=== PATIENT | male | born 1950 | race Caucasian/White ===

== ENCOUNTER 2017-04-21 14:42 | Outpatient (CLI) | payer MEDICARE, MEDICAID, SELFPAY ==
[2017-04-21 16:48] LABS: PHA INR Fingerstick 2.7 (0.9-1.1)
== END 2017-04-21 16:56 | disposition home or self-care (01) ==
LOC: ACC 14:45
PROVIDERS: Family Provider Internal Medicine; PCP Internal Medicine; Visit Provider Internal Medicine
DX: Z86.718 Personal history of other venous thrombosis and embolism (principal); Z79.01 Long term (current) use of anticoagulants; Z51.81 Encounter for therapeutic drug level monitoring
CPT/HCPCS: 85610; 99211; G0463

== ENCOUNTER 2017-06-06 12:28 | Outpatient (CLI) | payer MEDICARE, MEDICAID, SELFPAY ==
[2017-06-06 15:41] LABS: PHA INR Fingerstick 2.2 (0.9-1.1)
== END 2017-06-06 15:50 | disposition home or self-care (01) ==
LOC: ACC 12:29
PROVIDERS: Family Provider Internal Medicine; PCP Internal Medicine; Visit Provider Internal Medicine
DX: Z51.81 Encounter for therapeutic drug level monitoring (principal); Z86.718 Personal history of other venous thrombosis and embolism; Z86.711 Personal history of pulmonary embolism; Z79.01 Long term (current) use of anticoagulants
CPT/HCPCS: 85610; 99211; G0463

== ENCOUNTER 2017-07-19 10:45 | Outpatient (CLI) | payer MEDICARE, MEDICAID, SELFPAY ==
[2017-07-19 14:31] LABS: PHA INR Fingerstick 2.7 (0.9-1.1)
== END 2017-07-19 14:32 | disposition home or self-care (01) ==
LOC: ACC 10:46
PROVIDERS: Family Provider Internal Medicine; PCP Internal Medicine; Visit Provider Internal Medicine
DX: Z79.01 Long term (current) use of anticoagulants (principal); Z51.81 Encounter for therapeutic drug level monitoring; Z86.711 Personal history of pulmonary embolism
CPT/HCPCS: 85610; 99211; G0463

== ENCOUNTER 2017-09-05 10:45 | Outpatient (CLI) | payer MEDICARE, MEDICAID, SELFPAY ==
[2017-09-05 11:52] LABS: PHA INR Fingerstick 2.8 (0.9-1.1)
== END 2017-09-05 12:03 | disposition home or self-care (01) ==
PROVIDERS: Family Provider Internal Medicine; PCP Internal Medicine; Visit Provider Internal Medicine
DX: Z79.01 Long term (current) use of anticoagulants (principal); Z51.81 Encounter for therapeutic drug level monitoring; Z86.711 Personal history of pulmonary embolism
CPT/HCPCS: 85610; 99211; G0463

== ENCOUNTER 2017-10-17 10:52 | Outpatient (CLI) | payer MEDICARE, MEDICAID, SELFPAY ==
[2017-10-17 14:45] LABS: PHA INR Fingerstick 2.3 (0.9-1.1)
== END 2017-10-17 14:47 | disposition home or self-care (01) ==
LOC: ACC 10:53
PROVIDERS: PCP Internal Medicine; Visit Provider Internal Medicine
DX: Z79.01 Long term (current) use of anticoagulants (principal); Z51.81 Encounter for therapeutic drug level monitoring; Z86.711 Personal history of pulmonary embolism
CPT/HCPCS: 85610; 99211; G0463

== ENCOUNTER 2017-12-14 10:09 | Outpatient (CLI) | payer MEDICARE, MEDICAID, SELFPAY ==
[2017-12-14 10:54] LABS: PHA INR Fingerstick 2.2 (0.9-1.1)
== END 2017-12-14 10:55 | disposition home or self-care (01) ==
LOC: ACC 10:10
PROVIDERS: PCP Internal Medicine; Visit Provider Internal Medicine
DX: Z79.01 Long term (current) use of anticoagulants (principal)
CPT/HCPCS: 85610; 99211; G0463

== ENCOUNTER 2018-02-01 14:42 | Outpatient (CLI) | payer MEDICARE, MEDICAID, SELFPAY ==
[2018-02-01 15:23] LABS: PHA INR Fingerstick 1.8 (0.9-1.1)
== END 2018-02-01 15:29 | disposition home or self-care (01) ==
LOC: ACC 14:44
PROVIDERS: PCP Internal Medicine; Visit Provider Internal Medicine
DX: Z51.81 Encounter for therapeutic drug level monitoring (principal); Z79.01 Long term (current) use of anticoagulants
CPT/HCPCS: 85610; 99211; G0463

== ENCOUNTER 2018-03-03 09:27 | Outpatient (CLI) | payer MEDICARE, MEDICAID, SELFPAY | END 2018-03-03 10:51 | disposition home or self-care (01) | LOC: ACC 09:30 | PROVIDERS: PCP Internal Medicine; Visit Provider Internal Medicine | DX: Z51.81 Encounter for therapeutic drug level monitoring (principal); Z79.01 Long term (current) use of anticoagulants | CPT/HCPCS: 85610; 99211; G0463 ==

== ENCOUNTER 2018-04-14 09:41 | Outpatient (CLI) | payer MEDICARE, MEDICAID, SELFPAY ==
[2018-04-14 14:34] LABS: PHA INR Fingerstick 2.1 (0.9-1.1)
== END 2018-04-14 14:40 | disposition home or self-care (01) ==
LOC: ACC 09:43
PROVIDERS: PCP Internal Medicine; Visit Provider Internal Medicine
DX: Z51.81 Encounter for therapeutic drug level monitoring (principal); Z79.01 Long term (current) use of anticoagulants
CPT/HCPCS: 85610; 99211; G0463

== ENCOUNTER 2018-05-26 09:40 | Outpatient (CLI) | payer MEDICARE, MEDICAID, SELFPAY ==
[2018-05-26 16:05] LABS: PHA INR Fingerstick 2.3 (0.9-1.1)
== END 2018-05-26 16:08 | disposition home or self-care (01) ==
PROVIDERS: PCP Internal Medicine; Visit Provider Internal Medicine
DX: Z51.81 Encounter for therapeutic drug level monitoring (principal); Z79.01 Long term (current) use of anticoagulants; Z86.711 Personal history of pulmonary embolism
CPT/HCPCS: 85610; 99211; G0463

== ENCOUNTER 2018-07-05 10:42 | Outpatient (CLI) | payer MEDICARE, MEDICAID, SELFPAY ==
[2018-07-05 11:29] LABS: PHA INR Fingerstick 2.8 (0.9-1.1)
== END 2018-07-05 11:52 | disposition home or self-care (01) ==
LOC: ACC 10:43
PROVIDERS: PCP Internal Medicine; Visit Provider Internal Medicine
DX: Z51.81 Encounter for therapeutic drug level monitoring (principal); Z79.01 Long term (current) use of anticoagulants
CPT/HCPCS: 85610; 99211; G0463

== ENCOUNTER → 2018-07-31 14:34 | Outpatient (CLI) | payer MEDICARE, MEDICAID, SELFPAY ==
--- NOTE | 2018-07-31 14:46 | XR_ITS ---
XR chest 2V HISTORY: Hypertension, shortness of air, COPD ITS.REASON: HTN,COPD ORDERING PHYSICIAN: Constantine Lincoln PATIENT AGE: 68 years COMPARISON: 08/12/2014 FINDINGS: The cardiomediastinal silhouette and pulmonary vascularity are within normal limits. The lungs are clear without infiltrates, suspicious nodules, or pleural effusions. There are mild fibrotic changes in the anterior clear space. No acute bony abnormalities. IMPRESSION: No change with no acute finding.
[2018-07-31 14:54] LABS: Basophils # 0.1 K/mm3 (0-0.2); Basophils % 0.9 % (0.1-2.0); Eosinophils # 0.4 K/mm3 (0.0-0.4); Eosinophils % 3.8 % (0.1-12.0); Hematocrit 45.2 % (42.0-52.0); Hemoglobin 14.6 g/dL (14.1-18.0); Lymphocytes % 32.2 % (10-50); Mean Corpuscular HGB Conc 32.3 g/dL (31.8-35.4); Mean Corpuscular Hemoglobin 29.1 pg (27.0-31.2); Mean Platelet Volume 7.6 fl (7.4-10.4); Monocytes # 0.6 K/mm3 (0.1-1.0); Monocytes % 6.8 % (1.7-9.3); Neutrophils # 5.2 K/mm3 (1.8-7.8); Neutrophils % 56.3 % (37.0-80.0); Platelet Count 409 K/mm3 (142-424); Red Blood Count 5.02 M/mm3 (4.60-6.20); White Blood Count 9.2 K/mm3 (4.8-10.8)
[2018-07-31 15:18] LABS: Anion Gap 9.9 mEq/L (5-15); Blood Urea Nitrogen 15 mg/dL (7-18); Calcium 9.1 mg/dL (8.5-10.1); Carbon Dioxide 33 mmol/L (21.0-32.0); Chloride 99 mmol/L (98-107); Estimated Glomerular Filt Rate 66 ml/min (>60); GFR (African American) 80 ML/MIN (>60); Glucose 117 mg/dL (74-106); Potassium 3.9 mmoL/L (3.5-5.1); Sodium 138 mmol/L (136-145); Troponin I < 0.02 ng/ml (0.00-0.06)
--- NOTE | 2018-07-31 16:14 | CT_ITS ---
CT angio chest HISTORY: Chest pain, shortness of air, COPD ITS.REASON: CHEST PAIN,COPD ORDERING PHYSICIAN: Constantine Lincoln PATIENT AGE: 68 years COMPARISON: None TECHNIQUE: Axial images obtained following the administration of 75 mL of Optiray 350 . Sagittal, and coronal reformatted images are also generated and reviewed. All CT scans at the facility use one or more dose reduction, viz: automated exposure control, ma/kV adjustment per patient size (including targeted exams where dose is matched to indication, i.e. head), or iterative reconstruction technique. FINDINGS: There is no evidence of aortic aneurysm or dissection. There are coronary artery calcifications. No evidence of pulmonary embolus.. There are few small mediastinal and hilar lymph nodes. Largest node is in the precarinal region at 2.2 x 1.7 cm not significant change. Several lymph nodes contain calcification. There are scattered small nodular opacities in the lung bases posteriorly measuring up to 3 mm slightly more prominent than when compared to the previous exam possibly related to the technique. There are atelectatic or fibrotic changes in the left lung base medially. No effusions. No infiltrates. Upper abdominal images show severe stenosis of the proximal aspect of the celiac artery.. No acute bony anomalies. IMPRESSION: 1. No evidence of pulmonary embolus, aortic aneurysm, or aortic dissection. 2. There are scattered small pulmonary nodular opacities in the lung bases measuring up to 3 mm slightly more prominent than when compared to the previous exam. Consider 6 month follow-up. 3. 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 Coronary artery calcification
== END ==
PROVIDERS: Visit Provider Internal Medicine
DX: R07.9 Chest pain, unspecified; R06.02 Shortness of breath; I50.32 Chronic diastolic (congestive) heart failure; J44.9 Chronic obstructive pulmonary disease, unspecified
CPT/HCPCS: 36415; 71046; 71275; 80048; 83880; 84484; 85025; 93005; Q9967

== ENCOUNTER 2018-08-16 10:36 | Outpatient (CLI) | payer MEDICARE, MEDICAID, SELFPAY ==
[2018-08-16 12:05] LABS: PHA INR Fingerstick 2.3 (0.9-1.1)
== END 2018-08-16 15:07 | disposition home or self-care (01) ==
LOC: ACC 10:37
PROVIDERS: PCP Internal Medicine; Visit Provider Internal Medicine
DX: Z51.81 Encounter for therapeutic drug level monitoring (principal); Z79.01 Long term (current) use of anticoagulants
CPT/HCPCS: 85610; 99211; G0463

== ENCOUNTER 2018-10-10 09:41 | Outpatient (CLI) | payer MEDICARE, MEDICAID, SELFPAY ==
[2018-10-10 11:59] LABS: PHA INR Fingerstick 2.8 (0.9-1.1)
== END 2018-10-10 12:03 | disposition home or self-care (01) ==
LOC: ACC 09:42
PROVIDERS: PCP Internal Medicine; Visit Provider Internal Medicine
DX: Z51.81 Encounter for therapeutic drug level monitoring (principal); Z79.01 Long term (current) use of anticoagulants
CPT/HCPCS: 85610; 99211; G0463

== ENCOUNTER 2018-11-21 09:55 | Outpatient (CLI) | payer MEDICARE, MEDICAID, SELFPAY ==
[2018-11-21 14:35] LABS: PHA INR Fingerstick 2.6 (0.9-1.1)
== END 2018-11-21 14:42 | disposition home or self-care (01) ==
LOC: ACC 09:56
PROVIDERS: PCP Internal Medicine; Visit Provider Internal Medicine
DX: Z51.81 Encounter for therapeutic drug level monitoring (principal); Z79.01 Long term (current) use of anticoagulants; Z86.711 Personal history of pulmonary embolism
CPT/HCPCS: 85610; 99211; G0463

== ENCOUNTER 2019-01-12 10:57 | Outpatient (CLI) | payer MEDICARE, MEDICAID, SELFPAY ==
[2019-01-12 13:50] LABS: PHA INR Fingerstick 3.5 (0.9-1.1)
== END 2019-01-12 13:53 | disposition home or self-care (01) ==
LOC: ACC 10:58
PROVIDERS: PCP Internal Medicine; Visit Provider Internal Medicine
DX: Z51.81 Encounter for therapeutic drug level monitoring (principal); Z79.01 Long term (current) use of anticoagulants; Z86.718 Personal history of other venous thrombosis and embolism
CPT/HCPCS: 85610; 99211; G0463

== ENCOUNTER 2019-01-25 10:49 | Outpatient (CLI) | payer MEDICARE, MEDICAID, SELFPAY | END 2019-01-25 11:51 | disposition home or self-care (01) | LOC: ACC 10:50 | PROVIDERS: PCP Internal Medicine; Visit Provider Internal Medicine | DX: Z51.81 Encounter for therapeutic drug level monitoring (principal); Z79.01 Long term (current) use of anticoagulants | CPT/HCPCS: 85610; 99211; G0463 ==

== ENCOUNTER 2019-02-15 10:24 | Outpatient (CLI) | payer MEDICARE, MEDICAID, SELFPAY ==
[2019-02-15 11:25] LABS: PHA INR Fingerstick 2.1 (0.9-1.1)
== END 2019-02-15 11:28 | disposition home or self-care (01) ==
LOC: ACC 10:25
PROVIDERS: PCP Internal Medicine; Visit Provider Internal Medicine
DX: Z51.81 Encounter for therapeutic drug level monitoring (principal); Z79.01 Long term (current) use of anticoagulants
CPT/HCPCS: 85610; 99211; G0463

== ENCOUNTER 2019-03-14 10:41 | Outpatient (CLI) | payer MEDICARE, MEDICAID, SELFPAY ==
[2019-03-14 11:29] LABS: PHA INR Fingerstick 1.9 (0.9-1.1)
== END 2019-03-14 11:32 | disposition home or self-care (01) ==
LOC: ACC 10:42
PROVIDERS: PCP Internal Medicine; Visit Provider Internal Medicine
DX: Z51.81 Encounter for therapeutic drug level monitoring (principal); Z79.01 Long term (current) use of anticoagulants
CPT/HCPCS: 85610; 99211; G0463

== ENCOUNTER 2019-04-10 10:42 | Outpatient (CLI) | payer MEDICARE, MEDICAID, SELFPAY ==
[2019-04-10 14:09] LABS: PHA INR Fingerstick 2.6 (0.9-1.1)
== END 2019-04-10 14:11 | disposition home or self-care (01) ==
LOC: ACC 10:44
PROVIDERS: PCP Internal Medicine; Visit Provider Internal Medicine
DX: Z51.81 Encounter for therapeutic drug level monitoring (principal); Z79.01 Long term (current) use of anticoagulants
CPT/HCPCS: 85610; 99211; G0463

== ENCOUNTER 2019-05-29 10:39 | Outpatient (CLI) | payer MEDICARE, MEDICAID, SELFPAY ==
[2019-05-29 15:48] LABS: PHA INR Fingerstick 2.6 (0.9-1.1)
== END 2019-05-29 16:09 | disposition home or self-care (01) ==
LOC: ACC 10:40
PROVIDERS: PCP Internal Medicine; Visit Provider Internal Medicine
DX: Z51.81 Encounter for therapeutic drug level monitoring (principal); Z79.01 Long term (current) use of anticoagulants
CPT/HCPCS: 85610; 99211; G0463

== ENCOUNTER 2019-07-24 12:42 | Outpatient (CLI) | payer MEDICARE, MEDICAID, SELFPAY ==
[2019-07-24 13:49] LABS: PHA INR Fingerstick 1.9 (0.9-1.1)
== END 2019-07-24 14:41 | disposition home or self-care (01) ==
LOC: ACC 12:43
PROVIDERS: PCP Internal Medicine; Visit Provider Internal Medicine
DX: Z51.81 Encounter for therapeutic drug level monitoring (principal); Z79.01 Long term (current) use of anticoagulants; Z86.718 Personal history of other venous thrombosis and embolism
CPT/HCPCS: 85610; 99211; G0463

== ENCOUNTER 2019-09-17 10:43 | Outpatient (CLI) | payer MEDICARE, MEDICAID, SELFPAY ==
[2019-09-17 11:21] LABS: PHA INR Fingerstick 2.4 (0.9-1.1)
== END 2019-09-17 11:22 | disposition home or self-care (01) ==
LOC: ACC 10:44
PROVIDERS: PCP Internal Medicine; Visit Provider Internal Medicine
DX: Z51.81 Encounter for therapeutic drug level monitoring (principal); Z79.01 Long term (current) use of anticoagulants
CPT/HCPCS: 85610; 99211; G0463

== ENCOUNTER 2019-10-30 10:30 | Outpatient (CLI) | payer MEDICARE, MEDICAID, SELFPAY ==
[2019-10-30 11:15] LABS: PHA INR Fingerstick 2.4 (0.9-1.1)
== END 2019-10-30 11:16 | disposition home or self-care (01) ==
LOC: ACC 10:38
PROVIDERS: PCP Internal Medicine; Visit Provider Internal Medicine
DX: Z51.81 Encounter for therapeutic drug level monitoring (principal); Z79.01 Long term (current) use of anticoagulants
CPT/HCPCS: 85610; 99211; G0463

== ENCOUNTER 2019-12-13 10:56 | Outpatient (CLI) | payer MEDICARE, MEDICAID, SELFPAY ==
[2019-12-13 11:39] LABS: PHA INR Fingerstick 2.6 (0.9-1.1)
== END 2019-12-13 11:41 | disposition home or self-care (01) ==
LOC: ACC 10:57
PROVIDERS: PCP Internal Medicine; Visit Provider Internal Medicine
DX: Z79.01 Long term (current) use of anticoagulants (principal)
CPT/HCPCS: 85610; 99211; G0463

== ENCOUNTER → 2019-12-25 15:36 | Outpatient (CLI) | payer MEDICARE, MEDICAID, SELFPAY ==
--- NOTE | 2019-12-25 15:44 | XR_ITS ---
PROCEDURE: XR LUMBAR SPINE MIN 4V CLINICAL INDICATION: LUMBAR BACK PAIN COMPARISON: No exams were available for comparison FINDINGS: Normal alignment. No acute fracture or dislocation. There is degenerative disc disease from L3-S1 which is worse at L4-5 and L5-S1. Anterior osteophytes are present at these levels as well. There is mild facet arthritic changes L5-S1. Other findings:Vascular calcification noted. IMPRESSION: Degenerative disc disease with facet arthritic change Dictated by: Fan Cho MD 12/25/2019 16:04 Fan Cho MD in [place] 12/25/2019 16:04
== END ==
PROVIDERS: PCP Internal Medicine; Visit Provider Internal Medicine
DX: M54.5 Low back pain (principal)
CPT/HCPCS: 72110

== ENCOUNTER 2020-01-24 10:56 | Outpatient (CLI) | payer MEDICARE, MEDICAID, SELFPAY ==
[2020-01-24 13:03] LABS: PHA INR Fingerstick 2.2 (0.9-1.1)
== END 2020-01-24 14:52 | disposition home or self-care (01) ==
LOC: ACC 11:00
PROVIDERS: PCP Internal Medicine; Visit Provider Internal Medicine
DX: Z51.81 Encounter for therapeutic drug level monitoring (principal); Z79.01 Long term (current) use of anticoagulants
CPT/HCPCS: 85610; 99211; G0463

== ENCOUNTER 2020-03-06 10:53 | Outpatient (CLI) | payer MEDICARE, MEDICAID, SELFPAY ==
[2020-03-06 11:29] LABS: PHA INR Fingerstick 2.8 (0.9-1.1)
== END 2020-03-06 12:01 | disposition home or self-care (01) ==
LOC: ACC 10:55
PROVIDERS: PCP Internal Medicine; Visit Provider Internal Medicine
DX: Z51.81 Encounter for therapeutic drug level monitoring (principal); Z79.01 Long term (current) use of anticoagulants
CPT/HCPCS: 85610; 99211; G0463

== ENCOUNTER 2020-03-11 08:18 | Day surgery (SDC) | payer MEDICARE, MEDICAID, SELFPAY ==
[2020-03-04 10:46] VITALS: BMI 45.4
[2020-03-11 09:09] LABS: Coronavirus 19 IgG Antibody Negative (Negative); Coronavirus 19 IgM Antibody Negative (Negative)
[2020-03-11 09:40] VITALS: BP 123/58; PULSE 91; RESP 18; TEMP 36.5; O2SAT 95
[2020-03-11 10:06] LABS: POC Glucose,Bedside 113 (70-110)
[2020-03-11 10:55] VITALS: BP 143/73; PULSE 91; RESP 16; O2SAT 96
[2020-03-11 11:00] VITALS: BP 145/71; PULSE 93; RESP 16; O2SAT 94
[2020-03-11 11:05] VITALS: BP 151/67; PULSE 71; RESP 16; O2SAT 95
[2020-03-11 11:10] VITALS: BP 150/69; PULSE 73; RESP 16; O2SAT 95
[2020-03-11 11:12] VITALS: BP 144/82; PULSE 99; RESP 18; TEMP 36.4; O2SAT 93
== END 2020-03-11 11:26 | disposition home or self-care (01) ==
LOC: OUTP 08:20
PROVIDERS: PCP Internal Medicine; Visit Provider Ophthalmology
PROC: (CPT 66821; principal; 2020-03-11 09:00)
DX: H25.812 Combined forms of age-related cataract, left eye (principal); Z96.1 Presence of intraocular lens; H26.491 Other secondary cataract, right eye; E11.9 Type 2 diabetes mellitus without complications; Z88.8 Allergy status to other drugs, medicaments and biological substances; M19.90 Unspecified osteoarthritis, unspecified site; I48.91 Unspecified atrial fibrillation; J44.9 Chronic obstructive pulmonary disease, unspecified; I25.10 Atherosclerotic heart disease of native coronary artery without angina pectoris; H91.90 Unspecified hearing loss, unspecified ear; R03.0 Elevated blood-pressure reading, without diagnosis of hypertension; Z79.899 Other long term (current) drug therapy
CPT/HCPCS: 66821; 66984; 36415; 82962; 86328; V2632

== ENCOUNTER 2020-04-22 15:09 | Outpatient (CLI) | payer MEDICARE, MEDICAID, SELFPAY ==
[2020-04-22 16:31] LABS: PHA INR Fingerstick 3.3 (0.9-1.1)
== END 2020-04-22 16:37 | disposition home or self-care (01) ==
LOC: ACC 15:13
PROVIDERS: PCP Internal Medicine; Visit Provider Internal Medicine
DX: Z51.81 Encounter for therapeutic drug level monitoring (principal); Z79.01 Long term (current) use of anticoagulants
CPT/HCPCS: 85610; 99211; G0463

== ENCOUNTER 2020-05-16 10:32 | Outpatient (CLI) | payer MEDICARE, MEDICAID, SELFPAY ==
[2020-05-16 14:25] LABS: PHA INR Fingerstick 3.2 (0.9-1.1)
== END 2020-05-16 14:28 | disposition home or self-care (01) ==
LOC: ACC 10:34
PROVIDERS: PCP Internal Medicine; Visit Provider Internal Medicine
DX: Z51.81 Encounter for therapeutic drug level monitoring (principal); Z79.01 Long term (current) use of anticoagulants
CPT/HCPCS: 85610; 99211; G0463

== ENCOUNTER 2020-06-06 10:50 | Outpatient (CLI) | payer MEDICARE, MEDICAID, SELFPAY ==
[2020-06-06 15:11] LABS: PHA INR Fingerstick 2.2 (0.9-1.1)
== END 2020-06-06 15:13 | disposition home or self-care (01) ==
LOC: ACC 10:54
PROVIDERS: PCP Internal Medicine; Visit Provider Internal Medicine
DX: Z51.81 Encounter for therapeutic drug level monitoring (principal); Z79.01 Long term (current) use of anticoagulants
CPT/HCPCS: 85610; 99211; G0463

== ENCOUNTER → 2020-06-19 10:44 | Outpatient (CLI) | payer MEDICARE, MEDICAID, SELFPAY ==
--- NOTE | 2020-06-19 | CA_ITS ---
APPROVED REPORT Meat Hostess: JESSE Laterality: Bilateral Study Quality: Technically Limited, Due to body habitus. 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 Risk Factors Hypertension: Hyperlipidemia CAD, Diabetes, Doppler Spectral Velocity Analysis ECA (R) 110.00/9.70 cm/s ECA (L) 107.70/8.20 cm/s dICA (R) 78.60/17.20 cm/s dICA (L) 86.50/18.00 cm/s Edita (R) 86.80/15.70 cm/s Edita (L) 88.30/27.40 cm/s pICA (R) 65.80/10.50 cm/s pICA (L) 84.00/20.60 cm/s dCCA (R) 71.10/10.70 cm/s dCCA (L) 97.30/19.50 cm/s pCCA (R) 69.50/9.10 cm/s pCCA (L) 107.00/17.20 cm/s Vert (R) 29.20/9.00 cm/s Vert (L) 46.40/12.00 cm/s ICA/CCA 1.20 ICA/CCA 0.91 Findings Duplex evaluation demonstrates stenosis of the right proximal internal carotid artery <20% with PSV <140 cm/sec, EDV <100 cm/sec, and IC/CC Ratio <4.0. Duplex evaluation demonstrates antegrade flow of the bilateral Vertebral Arteries.Duplex evaluation demonstrates stenosis of the left proximal internal carotid artery <20% with PSV <140 cm/sec, EDV <100 cm/sec, and IC/CC Ratio <4.0. Electronically signed by : Fan Cho MD 06/19/2020 18:32:17
== END ==
PROVIDERS: PCP Internal Medicine; Visit Provider Internal Medicine
DX: I65.23 Occlusion and stenosis of bilateral carotid arteries (principal)
CPT/HCPCS: 93880

== ENCOUNTER 2020-06-27 14:04 | Outpatient (CLI) | payer MEDICARE, MEDICAID, SELFPAY ==
[2020-06-27 14:36] LABS: PHA INR Fingerstick 3.5 (0.9-1.1)
== END 2020-06-27 14:38 | disposition home or self-care (01) ==
LOC: ACC 14:04
PROVIDERS: PCP Internal Medicine; Visit Provider Internal Medicine
DX: Z51.81 Encounter for therapeutic drug level monitoring (principal); Z79.01 Long term (current) use of anticoagulants
CPT/HCPCS: 85610; 99211; G0463

== ENCOUNTER 2020-07-18 10:48 | Outpatient (CLI) | payer MEDICARE, MEDICAID, SELFPAY ==
[2020-07-18 16:17] LABS: PHA INR Fingerstick 2.5 (0.9-1.1)
== END 2020-07-18 16:23 | disposition home or self-care (01) ==
LOC: ACC 10:49
PROVIDERS: PCP Internal Medicine; Visit Provider Internal Medicine
DX: Z51.81 Encounter for therapeutic drug level monitoring (principal); Z79.01 Long term (current) use of anticoagulants
CPT/HCPCS: 85610; 99211; G0463

== ENCOUNTER → 2020-08-22 14:50 | Outpatient (CLI) | payer MEDICARE, MEDICAID, SELFPAY ==
--- NOTE | 2020-08-22 14:59 | XR_ITS ---
PROCEDURE: XR CHEST 2V CLINICAL HISTORY: COUGH, SOA COMPARISON: CR CXR CHEST(2 VIEWS-NOT PORTABLE) from 04/24/2013 CR CXR CHEST(2 VIEWS-NOT PORTABLE) from 07/16/2013 CR CXR CHEST(2 VIEWS-NOT PORTABLE) from 08/12/[address] angio chest from 07/31/2018 FINDINGS: The cardiomediastinal silhouette and pulmonary vascularity are within normal limits. The lungs are clear without infiltrates, suspicious nodules, or pleural effusions. No acute bony abnormalities. IMPRESSION: No acute findings. Dictated by: Fan Cho MD 08/22/2020 15:36 Fan Cho MD in [place] 08/22/2020 15:36
[2020-08-22 15:27] LABS: NT Pro Brain Natriuretic Pep. 187 pg/mL (0-125)
== END ==
PROVIDERS: Visit Provider Internal Medicine
DX: R06.02 Shortness of breath (principal); R05 Cough
CPT/HCPCS: 36415; 71046; 83880

== ENCOUNTER 2020-09-05 10:49 | Outpatient (CLI) | payer MEDICARE, MEDICAID, SELFPAY ==
[2020-09-05 12:59] LABS: PHA INR Fingerstick 2.7 (0.9-1.1)
== END 2020-09-05 13:10 | disposition home or self-care (01) ==
LOC: ACC 10:49
PROVIDERS: PCP Internal Medicine; Visit Provider Internal Medicine
DX: Z51.81 Encounter for therapeutic drug level monitoring (principal); Z79.01 Long term (current) use of anticoagulants
CPT/HCPCS: 85610; 99211; G0463

== ENCOUNTER 2020-10-15 10:55 | Outpatient (CLI) | payer MEDICARE, MEDICAID, SELFPAY | END 2020-10-15 12:00 | disposition home or self-care (01) | PROVIDERS: PCP Internal Medicine; Visit Provider Internal Medicine | DX: Z51.81 Encounter for therapeutic drug level monitoring (principal); Z79.01 Long term (current) use of anticoagulants | CPT/HCPCS: 85610; 99211; G0463 ==

== ENCOUNTER 2020-11-26 10:49 | Outpatient (CLI) | payer MEDICARE, MEDICAID, SELFPAY ==
[2020-11-26 14:35] LABS: PHA INR Fingerstick 3.7 (0.9-1.1)
== END 2020-11-26 14:39 | disposition home or self-care (01) ==
LOC: ACC 10:49
PROVIDERS: PCP Internal Medicine; Visit Provider Internal Medicine
DX: Z51.81 Encounter for therapeutic drug level monitoring (principal); Z79.01 Long term (current) use of anticoagulants
CPT/HCPCS: 85610; 99211; G0463

== ENCOUNTER 2020-12-10 11:03 | Outpatient (CLI) | payer MEDICARE, MEDICAID, SELFPAY ==
[2020-12-11 15:27] LABS: PHA INR Fingerstick 3.2 (0.9-1.1)
== END 2020-12-11 16:17 | disposition home or self-care (01) ==
LOC: ACC 11:06
PROVIDERS: PCP Internal Medicine; Visit Provider Internal Medicine
DX: Z51.81 Encounter for therapeutic drug level monitoring (principal); Z79.01 Long term (current) use of anticoagulants
CPT/HCPCS: 85610; 99211; G0463

== ENCOUNTER 2020-12-30 11:39 | Outpatient (CLI) | payer MEDICARE, MEDICAID, SELFPAY ==
[2020-12-30 14:52] LABS: PHA INR Fingerstick 2.8 (0.9-1.1)
== END 2020-12-30 16:58 | disposition home or self-care (01) ==
LOC: ACC 11:41
PROVIDERS: PCP Internal Medicine; Visit Provider Internal Medicine
DX: Z51.81 Encounter for therapeutic drug level monitoring (principal); Z79.01 Long term (current) use of anticoagulants
CPT/HCPCS: 85610; 99211; G0463

== ENCOUNTER 2021-01-23 10:41 | Outpatient (CLI) | payer MEDICARE, MEDICAID, SELFPAY ==
[2021-01-23 13:01] LABS: PHA INR Fingerstick 2.1 (0.9-1.1)
== END 2021-01-23 13:11 | disposition home or self-care (01) ==
LOC: ACC 10:42
PROVIDERS: PCP Internal Medicine; Visit Provider Internal Medicine
DX: Z51.81 Encounter for therapeutic drug level monitoring (principal); Z79.01 Long term (current) use of anticoagulants
CPT/HCPCS: 85610; 99211; G0463

== ENCOUNTER → 2021-02-02 11:31 | Outpatient (CLI) | payer MEDICARE, MEDICAID, SELFPAY | PROVIDERS: PCP Internal Medicine; Visit Provider Specialist | DX: I10 Essential (primary) hypertension (principal); R40.0 Somnolence; R06.83 Snoring; E66.9 Obesity, unspecified; G47.30 Sleep apnea, unspecified | CPT/HCPCS: G0399 ==

== ENCOUNTER 2021-03-03 12:28 | Outpatient (CLI) | payer MEDICARE, MEDICAID, SELFPAY ==
[2021-03-03 13:49] LABS: PHA INR Fingerstick 3.7 (0.9-1.1)
== END 2021-03-03 13:55 | disposition home or self-care (01) ==
LOC: ACC 12:29
PROVIDERS: PCP Internal Medicine; Visit Provider Internal Medicine
DX: Z51.81 Encounter for therapeutic drug level monitoring (principal); Z79.01 Long term (current) use of anticoagulants
CPT/HCPCS: 85610; 99211; G0463

== ENCOUNTER → 2021-03-11 18:17 | Outpatient (CLI) | payer MEDICARE, MEDICAID, SELFPAY ==
[2021-03-11 19:22] LABS: Hemoglobin A1C 6.7 % (4.0-6.0)
[2021-03-11 20:07] LABS: Alanine Aminotransferase 25 U/L (12-78); Albumin Level 4.2 g/dl (3.5-5.0); Albumin/Globulin Ratio 1.2 (1.1-1.8); Alkaline Phosphatase 138 U/L (38-126); Anion Gap 13.4 mEq/L (5-15); Aspartate Amino Transferase 39 U/L (17-59); Bilirubin,Total 0.3 mg/dl (0.2-1.3); Blood Urea Nitrogen 20 mg/dl (9-20); Calcium 8.8 mg/dl (8.4-10.2); Carbon Dioxide 34 mmol/L (22.0-30.0); Chloride 93 mmol/L (98-107); Chol/HDL Ratio 3.5 (1-3.5); Cholesterol 163 mg/dl (140-200); Estimated Glomerular Filt Rate 66 ml/min (>60); GFR (African American) 80 ML/MIN (>60); Globulin 3.4 g/dL (1.3-3.2); Glucose 121 mg/dl (74-100); HDL Cholesterol 46 mg/dl (40-60); Potassium 3.4 mmoL/L (3.5-5.1); Sodium 137 mmol/L (136-145); Total Protein,Serum 7.6 g/dl (6.3-8.2); Triglycerides 117 mg/dl (30-150); Uric Acid 7.8 mg/dl (3.5-8.5); VLDL Cholesterol 23 mg/dL (0-40)
[2021-03-11 20:18] LABS: Direct LDL Cholesterol 89.05 mg/dL (100-129)
== END ==
PROVIDERS: Visit Provider Internal Medicine
DX: I10 Essential (primary) hypertension (principal); I48.0 Paroxysmal atrial fibrillation; I50.32 Chronic diastolic (congestive) heart failure; E11.51 Type 2 diabetes mellitus with diabetic peripheral angiopathy without gangrene; E11.42 Type 2 diabetes mellitus with diabetic polyneuropathy; N39.43 Post-void dribbling; N40.1 Benign prostatic hyperplasia with lower urinary tract symptoms
CPT/HCPCS: 80053; 80061; 82043; 83036; 84550

== ENCOUNTER 2021-03-13 00:21 | Emergency (ER) | payer MEDICARE, MEDICAID, SELFPAY ==
[2021-03-13] VITALS (14 sets, daily range): BP systolic 99–198; BP diastolic 47–94; PULSE 108–124; RESP 15–26; TEMP 36.8; O2SAT 90–95; BMI 45.1
--- NOTE | 2021-03-13 00:19 | ECG_ITS ---
APPROVED REPORT Exam: Resting ECG HR:119 bpm ECG Measurements Heart Rate 119 AXES QRSd 102 QRS 115 QT 476 T 68 QTc 669 Conclusion Atrial fibrillation with rapid ventricular response with premature ventricular or aberrantly conducted complexes Right axis deviation Abnormal ECG Electronically signed by : Amadou Rachel MD 03/14/2021 08:38:11
--- NOTE | 2021-03-13 00:33 | XR_ITS ---
PROCEDURE INFORMATION: Exam: XR Chest Exam date and time: 03/13/2021 12:33 AM Age: 70 years old Clinical indication: Cough and dyspnea; Additional info: Dyspnea, cough TECHNIQUE: Imaging protocol: XR of the chest. Views: 2 views. COMPARISON: CR XR CHEST 2V 08/22/2020 3:21 PM FINDINGS: Lungs: Mild hyperinflation and interstitial coarsening suggesting COPD. No focal consolidation. Pleural spaces: No pleural effusion. No pneumothorax. Heart/Mediastinum: Heart size within normal limits. Mild aortic atherosclerosis. Bones/joints: Spondylosis. IMPRESSION: COPD. No acute finding.
[2021-03-13 00:40] LABS: Coronavirus 19, PCR Not Detected (NotDetected); Influenza A, PCR Not Detected (NotDetected); Influenza B, PCR Not Detected (NotDetected)
[2021-03-13 00:48] LABS: Basophils # 0.1 K/mm3 (0-0.2); Basophils % 0.6 % (0.1-2.0); Eosinophils # 0.1 K/mm3 (0.0-0.4); Eosinophils % 0.4 % (0.1-12.0); Hematocrit 42.3 % (42.0-52.0); Hemoglobin 14.3 g/dL (14.1-18.0); Lymphocytes # 2.1 K/mm3 (0.7-4.5); Lymphocytes % 14.5 % (10-50); Mean Corpuscular HGB Conc 33.9 g/dL (31.8-35.4); Mean Corpuscular Hemoglobin 30.1 pg (27.0-31.2); Mean Corpuscular Volume 88.9 fl (80-94); Mean Platelet Volume 8.6 fl (7.4-10.4); Monocytes # 0.9 K/mm3 (0.1-1.0); Monocytes % 6.3 % (1.7-9.3); Neutrophils # 11.1 K/mm3 (1.8-7.8); Neutrophils % 78.2 % (37.0-80.0); Platelet Count 357 K/mm3 (142-424); Red Blood Count 4.75 M/mm3 (4.60-6.20); Red Cell Distribution Width 14.2 % (11.5-17.5); White Blood Count 14.2 K/mm3 (4.8-10.8)
[2021-03-13 00:55] LABS: Alanine Aminotransferase 38 U/L (12-78); Albumin Level 4.3 g/dl (3.5-5.0); Albumin/Globulin Ratio 1.2 (1.1-1.8); Alkaline Phosphatase 136 U/L (38-126); Anion Gap 12.8 mEq/L (5-15); Aspartate Amino Transferase 65 U/L (17-59); Bilirubin,Total 0.3 mg/dl (0.2-1.3); Blood Urea Nitrogen 25 mg/dl (9-20); Calcium 8.9 mg/dl (8.4-10.2); Carbon Dioxide 31 mmol/L (22.0-30.0); Chloride 94 mmol/L (98-107); Creatinine Clearance Estimated 50 mL/min (50-200); Estimated Glomerular Filt Rate 60 ml/min (>60); GFR (African American) 72 ML/MIN (>60); Globulin 3.7 g/dL (1.3-3.2); Glucose 169 mg/dl (74-100); Sodium 135 mmol/L (136-145)
[2021-03-13 01:01] LABS: C-Reactive Protein 33.2 mg/L (0-4)
[2021-03-13 01:02] LABS: Potassium 2.8 mmoL/L (3.5-5.1)
--- NOTE | 2021-03-13 01:07 | PC.NURSE ---
received critical potassium 2.8. notified
[2021-03-13 01:09] LABS: NT Pro Brain Natriuretic Pep. 300 pg/mL (0-125)
[2021-03-13 01:10] LABS: Troponin I < 0.01 ng/ml (0.00-0.034)
[2021-03-13 01:12] LABS: Erythrocyte Sedimentation Rate 52 mm/hr (0-20)
[2021-03-13 01:15] LABS: Procalcitonin 0.258 ng/mL (0.0-2.0)
[2021-03-13 01:20] LABS: INR 1.83 (0.9-1.1); Prothrombin Time 19.8 seconds (10.1-12.5)
[2021-03-13 01:35] LABS: Magnesium 1.7 mg/dl (1.6-2.3)
--- NOTE | 2021-03-13 02:33 | HMH.EDSOB ---
ED Disposition Clinical Impression: Acute exacerbation of chronic obstructive airways disease, Hypokalemia, SIRS (systemic inflammatory response syndrome) Disposition: Home, Self-Care Condition on Discharge: Good Instructions: DI for Chronic Obstructive Pulmonary Disease Additional Instructions: use meds and call your pcp for follow up Prescriptions: Benzonatate [Benzonatate 100mg cap] 100 mg PO TID #21 cap Transmission Status: Pending to Clinic [facility] levoFLOXacin [Levaquin 500mg tab] 500 mg PO DAILY #7 tab Transmission Status: Pending to Clinic [facility] predniSONE [Prednisone 20mg Tab] 20 mg PO BID #10 tab Transmission Status: Pending to Clinic [facility] Referrals: Constantine Lincoln [Primary Care Provider] - - Critical Care Critical Care Time: No Attestation: On 03/13/21, the high probability of a clinically significant, sudden or life threatening deterioration of the following system(s) required my full and direct attention, intervention and personal management. The time I documented below is in addition to time spent performing reported procedures but includes the following listed in this critical care notation. Medical Decision Making - Medical Records Medical records reviewed: Yes: I reviewed the patient's medical records. - Asa Inquiry Pt receiving controlled substance: No Vital Signs: 03/13/21 00:25 03/13/21 01:00 03/13/21 01:02 Temperature 98.3 F Temperature Source Oral Pulse Rate 119 H 120 H Pulse Rate [Right Brachial] 118 H Respiratory Rate 24 18 Blood Pressure 133/70 Blood Pressure [Right Arm] 148/72 H Blood Pressure Mean [Right Arm] 97 Blood Pressure Source [Right Arm] Automatic Cuff Blood Pressure Position [Right Arm] Sitting 02 Sat by Pulse Oximetry 92 L 92 L Oxygen Delivery Method Room Air Room Air 03/13/21 01:31 03/13/21 02:30 03/13/21 03:00 Temperature Temperature Source Pulse Rate 118 H 115 H 117 H Pulse Rate [Right Brachial] Respiratory Rate 25 H 15 19 Blood Pressure 198/94 H 147/72 H 101/47 L Blood Pressure [Right Arm] Blood Pressure Mean [Right Arm] Blood Pressure Source [Right Arm] Blood Pressure Position [Right Arm] 02 Sat by Pulse Oximetry 94 L 93 L 92 L Oxygen Delivery Method Room Air 03/13/21 03:30 03/13/21 04:00 03/13/21 04:31 Temperature Temperature Source Pulse Rate 116 H 124 H 120 H Pulse Rate [Right Brachial] Respiratory Rate 18 20 26 H Blood Pressure 118/54 L 127/73 99/53 L Blood Pressure [Right Arm] Blood Pressure Mean [Right Arm] Blood Pressure Source [Right Arm] Blood Pressure Position [Right Arm] 02 Sat by Pulse Oximetry 91 L 95 90 L Oxygen Delivery Method 03/13/21 05:00 03/13/21 05:30 03/13/21 06:00 Temperature Temperature Source Pulse Rate 114 H 109 H 110 H Pulse Rate [Right Brachial] Respiratory Rate 19 22 19 Blood Pressure 115/59 L 113/64 123/59 L Blood Pressure [Right Arm] Blood Pressure Mean [Right Arm] Blood Pressure Source [Right Arm] Blood Pressure Position [Right Arm] 02 Sat by Pulse Oximetry 91 L 91 L 91 L Oxygen Delivery Method 03/13/21 06:30 Temperature Temperature Source Pulse Rate 108 H Pulse Rate [Right Brachial] Respiratory Rate 18 Blood Pressure 149/69 H Blood Pressure [Right Arm] Blood Pressure Mean [Right Arm] Blood Pressure Source [Right Arm] Blood Pressure Position [Right Arm] 02 Sat by Pulse Oximetry 91 L Oxygen Delivery Method - Lab Data Lab results reviewed: Yes: I reviewed the patient's lab results. Lab Results 03/13/21 00:29: WBC 14.2 H, RBC 4.75, Hgb 14.3, Hct 42.3, MCV 88.9, MCH 30.1, MCHC 33.9, RDW 14.2, Plt Count 357, MPV 8.6, Neut % (Auto) 78.2, Lymph % (Auto) 14.5, Milam % (Auto) 6.3, Eos % (Auto) 0.4, Baso % (Auto) 0.6, Neut # (Auto) 11.1 H, Lymph # (Auto) 2.1, Milam # (Auto) 0.9, Eos # (Auto) 0.1, Baso # (Auto) 0.1 03/13/21 00:29: Sodium 135 L, Potassium 2.8 L*, Chl
[2021-03-13 03:07] LABS: Lactic Acid 2.2 mmol/L (0.7-2.1)
[2021-03-13 06:53] LABS: Reflex Lactic Add Lactic Reflex
== END 2021-03-13 08:07 | disposition home or self-care (01) ==
PROVIDERS: Emergency Provider Emergency Medicine; PCP Internal Medicine
DX: J44.1 Chronic obstructive pulmonary disease with (acute) exacerbation (principal); R65.10 Systemic inflammatory response syndrome (SIRS) of non-infectious origin without acute organ dysfunction; E87.6 Hypokalemia; I25.2 Old myocardial infarction; I10 Essential (primary) hypertension; E11.9 Type 2 diabetes mellitus without complications; E78.5 Hyperlipidemia, unspecified; Z20.822 Contact with and (suspected) exposure to COVID-19; Z79.899 Other long term (current) drug therapy
CPT/HCPCS: 71046; 80053; 83605; 83735; 83880; 84145; 84484; 85025; 85610; 85651; 86140; 87040; 87070; 87205; 93005; 96365; 96366; 96367; 96375; 99284; C9803; J0456; U0003; U0005

== ENCOUNTER 2021-03-15 15:55 | Emergency (ER) | payer MEDICARE, MEDICAID, SELFPAY ==
[2021-03-15 16:13] VITALS: BP 122/70; PULSE 113; RESP 18; TEMP 36.8; O2SAT 93; BMI 42.5
--- NOTE | 2021-03-15 16:19 | XR_ITS ---
PROCEDURE INFORMATION: Exam: XR Chest Exam date and time: 03/15/2021 4:19 PM Age: 70 years old Clinical indication: Shortness of breath; Additional info: SOA TECHNIQUE: Imaging protocol: XR of the chest. Views: 1 view. COMPARISON: CR XR CHEST 2V 03/13/2021 12:33 AM FINDINGS: Lungs: Mild hyperexpansion with COPD. No consolidation. Pleural spaces: Unremarkable. No pleural effusion. No pneumothorax. Heart/Mediastinum: Unremarkable. No cardiomegaly. Bones/joints: Unremarkable. IMPRESSION: 1. No acute findings. 2. Stable from comparison.
[2021-03-15 16:45] LABS: ABG Base Excess 5.7 mmol/L (-2.4-2.3); ABG HCO3 28.9 mmhg (22.0-26.0); ABG Oxygen Saturation 92 % (90-100); ABG PCO2 38.1 mmhg (35.0-45.0); ABG PO2 59.5 mmhg (80-100); ABG TCO2 30.1 mmhg (23-27)
[2021-03-15 16:46] LABS: Allen's Test Acceptable; Source Right Radial
[2021-03-15 17:01] VITALS: BP 156/85; PULSE 111; RESP 17; O2SAT 93
--- NOTE | 2021-03-15 17:06 | HMH.EDGENADL ---
ED Disposition Clinical Impression: COPD exacerbation Disposition: Home, Self-Care Condition on Discharge: Good Instructions: DI for Chronic Obstructive Pulmonary Disease Additional Instructions: Please follow-up with your primary care physician in 2 to 3 days for further management. Continue to take your prednisone and levofloxacin as prescribed. You have also been given an MDI inhaler please take as needed. Please utilize your CPAP machine when available. Please return back to the emergency department for any concerning symptoms such as difficulty breathing, chest pain or any other concerning symptoms. Also please discuss with your doctor regarding starting an anxiolytic for your anxiety. Referrals: Constantine Lincoln [Primary Care Provider] - Time of Disposition: 18:00 - Critical Care Critical Care Time: No Attestation: On 03/15/21, the high probability of a clinically significant, sudden or life threatening deterioration of the following system(s) required my full and direct attention, intervention and personal management. The time I documented below is in addition to time spent performing reported procedures but includes the following listed in this critical care notation. Medical Decision Making - Medical Records Medical records reviewed: Yes: I reviewed the patient's medical records. - Asa Inquiry Pt receiving controlled substance: No Vital Signs: 03/15/21 16:13 03/15/21 17:01 03/15/21 17:58 Temperature 98.3 F 98.3 F Temperature Source Oral Oral Pulse Rate 111 H 113 H Pulse Rate [Right Radial] 113 H Respiratory Rate 18 17 18 Blood Pressure 156/85 H 136/76 Blood Pressure [Right Arm] 122/70 Blood Pressure Mean 104 Blood Pressure Mean [Right Arm] 87 Blood Pressure Source Automatic Cuff Blood Pressure Source [Right Arm] Automatic Cuff Blood Pressure Position Supine Blood Pressure Position [Right Arm] Supine 02 Sat by Pulse Oximetry 93 L 93 L Oxygen Delivery Method Room Air Room Air - Lab Data Lab results reviewed: Yes: I reviewed the patient's lab results. Lab Results 03/15/21 16:23: Specimen Source Right radial, ABG pH 7.50 H, ABG pCO2 38.1, ABG pO2 59.5 L, ABG HCO3 28.9 H, ABG Total CO2 30.1 H, ABG O2 Saturation 92, ABG Base Excess 5.7 H, Fan Test Acceptable Medical Decision Narrative: Mr. Hua is a 71-year-old male with past medical history for COPD who presents to the emergency department with cough and dyspnea. Patient has been seen multiple times in the emergency department for similar symptoms. Last visit was a few days prior patient was prescribed levofloxacin, prednisone and Tessalon Perles. Patient is currently satting well on room air and breathing comfortably. Patient has equal breath sounds bilaterally with no wheezing, rales or rhonchi. Bedside chest x-ray shows unchanged findings. VBG shows no evidence of hypercarbia. Patient is instructed to follow-up with his primary care physician regarding the CPAP machine. Patient is instructed to continue taking his medication during prior visit. Patient is given another inhaler as he reports this provides relief. Patient is also instructed to discuss with his primary care physician regarding anxiolytic medications as patient believes some of the symptoms are related to anxiety. Patient discharged in stable condition. General Adult HPI - General Chief complaint: Shortness of Breath/Dyspnea Stated complaint: SOB,Congestion,Weakness Time Seen by Provider: 03/15/21 16:30 Mode of Arrival: Ambulatory Source of Information: Patient Limitations: No Limitations Description of Symptoms (Recalled from ER Triage Doc. by RN): Pt was seen here on . He has not used his CPAP in over a month. He states that he feels like he gets into a coughing fit and cannot catch his breath. He feels like he is congested. He has hx of diabetes, CHF, and COPD. - History of Present Illness HPI narrative: I agree with tyree
[2021-03-15 17:58] VITALS: BP 136/76; PULSE 113; RESP 18; TEMP 36.8; O2SAT 93
== END 2021-03-15 17:58 | disposition home or self-care (01) ==
PROVIDERS: Emergency Provider Student in an Organized Health Care Education/Training Program; PCP Internal Medicine
DX: J44.1 Chronic obstructive pulmonary disease with (acute) exacerbation (principal); I10 Essential (primary) hypertension; E78.5 Hyperlipidemia, unspecified; E11.9 Type 2 diabetes mellitus without complications; I50.9 Heart failure, unspecified; F41.9 Anxiety disorder, unspecified; Z79.899 Other long term (current) drug therapy
CPT/HCPCS: 71045; 82803; 99282

== ENCOUNTER 2021-03-25 09:43 | Outpatient (CLI) | payer MEDICARE, MEDICAID, SELFPAY ==
[2021-03-25 14:48] LABS: PHA INR Fingerstick 2.4 (0.9-1.1)
== END 2021-03-25 15:21 | disposition home or self-care (01) ==
LOC: ACC 09:45
PROVIDERS: PCP Internal Medicine; Visit Provider Internal Medicine
DX: Z51.81 Encounter for therapeutic drug level monitoring (principal); Z79.01 Long term (current) use of anticoagulants
CPT/HCPCS: 85610; 99211; G0463

== ENCOUNTER 2021-04-26 19:31 | Emergency (ER) | payer MEDICARE, MEDICAID, SELFPAY ==
--- NOTE | 2021-04-26 19:38 | XR_ITS ---
PROCEDURE INFORMATION: Exam: XR Right Ribs with PA Chest Exam date and time: 04/26/2021 7:38 PM Age: 70 years old Clinical indication: Injury or trauma; Fall; Rib area; Blunt trauma (contusions or hematomas); Injury date: 04/25/2020; Additional info: Fall. PT is on warfarin. PT fell landed on RT ribs , pain under RT breast area ribs TECHNIQUE: Imaging protocol: XR Right ribs with PA chest. Views: 3 views COMPARISON: CR XR CHEST PORTABLE 03/15/2021 4:27 PM FINDINGS: Lungs: Unremarkable. No consolidation. Pleural spaces: Unremarkable. No pleural effusion. No pneumothorax. Heart/Mediastinum: Unremarkable. No cardiomegaly. Bones/joints: Unremarkable. IMPRESSION: No acute findings.
[2021-04-26 20:53] VITALS: BP 117/74; PULSE 107; RESP 18; TEMP 36.9; O2SAT 93; BMI 40.7
--- NOTE | 2021-04-26 21:29 | HMH.EDUTC ---
[facility] [place] Disposition Clinical Impression: Rib contusion Qualifiers: Encounter type: initial encounter Laterality: right Qualified Code(s): S20.211A - Contusion of right front wall of thorax, initial encounter Disposition: Home, Self-Care Condition on Discharge: Good Instructions: DI for Rib Contusion Additional Instructions: *Ibuprofen olayinka 6 hours with meal as needed for pain/inflammation *Not additional anti-inflammatory like motrin, aleve, advil with the above amount of ibuprofen. You can still take Tylenol every 4 hours as needed if you need something else for pain *Ice 20 minutes every 2 hours for the first 48 hours after the initial injury followed by moist heat every 20 minutes 3-4 times a day to affected area Over the counter Muscle Rub and lidocaine patches may help with pain and discomfort *Keep this area active, no movement leads to more stiffness, However take it easy and avoid heavy lifting pushing or pulling *Follow up with you family doctor if no improvement for further treatment Return if needed Straight to ER if any life threatening symptoms Referrals: Constantine Lincoln [Primary Care Provider] - As needed Time of Disposition: 21:31 Medical Decision Making - Asa Inquiry Pt receiving controlled substance: No Asa was queried for this patient: No Vital Signs: 04/26/21 20:53 Temperature 98.4 F Temperature Source Oral Pulse Rate [Left] 107 H Respiratory Rate 18 Blood Pressure [Right Arm] 117/74 Blood Pressure Mean [Right Arm] 88 02 Sat by Pulse Oximetry 93 L - Radiology Data #1 Image(s): Chest (with right ribs) Image Reviewed: Yes I have reviewed radiologist's interpretation IMPRESSION: No acute findings. [facility] [place] HPI - General Stated complaint: AO01/20 fall right side rib pain Time Seen by Provider: 04/26/21 21:29 Mode of Arrival: Ambulatory Source of Information: Patient Limitations: No Limitations Description of Symptoms (Recalled from Triage Doc. by RN): PT STATES HE FELL INTO HIS CAR THREE DAYS AGO. PT C/O R RIB PAIN. HEENT Symptoms (Recalled from RN notes): No Resp Symptoms (Recalled from RN notes): No Skin Symptoms (Recalled from RN notes): No MS Symptoms (Recalled from RN notes): Yes (R RIB PAIN) Functional Status (Recalled from RN notes): WNL - History of Present Illness Provider Complaint: Patient states that he was leaning into his van several days ago when he slipped and fell and landed on his right ribs and arm States that he was ok after that just a little sore State that he did have bruise on his right upper arm that is getting better but the soreness in his ribs has continued to hurt at times when he moves certain ways or takes a deep breath State that he was worried that he may have broken a rib so he came in to get checked States that he has been taking his Tramadol at home for the pain - Related Data Home Medications Medication Instructions Recorded Confirmed Bisoprolol Fumarate [Bisoprolol 5 mg PO DAILY 06/12/18 03/13/21 5mg Tablet] Furosemide [Furosemide 40MG tAB] 40 mg PO BID 06/12/18 03/13/21 Pravastatin Sodium [Pravachol 40mg 40 mg PO DAILY 06/12/18 03/13/21 Tablet] Tamsulosin HCl [Flomax 0.4mg 0.4 mg PO HS 06/12/18 03/13/21 capsule] Tramadol HCl [Tramadol 50mg 50 mg PO DAILY 06/12/18 03/13/21 Tab] Warfarin Sodium 4 mg PO DAILY 06/12/18 03/13/21 allopurinoL [Allopurinol 100mg 100 mg PO DAILY 06/12/18 03/13/21 tablet] Previous Rx's Medication Instructions Recorded Benzonatate [Benzonatate 100mg 100 mg PO TID #21 cap 03/13/21 cap] levoFLOXacin [Levaquin 500mg 500 mg PO DAILY #7 tab 03/13/21 tab] predniSONE [Prednisone 20mg 20 mg PO BID #10 tab 03/13/21 Tab] Allergies Allergy/AdvReac Type Severity Reaction Status Date / Time lisinopril Allergy Severe S-SWELLS-OR Verified 03/04/20 10:44 AL/THROAT hydrochlorothiazide Allergy Mild S-SWELLS-OR Verified 03/04/20 10:44 [From Sean] AL/THROAT
[2021-04-26 21:34] VITALS: BP 117/74; PULSE 107; RESP 18; TEMP 36.9
== END 2021-04-26 21:37 | disposition home or self-care (01) ==
PROVIDERS: Emergency Provider Nurse Practitioner; PCP Internal Medicine
DX: S20.211A Contusion of right front wall of thorax, initial encounter (principal); W18.00XA Striking against unspecified object with subsequent fall, initial encounter; Y92.89 Other specified places as the place of occurrence of the external cause; E11.9 Type 2 diabetes mellitus without complications; E78.5 Hyperlipidemia, unspecified; I10 Essential (primary) hypertension; I25.2 Old myocardial infarction
CPT/HCPCS: G0463; 71101; 99202

== ENCOUNTER 2021-05-06 09:48 | Outpatient (CLI) | payer MEDICARE, MEDICAID, SELFPAY ==
[2021-05-06 15:11] LABS: PHA INR Fingerstick 2.8 (0.9-1.1)
== END 2021-05-06 15:21 | disposition home or self-care (01) ==
LOC: ACC 09:51
PROVIDERS: PCP Internal Medicine; Visit Provider Internal Medicine
DX: Z51.81 Encounter for therapeutic drug level monitoring (principal); Z79.01 Long term (current) use of anticoagulants
CPT/HCPCS: 85610; 99211; G0463

== ENCOUNTER 2021-06-17 10:29 | Outpatient (CLI) | payer MEDICARE, MEDICAID, SELFPAY | END 2021-06-17 15:40 | disposition home or self-care (01) | LOC: ACC 10:33 | PROVIDERS: PCP Internal Medicine; Visit Provider Internal Medicine | DX: Z79.01 Long term (current) use of anticoagulants (principal); Z51.81 Encounter for therapeutic drug level monitoring | CPT/HCPCS: 85610; 99211; G0463 ==

== ENCOUNTER 2021-07-29 10:40 | Outpatient (CLI) | payer MEDICARE, MEDICAID, SELFPAY ==
[2021-07-29 14:32] LABS: PHA INR Fingerstick 2.1 (0.9-1.1)
== END 2021-07-29 14:36 | disposition home or self-care (01) ==
LOC: ACC 10:41
PROVIDERS: PCP Internal Medicine; Visit Provider Internal Medicine
DX: Z51.81 Encounter for therapeutic drug level monitoring (principal); Z79.01 Long term (current) use of anticoagulants
CPT/HCPCS: 85610; 99211; G0463

== ENCOUNTER → 2021-09-02 13:06 | Outpatient (CLI) | payer MEDICARE, MEDICAID, SELFPAY ==
[2021-09-02 15:31] LABS: Alanine Aminotransferase 20 U/L (12-78); Albumin Level 4.1 g/dl (3.5-5.0); Albumin/Globulin Ratio 1.2 (1.1-1.8); Alkaline Phosphatase 141 U/L (38-126); Aspartate Amino Transferase 32 U/L (17-59); Bilirubin,Total 0.4 mg/dl (0.2-1.3); Blood Urea Nitrogen 25 mg/dl (9-20); Calcium 8.7 mg/dl (8.4-10.2); Carbon Dioxide 27 mmol/L (22.0-30.0); Chloride 96 mmol/L (98-107); Chol/HDL Ratio 3.9 (1-3.5); Cholesterol 200 mg/dl (140-200); Estimated Glomerular Filt Rate 83 ml/min (>60); GFR (African American) 100 ML/MIN (>60); Globulin 3.5 g/dL (1.3-3.2); Glucose 156 mg/dl (74-100); HDL Cholesterol 51 mg/dl (40-60); Sodium 137 mmol/L (136-145); Total Protein,Serum 7.6 g/dl (6.3-8.2); Triglycerides 156 mg/dl (30-150); Uric Acid 6.5 mg/dl (3.5-8.5); VLDL Cholesterol 31 mg/dL (0-40)
[2021-09-02 15:43] LABS: Direct LDL Cholesterol 97.03 mg/dL (100-129)
[2021-09-02 16:07] LABS: Hemoglobin A1C 6.6 % (4.0-6.0)
[2021-09-02 17:58] LABS: Creatinine,Urine Random 22 mg/dL (Not Estab.)
[2021-09-02 18:06] LABS: Microalbumin < 6.000 mg/L (0-16.7)
== END ==
PROVIDERS: PCP Internal Medicine; Visit Provider Internal Medicine
DX: I25.10 Atherosclerotic heart disease of native coronary artery without angina pectoris (principal); I50.32 Chronic diastolic (congestive) heart failure; I48.0 Paroxysmal atrial fibrillation; E78.5 Hyperlipidemia, unspecified; E11.51 Type 2 diabetes mellitus with diabetic peripheral angiopathy without gangrene; J44.9 Chronic obstructive pulmonary disease, unspecified
CPT/HCPCS: 80053; 80061; 82043; 82570; 83036; 84550

== ENCOUNTER 2021-09-09 10:48 | Outpatient (CLI) | payer MEDICARE, MEDICAID, SELFPAY | END 2021-09-09 14:31 | disposition home or self-care (01) | LOC: ACC 10:50 | PROVIDERS: PCP Internal Medicine; Visit Provider Internal Medicine | DX: Z51.81 Encounter for therapeutic drug level monitoring (principal); Z79.01 Long term (current) use of anticoagulants | CPT/HCPCS: 85610; 99211; G0463 ==

== ENCOUNTER 2021-10-20 10:53 | Outpatient (CLI) | payer MEDICARE, MEDICAID, SELFPAY ==
[2021-10-20 12:05] LABS: PHA INR Fingerstick 1.8 (0.9-1.1)
== END 2021-10-20 12:07 | disposition home or self-care (01) ==
LOC: ACC 10:55
PROVIDERS: PCP Internal Medicine; Visit Provider Internal Medicine
DX: Z51.81 Encounter for therapeutic drug level monitoring (principal); Z79.01 Long term (current) use of anticoagulants
CPT/HCPCS: 85610; 99211; G0463

== ENCOUNTER 2021-12-01 14:51 | Outpatient (CLI) | payer MEDICARE, MEDICAID, SELFPAY ==
[2021-12-01 15:23] LABS: PHA INR Fingerstick 2.2 (0.9-1.1)
== END 2021-12-01 15:25 ==
LOC: ACC 14:52
PROVIDERS: PCP Pediatrics; Visit Provider Internal Medicine
DX: Z51.81 Encounter for therapeutic drug level monitoring (principal); Z79.01 Long term (current) use of anticoagulants
CPT/HCPCS: 85610; 99211; G0463

== ENCOUNTER 2022-01-12 13:19 | Outpatient (CLI) | payer MEDICARE, MEDICAID, SELFPAY ==
[2022-01-12 16:15] LABS: PHA INR Fingerstick 2.5 (0.9-1.1)
== END 2022-01-12 16:16 ==
LOC: ACC 13:20
PROVIDERS: PCP Internal Medicine; Visit Provider Internal Medicine
DX: Z51.81 Encounter for therapeutic drug level monitoring (principal); Z79.01 Long term (current) use of anticoagulants
CPT/HCPCS: 85610; 99211; G0463

== ENCOUNTER 2022-03-02 10:21 | Outpatient (CLI) | payer MEDICARE, MEDICAID, SELFPAY ==
[2022-03-02 15:35] LABS: PHA INR Fingerstick 3.4 (0.9-1.1)
== END 2022-03-02 15:40 ==
LOC: ACC 10:22
PROVIDERS: PCP Internal Medicine; Visit Provider Internal Medicine
DX: Z51.81 Encounter for therapeutic drug level monitoring (principal); Z79.01 Long term (current) use of anticoagulants
CPT/HCPCS: 85610; 99211; G0463

== ENCOUNTER 2022-03-16 10:54 | Outpatient (CLI) | payer MEDICARE, MEDICAID, SELFPAY ==
[2022-03-16 13:43] LABS: PHA INR Fingerstick 2.7 (0.9-1.1)
== END 2022-03-16 13:55 ==
LOC: ACC 10:55
PROVIDERS: PCP Internal Medicine; Visit Provider Internal Medicine
DX: Z51.81 Encounter for therapeutic drug level monitoring (principal); Z79.01 Long term (current) use of anticoagulants
CPT/HCPCS: 85610; 99211; G0463

== ENCOUNTER → 2022-03-30 16:21 | Outpatient (CLI) | payer MEDICARE, MEDICAID, SELFPAY ==
[2022-03-30 17:02] LABS: Basophils # 0.1 K/mm3 (0-0.2); Basophils % 0.8 % (0.1-2.0); Eosinophils # 0.3 K/mm3 (0.0-0.4); Eosinophils % 2.3 % (0.1-12.0); Hematocrit 43.6 % (42.0-52.0); Hemoglobin 14.3 g/dL (14.1-18.0); Lymphocytes # 3.3 K/mm3 (0.7-4.5); Lymphocytes % 24.6 % (10-50); Mean Corpuscular HGB Conc 32.7 g/dL (31.8-35.4); Mean Corpuscular Hemoglobin 30.7 pg (27.0-31.2); Mean Corpuscular Volume 93.7 fl (80-94); Mean Platelet Volume 9.4 fl (7.4-10.4); Monocytes # 0.9 K/mm3 (0.1-1.0); Monocytes % 6.8 % (1.7-9.3); Neutrophils # 8.7 K/mm3 (1.8-7.8); Neutrophils % 65.5 % (37.0-80.0); Platelet Count 403 K/mm3 (142-424); Red Blood Count 4.65 M/mm3 (4.60-6.20); Red Cell Distribution Width 14.1 % (11.5-17.5); White Blood Count 13.3 K/mm3 (4.8-10.8)
[2022-03-30 17:35] LABS: Alanine Aminotransferase 21 U/L (12-78); Albumin Level 4.2 g/dl (3.5-5.0); Albumin/Globulin Ratio 1.3 (1.1-1.8); Alkaline Phosphatase 141 U/L (38-126); Anion Gap 13.8 mEq/L (5-15); Aspartate Amino Transferase 27 U/L (17-59); Bilirubin,Total 0.7 mg/dl (0.2-1.3); Blood Urea Nitrogen 19 mg/dl (9-20); Calcium 9.4 mg/dl (8.4-10.2); Carbon Dioxide 31 mmol/L (22.0-30.0); Chloride 101 mmol/L (98-107); Chol/HDL Ratio 3.2 (1-3.5); Cholesterol 161 mg/dl (140-200); Estimated Glomerular Filt Rate 66 ml/min (>60); GFR (African American) 79 ML/MIN (>60); Globulin 3.2 g/dL (1.3-3.2); Glucose 84 mg/dl (74-100); HDL Cholesterol 51 mg/dl (40-60); Potassium 4.8 mmoL/L (3.5-5.1); Sodium 141 mmol/L (136-145); Total Protein,Serum 7.4 g/dl (6.3-8.2); Triglycerides 116 mg/dl (30-150); Uric Acid 5.1 mg/dl (3.5-8.5); VLDL Cholesterol 23 mg/dL (0-40)
[2022-03-30 17:45] LABS: Direct LDL Cholesterol 76.62 mg/dL (100-129)
[2022-03-30 18:08] LABS: Hemoglobin A1C 6.7 % (4.0-6.0)
== END ==
PROVIDERS: PCP Internal Medicine; Visit Provider Internal Medicine
DX: E11.51 Type 2 diabetes mellitus with diabetic peripheral angiopathy without gangrene (principal); I25.10 Atherosclerotic heart disease of native coronary artery without angina pectoris; I11.0 Hypertensive heart disease with heart failure; I50.32 Chronic diastolic (congestive) heart failure; I48.91 Unspecified atrial fibrillation; J30.9 Allergic rhinitis, unspecified; J44.9 Chronic obstructive pulmonary disease, unspecified; M10.9 Gout, unspecified; Z12.5 Encounter for screening for malignant neoplasm of prostate
CPT/HCPCS: 80053; 80061; 83036; 84550; 85025; G0103

== ENCOUNTER 2022-04-17 17:58 | Emergency (ER) | payer MEDICARE, MEDICAID, SELFPAY ==
[2022-04-17 17:59] VITALS: BP 121/71; PULSE 98; RESP 15; TEMP 36.7; O2SAT 96; BMI 43.3
--- NOTE | 2022-04-17 19:36 | PC.NURSE ---
Rechecked pt condition. Pt voiced no needs at this time.
--- NOTE | 2022-04-17 20:13 | PC.NURSE ---
Dr. Roe s/w pt
--- NOTE | 2022-04-17 20:19 | HMH.EDGENADL ---
Discharge Plan Disposition Patient Disposition: Home, Self-Care Condition: Good Prescriptions Prescriptions: New acyclovir 800 mg tablet 800 mg PO Q6H 7 Days Qty: 28 0RF gabapentin 400 mg capsule 400 mg PO BID Qty: 20 0RF lidocaine [Lidoderm] 5 % adhesive patch,medicated 1 patch topical DAILY Qty: 30 0RF Rx Instructions: leave on most painful area for up to 12 hrs No Action furosemide 40 MG tablet 40 mg PO BID pravastatin 40 MG tablet 40 mg PO DAILY allopurinol 100 MG tablet 100 mg PO DAILY tramadol 50 MG tablet 50 mg PO DAILY warfarin 4 MG tablet 4 mg PO DAILY bisoprolol fumarate 5 MG tablet 5 mg PO DAILY tamsulosin 0.4 MG capsule 0.4 mg PO HS prednisone 20 MG tablet 20 mg PO BID Qty: 10 0RF levofloxacin 500 MG tablet 500 mg PO DAILY Qty: 7 0RF benzonatate 100 MG capsule 100 mg PO TID Qty: 21 0RF Referrals Follow up/Referrals: Constantine Lincoln MD [Primary Care Provider] - See instructions Clinical Impressions Clinical Impression: Shingles Instructions Patient Instructions: DI for Shingles, Gabapentin, Acyclovir Discharge ED Provider: Kg Roe General Adult HPI General Chief complaint: Skin/Abscess/Foreign Body Stated complaint: Possible Shingles Time Seen by Provider: 04/17/22 20:08 Mode of Arrival: Ambulatory Source of Information: Patient and Significant Other Limitations: No Limitations Description of Symptoms (Recalled from ER Triage Doc. by RN): pt c/o of right lateral chest wall rash x 2 days with two demarcated areas of erythematous rash with vesicles and tender to palpation; pt reports no recent acute illness, denies neurological symptoms, and endorses having chicken pox when I was a kid , NAD History of Present Illness HPI narrative: 71-year-old male with past medical history of COPD, presenting with complaint of pain in the right lateral chest wall that started approximately 2 days ago with development of vesicular rash today. States very tender to palpation. Denies any fevers, chills, nausea, vomiting or other symptoms, denies any recent illnesses. He has tried no treatments for the symptoms thus far Related Data Home Medications Medication Instructions Recorded Confirmed allopurinol 100 mg tablet 100 mg PO DAILY gout 06/12/18 03/13/21 bisoprolol fumarate 5 mg tablet 5 mg PO DAILY blood pressure 06/12/18 03/13/21 furosemide 40 mg tablet 40 mg PO BID Fluid 06/12/18 03/13/21 pravastatin 40 mg tablet 40 mg PO DAILY Cholesterol 06/12/18 03/13/21 tamsulosin 0.4 mg capsule 0.4 mg PO HS bladder 06/12/18 03/13/21 tramadol 50 mg tablet 50 mg PO DAILY Pain 06/12/18 03/13/21 warfarin 4 mg tablet 4 mg PO DAILY hx of blood clots 06/12/18 03/13/21 Previous Rx's Medication Instructions Recorded benzonatate 100 mg capsule 100 mg PO TID #21 caps 03/13/21 levofloxacin 500 mg tablet 500 mg PO DAILY #7 tabs 03/13/21 prednisone 20 mg tablet 20 mg PO BID #10 tabs 03/13/21 acyclovir 800 mg tablet 800 mg PO Q6H Shingles 7 days #28 04/17/22 tabs gabapentin 400 mg capsule 400 mg PO BID #20 caps 04/17/22 lidocaine 5 % topical patch 1 patch topical DAILY #30 ea 04/17/22 (Lidoderm) Allergies Allergy/AdvReac Type Severity Reaction Status Date / Time lisinopril Allergy Severe S-SWELLS-OR Verified 03/04/20 10:44 AL/THROAT hydrochlorothiazide Allergy Mild S-SWELLS-OR Verified 03/04/20 10:44 [From Maxzide] AL/THROAT triamterene [From Maxzide] Allergy Mild S-SWELLS-OR Verified 03/04/20 10:44 AL/THROAT PFSH PFSH Disclaimer: The information contained in this section may have been updated after the patient was seen, as this information can be updated by other users. Social History Smoking Status: Never smoker alcohol intake: never current occupational status: retired Travel in the last 8 weeks: None household members: none housing:
[2022-04-17 20:34] VITALS: BP 120/75; PULSE 85; RESP 18; TEMP 36.8; O2SAT 98
--- NOTE | 2022-04-17 20:37 | PC.NURSE ---
Patients rx's retransmitted to [facility] due to Clinic being closed Tuesday. 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
== END 2022-04-17 20:38 | disposition home or self-care (01) ==
PROVIDERS: Emergency Provider Emergency Medicine; PCP Internal Medicine
DX: B02.9 Zoster without complications (principal)
CPT/HCPCS: 99283; 99284

== ENCOUNTER 2022-04-19 10:58 | Outpatient (CLI) | payer MEDICARE, MEDICAID, SELFPAY ==
[2022-04-19 15:25] LABS: PHA INR Fingerstick 2.6 (0.9-1.1)
== END 2022-04-19 15:28 ==
LOC: ACC 10:59
PROVIDERS: PCP Internal Medicine; Visit Provider Internal Medicine
DX: Z51.81 Encounter for therapeutic drug level monitoring (principal); Z79.01 Long term (current) use of anticoagulants
CPT/HCPCS: 85610; 99211; G0463

== ENCOUNTER 2022-06-03 10:58 | Outpatient (CLI) | payer MEDICARE, MEDICAID, SELFPAY ==
[2022-06-03 13:46] LABS: PHA INR Fingerstick 2.7 (0.9-1.1)
== END 2022-06-03 13:52 ==
LOC: ACC 10:59
PROVIDERS: PCP Internal Medicine; Visit Provider Internal Medicine
DX: Z51.81 Encounter for therapeutic drug level monitoring (principal); Z79.01 Long term (current) use of anticoagulants
CPT/HCPCS: 85610; 99211; G0463

== ENCOUNTER 2022-07-13 10:54 | Outpatient (CLI) | payer MEDICARE, MEDICAID, SELFPAY ==
[2022-07-13 11:14] LABS: PHA INR Fingerstick 2.9 (0.9-1.1)
== END 2022-07-13 11:16 ==
LOC: ACC 10:55
PROVIDERS: PCP Internal Medicine; Visit Provider Internal Medicine
DX: Z51.81 Encounter for therapeutic drug level monitoring (principal); Z79.01 Long term (current) use of anticoagulants
CPT/HCPCS: 85610; 99211; G0463

== ENCOUNTER → 2022-08-31 14:22 | Outpatient (CLI) | payer MEDICARE, MEDICAID, SELFPAY ==
--- NOTE | 2022-08-31 14:29 | XR_ITS ---
FINAL REPORT CLINICAL HISTORY: LEG INJURY, PAIN ANTERIOR FINDINGS: Two views of the right tibia-fibula demonstrate no acute fracture or dislocation. There is moderate medial and lateral compartment joint space narrowing consistent with moderately advanced osteoarthritis. The visualized bony structures are well aligned. There is soft tissue edema anterior to the tibia. IMPRESSION: No acute process. Reviewed, Interpreted and Dictated by Parrish Bello MD Transcribed by Ty Mckeon Authenticated and [facility]
== END ==
PROVIDERS: PCP Internal Medicine; Visit Provider Internal Medicine
DX: M79.662 Pain in left lower leg (principal); S89.92XA Unspecified injury of left lower leg, initial encounter
CPT/HCPCS: 73590

== ENCOUNTER 2022-09-06 12:44 | Outpatient (CLI) | payer MEDICARE, MEDICAID, SELFPAY | END 2022-09-06 14:46 | LOC: ACC 12:45 | PROVIDERS: PCP Internal Medicine; Visit Provider Internal Medicine | DX: Z51.81 Encounter for therapeutic drug level monitoring (principal); Z79.01 Long term (current) use of anticoagulants | CPT/HCPCS: 85610; 99211; G0463 ==

== ENCOUNTER 2022-10-18 11:18 | Outpatient (CLI) | payer MEDICARE, MEDICAID, SELFPAY ==
[2022-10-18 11:55] LABS: PHA INR Fingerstick 2.2 (0.9-1.1)
== END 2022-10-18 11:58 ==
LOC: ACC 11:19
PROVIDERS: PCP Internal Medicine; Visit Provider Internal Medicine
DX: Z79.01 Long term (current) use of anticoagulants (principal); Z51.81 Encounter for therapeutic drug level monitoring
CPT/HCPCS: 85610; 99211; G0463

== ENCOUNTER → 2022-10-20 13:21 | Outpatient (CLI) | payer MEDICARE, MEDICAID, SELFPAY ==
[2022-10-20 15:07] LABS: Alanine Aminotransferase 20 U/L (12-78); Albumin Level 3.9 g/dl (3.5-5.0); Albumin/Globulin Ratio 1.3 (1.1-1.8); Alkaline Phosphatase 137 U/L (38-126); Anion Gap 12.6 mEq/L (5-15); Aspartate Amino Transferase 24 U/L (17-59); Bilirubin,Total 0.2 mg/dl (0.2-1.3); Blood Urea Nitrogen 16 mg/dl (9-20); Calcium 8.6 mg/dl (8.4-10.2); Carbon Dioxide 31 mmol/L (22.0-30.0); Chloride 103 mmol/L (98-107); Chol/HDL Ratio 4.1 (1-3.5); Cholesterol 201 mg/dl (140-200); Estimated Glomerular Filt Rate 82 ml/min (>60); GFR (African American) 100 ML/MIN (>60); Glucose 132 mg/dl (74-100); HDL Cholesterol 49 mg/dl (40-60); Potassium 4.6 mmoL/L (3.5-5.1); Sodium 142 mmol/L (136-145); Total Protein,Serum 6.9 g/dl (6.3-8.2); Triglycerides 167 mg/dl (30-150); Uric Acid 5.6 mg/dl (3.5-8.5); VLDL Cholesterol 33 mg/dL (0-40)
[2022-10-20 15:18] LABS: Direct LDL Cholesterol 111.26 mg/dL (100-129)
[2022-10-20 15:44] LABS: Hemoglobin A1C 6.8 % (4.0-6.0)
[2022-10-20 15:54] LABS: Creatinine,Urine Random 149 mg/dL (Not Estab.)
== END ==
PROVIDERS: PCP Internal Medicine; Visit Provider Internal Medicine
DX: E11.51 Type 2 diabetes mellitus with diabetic peripheral angiopathy without gangrene (principal); E11.42 Type 2 diabetes mellitus with diabetic polyneuropathy; I25.10 Atherosclerotic heart disease of native coronary artery without angina pectoris; I48.91 Unspecified atrial fibrillation; I50.32 Chronic diastolic (congestive) heart failure; J44.9 Chronic obstructive pulmonary disease, unspecified
CPT/HCPCS: 80053; 80061; 82043; 82570; 83036; 84550

== ENCOUNTER 2022-12-08 10:56 | Outpatient (CLI) | payer MEDICARE, MEDICAID, SELFPAY ==
[2022-12-08 14:04] LABS: PHA INR Fingerstick 2.1 (0.9-1.1)
== END 2022-12-08 15:52 ==
LOC: ACC 10:57
PROVIDERS: PCP Internal Medicine; Visit Provider Internal Medicine
DX: Z79.01 Long term (current) use of anticoagulants (principal); Z51.81 Encounter for therapeutic drug level monitoring
CPT/HCPCS: 85610; 99211; G0463

== ENCOUNTER 2023-01-17 10:51 | Outpatient (CLI) | payer MEDICARE, MEDICAID, SELFPAY ==
[2023-01-17 11:10] LABS: PHA INR Fingerstick 2.7 (0.9-1.1)
== END 2023-01-17 11:12 ==
LOC: ACC 10:53
PROVIDERS: PCP Internal Medicine; Visit Provider Internal Medicine
DX: Z79.01 Long term (current) use of anticoagulants (principal); Z51.81 Encounter for therapeutic drug level monitoring
CPT/HCPCS: 85610; 99211; G0463

== ENCOUNTER 2023-03-07 10:15 | Outpatient (CLI) | payer MEDICARE, MEDICAID, SELFPAY ==
[2023-03-07 12:13] LABS: PHA INR Fingerstick 2.7 (0.9-1.1)
== END 2023-03-07 12:49 ==
LOC: ACC 10:16
PROVIDERS: PCP Internal Medicine; Visit Provider Internal Medicine
DX: Z79.01 Long term (current) use of anticoagulants (principal); Z51.81 Encounter for therapeutic drug level monitoring
CPT/HCPCS: 85610; 99211; G0463

== ENCOUNTER 2023-05-06 07:49 | Outpatient (CLI) | payer MEDICARE, MEDICAID, SELFPAY | END 2023-05-06 09:34 | LOC: ACC 07:51 | PROVIDERS: PCP Internal Medicine; Visit Provider Internal Medicine | DX: Z79.01 Long term (current) use of anticoagulants (principal); Z51.81 Encounter for therapeutic drug level monitoring | CPT/HCPCS: 85610; 99211; G0463 ==

== ENCOUNTER 2023-05-10 14:30 | Outpatient (CLI) | payer MEDICARE, MEDICAID, SELFPAY ==
[2023-05-10 15:35] LABS: Basophils # 0.1 K/mm3 (0-0.2); Basophils % 0.8 % (0.1-2.0); Eosinophils # 0.4 K/mm3 (0.0-0.4); Hematocrit 47.1 % (42.0-52.0); Hemoglobin 15.2 g/dL (14.1-18.0); Lymphocytes # 2.6 K/mm3 (0.7-4.5); Mean Corpuscular HGB Conc 32.3 g/dL (31.8-35.4); Mean Corpuscular Hemoglobin 30.7 pg (27.0-31.2); Mean Corpuscular Volume 95.1 fl (80-94); Monocytes # 0.8 K/mm3 (0.1-1.0); Monocytes % 7.9 % (1.7-9.3); Neutrophils # 5.9 K/mm3 (1.8-7.8); Neutrophils % 60.3 % (37.0-80.0); Platelet Count 349 K/mm3 (142-424); Red Blood Count 4.95 M/mm3 (4.60-6.20); White Blood Count 9.7 K/mm3 (4.8-10.8)
[2023-05-10 16:18] LABS: Hemoglobin A1C 6.9 % (4.0-6.0)
[2023-05-10 16:41] LABS: Alanine Aminotransferase 24 U/L (12-78); Albumin Level 4.1 g/dl (3.5-5.0); Albumin/Globulin Ratio 1.2 (1.1-1.8); Alkaline Phosphatase 143 U/L (38-126); Anion Gap 13.5 mEq/L (5-15); Aspartate Amino Transferase 31 U/L (17-59); Bilirubin,Total 0.4 mg/dl (0.2-1.3); Blood Urea Nitrogen 18 mg/dl (9-20); Calcium 8.7 mg/dl (8.4-10.2); Carbon Dioxide 36 mmol/L (22.0-30.0); Chloride 95 mmol/L (98-107); Chol/HDL Ratio 4.1 (1-3.5); Cholesterol 214 mg/dl (140-200); Estimated Glomerular Filt Rate 54 ml/min (>60); GFR (African American) 65 ML/MIN (>60); Globulin 3.4 g/dL (1.3-3.2); Glucose 135 mg/dl (74-100); HDL Cholesterol 52 mg/dl (40-60); Potassium 3.5 mmoL/L (3.5-5.1); Sodium 141 mmol/L (136-145); Total Protein,Serum 7.5 g/dl (6.3-8.2); Triglycerides 115 mg/dl (30-150); Uric Acid 6.8 mg/dl (3.5-8.5); VLDL Cholesterol 23 mg/dL (0-40)
[2023-05-10 16:52] LABS: Direct LDL Cholesterol 120.05 mg/dL (100-129)
[2023-05-10 17:11] LABS: Prostate Specific Ag Screen 1.4 ng/ml (0.0-4.0)
== END 2023-05-10 23:59 ==
LOC: LAB.DROPOF 14:31
PROVIDERS: PCP Internal Medicine; Visit Provider Internal Medicine
DX: E11.42 Type 2 diabetes mellitus with diabetic polyneuropathy (principal); E11.51 Type 2 diabetes mellitus with diabetic peripheral angiopathy without gangrene; I48.0 Paroxysmal atrial fibrillation; I25.10 Atherosclerotic heart disease of native coronary artery without angina pectoris; I50.32 Chronic diastolic (congestive) heart failure; I10 Essential (primary) hypertension; J44.9 Chronic obstructive pulmonary disease, unspecified; M10.9 Gout, unspecified; Z12.5 Encounter for screening for malignant neoplasm of prostate
CPT/HCPCS: 80053; 80061; 83036; 84550; 85025; G0103

== ENCOUNTER 2023-06-07 09:43 | Outpatient (CLI) | payer MEDICARE, MEDICAID, SELFPAY ==
[2023-06-07 14:18] LABS: PHA INR Fingerstick 2.1 (0.9-1.1)
== END 2023-06-07 15:07 ==
LOC: ACC 09:44
PROVIDERS: PCP Internal Medicine; Visit Provider Internal Medicine
DX: Z79.01 Long term (current) use of anticoagulants (principal); Z51.81 Encounter for therapeutic drug level monitoring
CPT/HCPCS: 85610; 99211; G0463

== ENCOUNTER 2023-07-14 19:47 | Observation (INO) | payer MEDICARE, MEDICAID, SELFPAY ==
[2023-07-14 19:47] VITALS: BP 119/67; PULSE 110; RESP 20; TEMP 37.1; O2SAT 96; BMI 43.0
--- NOTE | 2023-07-14 19:54 | CT_ITS ---
PROCEDURE INFORMATION: Exam: CTA Chest With Contrast Exam date and time: 07/14/2023 8:31 PM Age: 73 years old Clinical indication: Shortness of breath; Additional info: SOA, syncope TECHNIQUE: Imaging protocol: Computed tomographic angiography of the chest with contrast. Exam focused on the arteries. 3D rendering (Not supervised by radiologist): MIP and/or 3D reconstructed images were created by the technologist. Radiation optimization: All CT scans at this facility use at least one of these dose optimization techniques: automated exposure control; mA and/or kV adjustment per patient size (includes targeted exams where dose is matched to clinical indication); or iterative reconstruction. Contrast material: ISOVUE 370; Contrast volume: 70 ml; Contrast route: INTRAVENOUS (IV); COMPARISON: [facility] CT angio chest 07/31/2018 4:33 PM FINDINGS: Pulmonary arteries: Normal. No pulmonary emboli. Aorta: Unremarkable. No aortic aneurysm. No aortic dissection. Lungs: Patchy airspace opacities are noted in the posterior aspect of the right lower lobe in the anterolateral right lower lobe compatible with pneumonia. Questionable subtle area of infiltrate in the posterolateral left lower lobe. Interval development of a 3 mm nodule in the right middle lobe on axial image 63 and lateral right middle lobe on axial image 68. A new nodular appearing density measuring 6 mm noted in the posterior left lower lobe on image 101. Some other scattered small nodular densities are noted bilaterally which are otherwise similar to previous allowing for technical differences. Lung [place] otherwise clear. Pleural spaces: Unremarkable. No pneumothorax. No pleural effusion. Heart: Unremarkable. No cardiomegaly. No pericardial effusion. Coronary arteries: Mild coronary artery calcifications are noted. Lymph nodes: Mildly enlarged mediastinal nodes in the right paratracheal subcarinal and AP window region as well as the hilar regions [id number] are noted and unchanged compared to 07/31/2018. No evident new or increasing mediastinal or hilar adenopathy. Stomach and bowel: Stomach is somewhat distended with inhomogeneous fluid and air with relative high density of the fluid with a density of 46. Bones/joints: Unremarkable. No acute fracture. Soft tissues: Unremarkable. IMPRESSION: 1. No evident PE. 2. Multifocal patchy airspace opacities noted scattered throughout the right lower lobe including posteriorly and anteriorly and laterally compatible with pneumonia. There may also be a subtle area of potential infiltrate in the posterolateral left lower lobe. 3. Interval development of some new nodular appearing densities bilaterally largest measuring 6 mm on the left. For patients at low risk (minimal or absent history of smoking and of other known risk factors), recommend CT Chest at 3-6 months, then consider CT Chest at 18-24 months. For patients at high risk (history of smoking or of other known risk factors), recommend CT Chest at 3-6 months, then CT Chest at 18-24 months. (Reference: Edward) 4. Distended stomach with relative high density inhomogeneous fluid presumably something ingested. The possibility of hemorrhage within the stomach cannot be entirely excluded in the proper clinical setting. REFERENCES: Edward Angel, et al. Guidelines for Management of Incidental Pulmonary Nodules Detected on CT Images: From the Fleischner Society 2017. Radiology. 2017;284(1):228-243.
--- NOTE | 2023-07-14 19:55 | ECG_ITS ---
APPROVED REPORT Exam: Resting ECG HR:109 bpm ECG Measurements Heart Rate 109 AXES WI 145 P 85 QRSd 97 QRS 73 QT 376 T 35 QTc 440 Conclusion SINUS TACHYCARDIA Low voltage consistent with pulmonary disease. No STEMI -Seble Muñoz MD Electronically signed by : SEBLE MUÑOZ, 07/14/2023 23:40:21
--- NOTE | 2023-07-14 19:56 | HMH.EDGENADL ---
Discharge Plan Disposition Patient Disposition: Admitted Condition: Fair Chief Complaint: Syncope Prescriptions Prescriptions: No Action furosemide 40 MG tablet 40 mg PO BID pravastatin 40 MG tablet 40 mg PO DAILY allopurinol 100 MG tablet 100 mg PO DAILY tramadol 50 MG tablet 50 mg PO DAILY warfarin 4 MG tablet 4 mg PO DAILY bisoprolol fumarate 5 MG tablet 5 mg PO DAILY tamsulosin 0.4 MG capsule 0.4 mg PO HS prednisone 20 MG tablet 20 mg PO BID Qty: 10 0RF levofloxacin 500 MG tablet 500 mg PO DAILY Qty: 7 0RF benzonatate 100 MG capsule 100 mg PO TID Qty: 21 0RF acyclovir 800 mg tablet 800 mg PO Q6H 7 Days Qty: 28 0RF gabapentin 400 mg capsule 400 mg PO BID Qty: 20 0RF lidocaine [Lidoderm] 5 % adhesive patch,medicated 1 patch topical DAILY Qty: 30 0RF Rx Instructions: leave on most painful area for up to 12 hrs Referrals Follow up/Referrals: Provider,Referral, MD [Referring] - See instructions Clinical Impressions Clinical Impression: RLL pneumonia Instructions Patient Instructions: DI for Syncope in Adults (Fainting), DI for Syncope in Children (Fainting) Discharge ED Provider: Seble Muñoz General Adult HPI General Chief complaint: Syncope Stated complaint: fall Time Seen by Provider: 07/14/23 19:54 Mode of Arrival: EMS Source of Information: Patient and EMS Limitations: No Limitations Description of Symptoms (Recalled from ER Triage Doc. by RN): Patient is brought to ED from [facility] with a syncope episode that happened at home within the hour. Patient states he started amoxicillin last tuesday and every since he started that medication he has felt off . Patient reports increased nausea, weakness, and SOB. History of Present Illness HPI narrative: 73-year-old male with previous medical history of A-fib on warfarin, COPD, bronchitis presenting with syncope. Patient states he was walking at home when he began to feel lightheaded and slowly lost consciousness. He does not believe he hit his head or had any significant fall. When he awoke he had severe weakness, nausea, so called EMS. He states he has taken amoxicillin for the last 5 days due to a diagnosis of bronchitis that he received last week. He has been coughing for approximately 10 days. He has noted that since taking the amoxicillin he has felt generally lightheaded and different. Related Data Home Medications Medication Instructions Recorded Confirmed allopurinol 100 mg tablet 100 mg PO DAILY gout 06/12/18 03/13/21 bisoprolol fumarate 5 mg tablet 5 mg PO DAILY blood pressure 06/12/18 03/13/21 furosemide 40 mg tablet 40 mg PO BID Fluid 06/12/18 03/13/21 pravastatin 40 mg tablet 40 mg PO DAILY Cholesterol 06/12/18 03/13/21 tamsulosin 0.4 mg capsule 0.4 mg PO HS bladder 06/12/18 03/13/21 tramadol 50 mg tablet 50 mg PO DAILY Pain 06/12/18 03/13/21 warfarin 4 mg tablet 4 mg PO DAILY hx of blood clots 06/12/18 03/13/21 Previous Rx's Medication Instructions Recorded benzonatate 100 mg capsule 100 mg PO TID #21 caps 03/13/21 levofloxacin 500 mg tablet 500 mg PO DAILY #7 tabs 03/13/21 prednisone 20 mg tablet 20 mg PO BID #10 tabs 03/13/21 acyclovir 800 mg tablet 800 mg PO Q6H Shingles 7 days #28 04/17/22 tabs gabapentin 400 mg capsule 400 mg PO BID #20 caps 04/17/22 lidocaine 5 % topical patch 1 patch topical DAILY #30 ea 04/17/22 (Lidoderm) Allergies Allergy/AdvReac Type Severity Reaction Status Date / Time lisinopril Allergy Severe S-SWELLS-OR Verified 03/04/20 10:44 AL/THROAT hydrochlorothiazide Allergy Mild S-SWELLS-OR Verified 03/04/20 10:44 [From Maxzide] AL/THROAT triamterene [From Maxzide] Allergy Mild S-SWELLS-OR Verified 03/04/20 10:44 AL/THROAT PFSH PFSH Disclaimer: The information contained in this section may have been updated after the patient was seen, as this information can be updated by other users. Social History Smoking Status: Never smoker alcohol intake: never current occupational status: retired Travel in the last 8 weeks: None household members: none housing: apartment current occupational exposures/hazards: No caffeine: No ROS Obtained: Yes All systems reviewed & no additional complaints except as documented Physical Exam General General appearance: alert and obese Head Head exam: atraumatic, normocephalic and normal inspection Eye Eye exam: Present normal appearance, PERRL and EOMI ENT ENT exam: Present normal exam, normal oropharynx, mucous membranes moist, TM's normal bilaterally and normal external ear exam Neck Neck exam: Present normal inspection, full ROM and trachea midline; Absent meningismus or lymphadenopathy Chest Chest inspection: Present normal inspection and symmetric chest wall rise; Absent tenderness Respiratory Respiratory exam: Present normal lung sounds bilaterally; Absent respiratory distress Cardiovascular Cardiovascular exam: Present regular rate and normal rhythm; Absent JVD Abdominal Exam Abdominal exam: Present soft; Absent distention, tenderness or guarding Extremities Exam Extremities exam: Present normal inspection, full ROM and normal capillary refill; Absent calf tenderness Back Exam Back exam: Present normal inspection; Absent tenderness Neurological Exam Neurological exam: Present alert and oriented X3 Psychiatric Psychiatric exam: Present normal affect and normal mood Skin Skin exam: Present warm, dry, intact and normal color Lymphatic Lymphatic Findings: no adenopathy Medical Decision Making Asa Inquiry Pt receiving controlled substance: No Asa was queried for this patient: No Vital Signs: 07/14/23 19:47 07/14/23 20:00 07/14/23 21:18 Temperature 98.8 F Temperature Source Oral Pulse Rate 110 H 106 H Pulse Rate [Right Radial] 110 H Respiratory Rate 20 Blood Pressure 107/54 L 97/51 L Blood Pressure [Right Arm] 119/67 Blood Pressure Mean 71 61 Blood Pressure Mean [Right Arm] 84 Blood Pressure Source [Right Arm] Automatic Cuff Blood Pressure Position [Right Arm] Supine 02 Sat by Pulse Oximetry 96 95 98 Oxygen Delivery Method Nasal Cannula Oxygen Flow Rate (LPM) 2 2 2 07/14/23 21:30 Temperature Temperature Source Pulse Rate 106 H Pulse Rate [Right Radial] Respiratory Rate Blood Pressure 109/55 L Blood Pressure [Right Arm] Blood Pressure Mean 61 Blood Pressure Mean [Right Arm] Blood Pressure Source [Right Arm] Blood Pressure Position [Right Arm] 02 Sat by Pulse Oximetry 96 Oxygen Delivery Method Oxygen Flow Rate (LPM) 2 Lab Data Lab Results 07/14/23 19:31: WBC 16.9 H, RBC 3.96 L, Hgb 12.5 L, Hct 39.3 L, MCV 99.2 H, MCH 31.7 H, MCHC 31.9, RDW 13.8, Plt Count 421, MPV 8.6, Neut % (Auto) 61.6, Lymph % (Auto) 29.8, [place] % (Auto) 4.9, Eos % (Auto) 2.7, Baso % (Auto) 1.0, Neut # (Auto) 10.4 H, Lymph # (Auto) 5.0 H, [place] # (Auto) 0.8, Eos # (Auto) 0.5 H, Baso # (Auto) 0.2, Total Counted 100, Neutrophils % (Manual) 68, Lymphocytes % (Manual) 24, Monocytes % (Manual) 8, Platelet Estimate Normal, Hypochromasia 2+, Macrocytosis 1+, Sodium 139, Potassium 3.6, Chloride 99, Carbon Dioxide 34 H, Anion Gap 9.6, BUN 29 H, Creatinine 1.10, Estimated Creat Clear 54, Estimated GFR 65, Est GFR ( Amer) 79, Glucose 169 H, Calcium 8.5, Phosphorus 3.3, Magnesium 2.1, Total Bilirubin 0.4, AST 37, ALT 38, Alkaline Phosphatase 99, Troponin I < 0.01, NT-Pro-B Natriuret Pep 302, Total Protein 6.6, Albumin 3.3 L, Globulin 3.3 H, Albumin/Globulin Ratio 1.0 L 07/14/23 19:56: VBG pH 7.35, VBG pCO2 56.6 H, VBG pO2 46.5 H, VBG HCO3 30.4 H, VBG Total CO2 32.1 H, VBG O2 Saturation 78.3 H, VBG Base Excess 4.8 H, VBG Lactic Acid 5.1 H 07/14/23 19:31 07/14/23 19:31 Orders (Tests/Meds): ED MEDICATIONS Generic Name Dose Route Start Last Admin Trade Name Freq PRN Reason Stop Dose Admin Albuterol/Ipratropium 3 ml 07/14/23 20:00 07/14/23 20:52 Ipratropium/Albuterol 3 Ml Neb IH 08/13/23 19:59 3 ml Q1H RIKKI Administration Discontinued Medications Generic Name Dose Route Start Last Admin Trade Name Freq PRN Reason Stop Dose Admin Iopamidol 70 ml 07/14/23 20:38 07/14/23 20:39 Iopamidol-370 (76%);100ml Bottle IV 07/14/23 20:39 70 ml ONCE ONE Administration Sodium Chloride 10 ml 07/14/23 20:38 07/14/23 20:39 Sodium Chloride 0.9% 10ml Syr (Rad Only) IV 07/14/23 20:39 10 ml ONCE ONE Administration ORDERS Category Date Time Status CT angio chest PE protocol Stat Cat Scan 07/14/23 19:54 Completed BNP [NT Pro Brain Natriuretic Pep.] Stat Lab 07/14/23 19:31 Completed CBC [Complete Blood Count Auto Diff] Stat Lab 07/14/23 19:31 Completed CMP [Comprehensive Metabolic Panel] Stat Lab 07/14/23 19:31 Completed Lactate Venous Stat Lab 07/14/23 19:54 Ordered Magnesium Stat Lab 07/14/23 19:31 Completed Phosphorous Stat Lab 07/14/23 19:31 Completed Trop I [Troponin I] Stat Lab 07/14/23 19:31 Completed Troponin I Q3H Lab 07/14/23 23:00 Ordered Troponin I Q3H Lab 07/15/23 02:00 Ordered VBG [Venous Blood Gas] Stat RT 07/14/23 19:56 Completed ECG Data Tracing #1: I reviewed this ECG and interpreted as documented below: ECG initial impression date: 07/14/23 ECG initial impression time: 20:01 ECG normal with no acute: arrhythmias, ischemia, conduction abnormalities, chamber hypertrophy Arrhythmias present: sinus tach Medical Decision Narrative: Consider multiple causes of patient's syncope including neurogenic and cardiogenic syncope from MA or arrhythmia or another cause, as well as PE, pneumothorax, aortic dissection, among others. On further discussion patient also reported that he has had some increased aspiration with meals over the past few weeks and has coughing fits almost every time he eats. Therefore consider that he may have an aspiration pneumonia rather than the bronchitis that he was diagnosed with. Obtained labs including CBC, BMP, which were significant for mild leukocytosis and mild anemia. Troponin was undetectable. CT PE I independently reviewed and interpreted showed right lower lobe pneumonia. Also discussed with radiologist that there was concern for possible blood in the stomach however patient does not have any sign of this on exam or on his labs and he denies melanotic stools, blood in stools, or blood in vomit. For this reason had interactive discussion with hospital medicine who agreed to admit the patient for pneumonia and weakness on attempted ambulation. Also discussed with them possible blood in the stomach given his anticoagulant use, though this is somewhat unlikely however they agree they will monitor for melena or other signs of bleeding. He remained stable until time of admission aside from asymptomatic mild hypotension with maps approximately 65. Gave LR, ceftriaxone and azithromycin for pneumonia treatment as well as DuoNebs for his comfort. Critical Care Critical Care Time Critical Care Time: No
--- NOTE | 2023-07-14 19:59 | PC.NURSE ---
Called respiratory to notify of VBG in lab at this time.
[2023-07-14 20:00] VITALS: BP 107/54; PULSE 110; O2SAT 95
[2023-07-14 20:06] LABS: VBG Base Excess 4.8 mmol/L (-2.4-2.3); VBG HCO3 30.4 mmol/L (23-30); VBG Oxygen Saturation 78.3 % (50-70); VBG PCO2 56.6 mmol/L (35-51); VBG PH 7.35 mmol/L (7.31-7.41); VBG PO2 46.5 mmol/L (28-40); VBG Total CO2 32.1 mmol/L (23-27)
[2023-07-14 20:07] LABS: Chloride 99 mmol/L (98-107); Potassium 3.6 mmoL/L (3.5-5.1); Sodium 139 mmol/L (136-145)
[2023-07-14 20:10] LABS: Lactate Venous 5.1 mmol/L (0.4-2.0)
[2023-07-14 20:10] LABS: Alanine Aminotransferase 38 U/L (12-78); Albumin Level 3.3 g/dl (3.5-5.0); Alkaline Phosphatase 99 U/L (38-126); Anion Gap 9.6 mEq/L (5-15); Aspartate Amino Transferase 37 U/L (17-59); Bilirubin,Total 0.4 mg/dl (0.2-1.3); Blood Urea Nitrogen 29 mg/dl (9-20); Calcium 8.5 mg/dl (8.4-10.2); Carbon Dioxide 34 mmol/L (22.0-30.0); Creatinine Clearance Estimated 54 mL/min (50-200); Estimated Glomerular Filt Rate 65 ml/min (>60); GFR (African American) 79 ML/MIN (>60); Globulin 3.3 g/dL (1.3-3.2); Glucose 169 mg/dl (74-100); Magnesium 2.1 mg/dl (1.6-2.3); Phosphorous 3.3 mg/dl (2.5-4.5); Total Protein,Serum 6.6 g/dl (6.3-8.2)
[2023-07-14 20:18] LABS: Basophils # 0.2 K/mm3 (0-0.2); Eosinophils # 0.5 K/mm3 (0.0-0.4); Eosinophils % 2.7 % (0.1-12.0); Hematocrit 39.3 % (42.0-52.0); Hemoglobin 12.5 g/dL (14.1-18.0); Lymphocytes % 29.8 % (10-50); Mean Corpuscular HGB Conc 31.9 g/dL (31.8-35.4); Mean Corpuscular Hemoglobin 31.7 pg (27.0-31.2); Mean Corpuscular Volume 99.2 fl (80-94); Mean Platelet Volume 8.6 fl (7.4-10.4); Monocytes # 0.8 K/mm3 (0.1-1.0); Monocytes % 4.9 % (1.7-9.3); Neutrophils # 10.4 K/mm3 (1.8-7.8); Neutrophils % 61.6 % (37.0-80.0); Platelet Count 421 K/mm3 (142-424); Red Blood Count 3.96 M/mm3 (4.60-6.20); Red Cell Distribution Width 13.8 % (11.5-17.5); White Blood Count 16.9 K/mm3 (4.8-10.8)
[2023-07-14 20:20] LABS: NT Pro Brain Natriuretic Pep. 302 pg/mL (0-450)
[2023-07-14 20:21] LABS: MANUAL DIFFERENTIAL MANUAL DIFFERENTIAL (MANUAL DIFF)
[2023-07-14 20:24] LABS: Troponin I < 0.01 ng/ml (0.00-0.034)
[2023-07-14] MEDS: IOPAMIDOL-370 (76%);100ML BOTTLE 70 ML IV (20:39)
[2023-07-14] MEDS: SODIUM CHLORIDE 0.9% 10ML SYR (RAD ONLY) 10 ML IV (20:39)
[2023-07-14 20:44] LABS: Lymphocytes % 24 % (10-50); Monocytes % 8 % (2-9); Neutrophils % 68 % (42-76); Total Cells Counted 100
[2023-07-14 20:45] LABS: Hypochromasia 2+; Macrocytosis 1+; Platelet Estimate Normal
[2023-07-14] MEDS: IPRATROPIUM/ALBUTEROL 3 ML NEB IH (20:52)
[2023-07-14 21:18] VITALS: BP 97/51; PULSE 106; O2SAT 98
[2023-07-14 21:30] VITALS: BP 109/55; PULSE 106; O2SAT 96
--- NOTE | 2023-07-14 21:34 | PC.NURSE ---
on phone with hospitalist at this time
--- NOTE | 2023-07-14 21:35 | PC.NURSE ---
notified bottle house pumper of admission
--- NOTE | 2023-07-14 21:40 | HMH.EDGENADL ---
Discharge Plan Disposition Patient Disposition: Admitted Condition: Fair Prescriptions Prescriptions: No Action furosemide 40 MG tablet 40 mg PO BID pravastatin 40 MG tablet 40 mg PO DAILY allopurinol 100 MG tablet 100 mg PO DAILY tramadol 50 MG tablet 50 mg PO DAILY warfarin 4 MG tablet 4 mg PO DAILY bisoprolol fumarate 5 MG tablet 5 mg PO DAILY tamsulosin 0.4 MG capsule 0.4 mg PO HS prednisone 20 MG tablet 20 mg PO BID Qty: 10 0RF levofloxacin 500 MG tablet 500 mg PO DAILY Qty: 7 0RF benzonatate 100 MG capsule 100 mg PO TID Qty: 21 0RF acyclovir 800 mg tablet 800 mg PO Q6H 7 Days Qty: 28 0RF gabapentin 400 mg capsule 400 mg PO BID Qty: 20 0RF lidocaine [Lidoderm] 5 % adhesive patch,medicated 1 patch topical DAILY Qty: 30 0RF Rx Instructions: leave on most painful area for up to 12 hrs Referrals Follow up/Referrals: Provider,Referral, MD [Referring] - See instructions Clinical Impressions Clinical Impression: RLL pneumonia Qualifiers: Aspiration pneumonia type: unspecified Instructions Patient Instructions: DI for Syncope in Adults (Fainting), DI for Syncope in Children (Fainting) Discharge ED Provider: Seble Muñoz General Adult HPI General Chief complaint: Syncope Stated complaint: fall Time Seen by Provider: 07/14/23 19:54 Mode of Arrival: EMS Source of Information: Patient and EMS Limitations: No Limitations Description of Symptoms (Recalled from ER Triage Doc. by RN): Patient is brought to ED from [facility] with a syncope episode that happened at home within the hour. Patient states he started amoxicillin last tuesday and every since he started that medication he has felt off . Patient reports increased nausea, weakness, and SOB. Related Data Home Medications Medication Instructions Recorded Confirmed allopurinol 100 mg tablet 100 mg PO DAILY gout 06/12/18 03/13/21 bisoprolol fumarate 5 mg tablet 5 mg PO DAILY blood pressure 06/12/18 03/13/21 furosemide 40 mg tablet 40 mg PO BID Fluid 06/12/18 03/13/21 pravastatin 40 mg tablet 40 mg PO DAILY Cholesterol 06/12/18 03/13/21 tamsulosin 0.4 mg capsule 0.4 mg PO HS bladder 06/12/18 03/13/21 tramadol 50 mg tablet 50 mg PO DAILY Pain 06/12/18 03/13/21 warfarin 4 mg tablet 4 mg PO DAILY hx of blood clots 06/12/18 03/13/21 Previous Rx's Medication Instructions Recorded benzonatate 100 mg capsule 100 mg PO TID #21 caps 03/13/21 levofloxacin 500 mg tablet 500 mg PO DAILY #7 tabs 03/13/21 prednisone 20 mg tablet 20 mg PO BID #10 tabs 03/13/21 acyclovir 800 mg tablet 800 mg PO Q6H Shingles 7 days #28 04/17/22 tabs gabapentin 400 mg capsule 400 mg PO BID #20 caps 04/17/22 lidocaine 5 % topical patch 1 patch topical DAILY #30 ea 04/17/22 (Lidoderm) Allergies Allergy/AdvReac Type Severity Reaction Status Date / Time lisinopril Allergy Severe S-SWELLS-OR Verified 03/04/20 10:44 AL/THROAT hydrochlorothiazide Allergy Mild S-SWELLS-OR Verified 03/04/20 10:44 [From Maxzide] AL/THROAT triamterene [From Maxzide] Allergy Mild S-SWELLS-OR Verified 03/04/20 10:44 AL/THROAT PFSH PFSH Disclaimer: The information contained in this section may have been updated after the patient was seen, as this information can be updated by other users. Social History Smoking Status: Never smoker alcohol intake: never current occupational status: retired Travel in the last 8 weeks: None household members: none housing: apartment current occupational exposures/hazards: No caffeine: No Physical Exam General General appearance: alert and obese Medical Decision Making Vital Signs: 07/14/23 19:47 07/14/23 20:00 07/14/23 21:18 Temperature 98.8 F Temperature Source Oral Pulse Rate 110 H 106 H Pulse Rate [Right Radial] 110 H Respiratory Rate 20 Blood Pressure 107/54 L 97/51 L Blood Pressure [Right Arm] 119/67 Blood Pressure Mean 71 61 Blood Pressure Mean [Right Arm] 84 Blood Pressure Source [Right Arm] Automatic Cuff Blood Pressure Position [Right Arm] Supine 02 Sat by Pulse Oximetry 96 95 98 Oxygen Delivery Method Nasal Cannula Oxygen Flow Rate (LPM) 2 2 2 07/14/23 21:30 Temperature Temperature Source Pulse Rate 106 H Pulse Rate [Right Radial] Respiratory Rate Blood Pressure 109/55 L Blood Pressure [Right Arm] Blood Pressure Mean 61 Blood Pressure Mean [Right Arm] Blood Pressure Source [Right Arm] Blood Pressure Position [Right Arm] 02 Sat by Pulse Oximetry 96 Oxygen Delivery Method Oxygen Flow Rate (LPM) 2 Lab Data Lab Results 07/14/23 19:31: WBC 16.9 H, RBC 3.96 L, Hgb 12.5 L, Hct 39.3 L, MCV 99.2 H, MCH 31.7 H, MCHC 31.9, RDW 13.8, Plt Count 421, MPV 8.6, Neut % (Auto) 61.6, Lymph % (Auto) 29.8, [place] % (Auto) 4.9, Eos % (Auto) 2.7, Baso % (Auto) 1.0, Neut # (Auto) 10.4 H, Lymph # (Auto) 5.0 H, [place] # (Auto) 0.8, Eos # (Auto) 0.5 H, Baso # (Auto) 0.2, Total Counted 100, Neutrophils % (Manual) 68, Lymphocytes % (Manual) 24, Monocytes % (Manual) 8, Platelet Estimate Normal, Hypochromasia 2+, Macrocytosis 1+, Sodium 139, Potassium 3.6, Chloride 99, Carbon Dioxide 34 H, Anion Gap 9.6, BUN 29 H, Creatinine 1.10, Estimated Creat Clear 54, Estimated GFR 65, Est GFR ( Amer) 79, Glucose 169 H, Calcium 8.5, Phosphorus 3.3, Magnesium 2.1, Total Bilirubin 0.4, AST 37, ALT 38, Alkaline Phosphatase 99, Troponin I < 0.01, NT-Pro-B Natriuret Pep 302, Total Protein 6.6, Albumin 3.3 L, Globulin 3.3 H, Albumin/Globulin Ratio 1.0 L 07/14/23 19:56: VBG pH 7.35, VBG pCO2 56.6 H, VBG pO2 46.5 H, VBG HCO3 30.4 H, VBG Total CO2 32.1 H, VBG O2 Saturation 78.3 H, VBG Base Excess 4.8 H, VBG Lactic Acid 5.1 H 07/14/23 19:31 07/14/23 19:31 Orders (Tests/Meds): ED MEDICATIONS Generic Name Dose Route Start Last Admin Trade Name Freq PRN Reason Stop Dose Admin Albuterol/Ipratropium 3 ml 07/14/23 20:00 07/14/23 20:52 Ipratropium/Albuterol 3 Ml Neb IH 08/13/23 19:59 3 ml Q1H RIKKI Administration Lactated Ringer's 3,740 mls @ 1,870 mls/hr 07/14/23 21:39 Lactated Ringer's 1000 Ml Bag 30 ml/kg infuse over 2 hr (3740 ml) 07/14/23 23:38 IV .Q2H ONE Discontinued Medications Generic Name Dose Route Start Last Admin Trade Name Freq PRN Reason Stop Dose Admin Iopamidol 70 ml 07/14/23 20:38 07/14/23 20:39 Iopamidol-370 (76%);100ml Bottle IV 07/14/23 20:39 70 ml ONCE ONE Administration Sodium Chloride 10 ml 07/14/23 20:38 07/14/23 20:39 Sodium Chloride 0.9% 10ml Syr (Rad Only) IV 07/14/23 20:39 10 ml ONCE ONE Administration ORDERS Category Date Time Status CT angio chest PE protocol Stat Cat Scan 07/14/23 19:54 Completed BNP [NT Pro Brain Natriuretic Pep.] Stat Lab 07/14/23 19:31 Completed CBC [Complete Blood Count Auto Diff] Stat Lab 07/14/23 19:31 Completed CMP [Comprehensive Metabolic Panel] Stat Lab 07/14/23 19:31 Completed Lactate Venous Stat Lab 07/14/23 19:54 Ordered Lactic Acid Stat Lab 07/14/23 21:40 Ordered Magnesium Stat Lab 07/14/23 19:31 Completed PT INR [Prothrombin Time INR] Stat Lab 07/14/23 21:37 Ordered Phosphorous Stat Lab 07/14/23 19:31 Completed Trop I [Troponin I] Stat Lab 07/14/23 19:31 Completed Troponin I Q3H Lab 07/14/23 23:00 Ordered Troponin I Q3H Lab 07/15/23 02:00 Ordered Blood Culture Stat Micro 07/14/23 21:40 Ordered VBG [Venous Blood Gas] Stat RT 07/14/23 19:56 Completed
--- NOTE | 2023-07-14 21:40 | PC.NURSE ---
Admitting notified for OBS, 208, Pneumonia, Hospitalist
--- NOTE | 2023-07-14 21:41 | PC.NURSE ---
patients heart rate is elevated, patient is on phone with his daughter and upset at this time
[2023-07-14 21:48] LABS: INR 3.27 (0.9-1.1); Prothrombin Time 32.7 seconds (10.1-12.5)
[2023-07-14] MEDS: LACTATED RINGERS 1870 ML IV (21:50)
--- NOTE | 2023-07-14 21:55 | PC.NURSE ---
Gave report to SHARIF Olivarez on second floor at this time.
--- NOTE | 2023-07-14 22:02 | PC.NURSE ---
Lab at bedside getting blood cultures at this time
--- NOTE | 2023-07-14 22:14 | PC.NURSE ---
1973 received phone report from tasneem/ED nurse. Patient is a 73 yo male with sepsis/pneumonia.
--- NOTE | 2023-07-14 22:24 | PC.NURSE ---
2220 PRASAD/[facility] PHARMACIST CONSULTED RE WARFARIN DOSING REQUESTED. NO WARFARIN NEEDED TONIGHT. [facility] PH[facility] TO F/U TOMORROW.
--- NOTE | 2023-07-14 22:29 | PC.NURSE ---
patient had large BM as 2nd floor staff arrived to transport patient to floor, transfer delayed
--- NOTE | 2023-07-14 22:34 | PC.NURSE ---
Patient had large black tarry bowel movement in BSC. Patient also ripped his IV out. New IV was established in right AC 20G.
[2023-07-14 22:38] VITALS: BP 101/47; PULSE 80; RESP 20; TEMP 36.6; O2SAT 95
[2023-07-14 22:38] LABS: Lactic Acid 2.6 mmol/L (0.7-2.1)
[2023-07-14 22:49] LABS: Troponin I < 0.01 ng/ml (0.00-0.034)
[2023-07-14 22:53] LABS: Procalcitonin 0.198 ng/mL (0.0-2.0)
--- NOTE | 2023-07-14 22:53 | PC.NURSE ---
Patient arrived to floor via stretcher from ED at 22:38.
[2023-07-14 23:10] VITALS: BP 101/47; PULSE 118; RESP 20; TEMP 36.5; O2SAT 96
[2023-07-15] MEDS: AZITHROMYCIN 500 MG in 0.9 % SODIUM CHLORIDE 250 ML 250 MG IV (00:06)
[2023-07-15 00:08] LABS: Reflex Lactic Add Lactic Reflex
[2023-07-15 00:14] LABS: Occult Blood,Stool Positive (Negative)
[2023-07-15] MEDS: METRONIDAZ/SOD CHL 500 MG/100 ML PIGGYBACK 100 MG IV (00:59)
--- NOTE | 2023-07-15 01:22 | P.HPDS_ITS ---
General Admission date:: 07/14/23 Discharge date: 07/15/23 *Admission Date: 07/14/23 *Chief complaint: Generalized weakness *History of present illness: This is a 73-year-old male with past medical history of morbid obesity, COPD, A- fib on warfarin who presents emergency department today with complaints of syncopal episode and generalized weakness. He reports that he started amoxicillin last Tuesday and ever since he started that medication he has felt off . He reports nausea, generalized weakness and increased shortness of breath. He does have a history of COPD on chronic 2 L nasal cannula and states that despite his chronic O2, felt progressively short of breath. He states he was ambulatory at home and felt lightheaded and lost consciousness. States that when he awoke he had severe nausea and weakness. He denies diaphoresis, fever, cough, congestion. At the time of admission, he denies any abdominal pain, melena, hematochezia. Emergency department workup significant for sepsis with with mild tachycardia and hypotension. Also noted to have leukocytosis with a white blood cell count of 17. Hemoglobin of 12,, lactic acid of 2.6, INR of 3.2. CT scan of the chest notable for airspace opacities scattered throughout the right lower lobe compatible with pneumonia. Also noted to have distended stomach with relatively high density and homogenous fluid presumably ingestion but also hemorrhage cannot be excluded. Given patient was having no complaints of melena or hematochezia he was initially admitted to the hospitalist service for sepsis and pneumonia. [facility] Disclaimer: The information contained in this section may have been updated after the patient was seen, as this information can be updated by other users. Medical History (Updated 07/15/23 @ 01:35 by JIMMY Hemphill) Diabetes mellitus, type 2 Hypertension History of heart attack Deep vein thrombosis (DVT) Congestive heart failure Atrial fibrillation Atrial fibrillation Family History Family history of acute congestive heart failure Family history of cardiomyopathy Family history of cancer Family history of hypertension Family history of myocardial infarction Social History (Updated 07/14/23 @ 23:11 by Juanis Brandt RN) Smoking Status: Never smoker alcohol intake: never current occupational status: retired Travel in the last 8 weeks: None household members: none housing: apartment current occupational exposures/hazards: No caffeine: No Review of Systems Constitutional Constitutional: Reports as per HPI Eyes Eyes: Reports as per HPI ENT Ears, Nose, Mouth, and Throat: Reports as per HPI *Cardiovascular Cardiovascular: Reports as per HPI *Respiratory Respiratory: Reports as per HPI *Gastrointestinal Gastrointestinal: Reports as per HPI *Genitourinary Genitourinary: Reports as per HPI *Musculoskeletal Musculoskeletal: Reports as per HPI Integumentary/Breasts Skin/Breast: Reports as per HPI *Neurologic Neurologic: Reports as per HPI Psychiatric Psychiatric: Reports as per HPI Endocrine Endocrine: Reports as per HPI Hematologic/Lymphatic Hematologic/Lymphatic: Reports as per HPI Allergic/Immunologic Allergic/Immunologic: Reports as per HPI Exam Data for Last 24 hours Vital signs and Labs for Last 24 Hours: Temp Pulse Resp BP Pulse Ox O2 Del Method O2 Flow Rate 97.7 F 118 H 20 101/47 L 96 Nasal Cannula 2 07/14/23 23:10 07/14/23 23:10 07/14/23 23:10 07/14/23 23:10 07/14/23 23:10 07/14/23 23:10 07/14/23 23:10 Laboratory Results - last 24 hr 07/14/23 19:31: WBC 16.9 H, RBC 3.96 L, Hgb 12.5 L, Hct 39.3 L, MCV 99.2 H, MCH 31.7 H, MCHC 31.9, RDW 13.8, Plt Count 421, MPV 8.6, Neut % (Auto) 61.6, Lymph % (Auto) 29.8, [place] % (Auto) 4.9, Eos % (Auto) 2.7, Baso % (Auto) 1.0, Neut # (Auto) 10.4 H, Lymph # (Auto) 5.0 H, [place] # (Auto) 0.8, Eos # (Auto) 0.5 H, Baso # (Auto) 0.2, Total Counted 100, Neutrophils % (Manual) 68, Lymphocytes % (Manual) 24, Monocytes % (Manual) 8, Platelet Estimate Normal, Hypochromasia 2+, Macrocytosis 1+, PT 32.7 H, INR 3.27 H, Sodium 139, Potassium 3.6, Chloride 99, Carbon Dioxide 34 H, Anion Gap 9.6, BUN 29 H, Creatinine 1.10, Estimated Creat Clear 54, Estimated GFR 65, Est GFR ( Amer) 79, Glucose 169 H, Calcium 8.5, Phosphorus 3.3, Magnesium 2.1, Total Bilirubin 0.4, AST 37, ALT 38, Alkaline Phosphatase 99, Troponin I < 0.01, NT-Pro-B Natriuret Pep 302, Total P rotein 6.6, Albumin 3.3 L, Globulin 3.3 H, Albumin/Globulin Ratio 1.0 L 07/14/23 19:56: VBG pH 7.35, VBG pCO2 56.6 H, VBG pO2 46.5 H, VBG HCO3 30.4 H, VBG Total CO2 32.1 H, VBG O2 Saturation 78.3 H, VBG Base Excess 4.8 H, VBG Lactic Acid 5.1 H 07/14/23 22:05: Lactate 2.6 H, Troponin I < 0.01, Procalcitonin 0.198 07/14/23 23:35: Stool Occult Blood Positive A 07/15/23 00:15: Lactate 3.0 H I & O for Last 24 hours: Intake & Output 07/12/23 07/13/23 07/14/23 07/15/23 23:59 23:59 23:59 23:59 Intake Total 480 / 480 Output Total 200 / 200 Balance 280 / 280 Weight 124.738 kg Constitutional Constitutional: no acute distress *Routine HEENT Exam Head: Present normocephalic Eye: Present EOMI and PERRL ENT: Present mucous membranes dry Comments: Sclera pallor noted, mildly pale gums as well. *Routine Neck Exam Neck: Present supple; Absent lymphadenopathy *Routine Respiratory Exam Respiratory: Present CTA bilaterally *Routine Cardiovascular Exam Cardiovascular: Present tachycardia and irregularly irregular *Routine Abdominal Exam Abdominal: Present soft, normoactive bowel sounds and tenderness Comments: Obese with mild epigastric distention *Routine Rectal Exam Rectal:: deferred *Routine Genitalia Exam Genitalia:: deferred *Routine Extremities Exam Extremities: Absent cyanosis, clubbing or edema *Routine Skin Exam Skin: Present warm; Absent rash *Routine Neurological Exam Neurological: Present alert and oriented X3 Meds Home Medications and Allergies Home Medications Medication Instructions Recorded Confirmed Type allopurinol 100 mg tablet 100 mg PO DAILY gout 06/12/18 03/13/21 History bisoprolol fumarate 5 mg tablet 5 mg PO DAILY blood pressure 06/12/18 03/13/21 History furosemide 40 mg tablet 40 mg PO BID Fluid 06/12/18 03/13/21 History pravastatin 40 mg tablet 40 mg PO DAILY Cholesterol 06/12/18 03/13/21 History tamsulosin 0.4 mg capsule 0.4 mg PO HS bladder 06/12/18 03/13/21 History tramadol 50 mg tablet 50 mg PO DAILY Pain 06/12/18 03/13/21 History warfarin 4 mg tablet 4 mg PO DAILY hx of blood clots 06/12/18 03/13/21 History benzonatate 100 mg capsule 100 mg PO TID #21 caps 03/13/21 Rx levofloxacin 500 mg tablet 500 mg PO DAILY #7 tabs 03/13/21 Rx prednisone 20 mg tablet 20 mg PO BID #10 tabs 03/13/21 Rx acyclovir 800 mg tablet 800 mg PO Q6H Shingles 7 days #28 04/17/22 Rx tabs gabapentin 400 mg capsule 400 mg PO BID #20 caps 04/17/22 Rx lidocaine 5 % topical patch 1 patch topical DAILY #30 ea 04/17/22 Rx (Lidoderm) New Prescriptions to Start Prescriptions: Allergies Allergy/AdvReac Type Severity Reaction Status Date / Time lisinopril Allergy Severe S-SWELLS-OR Verified 03/04/20 10:44 AL/THROAT hydrochlorothiazide Allergy Mild S-SWELLS-OR Verified 03/04/20 10:44 [From Maxzide] AL/THROAT triamterene [From Maxzide] Allergy Mild S-SWELLS-OR Verified 03/04/20 10:44 AL/THROAT Hospital Course Hospital Course Hospital Course: This is a 73-year-old male with past medical history of morbid obesity, COPD, A- fib on warfarin who presents emergency department today with complaints of syncopal episode and generalized weakness. He reports that he started amoxicillin last Tuesday and ever since he started that medication he has felt off . He reports nausea, generalized weakness and increased shortness of breath. He does have a history of COPD on chronic 2 L nasal cannula and states that despite his chronic O2, felt progressively short of breath. He states he was ambulatory at home and felt lightheaded and lost consciousness. States that when he awoke he had severe nausea and weakness. He denies diaphoresis, fever, cough, congestion. At the time of admission, he denies any abdominal pain, melena, hematochezia. Emergency department workup significant for sepsis with with mild tachycardia and hypotension. Also noted to have leukocytosis with a white blood cell count of 17. Hemoglobin of 12,, lactic acid of 2.6, INR of 3.2. CT scan of the chest notable for airspace opacities scattered throughout the right lower lobe compatible with pneumonia. Also noted to have distended stomach with relatively high density and homogenous fluid presumably ingestion but also hemorrhage cannot be excluded. Given patient was having no complaints of melena or hematochezia he was initially admitted to the hospitalist service for sepsis and pneumonia. Just prior to leaving the emergency department, on admission, patient was noted to have very large amount of dark tarry stool. Patient presented to the floor after this. At the time of my assessment he was noted to be stable but pallor noted. He denies abdominal pain but does endorse prior nausea today. Also endorses generalized weakness with syncopal episode at home. States that he has had an ulcer in the past but that was many many years ago. Abdomen obese and mildly distended but not peritonitic and no guarding noted. Rectal exam completed by me with nurse witness at the bedside after consultation with the patient. Stool noted to be dark and tarry. Occult positive result noted. Given his picture of sepsis versus GI bleed, general surgery was consulted and recommends due to patient's comorbidities and GI bleed, would likely benefit from higher level of care. Upon repeat lab work and assessment, patient had a uptrend in lactic acid to 3.0 while sepsis fluids were being administered. Mild tachycardia noted with fibs/sinus tach with heart rate in the 1 teens. Blood pressure remains mildly soft with systolic in the low 100s to upper 90s. Also noted that patient had downtrend in hemoglobin from 2 months ago. 2-month ago patient had a hemoglobin of 15. Consulted with patient about reason for transfer and patient graciously agrees. Spoke with Dr. Blum at [facility] who graciously accepted patient for higher level care. Patient discharged prior to my evaluation. However personally discussed case and reviewed chart with nurse practitioner, Agree with exam findings and care plan as documented. Results Data Completed and Pending Labs on day of discharge: Labs from last 24 hours 07/15/23 07/14/23 07/14/23 00:15 23:35 22:05 WBC RBC Hgb Hct MCV MCH MCHC RDW Plt Count MPV Neut % (Auto) Lymph % (Auto) [place] % (Auto) Eos % (Auto) Baso % (Auto) Neut # (Auto) Lymph # (Auto) [place] # (Auto) Eos # (Auto) Baso # (Auto) Total Counted Neutrophils % (Manual) Lymphocytes % (Manual) Monocytes % (Manual) Platelet Estimate Hypochromasia Macrocytosis PT INR VBG pH VBG pCO2 VBG pO2 VBG HCO3 VBG Total CO2 VBG O2 Saturation VBG Base Excess VBG Lactic Acid Sodium Potassium Chloride Carbon Dioxide Anion Gap BUN Creatinine Estimated Creat Clear Estimated GFR Est GFR ( Amer) Glucose Lactate 3.0 H 2.6 H Calcium Phosphorus Magnesium Total Bilirubin AST ALT Alkaline Phosphatase Troponin I < 0.01 NT-Pro-B Natriuret Pep Total Protein Albumin Globulin Albumin/Globulin Ratio Procalcitonin 0.198 Stool Occult Blood Positive A 07/14/23 07/14/23 19:56 19:31 WBC 16.9 H RBC 3.96 L Hgb 12.5 L Hct 39.3 L MCV 99.2 H MCH 31.7 H MCHC 31.9 RDW 13.8 Plt Count 421 MPV 8.6 Neut % (Auto) 61.6 Lymph % (Auto) 29.8 [place] % (Auto) 4.9 Eos % (Auto) 2.7 Baso % (Auto) 1.0 Neut # (Auto) 10.4 H Lymph # (Auto) 5.0 H [place] # (Auto) 0.8 Eos # (Auto) 0.5 H Baso # (Auto) 0.2 Total Counted 100 Neutrophils % (Manual) 68 Lymphocytes % (Manual) 24 Monocytes % (Manual) 8 Platelet Estimate Normal Hypochromasia 2+ Macrocytosis 1+ PT 32.7 H INR 3.27 H VBG pH 7.35 VBG pCO2 56.6 H VBG pO2 46.5 H VBG HCO3 30.4 H VBG Total CO2 32.1 H VBG O2 Saturation 78.3 H VBG Base Excess 4.8 H VBG Lactic Acid 5.1 H Sodium 139 Potassium 3.6 Chloride 99 Carbon Dioxide 34 H Anion Gap 9.6 BUN 29 H Creatinine 1.10 Estimated Creat Clear 54 Estimated GFR 65 Est GFR ( Amer) 79 Glucose 169 H Lactate Calcium 8.5 Phosphorus 3.3 Magnesium 2.1 Total Bilirubin 0.4 AST 37 ALT 38 Alkaline Phosphatase 99 Troponin I < 0.01 NT-Pro-B Natriuret Pep 302 Total Protein 6.6 Albumin 3.3 L Globulin 3.3 H Albumin/Globulin Ratio 1.0 L Procalcitonin Stool Occult Blood DS: Diagnosis Discharge Diagnosis (1) RLL pneumonia: Status: Acute Code(s): J18.9 - Pneumonia, unspecified organism Qualifiers: Aspiration pneumonia type: unspecified (2) detention (current) use of anticoagulants: Status: Acute Code(s): Z79.01 - detention (current) use of anticoagulants (3) Severe sepsis: Status: Acute Code(s): A41.9 - Sepsis, unspecified organism; R65.20 - Severe sepsis without septic shock (4) GI bleed: Status: Acute Code(s): K92.2 - Gastrointestinal hemorrhage, unspecified (5) Atrial fibrillation: Status: Acute Code(s): I48.91 - Unspecified atrial fibrillation Discharge Plan Disposition Patient Disposition: Xfer Short-Term Hosp Condition: Fair Discharge Order Discharge Orders: Discharge Order (Routine); Ordered 07/15/23 Ordered By: Gloria Ocasio Follow up Plan Prescriptions/Medication Reconciliation: Continued furosemide 40 MG tablet 40 mg PO BID pravastatin 40 MG tablet 40 mg PO DAILY allopurinol 100 MG tablet 100 mg PO DAILY tramadol 50 MG tablet 50 mg PO DAILY warfarin 4 MG tablet 4 mg PO DAILY bisoprolol fumarate 5 MG tablet 5 mg PO DAILY tamsulosin 0.4 MG capsule 0.4 mg PO HS prednisone 20 MG tablet 20 mg PO BID Qty: 10 0RF levofloxacin 500 MG tablet 500 mg PO DAILY Qty: 7 0RF benzonatate 100 MG capsule 100 mg PO TID Qty: 21 0RF acyclovir 800 mg tablet 800 mg PO Q6H 7 Days Qty: 28 0RF gabapentin 400 mg capsule 400 mg PO BID Qty: 20 0RF lidocaine [Lidoderm] 5 % adhesive patch,medicated 1 patch topical DAILY Qty: 30 0RF Rx Instructions: leave on most painful area for up to 12 hrs Problem Reconciliation Problems Reviewed?: Yes Patient Discharge Instructions ACTIVITY: Bed rest DIET: NPO Stand Alone Forms: Transfer Record Providers Primary Care Provider: Constantine Lincoln Admit Provider: Marques Wise Attending Provider: Marques Wise
[2023-07-15] MEDS: CEFTRIAXONE SODIUM 1,000 MG in 0.9 % SODIUM CHLORIDE 50 ML 100 MG IV (01:41)
[2023-07-15 01:51] LABS: Reflex Lactic (2 hrs) Add Lactic Reflex
[2023-07-15] MEDS: PANTOPRAZOLE SODIUM 80 MG in 0.9 % SODIUM CHLORIDE 100 ML 100 MG IV ×2 (01:53→02:03)
[2023-07-15] MEDS: PANTOPRAZOLE SODIUM 80 MG in 0.9 % SODIUM CHLORIDE 100 ML 10 MG IV (02:08)
[2023-07-15 02:33] LABS: Lactic Acid Follow up (RFLX 2) 1.8 mmol/L (0.7-2.1)
[2023-07-15 02:46] LABS: Troponin I < 0.01 ng/ml (0.00-0.034)
--- NOTE | 2023-07-15 03:20 | PC.NURSE ---
0230 report called to [facility] med surg tele nurse.
--- NOTE | 2023-07-15 03:22 | PC.NURSE ---
0300 [facility] notified need to transfer to [address] med surg tele.
--- NOTE | 2023-07-15 03:24 | PC.NURSE ---
EMS here to transfer patient at this time.
--- NOTE | 2023-07-15 03:37 | PC.NURSE ---
[id number] report given to [facility] paramedics. patient transfered to [facility].
== END 2023-07-15 03:35 | disposition short-term general hospital (02) ==
LOC: ER 21:40 → 2ND 22:09
PROVIDERS: Nurse Practitioner Acute Care; Admitting Provider Internal Medicine Adolescent Medicine; Emergency Provider Emergency Medicine; PCP Internal Medicine; Visit Provider Internal Medicine Adolescent Medicine
DX: J18.9 Pneumonia, unspecified organism (principal); Z79.01 Long term (current) use of anticoagulants; A41.9 Sepsis, unspecified organism; R65.20 Severe sepsis without septic shock; K92.2 Gastrointestinal hemorrhage, unspecified; I48.91 Unspecified atrial fibrillation; Z79.899 Other long term (current) drug therapy; J44.9 Chronic obstructive pulmonary disease, unspecified; Z99.81 Dependence on supplemental oxygen; I11.0 Hypertensive heart disease with heart failure; I50.9 Heart failure, unspecified
CPT/HCPCS: 36415; 71275; 80053; 82272; 82803; 83605; 83735; 83880; 84100; 84145; 84484; 85007; 85025; 85610; 87040; 87070; 87205; 93005; 99285; G0328; G0378; J0456; J0696; Q9967

== ENCOUNTER 2023-07-20 20:17 | Observation (INO) | payer MEDICARE, MEDICAID, SELFPAY ==
--- NOTE | 2023-07-20 20:13 | ECG_ITS ---
APPROVED REPORT Exam: Resting ECG HR:102 bpm ECG Measurements Heart Rate 102 AXES SD 153 P 92 QRSd 98 QRS 33 QT 392 T 35 QTc 451 Conclusion SINUS TACHYCARDIA WITH OCCASIONAL SUPRAVENTRICULAR PREMATURE COMPLEXES MINIMAL ST DEPRESSION [0.025+ mV ST DEPRESSION] ABNORMAL RHYTHM ECG UNCONFIRMED REPORT Electronically signed by : Marques Ruiz, 07/20/2023 22:51:05
[2023-07-20 20:17] VITALS: BP 98/60; PULSE 101; RESP 17; TEMP 36.6; O2SAT 98; BMI 37.3
--- NOTE | 2023-07-20 20:20 | CT_ITS ---
PROCEDURE INFORMATION: Exam: CT Head Without Contrast Exam date and time: 07/20/2023 8:33 PM Age: 73 years old Clinical indication: Syncope and collapse; Additional info: Syncope, fall, head injury, on coumadin TECHNIQUE: Imaging protocol: Computed tomography of the head without contrast. Radiation optimization: All CT scans at this facility use at least one of these dose optimization techniques: automated exposure control; mA and/or kV adjustment per patient size (includes targeted exams where dose is matched to clinical indication); or iterative reconstruction. COMPARISON: US CA CAROTID DUPLEX BI 06/19/2020 10:53 AM FINDINGS: Brain: Agenesis of the corpus callosum. No hemorrhage, edema, or mass effect. Cerebral ventricles: No ventriculomegaly. Paranasal sinuses: Visualized sinuses are unremarkable. No fluid levels. Mastoid air cells: Partial opacification of the right mastoid air cells. Bones/joints: Unremarkable. No acute fracture. Soft tissues: Unremarkable. IMPRESSION: 1. No acute intracranial findings. 2. Agenesis of the corpus callosum. 3. Partial opacification of the right mastoid air cells.
--- NOTE | 2023-07-20 20:21 | XR_ITS ---
PROCEDURE INFORMATION: Exam: XR Chest Exam date and time: 07/20/2023 8:25 PM Age: 73 years old Clinical indication: Dyspnea TECHNIQUE: Imaging protocol: Radiologic exam of the chest. Views: 1 view. COMPARISON: CT ANGIO CHEST PE PROTOCOL 07/14/2023 8:31 PM FINDINGS: Lungs: Right lung base calcified granuloma. No consolidation. Pleural spaces: Normal. No pleural effusion. No pneumothorax. Heart/Mediastinum: Normal. No cardiomegaly. Vasculature: Tortuous atherosclerotic thoracic aorta. Bones/joints: Unremarkable. IMPRESSION: No acute findings.
--- NOTE | 2023-07-20 20:23 | [facility].EDCP ---
Discharge Plan Disposition Patient Disposition: Admitted Prescriptions Prescriptions: No Action furosemide 40 MG tablet 40 mg PO BID pravastatin 40 MG tablet 40 mg PO DAILY allopurinol 100 MG tablet 100 mg PO DAILY tramadol 50 MG tablet 50 mg PO DAILY warfarin 4 MG tablet 4 mg PO DAILY bisoprolol fumarate 5 MG tablet 5 mg PO DAILY tamsulosin 0.4 MG capsule 0.4 mg PO HS prednisone 20 MG tablet 20 mg PO BID Qty: 10 0RF levofloxacin 500 MG tablet 500 mg PO DAILY Qty: 7 0RF benzonatate 100 MG capsule 100 mg PO TID Qty: 21 0RF acyclovir 800 mg tablet 800 mg PO Q6H 7 Days Qty: 28 0RF gabapentin 400 mg capsule 400 mg PO BID Qty: 20 0RF lidocaine [Lidoderm] 5 % adhesive patch,medicated 1 patch topical DAILY Qty: 30 0RF Rx Instructions: leave on most painful area for up to 12 hrs Referrals Follow up/Referrals: Provider,Referral, MD [Primary Care Provider] - See instructions Clinical Impressions Clinical Impression: Exertional dyspnea, Syncope, Head injury Discharge ED Provider: Gregorio Ruiz HPI General Chief Complaint: Fall Stated Complaint: fall Time Seen by Provider: 07/20/23 20:19 History of Present Illness HPI narrative: Is a 73-year-old male presenting today with syncope and a minor head injury. Patient states that he is chronically anticoagulated on Coumadin for atrial fibrillation states his last INR was between 2 and 3 and today he had some prodromal lightheadedness passed out fell and hit his head subsequently called 911. Of note patient was recently in the hospital just a few days ago was found to be more anemic than his baseline had heme positive stool also was diagnosed with pneumonia and ultimately was transferred to [facility]. He states that he had an endoscopy and was told that he had a bleeding ulcer. He has been put on multiple antibiotics to treat his ulcer as well as his pneumonia. At the bedside he has Augmentin and doxycycline as well as a PPI. Patient denies any chest pain denies any worsening lower extremity or peripheral edema. Does state he has extensive dyspnea with any type of exertion at all. States that he cannot walk more than a few feet without being severely dyspneic and feeling like he is going to pass out. This is his second syncopal episode in the last week. 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 He does have an appointment with Dr. Mac but has not seen him. Patient denies any fevers chills cough. Related Data Home Medications Medication Instructions Recorded Confirmed allopurinol 100 mg tablet 100 mg PO DAILY gout 06/12/18 03/13/21 bisoprolol fumarate 5 mg tablet 5 mg PO DAILY blood pressure 06/12/18 03/13/21 furosemide 40 mg tablet 40 mg PO BID Fluid 06/12/18 03/13/21 pravastatin 40 mg tablet 40 mg PO DAILY Cholesterol 06/12/18 03/13/21 tamsulosin 0.4 mg capsule 0.4 mg PO HS bladder 06/12/18 03/13/21 tramadol 50 mg tablet 50 mg PO DAILY Pain 06/12/18 03/13/21 warfarin 4 mg tablet 4 mg PO DAILY hx of blood clots 06/12/18 03/13/21 Previous Rx's Medication Instructions Recorded benzonatate 100 mg capsule 100 mg PO TID #21 caps 03/13/21 levofloxacin 500 mg tablet 500 mg PO DAILY #7 tabs 03/13/21 prednisone 20 mg tablet 20 mg PO BID #10 tabs 03/13/21 acyclovir 800 mg tablet 800 mg PO Q6H Shingles 7 days #28 04/17/22 tabs gabapentin 400 mg capsule 400 mg PO BID #20 caps 04/17/22 lidocaine 5 % topical patch 1 patch topical DAILY #30 ea 04/17/22 (Lidoderm) Allergies Allergy/AdvReac Type Severity Reaction Status Date / Time lisinopril Allergy Severe S-SWELLS-OR Verified 03/04/20 10:44 AL/THROAT hydrochlorothiazide Allergy Mild S-SWELLS-OR Verified 03/04/20 10:44 [From Maxzide] AL/THROAT triamterene [From Maxzide] Allergy Mild S-SWELLS-OR Verified 03/04/20 10:44 AL/THROAT PFSH PFSH Disclaimer: The information contained in this section may have been updated after the patient was seen, as this information can be updated by other users. Medical History (Updated 07/20/23 @ 20:23 by Gregorio Ruiz MD) Shingles Rib contusion COPD exacerbation SIRS (systemic inflammatory response syndrome) Hypokalemia Acute exacerbation of chronic obstructive airways disease Diabetes mellitus, type 2 Hypertension History of heart attack Deep vein thrombosis (DVT) Congestive heart failure Atrial fibrillation Atrial fibrillation Family History Other Family history of acute congestive heart failure Family history of cancer Family history of cardiomyopathy Family history of hypertension Family history of myocardial infarction Social History (Updated 07/14/23 @ 23:11 by Juanis Brandt RN) Smoking Status: Former smoker tobacco type: cigars alcohol intake: never current occupational status: retired Travel in the last 8 weeks: None household members: none housing: apartment current occupational exposures/hazards: No caffeine: No ROS Obtained: Yes All systems reviewed & no additional complaints except as documented Physical Exam General General appearance: alert, in no apparent distress and other (Pale in appearance) Head Head exam: atraumatic and normocephalic Neck Neck exam: Present normal inspection; Absent tenderness Respiratory Respiratory exam: Present normal lung sounds bilaterally Cardiovascular Cardiovascular exam: Present regular rate; Absent normal rhythm Abdominal Exam Abdominal exam: Present soft and other (Well-healed midline incisional scar); Absent distention or tenderness Neurological Exam Neurological exam: Present alert and oriented X3 HEART Score HEART Score HEART Score assessment performed?: Yes History (anamnesis): Slightly suspicious ECG: Non-specific disturbance Age: >65 years Risk factors: 1-2 risk factors Troponin: </= normal limit HEART Score: 4 Critical Care Critical Care Time Critical Care Time: No Medical Decision Making Asa Inquiry Pt receiving controlled substance: No Vital Signs Vital Signs: 07/20/23 20:17 Temperature 97.8 F Temperature Source Oral Pulse Rate [Right] 101 H Respiratory Rate 17 Blood Pressure [Right Arm] 98/60 L Blood Pressure Mean [Right Arm] 72 Blood Pressure Source [Right Arm] Automatic Cuff Blood Pressure Position [Right Arm] Sitting 02 Sat by Pulse Oximetry 98 Oxygen Delivery Method Room Air Lab Data Lab results reviewed: Yes I reviewed the patient's lab results. Labs: Lab Results 07/20/23 20:22: VBG pH 7.41, VBG pCO2 37.7, VBG pO2 41.9 H, VBG HCO3 23.6, VBG Total CO2 24.7, VBG O2 Saturation 77.0 H, VBG Base Excess -1.0, VBG Lactic Acid 2.5 H 04/17/24 20:45: WBC 14.9 H, RBC 3.35 L, Hgb 10.4 L, Hct 33.5 L, MCV 99.9 H, MCH 31.0, MCHC 31.0 L, RDW 15.5, Plt Count 512 H, MPV 7.8, Neut % (Auto) 71.7, Lymph % (Auto) 21.6, [place] % (Auto) 4.3, Eos % (Auto) 2.0, Baso % (Auto) 0.4, Neut # (Auto) 10.7 H, Lymph # (Auto) 3.2, [place] # (Auto) 0.6, Eos # (Auto) 0.3, Baso # (Auto) 0.1, PT 11.6, INR 1.08, D-Dimer 2.99 H, Sodium 140, Potassium 3.5, Chloride 104, Carbon Dioxide 25, Anion Gap 14.5, BUN 10, Creatinine 1.10, Estimated Creat Clear 97, Estimated GFR 65, Est GFR ( Amer) 79, Glucose 155 H, Lactate 2.0, Calcium 8.2 L, Phosphorus 3.2, Magnesium 2.0, Total Bilirubin 0.3, AST 36, ALT 32, Alkaline Phosphatase 95, Troponin I < 0.01, NT-Pro-B Natriuret Pep 541 H, Total Protein 7.3, Albumin 3.9, Globulin 3.4 H, Albumin/Globulin Ratio 1.1, Blood Type A Positive, Antibody Screen Negative 07/20/23 20:45 07/20/23 20:45 Response Orders (Tests/Meds): ED MEDICATIONS Generic Name Dose Route Start Last Admin Trade Name Daniq PRN Reason Stop Dose Admin Iopamidol 70 ml 07/20/23 21:28 07/20/23 21:29 Iopamidol-370 (76%);100ml Bottle IV 07/20/23 21:29 70 ml ONCE ONE Administration Sodium Chloride 40 ml 07/20/23 21:28 07/20/23 21:29 0.9 % Sodium Chloride 50 Ml Vial IV 07/20/23 21:29 40 ml ONCE ONE Administration Sodium Chloride 10 ml 07/20/23 21:28 07/20/23 21:29 Sodium Chloride 0.9% 10ml Syr (Rad Only) IV 07/20/23 21:29 10 ml ONCE ONE Administration ORDERS Category Date Time Status Type and Screen Stat BBK 07/20/23 20:[address] angio chest PE protocol Stat Cat Scan 07/20/23 21:[address] head/brain wo con Stat Cat Scan 07/20/23 20:20 Completed Consult to Cardiology [CONS] Routine Cons 07/20/23 21:36 Ordered CXR --portable [XR chest portable] Stat Exams 07/20/23 20:21 Completed BNP [NT Pro Brain Natriuretic Pep.] Stat Lab 07/20/23 20:45 Completed CBC w/Auto Diff [Complete Blood Count Auto Diff] Stat Lab 07/20/23 20:45 Completed CMP [Comprehensive Metabolic Panel] Stat Lab 07/20/23 20:45 Completed Complete Blood Count Auto Diff AMLAB Lab 07/21/23 06:00 Ordered Comprehensive Metabolic Panel AMLAB Lab 07/21/23 06:00 Ordered D-Dimer Stat Lab 07/20/23 20:45 Completed Lactic Acid Stat Lab 07/20/23 20:45 Completed Lipid Panel AMLAB Lab 07/21/23 06:00 Ordered Magnesium AMLAB Lab 07/21/23 06:00 Ordered Magnesium Stat Lab 07/20/23 20:45 Completed PT INR [Prothrombin Time INR] Stat Lab 07/20/23 20:45 Completed Phosphorous AMLAB Lab 07/21/23 06:00 Ordered Phosphorous Stat Lab 07/20/23 20:45 Completed Trop I [Troponin I] Stat Lab 07/20/23 20:45 Completed Troponin I Q3H Lab 07/20/23 23:30 Ordered Troponin I Q3H Lab 07/21/23 02:30 Ordered Venous Blood Gas Stat RT 07/20/23 20:22 Completed CA echo doppler complete Routine Y 07/20/23 21:36 Ordered ECG Data Tracing #1: Attestation: I reviewed this ECG and interpreted as documented below: ECG Narrative: Ventricular rate of 102 sinus tachycardia with occasional supraventricular premature complexes or sinus arrhythmia no acute ischemic changes noted there is a normal axis MDM Narrative Medical Decision Narrative: 73-year-old male presenting today with recurrent syncope. Recently was admitted in the hospital with an upper GI bleed from history secondary to an ulcer also was diagnosed with pneumonia at that time and is currently on antibiotics. We are attempting to get discharge summary and records from [facility] at the moment. EKG is unremarkable at the moment. He does appear pale on my examination. Heart and lung exam currently is normal he is placed on the monitor for observation. On the differential includes blood loss anemia and oxygen delivery abnormalities in the setting of a GI bleed. Arrhythmia certainly on the differential as well and highly concerning and possible in the setting of possible heart failure. Will get a BNP and a chest x-ray to further evaluate this. Also a D-dimer to rule out pulmonary embolism given exertional dyspnea. Troponin also being evaluated for myocardial injury or acute coronary syndrome. Regarding his head injury he has a GCS of 15 and normal neurologic exam but is anticoagulated therefore we will get a CT scan of his head to further evaluate this. Will reassess after this initial workup is complete. Reassessment 9:39 PM labs unremarkable from an emergency standpoint H&H has a hemoglobin of 10. No significant blood loss anemia at this point in comparison with recent labs. No melena from historical standpoint abdominal exam is benign. His D-dimer was elevated CT PE was performed which I personally interpreted do not see an obvious pulmonary embolism or airspace disease awaiting formal radiology read. I was able to get records from [facility] which did not comment much on airspace disease but did state that he had a gastric ulcer they recommended outpatient follow-up with an EGD started on PPI antibiotics. Additionally he was evaluated by cardiology but I have no records or any documentation of their findings with their assessment. For this reason I want to continue hold on of this patient and keep the patient for telemetry observation to be evaluated by corncob pipe manufacturing supervisor tomorrow as I am highly concerned about structural heart disease and/or significant arrhythmia in the setting of recurrent syncopal episodes. No evidence of any ongoing hemorrhage from an upper GI bleed standpoint. No alternative explanation for the patient's exertional dyspnea or syncope. I discussed this with the patient as well as Cristian with hospital medicine both of whom are agreeable to this plan.
--- NOTE | 2023-07-20 20:27 | PC.NURSE ---
pt gone to ct.
[2023-07-20 20:57] LABS: Basophils # 0.1 K/mm3 (0-0.2); Basophils % 0.4 % (0.1-2.0); Eosinophils # 0.3 K/mm3 (0.0-0.4); Hematocrit 33.5 % (42.0-52.0); Hemoglobin 10.4 g/dL (14.1-18.0); Lymphocytes # 3.2 K/mm3 (0.7-4.5); Lymphocytes % 21.6 % (10-50); Mean Corpuscular Volume 99.9 fl (80-94); Mean Platelet Volume 7.8 fl (7.4-10.4); Monocytes # 0.6 K/mm3 (0.1-1.0); Monocytes % 4.3 % (1.7-9.3); Neutrophils # 10.7 K/mm3 (1.8-7.8); Neutrophils % 71.7 % (37.0-80.0); Platelet Count 512 K/mm3 (142-424); Red Blood Count 3.35 M/mm3 (4.60-6.20); Red Cell Distribution Width 15.5 % (11.5-17.5); White Blood Count 14.9 K/mm3 (4.8-10.8)
[2023-07-20 21:02] LABS: Lactate Venous 2.5 mmol/L (0.4-2.0); VBG HCO3 23.6 mmol/L (23-30); VBG PCO2 37.7 mmol/L (35-51); VBG PH 7.41 mmol/L (7.31-7.41); VBG PO2 41.9 mmol/L (28-40); VBG Total CO2 24.7 mmol/L (23-27)
[2023-07-20 21:05] LABS: INR 1.08 (0.9-1.1); Prothrombin Time 11.6 seconds (10.1-12.5)
[2023-07-20 21:06] LABS: Alanine Aminotransferase 32 U/L (12-78); Albumin Level 3.9 g/dl (3.5-5.0); Albumin/Globulin Ratio 1.1 (1.1-1.8); Alkaline Phosphatase 95 U/L (38-126); Anion Gap 14.5 mEq/L (5-15); Aspartate Amino Transferase 36 U/L (17-59); Bilirubin,Total 0.3 mg/dl (0.2-1.3); Blood Urea Nitrogen 10 mg/dl (9-20); Calcium 8.2 mg/dl (8.4-10.2); Carbon Dioxide 25 mmol/L (22.0-30.0); Chloride 104 mmol/L (98-107); Creatinine Clearance Estimated 97 mL/min (50-200); Estimated Glomerular Filt Rate 65 ml/min (>60); GFR (African American) 79 ML/MIN (>60); Globulin 3.4 g/dL (1.3-3.2); Glucose 155 mg/dl (74-100); Phosphorous 3.2 mg/dl (2.5-4.5); Potassium 3.5 mmoL/L (3.5-5.1); Sodium 140 mmol/L (136-145); Total Protein,Serum 7.3 g/dl (6.3-8.2)
[2023-07-20 21:11] LABS: D-Dimer 2.99 ug/mL (0.0-0.5)
--- NOTE | 2023-07-20 21:16 | CT_ITS ---
PROCEDURE INFORMATION: Exam: CTA Chest With Contrast Exam date and time: 07/20/2023 9:27 PM Age: 73 years old Clinical indication: Abnormal findings; Other: Elevated d dimer; Dyspnea; Additional info: Dyspnea, elevated dimer TECHNIQUE: Imaging protocol: Computed tomographic angiography of the chest with contrast. Exam focused on the arteries. 3D rendering (Not supervised by radiologist): MIP and/or 3D reconstructed images were created by the technologist. Radiation optimization: All CT scans at this facility use at least one of these dose optimization techniques: automated exposure control; mA and/or kV adjustment per patient size (includes targeted exams where dose is matched to clinical indication); or iterative reconstruction. Contrast material: ISOVUE 370; Contrast volume: 70 ml; Contrast route: INTRA-ARTERIAL (ARTERIAL); COMPARISON: CT ANGIO CHEST PE PROTOCOL 07/14/2023 8:31 PM FINDINGS: Pulmonary arteries: Small segmental and subsegmental pulmonary emboli in the lingula and left lower lobe. Aorta: Mild thoracic aortic and proximal arch vessel atherosclerotic disease without aneurysm. Lungs: Right lower lobe calcified granuloma. Scattered bilateral lower lobe ground-glass nodules. A few scattered punctate pulmonary nodules appear unchanged. Pleural spaces: Unremarkable. No pneumothorax. No pleural effusion. Heart: Unremarkable. No cardiomegaly. No pericardial effusion. Heart RV/LV ratio: 0.8. Coronary arteries: Moderate coronary artery calcification. Lymph nodes: Calcified right hilar lymph nodes. No adenopathy. Liver: Calcified granulomas throughout the liver. Spleen: Status post splenectomy. Bones/joints: Unremarkable. No acute fracture. Soft tissues: Unremarkable. IMPRESSION: 1. Small segmental and subsegmental pulmonary emboli in the lingula and left lower lobe. 2. No evidence of right heart strain. 3. Mild improvement in bilateral lower lobe centrilobular ground-glass nodules consistent with pneumonia.
[2023-07-20 21:19] LABS: NT Pro Brain Natriuretic Pep. 541 pg/mL (0-450)
[2023-07-20 21:20] LABS: Troponin I < 0.01 ng/ml (0.00-0.034)
[2023-07-20] MEDS: SODIUM CHLORIDE 0.9% 10ML SYR (RAD ONLY) 10 ML IV (21:29)
[2023-07-20] MEDS: 0.9 % SODIUM CHLORIDE 50 ML VIAL 40 ML IV (21:29)
[2023-07-20] MEDS: IOPAMIDOL-370 (76%);100ML BOTTLE 70 ML IV (21:29)
--- NOTE | 2023-07-20 21:34 | PC.NURSE ---
food supervisor in room checking on patient at this time.
--- NOTE | 2023-07-20 21:37 | PC.NURSE ---
pt admitted to room 213 for recurrent syncope to hospitalist; observation status.
--- NOTE | 2023-07-20 21:38 | P.HP_ITS ---
History of Present Illness *Admission Date: 07/20/23 *Reason for visit:: syncope *History of present illness: This is a 73-year-old obese male with PMHx of Afib on warfarin, recent hospitalization for RLL pneumonia, with Acute GI bleed presenting today with syncope and a minor head injury. Patient states that he is chronically anticoagulated on Coumadin for atrial fibrillation states his last INR was between 2 and 3 and today he had some prodromal lightheadedness passed out fell and hit his head subsequently called 911. On his recent hospitalization patient reported to had a bleeding ulcer. Discharged with Augmentin and doxycycline as well as a PPI, and f/u with GI. Patient denies any chest pain denies any worsening lower extremity or peripheral edema. Does state he has extensive dyspnea with any type of exertion at all. States that he cannot walk more than a few feet without being severely dyspneic and feeling like he is going to pass out. This is his second syncopal episode in the last week. States he does have a history of heart failure but does not know his ejection fraction does not have a motivational speaker that he currently follows with. He does have an appointment with Dr. Mac but has not seen him. Patient denies any fevers chills cough. Admitted for further work up. [facility] Disclaimer: The information contained in this section may have been updated after the patient was seen, as this information can be updated by other users. Medical History (Updated 07/21/23 @ 03:29 by Gabriele Yu APRN) Shingles Rib contusion COPD exacerbation SIRS (systemic inflammatory response syndrome) Hypokalemia Acute exacerbation of chronic obstructive airways disease Diabetes mellitus, type 2 Hypertension History of heart attack Deep vein thrombosis (DVT) Congestive heart failure Atrial fibrillation Atrial fibrillation Family History Other Family history of acute congestive heart failure Family history of cancer Family history of cardiomyopathy Family history of hypertension Family history of myocardial infarction Social History Smoking Status: Former smoker tobacco type: cigars alcohol intake: never current occupational status: retired Travel in the last 8 weeks: None household members: none housing: apartment current occupational exposures/hazards: No caffeine: No Review of Systems Review of Systems Review of systems:: pertinent systems reviewed and negative unless documented below Meds Home Medications and Allergies Home Medications Medication Instructions Recorded Confirmed Type allopurinol 100 mg tablet 100 mg PO DAILY gout 06/12/18 07/20/23 History bisoprolol fumarate 5 mg tablet 5 mg PO DAILY blood pressure 06/12/18 07/20/23 History furosemide 40 mg tablet 40 mg PO BID Fluid 06/12/18 07/20/23 History pravastatin 40 mg tablet 40 mg PO DAILY Cholesterol 06/12/18 07/20/23 History tamsulosin 0.4 mg capsule 0.4 mg PO HS bladder 06/12/18 07/20/23 History tramadol 50 mg tablet 50 mg PO DAILY Pain 06/12/18 07/20/23 History warfarin 4 mg tablet 4 mg PO DAILY hx of blood clots 06/12/18 07/20/23 History benzonatate 100 mg capsule 100 mg PO TID #21 caps 03/13/21 07/20/23 Rx prednisone 20 mg tablet 20 mg PO BID #10 tabs 03/13/21 07/20/23 Rx gabapentin 400 mg capsule 400 mg PO BID #20 caps 04/17/22 07/20/23 Rx lidocaine 5 % topical patch 1 patch topical DAILY #30 ea 04/17/22 07/20/23 Rx (Lidoderm) New Prescriptions to Start Prescriptions: Allergies Allergy/AdvReac Type Severity Reaction Status Date / Time lisinopril Allergy Severe S-SWELLS-OR Verified 03/04/20 10:44 AL/THROAT hydrochlorothiazide Allergy Mild S-SWELLS-OR Verified 03/04/20 10:44 [From Maxzide] AL/THROAT triamterene [From Maxzide] Allergy Mild S-SWELLS-OR Verified 03/04/20 10:44 AL/THROAT Exam Data for Last 24 hours Vital signs and Labs for Last 24 Hours: Temp Pulse Resp BP Pulse Ox O2 Del Method 97.8 F 101 H 17 98/60 L 98 Room Air 07/20/23 20:17 07/20/23 20:17 07/20/23 20:17 07/20/23 20:17 07/20/23 20:17 07/20/23 20:17 Laboratory Results - last 24 hr 07/20/23 20:22: VBG pH 7.41, VBG pCO2 37.7, VBG pO2 41.9 H, VBG HCO3 23.6, VBG Total CO2 24.7, VBG O2 Saturation 77.0 H, VBG Base Excess -1.0, VBG Lactic Acid 2.5 H 07/20/23 20:45: WBC 14.9 H, RBC 3.35 L, Hgb 10.4 L, Hct 33.5 L, MCV 99.9 H, MCH 31.0, MCHC 31.0 L, RDW 15.5, Plt Count 512 H, MPV 7.8, Neut % (Auto) 71.7, Lymph % (Auto) 21.6, [place] % (Auto) 4.3, Eos % (Auto) 2.0, Baso % (Auto) 0.4, Neut # (Auto) 10.7 H, Lymph # (Auto) 3.2, [place] # (Auto) 0.6, Eos # (Auto) 0.3, Baso # (Auto) 0.1, PT 11.6, INR 1.08, D-Dimer 2.99 H, Sodium 140, Potassium 3.5, Chloride 104, Carbon Dioxide 25, Anion Gap 14.5, BUN 10, Creatinine 1.10, Estimated Creat Clear 97, Estimated GFR 65, Est GFR ( Amer) 79, Glucose 155 H, Lactate 2.0, Calcium 8.2 L, Phosphorus 3.2, Magnesium 2.0, Total Bilirubin 0.3, AST 36, ALT 32, Alkaline Phosphatase 95, Troponin I < 0.01, NT-Pro-B Natriuret Pep 541 H, Total Protein 7.3, Albumin 3.9, Globulin 3.4 H, Albumin/Globulin Ratio 1.1, Blood Type A Positive, Antibody Screen Negative Temp Pulse Resp BP Pulse Ox O2 Del Method O2 Flow Rate 97.7 F 118 H 20 101/47 L 96 Nasal Cannula 2 07/14/23 23:10 07/14/23 23:10 07/14/23 23:10 07/14/23 23:10 07/14/23 23:10 07/14/23 23:10 07/14/23 23:10 Laboratory Results - last 24 hr 07/14/23 19:31: WBC 16.9 H, RBC 3.96 L, Hgb 12.5 L, Hct 39.3 L, MCV 99.2 H, MCH 31.7 H, MCHC 31.9, RDW 13.8, Plt Count 421, MPV 8.6, Neut % (Auto) 61.6, Lymph % (Auto) 29.8, [place] % (Auto) 4.9, Eos % (Auto) 2.7, Baso % (Auto) 1.0, Neut # (Auto) 10.4 H, Lymph # (Auto) 5.0 H, [place] # (Auto) 0.8, Eos # (Auto) 0.5 H, Baso # (Auto) 0.2, Total Counted 100, Neutrophils % (Manual) 68, Lymphocytes % (Manual) 24, Monocytes % (Manual) 8, Platelet Estimate Normal, Hypochromasia 2+, Macrocytosis 1+, PT 32.7 H, INR 3.27 H, Sodium 139, Potassium 3.6, Chloride 99, Carbon Dioxide 34 H, Anion Gap 9.6, BUN 29 H, Creatinine 1.10, Estimated Creat Clear 54, Estimated GFR 65, Est GFR ( Amer) 79, Glucose 169 H, Calcium 8.5, Phosphorus 3.3, Magnesium 2.1, Total Bilirubin 0.4, AST 37, ALT 38, Alkaline Phosphatase 99, Troponin I < 0.01, NT-Pro-B Natriuret Pep 302, Total Protein 6.6, Albumin 3.3 L, Globulin 3.3 H, Albumin/Globulin Ratio 1.0 L 07/14/23 19:56: VBG pH 7.35, VBG pCO2 56.6 H, VBG pO2 46.5 H, VBG HCO3 30.4 H, VBG Total CO2 32.1 H, VBG O2 Saturation 78.3 H, VBG Base Excess 4.8 H, VBG Lactic Acid 5.1 H 07/14/23 22:05: Lactate 2.6 H, Troponin I < 0.01, Procalcitonin 0.198 07/14/23 23:35: Stool Occult Blood Positive A 07/15/23 00:15: Lactate 3.0 H I & O for Last 24 hours: Intake & Output 07/17/23 07/18/23 07/19/23 07/20/23 23:59 23:59 23:59 23:59 Weight 117.934 kg Intake & Output 0407/13/23 07/14/23 07/15/23 23:59 23:59 23:59 23:59 Intake Total 480 / 480 Output Total 200 / 200 Balance 280 / 280 Weight 124.738 kg Constitutional Constitutional: no acute distress and cooperative *Routine HEENT Exam Head: Present normocephalic Eye: Present EOMI and PERRL ENT: Present mucous membranes dry Comments: Sclera pallor noted, mildly pale gums as well. *Routine Neck Exam Neck: Present supple; Absent lymphadenopathy *Routine Respiratory Exam Respiratory: Present CTA bilaterally, diminished air movement, normal respirato ry effort and symmetric chest movement *Routine Cardiovascular Exam Cardiovascular: Present Normal S1, Normal S2, tachycardia and irregularly irregular *Routine Abdominal Exam Abdominal: Present soft, normoactive bowel sounds and tenderness Comments: Obese with mild epigastric distention *Routine Rectal Exam Rectal:: deferred *Routine Genitalia Exam Genitalia:: deferred *Routine Extremities Exam Extremities: Absent cyanosis, clubbing or edema *Routine Skin Exam Skin: Present pallor and warm; Absent rash *Routine Neurological Exam Neurological: Present alert and oriented X3 Routine Psychiatric Exam Psychiatric: Present good insight H&P: Result Imaging and Cardiology EKG: Status: image reviewed by me, Preliminary report and final report CT scan - chest: Status: image reviewed by me, Preliminary report and final report CT scan - head: Status: image reviewed by me, Preliminary report and final report Chest x-ray: Status: image reviewed by me, Preliminary report and final report Assessment and Plan *Assessment and plan (1) Syncope: Status: Acute Qualifiers: Syncope type: unspecified Qualified Code(s): R55 - Syncope and collapse Category: Medical Code(s): R55 - Syncope and collapse (2) Pulmonary embolism: Status: Acute Qualifiers: Pulmonary embolism type: single subsegmental (without acute cor pulmon mars) Qualified Code(s): I26.93 - Single subsegmental pulmonary embolism without acute cor pulmonale Category: Medical Code(s): I26.99 - Other pulmonary embolism without acute cor pulmonale (3) Exertional dyspnea: Status: Acute Category: Medical Code(s): R06.09 - Other forms of dyspnea (4) Head injury: Status: Acute Qualifiers: Encounter type: initial encounter Qualified Code(s): S09.90XA - Unspecified injury of head, initial encounter Category: Medical Code(s): S09.90XA - Unspecified injury of head, initial encounter (5) Subtherapeutic international normalized ratio (INR): Status: Acute Category: Medical Code(s): R79.1 - Abnormal coagulation profile (6) GI bleed: Status: Acute Qualifiers: GI bleed type/associated pathology: unspecified peptic ulcer Qualified Code(s): K27.4 - Chronic or unspecified peptic ulcer, site unspecified, with hemorrhage Category: Medical Code(s): K92.2 - Gastrointestinal hemorrhage, unspecified (7) Atrial fibrillation: Status: Acute Qualifiers: Atrial fibrillation type: unspecified Qualified Code(s): I48.91 - Unspecified atrial fibrillation Category: Medical Code(s): I48.91 - Unspecified atrial fibrillation Plan 73-year-old obese male with PMHx of Afib on warfarin, recent hospitalization for RLL pneumonia, with Acute GI bleed presenting today with syncope and a minor head injury. States that he cannot walk more than a few feet without being severely dyspneic and feeling like he is going to pass out. This is his second syncopal episode in the last week. On arrival patient patient alert. CT of head negative. D-dimer was elevated, therefore CTA of chest was obtained to rule out PE. Concerning for a small subsegmental PE in the left lower and lingular lobe. Patient hemodinamically stable. no SOB at rest. INR sub-therapeutic. All findings were discussed with ED at length. agreed for admission plan as follow: -Syncope or near syncope: with minor head injury. non actionable: admit patient for medical services. continuous cardiac monitoring CT of head reviewed. negative ECHO ordered. cardiology consult. Orthostatic BP -pulmonary embolism. does not seen to be the cause of dyspnea. patient on RA on rest. satting ok, Excertional dyspnea to rule out CHF new onset. subtherapeutic INR: start lovenox full dose. Pulmo consulted - recent GI bleed secondary to unspecified peptic ulcer. Hb 10. 4 resume augmentin and doxy on protonix monitor for bleeding repeat CBC daily obtain fecal occult Afib. controlled. on bisoprolol Full code
--- NOTE | 2023-07-20 21:52 | PC.NURSE ---
Report called to SHARIF Duncan
[2023-07-20 21:57] VITALS: BP 104/60; PULSE 98; RESP 12; TEMP 36.6; O2SAT 97
[2023-07-20 21:59] VITALS: BP 155/63; PULSE 99; RESP 16; TEMP 36.6; O2SAT 99; BMI 38.3
--- NOTE | 2023-07-20 21:59 | PC.NURSE ---
pt arrived to floor via stretcher @21:58
[2023-07-20] MEDS: 0.9 % SODIUM CHLORIDE 1000ML 1,000 ML 50 ML IV (22:17)
[2023-07-20] MEDS: ENOXAPARIN 100MG/ML SYRINGE 120 MG SQ (22:33)
[2023-07-20 23:40] LABS: Troponin I < 0.01 ng/ml (0.00-0.034)
[2023-07-20 23:57] LABS: Reflex Lactic Add Lactic Reflex
[2023-07-21] VITALS (10 sets, daily range): BP systolic 102–125; BP diastolic 58–75; PULSE 77–100; RESP 16–20; TEMP 36.6–36.8; O2SAT 96–99; BMI 38.3
[2023-07-21 00:10] LABS: Lactic Acid Follow Up (RFLX 1) 1.4 mmol/L (0.7-2.1)
[2023-07-21 03:20] LABS: Troponin I < 0.01 ng/ml (0.00-0.034)
[2023-07-21] MEDS: [UNRECOGNIZED DRUG - OTHER] PO ×2 (04:30→14:43)
--- NOTE | 2023-07-21 05:07 | PC.NURSE ---
Pt is A&Ox4. Satting 90's on room air. Has been having frequent syncopal episodes. Complains of dyspnea with exertion, but not at rest. Receiving IV fluids and a dose of lovenox. Echo this am. Cardio and pulm consult today.
[2023-07-21 06:03] LABS: Basophils # 0.1 K/mm3 (0-0.2); Basophils % 0.5 % (0.1-2.0); Eosinophils # 0.3 K/mm3 (0.0-0.4); Eosinophils % 1.6 % (0.1-12.0); Hematocrit 31.6 % (42.0-52.0); Lymphocytes # 5.4 K/mm3 (0.7-4.5); Lymphocytes % 30.9 % (10-50); Mean Corpuscular HGB Conc 31.7 g/dL (31.8-35.4); Mean Corpuscular Hemoglobin 31.1 pg (27.0-31.2); Mean Corpuscular Volume 98.1 fl (80-94); Mean Platelet Volume 7.9 fl (7.4-10.4); Monocytes # 0.9 K/mm3 (0.1-1.0); Monocytes % 4.9 % (1.7-9.3); Neutrophils # 10.8 K/mm3 (1.8-7.8); Platelet Count 450 K/mm3 (142-424); Red Blood Count 3.22 M/mm3 (4.60-6.20); Red Cell Distribution Width 15.7 % (11.5-17.5); White Blood Count 17.4 K/mm3 (4.8-10.8)
[2023-07-21 06:04] LABS: MANUAL DIFFERENTIAL MANUAL DIFFERENTIAL (MANUAL DIFF)
[2023-07-21 06:05] LABS: Chloride 105 mmol/L (98-107)
[2023-07-21 06:06] LABS: Potassium 3.7 mmoL/L (3.5-5.1); Sodium 140 mmol/L (136-145)
[2023-07-21 06:08] LABS: Alanine Aminotransferase 28 U/L (12-78); Albumin Level 3.5 g/dl (3.5-5.0); Albumin/Globulin Ratio 1.1 (1.1-1.8); Alkaline Phosphatase 98 U/L (38-126); Anion Gap 10.7 mEq/L (5-15); Aspartate Amino Transferase 32 U/L (17-59); Bilirubin,Total 0.4 mg/dl (0.2-1.3); Blood Urea Nitrogen 9 mg/dl (9-20); Carbon Dioxide 28 mmol/L (22.0-30.0); Cholesterol 133 mg/dl (140-200); Creatinine Clearance Estimated 110 mL/min (50-200); Estimated Glomerular Filt Rate 73 ml/min (>60); GFR (African American) 88 ML/MIN (>60); Globulin 3.1 g/dL (1.3-3.2); Total Protein,Serum 6.6 g/dl (6.3-8.2); Triglycerides 149 mg/dl (30-150); VLDL Cholesterol 30 mg/dL (0-40)
[2023-07-21 06:09] LABS: Calcium 8.4 mg/dl (8.4-10.2); Chol/HDL Ratio 2.9 (1-3.5); Glucose 116 mg/dl (74-100); HDL Cholesterol 46 mg/dl (40-60); Phosphorous 3.8 mg/dl (2.5-4.5)
[2023-07-21 06:20] LABS: Direct LDL Cholesterol 64.58 mg/dL (100-129)
--- NOTE | 2023-07-21 07:35 | HMH.PHAINT1 ---
Pharmacy Intervention Comments: HOME MEDICATION LIST VERIFIED VIA OUTSIDE PHARMACY
[2023-07-21 08:07] LABS: Eosinophils % 2 % (0-3); Lymphocytes % 37 % (10-50); Monocytes % 6 % (2-9); Neutrophils % 55 % (42-76); Total Cells Counted 100
[2023-07-21 08:11] LABS: Anisocytosis 1+; Macrocytosis 1+; Platelet Estimate Slight Increase; Poikilocytosis 1+; Spherocytes 1+; Target Cells 1+
[2023-07-21] MEDS: BENZONATATE 100MG CAPSULE 100 MG PO ×3 (08:15→20:33)
[2023-07-21] MEDS: ALLOPURINOL 100MG TABLET 100 MG PO (08:17)
[2023-07-21] MEDS: FUROSEMIDE 40 MG TABLET PO ×2 (08:17→14:44)
[2023-07-21] MEDS: BISOPROLOL 5MG TABLET 5 MG PO (08:19)
[2023-07-21] MEDS: PANTOPRAZOLE 40 MG PO ×2 (08:19→20:32)
[2023-07-21] MEDS: AMOXICILLIN PO ×2 (08:20→20:32)
[2023-07-21] MEDS: [UNRECOGNIZED DRUG - OTHER] PO ×2 (08:20→20:32)
[2023-07-21] MEDS: ENOXAPARIN 120MG/0.8ML SYRINGE 120 MG SQ (08:21)
[2023-07-21] MEDS: SODIUM CHLORIDE 3% 15ML NEB 3 ML IH (09:48)
--- NOTE | 2023-07-21 09:53 | P.CONS_ITS ---
History of Present Illness History of present illness: Mr. 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 Patient has long been compliant with warfarin with no complications. [facility] Disclaimer: The information contained in this section may have been updated after the patient was seen, as this information can be updated by other users. Medical History (Updated 07/21/23 @ 11:47 by Isi Gibson MD) Pneumonia Shingles Rib contusion COPD exacerbation SIRS (systemic inflammatory response syndrome) Hypokalemia Acute exacerbation of chronic obstructive airways disease Diabetes mellitus, type 2 Hypertension History of heart attack Deep vein thrombosis (DVT) Congestive heart failure Atrial fibrillation Atrial fibrillation Family History Other Family history of acute congestive heart failure Family history of cancer Family history of cardiomyopathy Family history of hypertension Family history of myocardial infarction Social History Smoking Status: Former smoker tobacco type: cigars alcohol intake: never current occupational status: retired Travel in the last 8 weeks: None household members: none housing: apartment current occupational exposures/hazards: No caffeine: No Review of Systems Constitutional Constitutional: Reports anorexia, Reports body ache(s) and Reports fatigue Eyes Eyes: Denies eye discharge, Denies dry eyes, Denies irritation and Denies itchy eyes ENT Ears, Nose, Mouth, and Throat: Denies epistaxis, Denies facial pain, Denies lip swelling and Denies throat swelling *Cardiovascular Cardiovascular: Reports dyspnea on exertion and Reports pedal edema Comments: Dizziness *Respiratory Respiratory: Denies chest congestion, Reports cough, Reports dyspnea on exertion, Denies excessive phlegm production and Denies wheezing *Gastrointestinal Gastrointestinal: Denies abdominal pain, Denies belching and Denies cramping *Musculoskeletal Musculoskeletal: Reports back pain, Reports myalgias and Reports other (No small joint swelling or Pain) Psychiatric Psychiatric: Denies homicidal ideation and Denies suicidal ideation Endocrine Endocrine: Reports fatigue and Denies heat intolerance Hematologic/Lymphatic Hematologic/Lymphatic: Denies easy bleeding and Denies lymphadenopathy Allergic/Immunologic Allergic/Immunologic: Denies itchy eyes, Denies lip swelling, Denies throat swelling and Denies wheezing Pulmonology Exam Inpatient Vital signs and Labs for Last 24 Hours: Temp Pulse Resp BP Pulse Ox O2 Del Method 97.9 F 77 18 117/63 96 Room Air 07/21/23 08:00 07/21/23 09:48 07/21/23 09:48 07/21/23 08:00 07/21/23 08:00 07/21/23 09:00 Laboratory Results - last 24 hr 07/20/23 20:22: VBG pH 7.41, VBG pCO2 37.7, VBG pO2 41.9 H, VBG HCO3 23.6, VBG Total CO2 24.7, VBG O2 Saturation 77.0 H, VBG Base Excess -1.0, VBG Lactic Acid 2.5 H 07/20/23 20:45: WBC 14.9 H, RBC 3.35 L, Hgb 10.4 L, Hct 33.5 L, MCV 99.9 H, MCH 31.0, MCHC 31.0 L, RDW 15.5, Plt Count 512 H, MPV 7.8, Neut % (Auto) 71.7, Lymph % (Auto) 21.6, [place] % (Auto) 4.3, Eos % (Auto) 2.0, Baso % (Auto) 0.4, Neut # (Auto) 10.7 H, Lymph # (Auto) 3.2, [place] # (Auto) 0.6, Eos # (Auto) 0.3, Baso # (Auto) 0.1, PT 11.6, INR 1.08, D-Dimer 2.99 H, Sodium 140, Potassium 3.5, Chloride 104, Carbon Dioxide 25, Anion Gap 14.5, BUN 10, Creatinine 1.10, Estimated Creat Clear 97, Estimated GFR 65, Est GFR ( Amer) 79, Glucose 155 H, Lactate 2.0, Calcium 8.2 L, Phosphorus 3.2, Magnesium 2.0, Total Bilirubin 0.3, AST 36, ALT 32, Alkaline Phosphatase 95, Troponin I < 0.01, N T-Pro-B Natriuret Pep 541 H, Total Protein 7.3, Albumin 3.9, Globulin 3.4 H, Albumin/Globulin Ratio 1.1, Blood Type A Positive, Antibody Screen Negative 07/20/23 23:11: Troponin I < 0.01 07/20/23 23:57: Lactate 1.4 07/21/23 02:40: Troponin I < 0.01 07/21/23 05:32: WBC 17.4 H, RBC 3.22 L, Hgb 10.0 L, Hct 31.6 L, MCV 98.1 H, MCH 31.1, MCHC 31.7 L, RDW 15.7, Plt Count 450 H, MPV 7.9, Neut % (Auto) 62.0, Lymph % (Auto) 30.9, [place] % (Auto) 4.9, Eos % (Auto) 1.6, Baso % (Auto) 0.5, Neut # (Auto) 10.8 H, Lymph # (Auto) 5.4 H, [place] # (Auto) 0.9, Eos # (Auto) 0.3, Baso # (Auto) 0.1, Total Counted 100, Neutrophils % (Manual) 55, Lymphocytes % (Manual) 37, Monocytes % (Manual) 6, Eosinophils % (Manual) 2, Platelet Estimate Slight increase, Poikilocytosis 1+, Anisocytosis 1+, Macrocytosis 1+, Spherocytes 1+, Target Cells 1+, Sodium 140, Potassium 3.7, Chloride 105, Carbon Dioxide 28, Anion Gap 10.7, BUN 9, Creatinine 1.00, Estimated Creat Clear 110, Estimated GFR 73, Est GFR ( Amer) 88, Glucose 116 H D, Calcium 8.4, Phosphorus 3.8, Magnesium 2.0, Total Bilirubin 0.4, AST 32, ALT 28, Alkaline Phosphatase 98, Total Protein 6.6, Albumin 3.5 D, Globulin 3.1, Albumin/Globulin Ratio 1.1, Triglycerides 149, Cholesterol 133 L, LDL Cholesterol Direct 64.58 L, VLDL Cholesterol 30, HDL Cholesterol 46, Cholesterol/HDL Ratio 2.9 I & O for Labs for Last 24 Hours: Intake & Output 07/18/23 07/19/23 07/20/23 07/21/23 23:59 23:59 23:59 23:59 Intake Total 740 / 740 Output Total 400 / 800 880 / 880 Balance -400 / -600 -140 / -140 Weight 267 lb 14.4 oz 267 lb 14.4 oz Constitutional: Present mild distress Head: Present normocephalic and atraumatic ENT: Present normal exam, normal oropharynx and mucous membranes moist Neck: Present normal inspection and full ROM Respiratory: Present respiratory distress and able to speak in complete sentences; Absent rhonchi, wheezes, crackles or diminished air movement Cardiac: Present S1/S2, Tachycardia and radial pulses present GI: Present soft and distention; Absent tenderness or guarding Skin: Present intact; Absent cyanosis or jaundice Neuro: Present alert, awake and oriented x 3 Extremities: Present normal inspection; Absent clubbing or cyanosis Psychiatric: Present normal affect and cooperative Meds Home Medications and Allergies Home Medications Medication Instructions Recorded Confirmed Type allopurinol 100 mg tablet 100 mg PO BID 06/12/18 07/21/23 History bisoprolol fumarate 5 mg tablet 5 mg PO BID 06/12/18 07/21/23 History furosemide 40 mg tablet 40 mg PO BID 06/12/18 07/20/23 History tamsulosin 0.4 mg capsule 0.4 mg PO HS 06/12/18 07/20/23 History tramadol 50 mg tablet 50 mg PO Q6 PRN Pain 06/12/18 07/21/23 History warfarin 4 mg tablet 4 mg PO DAILY 06/12/18 07/20/23 History amoxicillin 875 mg-potassium 1 tab PO BID 07/21/23 07/21/23 History clavulanate 125 mg tablet doxycycline hyclate 100 mg capsule 100 mg PO BID 07/21/23 07/21/23 History pantoprazole 40 mg tablet,delayed 40 mg PO BID 07/21/23 07/21/23 History release pravastatin 80 mg tablet 80 mg PO HS 07/21/23 07/21/23 History New Prescriptions to Start Prescriptions: Allergies Allergy/AdvReac Type Severity Reaction Status Date / Time lisinopril Allergy Severe S-SWELLS-OR Verified 03/04/20 10:44 AL/THROAT hydrochlorothiazide Allergy Mild S-SWELLS-OR Verified 03/04/20 10:44 [From Maxzide] AL/THROAT triamterene [From Maxzide] Allergy Mild S-SWELLS-OR Verified 03/04/20 10:44 AL/THROAT Results Laboratory Findings 07/21/23 05:32 07/21/23 05:32 PT/INR, D-dimer PT 11.6 seconds (10.1-12.5) 07/20/23 20:45 INR 1.08 (0.9-1.1) 07/20/23 20:45 D-Dimer 2.99 ug/mL (0.0-0.5) H 07/20/23 20:45 Abnormal lab findings: Abnormal Labs 07/20/23 07/20/23 07/21/23 20:22 20:45 05:32 WBC 14.9 H 17.4 H RBC 3.35 L 3.22 L Hgb 10.4 L 10.0 L Hct 33.5 L 31.6 L MCV 99.9 H 98.1 H MCHC 31.0 L 31.7 L Plt Count 512 H 450 H Neut # (Auto) 10.7 H 10.8 H Lymph # (Auto) 5.4 H D-Dimer 2.99 H VBG pO2 41.9 H VBG O2 Saturation 77.0 H VBG Lactic Acid 2.5 H Glucose 155 H 116 H D Calcium 8.2 L NT-Pro-B Natriuret Pep 541 H Globulin 3.4 H Cholesterol 133 L LDL Cholesterol Direct 64.58 L Assessment and Plan *Assessment and plan (1) Pneumonia: Status: Acute Category: Medical Code(s): J18.9 - Pneumonia, unspecified organism (2) Pulmonary embolism on left: Status: Acute Category: Medical Code(s): I26.99 - Other pulmonary embolism without acute cor pulmonale Plan Mr. 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 Patient has long been compliant with warfarin with no complications. He also carries a questionable diagnosis of COPD On this admission noted to have worsening leukocytosis when compared to his most recent admission. ABG upon admission did not show any evidence of hypoxic/hypercarbic respiratory failure. CTA upon admission small subsegmental left lower lobe pulmonary embolism new from his most recent CT from 07/14/2023. No evidence of RV strain on CT imaging. D-dimer elevated at 2.99. Continue to show right lower lobe airspace disease no significant change from his recent CT. INR therapeutic on his most recent hospital admission, subtherapeutic at 1.08 on this admission. Plan: Resume warfarin from pulmonary standpoint with INR goal of 2-3. Will consider hypercoagulable workup as an outpatient basis. Continue DuoNebs every 6 hours on as-needed basis Oxygen supplementation as needed to maintain O2 saturation goal of 90 to 95%. On room air at rest today saturating 93%. Continue levofloxacin from his most recent discharge to complete a total of 7- day course. # Thank you for involving pulmonary in this patient care. Will continue to follow.
--- NOTE | 2023-07-21 10:38 | EXP.CARD.CON ---
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 States he has never seen a job coach/job developer. 1 week ago developed upper respiratory cough and shortness of breath. Saw PCP and was diagnosed with bronchitis started on antibiotics and steroid pack. States he had a choking episode with his food and put his fingers down the back of his throat to vomit. Unclear history at this point - states he was seen in the emergency room and transferred to [facility] in [place] for possible GI bleed but never had a blood transfusion and his hemoglobin was 12 at the time? Denies hematemesis and hemoptysis. States twice over the past week when he was walking across the room at his house he developed weakness and then fell with temporary transient loss of consciousness. He hit his head yesterday and presented to the emergency room. Head CT was normal. CTA showed small subsegmental PE in left lower lobe and lingular lobe with moderate coronary calcifications and scattered bilateral lower lobe groundglass nodules. His INR is subtherapeutic at 1.0. Hemoglobin is 10, white blood cell count 17,000, troponin is normal, proBNP 541. [facility] Disclaimer: The information contained in this section may have been updated after the patient was seen, as this information can be updated by other users. Medical History Shingles Rib contusion COPD exacerbation SIRS (systemic inflammatory response syndrome) Hypokalemia Acute exacerbation of chronic obstructive airways disease Diabetes mellitus, type 2 Hypertension History of heart attack Deep vein thrombosis (DVT) Congestive heart failure Atrial fibrillation Atrial fibrillation Family History Other Family history of acute congestive heart failure Family history of cancer Family history of cardiomyopathy Family history of hypertension Family history of myocardial infarction Social History Smoking Status: Former smoker tobacco type: cigars alcohol intake: never current occupational status: retired Travel in the last 8 weeks: None household members: none housing: apartment current occupational exposures/hazards: No caffeine: No Review of Systems Constitutional Constitutional: Denies fatigue and Reports weakness Eyes Eyes: Denies loss of vision ENT Ears, Nose, Mouth, and Throat: Denies hearing loss and Denies vertigo *Cardiovascular Cardiovascular: Denies chest pain, Reports dyspnea, Reports lightheadedness and Denies syncope *Respiratory Respiratory: Denies cough and Reports dyspnea *Gastrointestinal Gastrointestinal: Denies change in stool character, Denies nausea and Reports vomiting Comments: dysphagia *Genitourinary Genitourinary: Denies difficulty urinating *Musculoskeletal Musculoskeletal: Denies muscle weakness Integumentary/Breasts Skin/Breast: Denies changing lesions *Neurologic Neurologic: Denies loss of vision, Denies syncope, Denies vertigo and Reports weakness Endocrine Endocrine: Denies fatigue Exam Data for Last 24 hours Vital signs and Labs for Last 24 Hours: Temp Pulse Resp BP Pulse Ox O2 Del Method 97.9 F 77 18 117/63 96 Room Air 07/21/23 08:00 07/21/23 09:48 07/21/23 09:48 07/21/23 08:00 07/21/23 08:00 07/21/23 09:00 Laboratory Results - last 24 hr 07/20/23 20:22: VBG pH 7.41, VBG pCO2 37.7, VBG pO2 41.9 H, VBG HCO3 23.6, VBG Total CO2 24.7, VBG O2 Saturation 77.0 H, VBG Base Excess -1.0, VBG Lactic Acid 2.5 H 07/20/23 20:45: WBC 14.9 H, RBC 3.35 L, Hgb 10.4 L, Hct 33.5 L, MCV 99.9 H, MCH 31.0, MCHC 31.0 L, RDW 15.5, Plt Count 512 H, MPV 7.8, Neut % (Auto) 71.7, Lymph % (Auto) 21.6, [place] % (Auto) 4.3, Eos % (Auto) 2.0, Baso % (Auto) 0.4, Neut # (Auto) 10.7 H, Lymph # (Auto) 3.2, [place] # (Auto) 0.6, Eos # (Auto) 0.3, Baso # (Auto) 0.1, PT 11.6, INR 1.08, D-Dimer 2.99 H, Sodium 140, Potassium 3.5, Chloride 104, Carbon Dioxide 25, Anion Gap 14.5, BUN 10, Creatinine 1.10, Estimated Creat Clear 97, Estimated GFR 65, Est GFR ( Amer) 79, Glucose 155 H, Lactate 2.0, Calcium 8.2 L, Phosphorus 3.2, Magnesium 2.0, Total Bilirubin 0.3, AST 36, ALT 32, Alkaline Phosphatase 95, Troponin I < 0.01, NT-Pro-B Natriuret Pep 541 H, Total Protein 7.3, Albumin 3.9, Globulin 3.4 H, Albumin/Globulin Ratio 1.1, Blood Type A Positive, Antibody Screen Negative 07/20/23 23:11: Troponin I < 0.01 07/20/23 23:57: Lactate 1.4 07/21/23 02:40: Troponin I < 0.01 07/21/23 05:32: WBC 17.4 H, RBC 3.22 L, Hgb 10.0 L, Hct 31.6 L, MCV 98.1 H, MCH 31.1, MCHC 31.7 L, RDW 15.7, Plt Count 450 H, MPV 7.9, Neut % (Auto) 62.0, Lymph % (Auto) 30.9, [place] % (Auto) 4.9, Eos % (Auto) 1.6, Baso % (Auto) 0.5, Neut # (Auto) 10.8 H, Lymph # (Auto) 5.4 H, [place] # (Auto) 0.9, Eos # (Auto) 0.3, Baso # (Auto) 0.1, Total Counted 100, Neutrophils % (Manual) 55, Lymphocytes % (Manual) 37, Monocytes % (Manual) 6, Eosinophils % (Manual) 2, Platelet Estimate Slight increase, Poikilocytosis 1+, Anisocytosis 1+, Macrocytosis 1+, Spherocytes 1+, Target Cells 1+, Sodium 140, Potassium 3.7, Chloride 105, Carbon Dioxide 28, Anion Gap 10.7, BUN 9, Creatinine 1.00, Estimated Creat Clear 110, Estimated GFR 73, Est GFR ( Amer) 88, Glucose 116 H D, Calcium 8.4, Phosphorus 3.8, Magnesium 2.0, Total Bilirubin 0.4, AST 32, ALT 28, Alkaline Phosphatase 98, Total Protein 6.6, Albumin 3.5 D, Globulin 3.1, Albumin/Globulin Ratio 1.1, Triglycerides 149, Cholesterol 133 L, LDL Cholesterol Direct 64.58 L, VLDL Cholesterol 30, HDL Cholesterol 46, Cholesterol/HDL Ratio 2.9 I & O for Last 24 hours: Intake & Output 07/18/23 07/19/23 07/20/23 07/21/23 23:59 23:59 23:59 23:59 Intake Total 740 / 740 Output Total 400 / 800 880 / 880 Balance -400 / -600 -140 / -140 Weight 267 lb 14.4 oz 267 lb 14.4 oz Constitutional Constitutional: no acute distress, obese and cooperative *Routine HEENT Exam Eye: Present PERRL *Routine Respiratory Exam Respiratory: Present CTA bilaterally; Absent accessory muscle use, wheezes or crackles *Routine Cardiovascular Exam Cardiovascular: Present RRR, Normal S1 and Normal S2; Absent murmur, gallop or rubs *Routine Abdominal Exam Abdominal: Present soft; Absent tenderness *Routine Extremities Exam Extremities: Present pulses intact; Absent cyanosis or edema *Routine Skin Exam Skin: Present intact; Absent erythema or wounds *Routine Neurological Exam Neurological: Present alert and oriented X3 Routine Psychiatric Exam Psychiatric: Present cooperative Meds Home Medications and Allergies Home Medications Medication Instructions Recorded Confirmed Type allopurinol 100 mg tablet 100 mg PO BID 06/12/18 07/21/23 History bisoprolol fumarate 5 mg tablet 5 mg PO BID 06/12/18 07/21/23 History furosemide 40 mg tablet 40 mg PO BID 06/12/18 07/20/23 History tamsulosin 0.4 mg capsule 0.4 mg PO HS 06/12/18 07/20/23 History tramadol 50 mg tablet 50 mg PO Q6 PRN Pain 06/12/18 07/21/23 History warfarin 4 mg tablet 4 mg PO DAILY 06/12/18 07/20/23 History amoxicillin 875 mg-potassium 1 tab PO BID 07/21/23 07/21/23 History clavulanate 125 mg tablet doxycycline hyclate 100 mg capsule 100 mg PO BID 07/21/23 07/21/23 History pantoprazole 40 mg tablet,delayed 40 mg PO BID 07/21/23 07/21/23 History release pravastatin 80 mg tablet 80 mg PO HS 07/21/23 07/21/23 History New Prescriptions to Start Prescriptions: Allergies Allergy/AdvReac Type Severity Reaction Status Date / Time lisinopril Allergy Severe S-SWELLS-OR Verified 03/04/20 10:44 AL/THROAT hydrochlorothiazide Allergy Mild S-SWELLS-OR Verified 03/04/20 10:44 [From Maxzide] AL/THROAT triamterene [From Maxzide] Allergy Mild S-SWELLS-OR Verified 03/04/20 10:44 AL/THROAT Assessment and Plan *Assessment and plan (1) Syncope: Status: Acute Qualifiers: Syncope type: unspecified Qualified Code(s): R55 - Syncope and collapse Category: Medical Code(s): R55 - Syncope and collapse (2) Pulmonary embolism: Status: Acute Qualifiers: Pulmonary embolism type: single subsegmental (without acute cor pulmonale) Qualified Code(s): I26.93 - Single subsegmental pulmonary embolism without acute cor pulmonale Category: Medical Code(s): I26.99 - Other pulmonary embolism without acute cor pulmonale (3) Exertional dyspnea: Status: Acute Category: Medical Code(s): R06.09 - Other forms of dyspnea (4) Head injury: Status: Acute Qualifiers: Encounter type: initial encounter Qualified Code(s): S09.90XA - Unspecified injury of head, initial encounter Category: Medical Code(s): S09.90XA - Unspecified injury of head, initial encounter (5) Subtherapeutic international normalized ratio (INR): Status: Acute Category: Medical Code(s): R79.1 - Abnormal coagulation profile (6) GI bleed: Status: Acute Qualifiers: GI bleed type/associated pathology: unspecified peptic ulcer Qualified Code(s): K27.4 - Chronic or unspecified peptic ulcer, site unspecified, with hemorrhage Category: Medical Code(s): K92.2 - Gastrointestinal hemorrhage, unspecified (7) Atrial fibrillation: Status: Acute Qualifiers: Atrial fibrillation type: unspecified Qualified Code(s): I48.91 - Unspecified atrial fibrillation Category: Medical Code(s): I48.91 - Unspecified atrial fibrillation Plan Recurrent Syncope - uncertain etiology, broad differential at this time - check orthostatic vitals - treat PE - check 2D ECHO - continue telemetry and check outpatient heart monitor x2 weeks. Acute LLL subsegmental PE - known hx of recurrent VTE but pt arrived subtherapeutic with INR 1.0 despite reports of compliance - pt is stable on room air - 2D ECHO pending - he is agreeable to changing home dose Warfarin to Eliquis PAF - dx 10 years ago but has never seen Cardiology - SR, 102 here - cont bisoprolol - change warfarin to Eliquis - check 2d ECHO - check outpatient stress test Recent GI bleed? - details unclear - Hgb 12.5 1 week ago, 10.0 now - pt denies hemoptysis/hematemesis - hemoccult pending - pt states he think he scratched his throat when he stuck his fingers down his throat last week - no issues since that time Recent URI/PNA - on Antibiotics and steroids - WBC 17 - denies fever - has severe productive cough here - pulm consult pending Dysphagia - recent GI evaluation - improving with meds per pt, details unclear Obesity, BMI 38 - needs aggressive weight loss via diet/exercise 07/20: CV stable. Change Warfarin to Eliquis, check 2D ECHO. Maybe home later today.
[2023-07-21 11:05] LABS: Occult Blood,Stool Negative (Negative)
--- NOTE | 2023-07-21 11:16 | CA_ITS ---
FINAL REPORT TECHNIQUE: Bilateral lower extremity venous duplex was performed with augmentation and compression. CLINICAL HISTORY: PE, Afib COMPARISON: None FINDINGS: Proper flow is seen throughout the deep venous systems bilaterally. There is no evidence of deep venous thrombosis. IMPRESSION: No evidence of deep venous thrombosis of the lower extremities. Reviewed, Interpreted and Dictated by Parrish Bello MD Transcribed by Gwen Mcclain Authenticated and [facility]
[2023-07-21] MEDS: APIXABAN 5MG TABLET 5 MG PO ×2 (12:07→20:33)
--- NOTE | 2023-07-21 12:57 | PC.NURSE ---
patient is alert and oriented x4, VSS. patient ambulated to the bathroom with assistance x1 and got up to the chair for lunch. No complaints of pain. Call light in reach.
--- NOTE | 2023-07-21 13:23 | HMH.OTEV ---
OT Inpatient Evaluation Rehab OT IP Evaluation Start: 07/21/23 10:05 Freq: ONCE Status: Active Protocol: Document 07/21/23 13:20 [facility] (Rec: 07/21/23 13:23 [facility] [id number]) Rehab OT IP Assessment Subjective History Pt oriented x 3 on arrival. Pt agreeable to engage in therapy evaluation. Pt was admitted on 07/20/23 due to syncope episode. History and Physical report: This is a 73-year-old obese male with PMHx of Afib on warfarin, recent hospitalization for RLL pneumonia, with Acute GI bleed presenting today with syncope and a minor head injury. Patient states that he is chronically anticoagulated on Coumadin for atrial fibrillation states his last INR was between 2 and 3 and today he had some prodromal lightheadedness passed out fell and hit his head subsequently called 911. On his recent hospitalization patient reported to had a bleeding ulcer. Discharged with Augmentin and doxycycline as well as a PPI, and f/u with GI. Patient denies any chest pain denies any worsening lower extremity or peripheral edema. Does state he has extensive dyspnea with any type of exertion at all. States that he cannot walk more than a few feet without being severely dyspneic and feeling like he is going to pass out. This is his second syncopal episode in the last week. States he does have a history of heart failure but does not know his ejection fraction does not have a slubber runner that he currently follows with. He does have an appointment with Dr. Mac but has not seen him. Patient denies any fevers chills cough. Admitted for further work up. Subjective I just passed out. Pt reports prior to being in the hospital, he lived alone. Pt claims normally he is independent with all ADLs and IADLs. He does use a cane/ stick during funcitonal transfers/mobility tasks. Pt also still drove. Objective Patient Orientation Person,Place,Birthday Right Upper Extremity Gross ROM WFL Left Upper Extremity Gross ROM WFL Bed Mobility bed mobility-scooting,bed mobility - supine/sit Assist Level Supervision/Stand by Transfer Training Sit/Stand Transfer Assist Level Supervision/Stand by Chair Transfer Technique Sit to/from Ambulatory Lower Body Dressing Ability Standby Assistance Rehab OT IP prob,goals,plan Problems Date of Evaluation: 07/21/23 Rehab Potential Rehab Potential Innapropriate for Skilled Therapy Discharge Plan OT Discharge Plan Pt appears to be at his baseline with functional transfers and ADL independence . No further tx required at this time. Pt can return home once medically stable per physician. Eval Complexity Eval Charge Codes 34911 - Low Complexity PHYSICIAN CERTIFICATION: I certify the specified therapy services for Rene Hua are required, authorized, and reviewed every 30 days.
--- NOTE | 2023-07-21 13:24 | HMH.PTEV ---
Physical Therapy Evaluation Rehab PT IP Evaluation Start: 07/21/23 10:05 Freq: ONCE Status: Active Protocol: Document 07/21/23 13:20 SOFYA (Rec: 07/21/23 13:23 SOFYA [id number]) Subjective/History History History Per H&P: This is a 73-year-old obese male with PMHx of Afib on warfarin, recent hospitalization for RLL pneumonia, with Acute GI bleed presenting today with syncope and a minor head injury. Patient states that he is chronically anticoagulated on Coumadin for atrial fibrillation states his last INR was between 2 and 3 and today he had some prodromal lightheadedness passed out fell and hit his head subsequently called 911. On his recent hospitalization patient reported to had a bleeding ulcer. Discharged with Augmentin and doxycycline as well as a PPI, and f/u with GI. Patient denies any chest pain denies any worsening lower extremity or peripheral edema. Does state he has extensive dyspnea with any type of exertion at all. States that he cannot walk more than a few feet without being severely dyspneic and feeling like he is going to pass out. This is his second syncopal episode in the last week. States he does have a history of heart failure but does not know his ejection fraction does not have a fish inspector that he currently follows with. He does have an appointment with Dr. Mac but has not seen him. Patient denies any fevers chills cough. Admitted for further work up. Subjective Subjective PLOF per pt report: IND with functional mobility and ADLs. Pt used a tobacco stick as AD. Lives alone in a single-story home with 4 CHRISTINE. Driving prior to admission. New diagnosis of cancer in past 12 No months? Rehab PT IP Eval Objective Appearance Patient Behavior Appropriate,Cooperative Patient Orientation Person,Birthday,Situation Difficulty following instructions none Speech Pattern Clear Ambulation Patient Able to Ambulate Yes Ambulation Observation IP General Gait Pattern Observation Wide Based Gait Ambulation Distance (feet) 30 Ambulation Assistive Device None Ambulation Ability Supervision/Stand by Balance Ability to Arise Able, uses arms to help Sitting Balance Steady, safe Standing Balance Steady, wide stance Transfers Bed Transfer Ability Supervision/Stand by Sit to Stand Bed Transfer Ability Supervision/Stand by Rehab PT IP prob,goals,plan Problems Date of Evaluation: 07/21/23 Rehab Potential Rehab Potential Innapropriate for Skilled Therapy Discharge Plan PT Discharge Plan Pt safe to d/c home when deemed medically necessary d/t current level of mobility, home set-up, and family support. Pt not appropriate for skilled acute care PT at this time d/t pt?s mobility being at baseline. Eval Complexity Eval Charge Codes 61556 - Moderate Complexity PHYSICIAN CERTIFICATION: I certify the specified therapy services for Rene Hua are required, authorized, and reviewed every 30 days.
--- NOTE | 2023-07-21 16:47 | P.PN_ITS ---
Subjective *Date: 07/21/23 *Time: 16:47 Interval history: patient was seen and evaluated at the bedside. No reported acute events overnight, denies chest pain, shortness of breath, nausea, vomiting, abdominal pain. Exam Data for Last 24 hours Vital signs and Labs for Last 24 Hours: Temp Pulse Resp BP Pulse Ox O2 Del Method 98.2 F 95 H 18 102/73 L 99 Room Air 07/21/23 16:00 07/21/23 16:01 07/21/23 16:00 07/21/23 16:00 07/21/23 16:00 07/21/23 16:00 Laboratory Results - last 24 hr 07/20/23 20:22: VBG pH 7.41, VBG pCO2 37.7, VBG pO2 41.9 H, VBG HCO3 23.6, VBG Total CO2 24.7, VBG O2 Saturation 77.0 H, VBG Base Excess -1.0, VBG Lactic Acid 2.5 H 07/20/23 20:45: WBC 14.9 H, RBC 3.35 L, Hgb 10.4 L, Hct 33.5 L, MCV 99.9 H, MCH 31.0, MCHC 31.0 L, RDW 15.5, Plt Count 512 H, MPV 7.8, Neut % (Auto) 71.7, Lymph % (Auto) 21.6, [place] % (Auto) 4.3, Eos % (Auto) 2.0, Baso % (Auto) 0.4, Neut # (Auto) 10.7 H, Lymph # (Auto) 3.2, [place] # (Auto) 0.6, Eos # (Auto) 0.3, Baso # (Auto) 0.1, PT 11.6, INR 1.08, D-Dimer 2.99 H, Sodium 140, Potassium 3.5, Chloride 104, Carbon Dioxide 25, Anion Gap 14.5, BUN 10, Creatinine 1.10, Estimated Creat Clear 97, Estimated GFR 65, Est GFR ( Amer) 79, Glucose 155 H, Lactate 2.0, Calcium 8.2 L, Phosphorus 3.2, Magnesium 2.0, Total Bilirubin 0.3, AST 36, ALT 32, Alkaline Phosphatase 95, Troponin I < 0.01, NT-Pro-B Natriuret Pep 541 H, Total Protein 7.3, Albumin 3.9, Globulin 3.4 H, Albumin/Globulin Ratio 1.1, Blood Type A Positive, Antibody Screen Negative 07/20/23 23:11: Troponin I < 0.01 07/20/23 23:57: Lactate 1.4 07/21/23 02:40: Troponin I < 0.01 07/21/23 05:32: WBC 17.4 H, RBC 3.22 L, Hgb 10.0 L, Hct 31.6 L, MCV 98.1 H, MCH 31.1, MCHC 31.7 L, RDW 15.7, Plt Count 450 H, MPV 7.9, Neut % (Auto) 62.0, Lymph % (Auto) 30.9, [place] % (Auto) 4.9, Eos % (Auto) 1.6, Baso % (Auto) 0.5, Neut # (Auto) 10.8 H, Lymph # (Auto) 5.4 H, [place] # (Auto) 0.9, Eos # (Auto) 0.3, Baso # (Auto) 0.1, Total Counted 100, Neutrophils % (Manual) 55, Lymphocytes % (Manual) 37, Monocytes % (Manual) 6, Eosinophils % (Manual) 2, Platelet Estimate Slight increase, Poikilocytosis 1+, Anisocytosis 1+, Macrocytosis 1+, Spherocytes 1+, Target Cells 1+, Sodium 140, Potassium 3.7, Chloride 105, Carbon Dioxide 28, Anion Gap 10.7, BUN 9, Creatinine 1.00, Estimated Creat Clear 110, Estimated GFR 73, Est GFR ( Amer) 88, Glucose 116 H D, Calcium 8.4, Phosphorus 3.8, Magnesium 2.0, Total Bilirubin 0.4, AST 32, ALT 28, Alkaline Phosphatase 98, Total Protein 6.6, Albumin 3.5 D, Globulin 3.1, Albumin/Globulin Ratio 1.1, Triglycerides 149, Cholesterol 133 L, LDL Cholesterol Direct 64.58 L, VLDL Cholesterol 30, HDL Cholesterol 46, Cholesterol/HDL Ratio 2.9 07/21/23 10:40: Stool Occult Blood Negative I & O for Last 24 hours: Intake & Output 07/18/23 07/19/23 07/20/23 07/21/23 23:59 23:59 23:59 23:59 Intake Total 1100 / 1100 Output Total 400 / 800 1480 / 1480 Balance -400 / -600 -380 / -380 Weight 121.517 kg 121.517 kg Constitutional Constitutional: no acute distress *Routine HEENT Exam Head: Present normocephalic Eye: Present EOMI and PERRL ENT: Present mucous membranes moist *Routine Neck Exam Neck: Present supple; Absent lymphadenopathy *Routine Respiratory Exam Respiratory: Present CTA bilaterally *Routine Cardiovascular Exam Cardiovascular: Present RRR *Routine Abdominal Exam Abdominal: Present soft and normoactive bowel sounds; Absent tenderness *Routine Extremities Exam Extremities: Absent cyanosis, clubbing or edema *Routine Skin Exam Skin: Present warm; Absent rash *Routine Neurological Exam Neurological: Present alert and oriented X3 Assessment and Plan *Assessment and plan (1) Syncope: Status: Acute Qualifiers: Syncope type: unspecified Qualified Code(s): R55 - Syncope and collapse Category: Medical Code(s): R55 - Syncope and collapse (2) Pulmonary embolism: Status: Acute Qualifiers: Pulmonary embolism type: single subsegmental (without acute cor pulmonale) Qualified Code(s): I26.93 - Single subsegmental pulmonary embolism without acute cor pulmonale Category: Medical Code(s): I26.99 - Other pulmonary embolism without acute cor pulmonale (3) Exertional dyspnea: Status: Acute Category: Medical Code(s): R06.09 - Other forms of dyspnea (4) Head injury: Status: Acute Qualifiers: Encounter type: initial encounter Qualified Code(s): S09.90XA - Unspecified injury of head, initial encounter Category: Medical Code(s): S09.90XA - Unspecified injury of head, initial encounter (5) Subtherapeutic international normalized ratio (INR): Status: Acute Category: Medical Code(s): R79.1 - Abnormal coagulation profile (6) GI bleed: Status: Acute Qualifiers: GI bleed type/associated pathology: unspecified peptic ulcer Qualified Code(s): K27.4 - Chronic or unspecified peptic ulcer, site unspecified, with hemorrhage Category: Medical Code(s): K92.2 - Gastrointestinal hemorrhage, unspecified (7) Atrial fibrillation: Status: Acute Qualifiers: Atrial fibrillation type: unspecified Qualified Code(s): I48.91 - Unspecified atrial fibrillation Category: Medical Code(s): I48.91 - Unspecified atrial fibrillation Plan 73-year-old obese male with PMHx of Afib on warfarin, recent hospitalization for RLL pneumonia, with Acute GI bleed presenting today with syncope and a minor head injury. States that he cannot walk more than a few feet without being severely dyspneic and feeling like he is going to pass out. This is his second syncopal episode in the last week. On arrival patient patient alert. CT of head negative. D-dimer was elevated, therefore CTA of chest was obtained to rule out PE. Concerning for a small subsegmental PE in the left lower and lingular lobe. Patient hemodinamically stable. no SOB at rest. INR sub-therapeutic. All findings were discussed with ED at length. agreed for admission plan as follow: -Syncope or near syncope: with minor head injury. non actionable: continuous cardiac monitoring CT of head reviewed. negative ECHO ordered. await results cardiology consult. recommendations noted, await echo Orthostatic BP - pending -pulmonary embolism. does not seen to be the cause of dyspnea. patient on RA on rest. satting ok, Excertional dyspnea to rule out CHF new onset. subtherapeutic INR: start lovenox full dose. 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 Hb 10. 4 on protonix monitor for bleeding repeat CBC daily obtain fecal occult Afib. controlled. on bisoprolol Full code
[2023-07-21] MEDS: PRAVASTATIN 40MG TAB 40 MG PO (20:32)
[2023-07-21] MEDS: TAMSULOSIN 0.4MG CAPSULE 0.400000000000000022 MG PO (20:33)
[2023-07-21] MEDS: MELATONIN 5MG TABLET 10 MG PO (21:22)
--- NOTE | 2023-07-21 21:36 | CA_ITS ---
APPROVED REPORT EXAM: Comprehensive 2D, Doppler, and color-flow Echocardiogram Management Recruiter: Nena Montero CRT Ht: 5 ft 10 in Wt: 260lbs BSA: 2.33 BP: 98/60 mmHg Indications: Atrial Fibrillation, Diabetes, Hyperlipidemia, Pleural Effusion, Hypertension/HDD 2D Dimensions Left Atrium 3.72 cm LVEF (Delgado's) 59.00 % LVOT 2.03 cm (M/F) 1.5-2.5 LV Volume 62.70 mL LA Volume 19.30 mL LA Volume Index 8.30 mL/m2 (M/F) 16-34 EF AP4 54.60 % EF AP2 66.7 % EF BP 59.0 % GL Strain -14.2 % M-Mode Dimensions RVDd 2.84 cm (0.9-2.6) LVDd 4.44 cm (3.5-5.7) Ao Diam 3.78 cm (2.0-3.7) LVDs 3.04 cm (3.5-5.7) IVSd 1.52 cm (0.6-1.1) PWd 0.92 cm (0.6-1.1) EF (Teich) 59.60% FS 31.50% EDV (Teich) 89.60 mL TAPSE 2.42 (<1.7) ESV (Teich) 36.20 mL LV Diastology E Decel Time 258 (160-240 msec) E/A Ratio 0.73 MED E' 5.4 (>= 7 cm/sec) MED A' 6.90 cm/s E'/MED E' Ratio 13.50 (<= 14) LAT E' 5.4 (>= 10 cm/sec) LAT A' 10.20 cm/s E/LAT E' Ratio 13.50 (<= 14) Aortic Valve AoV Peak Carlos. 143.0 (50-130 cm/s) AO Peak GR. 8.20 mmHg Mitral Valve MV E Max Carlos. 73.0 (40-130 cm/s) MV A Velocity 99.0 (40-130 cm/s) E/A Ratio 0.73 MV Decel. Time 258 (160-240 ms) Tricuspid Valve TR P. Velocity 211.00 cm/s RAP Estimate 10.00 mmHg RVSP 27.70 mmHg Left Ventricle The left ventricle is normal size. The left ventricular systolic function is normal. The left ventricular ejection fraction is within the normal range. There is increased LV wall thickness. There is normal LV segmental wall motion. Transmitral Doppler flow pattern suggests impaired LV relaxation. LVEF is 60%. Right Ventricle The right ventricle is normal size. The right ventricular systolic function is normal. Atria The left atrium size is normal. The right atrium size is normal. There is no Doppler evidence of interatrial shunt. Aortic Valve The aortic valve is mildly thickened. There is no aortic valvular stenosis. No aortic regurgitation is present. Mitral Valve The mitral valve is normal in structure. No evidence of mitral valve stenosis. Mild mitral regurgitation. Tricuspid Valve The tricuspid valve leaflets are thin and pliable. Trace tricuspid regurgitation. There is insufficient TR jet to estimate RVSP. Pulmonic Valve The pulmonary valve is normal in structure. Trace pulmonic regurgitation. Great Vessels The aortic root is normal in size. The ascending aorta is normal in size. The IVC is not well-visualized. Pericardium There is no pericardial effusion. A pleural effusion is present. Other Information Study Quality: Technically Difficult Conclusion Technically difficult study due to poor acoustic windows. Normal biventricular systolic function. Mild MR. Pleural effusion is present. Electronically signed by : Mary Jo Sanchez MD 07/22/2023 02:06:18
[2023-07-22] VITALS: BP 147/62; PULSE 100; PULSE 92; RESP 20; TEMP 36.8; O2SAT 98
[2023-07-22 04:00] VITALS: BP 118/75; PULSE 90; PULSE 96; RESP 20; TEMP 36.6; O2SAT 98; BMI 39.3
[2023-07-22] MEDS: [UNRECOGNIZED DRUG - OTHER] PO (04:24)
[2023-07-22 08:00] VITALS: BP 105/58; PULSE 105; PULSE 94; RESP 18; TEMP 36.8; O2SAT 96
--- NOTE | 2023-07-22 08:46 | HMH.SLDYSPHA ---
Speech & Language Evaluation Speech/Language Dysphagia Evaluation Start: 07/22/23 08:34 Freq: ONCE Status: Active Protocol: Document 07/22/23 08:35 DENISHAMARINA (Rec: 07/22/23 08:46 NASIR [id number]) Dysphagia Assess/Goals/Plan Assessment Date of Evaluation: 07/22/23 Evaluation Type Initial Certification Assessment/Problems dysphagia per MD order. Does Patient Qualify for Service No Qualify/Failure Comment Based on clinical observations made during CSE, pt's mastication and manipulation of bolus and swallowing appear to be WFL. No further skilled speech therapy services are warranted at this time. Recommendations PHYSICIAN CERTIFICATION: The specified therapy services are required, authorized, and reviewed every 30 days. Diet Recommendations Normal Liquid Type Recommendations Normal/Thin SL Swallow Guidelines Alt bite w/sip thru meal, Standard Aspiration Prec.,Eat at slow rate,Reflux precautions Dysphagia Swallow Precautions/Strategies Sitting Upright (90 deg),Small Bites and Sips,Alternate Liquids/Solids Comment GI consult 2' complaints of intermittent globus sensation Plan Pt/Guardian verbally ack understanding Yes of dx/prognosis/goals G -code Required No Education Instructions provided Discussed results of CSE, diet recommendations, precautions and compensatory strategies; as well as potential need for GI consult 2' globus sensation complaints with pt, nrsing and care management all of which exppressed understanding . 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 Patient states that he is chronically anticoagulated on Coumadin for atrial fibrillation states his last INR was between 2 and 3 and today he had some prodromal lightheadedness passed out fell and hit his head subsequently called 911. On his recent hospitalization patient reported to had a bleeding ulcer. Discharged with Augmentin and doxycycline as well as a PPI, and f/u with GI. Patient denies any chest pain denies any worsening lower extremity or peripheral edema. Does state he has extensive dyspnea with any type of exertion at all. States that he cannot walk more than a few feet without being severely dyspneic and feeling like he is going to pass out. This is his second syncopal episode in the last week. States he does have a history of heart failure but does not know his ejection fraction does not have a assistant grocery that he currently follows with. He does have an appointment with Dr. Mac but has not seen him. Patient denies any fevers chills cough. Admitted for further work up. Chest CTA impressions report 1. Small segmental and subsegmental pulmonary emboli in the lingula and left lower lobe. 2. No evidence of right heart strain. 3. Mild improvement in bilateral lower lobe centrilobular ground-glass nodules consistent with pneumonia. Rehab Services Assessed Speech therapy Language Primary Language Dominican General Information General Current Food Consistancy Regular,Thin Liquids Dentition Good Dentition Patient Orientation Person,Place,Time,Situation Ability to Follow Directions Excellent Communication Ability No Impairment Dysphagia:Food Presentation Evaluation Food Type Pureed,Mechanical Soft,Regular ,Liquid,Pudding Dysphagia Evaluation Summary Pt seen sitting upright in bed this morning for clinical bedside swallow evaluation, pt was A&Ox4. LINKING MACHINE OPERATOR observed pt during breakfast; he was able to take consecutive bites of toast, scrambled eggs, and hinds with no overt s/sxs of aspiration. He was also observed to drink juice and water in oth single and consecutive sips from both a straw and open cup with no signs of distress or difficulty. He tolerated presentation of pureed applesauce and pudding well, as well. Based on these observations made, pt is cleared to continue on current diet of regular/thins with implementation of reflux precautions. No further skilled speech therapy services are warranted at this time. Stroke Dysphagia Assessment PHYSICIAN CERTIFICATION: I certify the specified therapy services for Rene Hua are required, authorized, and reviewed every 30 days.
[2023-07-22] MEDS: ALLOPURINOL 100MG TABLET 100 MG PO (09:09)
[2023-07-22] MEDS: AMOXICILLIN PO (09:10)
[2023-07-22] MEDS: BISOPROLOL 5MG TABLET 5 MG PO (09:10)
[2023-07-22] MEDS: [UNRECOGNIZED DRUG - OTHER] PO (09:10)
[2023-07-22] MEDS: BENZONATATE 100MG CAPSULE 100 MG PO (09:10)
[2023-07-22] MEDS: FUROSEMIDE 40 MG TABLET PO (09:11)
[2023-07-22] MEDS: PANTOPRAZOLE 40 MG PO (09:11)
[2023-07-22] MEDS: LIDOCAINE 5% TRANSDERMAL PATCH 1 EACH TP (09:11)
[2023-07-22] MEDS: APIXABAN 5MG TABLET 5 MG PO (09:17)
--- NOTE | 2023-07-22 09:54 | EXP.PULM.PN ---
Subjective *Date: 07/22/23 *Time: 12:43 Interval history: Patient denies any new respiratory complaints. Pulmonology Exam Inpatient Vital signs and Labs for Last 24 Hours: Temp Pulse Resp BP Pulse Ox O2 Del Method 98.2 F 94 H 18 105/58 L 96 Room Air 07/22/23 08:00 07/22/23 08:00 07/22/23 08:00 07/22/23 08:00 07/22/23 08:00 07/22/23 08:00 Laboratory Results - last 24 hr 07/21/23 10:40: Stool Occult Blood Negative Temp Pulse Resp BP Pulse Ox O2 Del Method 97.9 F 77 18 117/63 96 Room Air 07/21/23 08:00 07/21/23 09:48 07/21/23 09:48 07/21/23 08:00 07/21/23 08:00 07/21/23 09:00 Laboratory Results - last 24 hr 07/20/23 20:22: VBG pH 7.41, VBG pCO2 37.7, VBG pO2 41.9 H, VBG HCO3 23.6, VBG Total CO2 24.7, VBG O2 Saturation 77.0 H, VBG Base Excess -1.0, VBG Lactic Acid 2.5 H 07/20/23 20:45: WBC 14.9 H, RBC 3.35 L, Hgb 10.4 L, Hct 33.5 L, MCV 99.9 H, MCH 31.0, MCHC 31.0 L, RDW 15.5, Plt Count 512 H, MPV 7.8, Neut % (Auto) 71.7, Lymph % (Auto) 21.6, [place] % (Auto) 4.3, Eos % (Auto) 2.0, Baso % (Auto) 0.4, Neut # (Auto) 10.7 H, Lymph # (Auto) 3.2, [place] # (Auto) 0.6, Eos # (Auto) 0.3, Baso # (Auto) 0.1, PT 11.6, INR 1.08, D-Dimer 2.99 H, Sodium 140, Potassium 3.5, Chloride 104, Carbon Dioxide 25, Anion Gap 14.5, BUN 10, Creatinine 1.10, Estimated Creat Clear 97, Estimated GFR 65, Est GFR ( Amer) 79, Glucose 155 H, Lactate 2.0, Calcium 8.2 L, Phosphorus 3.2, Magnesium 2.0, Total Bilirubin 0.3, AST 36, ALT 32, Alkaline Phosphatase 95, Troponin I < 0.01, NT-Pro-B Natriuret Pep 541 H, Total Protein 7.3, Albumin 3.9, Globulin 3.4 H, Albumin/Globulin Ratio 1.1, Blood Type A Positive, Antibody Screen Negative 07/20/23 23:11: Troponin I < 0.01 07/20/23 23:57: Lactate 1.4 07/21/23 02:40: Troponin I < 0.01 07/21/23 05:32: WBC 17.4 H, RBC 3.22 L, Hgb 10.0 L, Hct 31.6 L, MCV 98.1 H, MCH 31.1, MCHC 31.7 L, RDW 15.7, Plt Count 450 H, MPV 7.9, Neut % (Auto) 62.0, Lymph % (Auto) 30.9, [place] % (Auto) 4.9, Eos % (Auto) 1.6, Baso % (Auto) 0.5, Neut # (Auto) 10.8 H, Lymph # (Auto) 5.4 H, [place] # (Auto) 0.9, Eos # (Auto) 0.3, Baso # (Auto) 0.1, Total Counted 100, Neutrophils % (Manual) 55, Lymphocytes % (Manual) 37, Monocytes % (Manual) 6, Eosinophils % (Manual) 2, Platelet Estimate Slight increase, Poikilocytosis 1+, Anisocytosis 1+, Macrocytosis 1+, Spherocytes 1+, Target Cells 1+, Sodium 140, Potassium 3.7, Chloride 105, Carbon Dioxide 28, Anion Gap 10.7, BUN 9, Creatinine 1.00, Estimated Creat Clear 110, Estimated GFR 73, Est GFR ( Amer) 88, Glucose 116 H D, Calcium 8.4, Phosphorus 3.8, Magnesium 2.0, Total Bilirubin 0.4, AST 32, ALT 28, Alkaline Phosphatase 98, Total Protein 6.6, Albumin 3.5 D, Globulin 3.1, Albumin/Globulin Ratio 1.1, Triglycerides 149, Cholesterol 133 L, LDL Cholesterol Direct 64.58 L, VLDL Cholesterol 30, HDL Cholesterol 46, Cholesterol/HDL Ratio 2.9 I & O for Labs for Last 24 Hours: Intake & Output 07/19/23 07/20/23 07/21/23 07/22/23 23:59 23:59 23:59 23:59 Intake Total 1370 / 1610 510 / 510 Output Total 400 / 800 1480 / 1730 925 / 925 Balance -400 / -600 -110 / -120 -415 / -415 Weight 267 lb 14.4 oz 267 lb 14.4 oz 274 lb 12.8 oz Intake & Output 07/18/23 07/19/23 07/20/23 07/21/23 23:59 23:59 23:59 23:59 Intake Total 740 / 740 Output Total 400 / 800 880 / 880 Balance -400 / -600 -140 / -140 Weight 267 lb 14.4 oz 267 lb 14.4 oz Constitutional: Present mild distress Head: Present normocephalic and atraumatic ENT: Present normal exam, normal oropharynx and mucous membranes moist Neck: Present normal inspection and full ROM Respiratory: Present respiratory distress and able to speak in complete sentences; Absent rhonchi, wheezes, crackles or diminished air movement Cardiac: Present S1/S2, Tachycardia and radial pulses present GI: Present soft and distention; Absent tenderness or guarding Skin: Present intact; Absent cyanosis or jaundice Neuro: Present alert, awake and oriented x 3 Extremities: Present normal inspection; Absent clubbing or cyanosis Psychiatric: Present normal affect and cooperative Assessment and Plan *Assessment and plan (1) Pneumonia: Status: Acute Category: Medical Code(s): J18.9 - Pneumonia, unspecified organism (2) Pulmonary embolism on left: Status: Acute Category: Medical Code(s): I26.99 - Other pulmonary embolism without acute cor pulmonale Plan Mr. 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 Patient has long been compliant with warfarin with no complications. He also carries a questionable diagnosis of COPD On this admission noted to have worsening leukocytosis when compared to his most recent admission. ABG upon admission did not show any evidence of hypoxic/hypercarbic respiratory failure. CTA upon admission small subsegmental left lower lobe pulmonary embolism new from his most recent CT from 07/14/2023. No evidence of RV strain on CT imaging. D-dimer elevated at 2.99. Continue to show right lower lobe airspace disease no significant change from his recent CT. INR therapeutic on his most recent hospital admission, subtherapeutic at 1.08 on this admission. Interval update: Unclear on patient's family history, concerning for either factor V Leyden deficiency/APS syndrome. Will continue warfarin pending outpatient evaluation of the possible hypercoagulable state and anticoagulation options. Patient explained in detail with emphasis on benefits of continuing warfarin at this point of time given his recent history of what appears likely to be a GI bleed from an ulcer as per the patient. Did not appreciate any venous thrombosis on his lower EXTR venous Doppler. Will follow with final report. Plan: Resume warfarin from pulmonary standpoint for Pulmonary embolism with INR goal of 2-3. Recommend against changing his anticoagulation at this point of time pending hypercoagulable workup as outpatient basis. Recommendations conveyed to primary team. Continue DuoNebs every 6 hours on as-needed basis Oxygen supplementation as needed to maintain O2 saturation goal of 90 to 95%. On room air at rest today saturating 93%. Continue levofloxacin from his most recent discharge to complete a total of 7-day course. # Thank you for involving pulmonary in this patient care. Will continue to follow.
--- NOTE | 2023-07-22 11:50 | EXP.DC.SUM ---
General Admission date:: 07/20/23 Discharge date: 07/22/23 HPI HPI HPI: This is a 73-year-old obese male with PMHx of Afib on warfarin, recent hospitalization for RLL pneumonia, with Acute GI bleed presenting today with syncope and a minor head injury. Patient states that he is chronically anticoagulated on Coumadin for atrial fibrillation states his last INR was between 2 and 3 and today he had some prodromal lightheadedness passed out fell and hit his head subsequently called 911. On his recent hospitalization patient reported to had a bleeding ulcer. Discharged with Augmentin and doxycycline as well as a PPI, and f/u with GI. Patient denies any chest pain denies any worsening lower extremity or peripheral edema. Does state he has extensive dyspnea with any type of exertion at all. States that he cannot walk more than a few feet without being severely dyspneic and feeling like he is going to pass out. This is his second syncopal episode in the last week. States he does have a history of heart failure but does not know his ejection fraction does not have a animal attendants and trainers that he currently follows with. He does have an appointment with Dr. Mac but has not seen him. Patient denies any fevers chills cough. Admitted for further work up. Hospital Course Hospital Course Hospital Course: 73-year-old obese male with PMHx of Afib on warfarin, recent hospitalization for RLL pneumonia, with Acute GI bleed presenting today with syncope and a minor head injury. States that he cannot walk more than a few feet without being severely dyspneic and feeling like he is going to pass out. This is his second syncopal episode in the last week. On arrival patient patient alert. CT of head negative. D-dimer was elevated, therefore CTA of chest was obtained to rule out PE. Concerning for a small subsegmental PE in the left lower and lingular lobe. Patient hemodinamically stable. no SOB at rest. INR sub-therapeutic. All findings were discussed with ED at length. agreed for admission plan as follow: -Syncope or near syncope: - resolved with minor head injury. non actionable: - continuous cardiac monitoring CT of head reviewed. negative ECHO ordered. await results cardiology consult. recommendations noted, stable for dc -pulmonary embolism. does not seen to be the cause of dyspnea. 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 hb stable, occult stool negative Afib. controlled. on bisoprolol Full code Exam Data for Last 24 hours Vital signs and Labs for Last 24 Hours: Temp Pulse Resp BP Pulse Ox O2 Del Method 98.2 F 94 H 18 105/58 L 96 Room Air 07/22/23 08:00 07/22/23 08:00 07/22/23 08:00 07/22/23 08:00 07/22/23 08:00 07/22/23 08:00 I & O for Last 24 hours: Intake & Output 07/19/23 07/20/23 07/21/23 07/22/23 23:59 23:59 23:59 23:59 Intake Total 1370 / 1610 510 / 510 Output Total 400 / 800 1480 / 1730 925 / 925 Balance -400 / -600 -110 / -120 -415 / -415 Weight 121.517 kg 121.517 kg 124.647 kg Constitutional Constitutional: no acute distress *Routine HEENT Exam Head: Present normocephalic Eye: Present EOMI and PERRL ENT: Present mucous membranes moist *Routine Neck Exam Neck: Present supple; Absent lymphadenopathy *Routine Respiratory Exam Respiratory: Present CTA bilaterally *Routine Cardiovascular Exam Cardiovascular: Present RRR *Routine Abdominal Exam Abdominal: Present soft and normoactive bowel sounds; Absent tenderness *Routine Extremities Exam Extremities: Absent cyanosis, clubbing or edema *Routine Skin Exam Skin: Present warm; Absent rash *Routine Neurological Exam Neurological: Present alert and oriented X3 DS: Diagnosis Discharge Diagnosis (1) Pneumonia: Status: Acute Code(s): J18.9 - Pneumonia, unspecified organism (2) Pulmonary embolism on left: Status: Acute Code(s): I26.99 - Other pulmonary embolism without acute cor pulmonale Meds Home Medications and Allergies Home Medications Medication Instructions Recorded Confirmed Type allopurinol 100 mg tablet 100 mg PO BID 06/12/18 07/21/23 History bisoprolol fumarate 5 mg tablet 5 mg PO BID 06/12/18 07/21/23 History furosemide 40 mg tablet 40 mg PO BID 06/12/18 07/20/23 History tamsulosin 0.4 mg capsule 0.4 mg PO HS 06/12/18 07/20/23 History tramadol 50 mg tablet 50 mg PO Q6 PRN Pain 06/12/18 07/21/23 History warfarin 4 mg tablet 4 mg PO DAILY 06/12/18 07/20/23 History pantoprazole 40 mg tablet,delayed 40 mg PO BID 07/21/23 07/21/23 History release pravastatin 80 mg tablet 80 mg PO HS 07/21/23 07/21/23 History levofloxacin 750 mg tablet 750 mg PO DAILY 7 days #7 tabs 07/22/23 Rx pantoprazole 40 mg tablet,delayed 40 mg PO BID 30 days #60 tabs 07/22/23 Rx release New Prescriptions to Start Prescriptions: levofloxacin Velasquez,Irfan pantoprazole Velasquez,Irfan Allergies Allergy/AdvReac Type Severity Reaction Status Date / Time lisinopril Allergy Severe S-SWELLS-OR Verified 03/04/20 10:44 AL/THROAT hydrochlorothiazide Allergy Mild S-SWELLS-OR Verified 03/04/20 10:44 [From Maxzide] AL/THROAT triamterene [From Maxzide] Allergy Mild S-SWELLS-OR Verified 03/04/20 10:44 AL/THROAT Discharge Plan Disposition Patient Disposition: Home, Self-Care Condition: Good Follow up Plan Follow up with: Constantine Lincoln MD [Staff Physician] - 07/29/23 10:50 am Quintin Pedraza MD [Staff Physician] - 07/26/23 2:00 pm Isi Gibson MD [Physician] - 08/01/23 2:00 pm Prescriptions/Medication Reconciliation: New pantoprazole 40 mg Tablet,Delayed Release (Dr/Ec) 40 mg PO BID 30 Days Qty: 60 0RF levofloxacin 750 mg tablet 750 mg PO DAILY 7 Days Qty: 7 0RF Continued furosemide 40 MG tablet 40 mg PO BID allopurinol 100 MG tablet 100 mg PO BID tramadol 50 MG tablet 50 mg PO Q6 PRN (Reason: Pain) warfarin 4 MG tablet 4 mg PO DAILY bisoprolol fumarate 5 MG tablet 5 mg PO BID tamsulosin 0.4 MG capsule 0.4 mg PO HS pravastatin 80 mg tablet 80 mg PO HS pantoprazole 40 mg tablet,delayed release (DR/EC) 40 mg PO BID Discontinued doxycycline hyclate 100 mg capsule 100 mg PO BID amoxicillin-pot clavulanate 875-125 mg tablet 1 tab PO BID Problem Reconciliation Problems Reviewed?: Yes Patient Discharge Instructions ACTIVITY: Ambulate as tolerated DIET: continue same diet Patient Instructions: DI for Syncope in Adults (Fainting), DI for Shortness of Breath, DI for Closed Head Injury, Coumadin Vitamin K/ Diet Providers Primary Care Provider: Provider,Referral Admit Provider: Braden Eng Attending Provider: Braden Eng
[2023-07-22 12:00] VITALS: PULSE 95
--- NOTE | 2023-07-22 12:09 | EXP.CARD.PN ---
Subjective Subjective Date: 07/22/23 Time: 09:00 Interval history: No events overnight. Patient reports feeling back to baseline, he is ambulating without symptoms. 2D echo revealed normal cardiac structure and function. No events on telemetry. Exam Data for Last 24 hours Vital signs and Labs for Last 24 Hours: Temp Pulse Resp BP Pulse Ox O2 Del Method 98.2 F 94 H 18 105/58 L 96 Room Air 07/22/23 08:00 07/22/23 08:00 07/22/23 08:00 07/22/23 08:00 07/22/23 08:00 07/22/23 08:00 I & O for Last 24 hours: Intake & Output 07/19/23 07/20/23 07/21/23 07/22/23 23:59 23:59 23:59 23:59 Intake Total 1370 / 1610 510 / 510 Output Total 400 / 800 1480 / 1730 925 / 925 Balance -400 / -600 -110 / -120 -415 / -415 Weight 267 lb 14.4 oz 267 lb 14.4 oz 274 lb 12.8 oz Constitutional Constitutional: no acute distress and cooperative *Routine HEENT Exam Eye: Present PERRL *Routine Respiratory Exam Respiratory: Present CTA bilaterally; Absent accessory muscle use, wheezes or crackles *Routine Cardiovascular Exam Cardiovascular: Present RRR, Normal S1 and Normal S2; Absent murmur, gallop or rubs *Routine Abdominal Exam Abdominal: Present soft; Absent tenderness *Routine Extremities Exam Extremities: Present pulses intact; Absent cyanosis or edema *Routine Skin Exam Skin: Present intact; Absent erythema or wounds *Routine Neurological Exam Neurological: Present alert and oriented X3 Routine Psychiatric Exam Psychiatric: Present cooperative Progress Note: A&P Assessment and plan (1) Pneumonia: Status: Acute (2) Pulmonary embolism on left: Status: Acute Assessment and Plan Assessment and Plan for All Diagnoses:: Recurrent Syncope - uncertain etiology, broad differential at this time - check orthostatic vitals - treat PE - ECHO - normal BI-V function - continue telemetry and check outpatient heart monitor x2 weeks. Acute LLL subsegmental PE - known hx of recurrent VTE but pt arrived subtherapeutic with INR 1.0 despite reports of compliance - pt is stable on room air - 2D ECHO is without strain - he is agreeable to changing home dose Warfarin to Eliquis PAF - dx 10 years ago but has never seen Cardiology - SR, 102 here - cont bisoprolol - change warfarin to Eliquis - check outpatient stress test Recent GI bleed? - details unclear - Hgb 12.5 1 week ago, 10.0 now - pt denies hemoptysis/hematemesis - hemoccult pending - pt states he think he scratched his throat when he stuck his fingers down his throat last week - no issues since that time Recent URI/PNA - on Antibiotics and steroids - WBC 17 - denies fever - has severe productive cough here - pulm consulted, defer plans to them Dysphagia - recent GI evaluation - improving with meds per pt, details unclear Obesity, BMI 38 - needs aggressive weight loss via diet/exercise CV stable for DC with 2 week heart monitor. Pt will also track his BP, especially if/when symptomatic. F/u with our office 2 weeks.
--- NOTE | 2023-07-22 12:22 | HMH.PHAINT1 ---
Pharmacy Intervention Comments: DISCHARGE MEDICATION COUNSELING PROVIDED. DISCUSSED STOPPING THE AUGMENTIN AND DOXYCYCLINE AND STARTING LEVAQUIN (ANTIBIOTIC, DAILY, TAKE WITH FOOD, N/V/D POSSIBLE, MAY RAISE INR/INCREASE BLEED RISK/BRUISING). NEW PRESCRIPTION FOR PROTONIX SENT IN WITH TWICE DAILY INSTRUCTIONS. PATIENT VERBALIZED NO QUESTIONS AT THIS TIME.
--- NOTE | 2023-07-25 11:31 | SW/DCPLANNER ---
Follow up phone call: patient stated that he is doing well at home. Patient and I did go over all upcoming appointments. Patient did not have any further needs/questions at this time.
== END 2023-07-22 13:56 | disposition home or self-care (01) ==
LOC: ER 21:38 → 2ND 21:55
PROVIDERS: Nurse Practitioner Family; Admitting Provider Internal Medicine; Emergency Provider Student in an Organized Health Care Education/Training Program; Visit Provider Internal Medicine
DX: R55 Syncope and collapse (principal); J18.9 Pneumonia, unspecified organism; I26.99 Other pulmonary embolism without acute cor pulmonale; I26.93 Single subsegmental thrombotic pulmonary embolism without acute cor pulmonale; R06.09 Other forms of dyspnea; S09.90XA Unspecified injury of head, initial encounter; R79.1 Abnormal coagulation profile; K27.4 Chronic or unspecified peptic ulcer, site unspecified, with hemorrhage; I48.0 Paroxysmal atrial fibrillation; Z79.899 Other long term (current) drug therapy; Z79.01 Long term (current) use of anticoagulants; E66.9 Obesity, unspecified; Z68.39 Body mass index [BMI] 39.0-39.9, adult; W01.0XXA Fall on same level from slipping, tripping and stumbling without subsequent striking against object, initial encounter; Z91.81 History of falling
CPT/HCPCS: 36415; 70450; 71045; 71275; 80053; 80061; 82272; 82803; 83605; 83735; 83880; 84100; 84484; 85007; 85025; 85378; 85610; 86850; 87070; 87205; 92610; 93005; 93306; 93970; 97162; 97165; 99285; G0328; G0378; Q9967

== ENCOUNTER 2023-07-26 14:39 | Outpatient (CLI) | payer MEDICARE, MEDICAID, SELFPAY ==
[2023-07-26 15:19] LABS: Basophils # 0.1 K/mm3 (0-0.2); Basophils % 0.4 % (0.1-2.0); Eosinophils # 0.1 K/mm3 (0.0-0.4); Hemoglobin 11.5 g/dL (14.1-18.0); Lymphocytes # 2.1 K/mm3 (0.7-4.5); Lymphocytes % 16.3 % (10-50); Mean Corpuscular HGB Conc 32.1 g/dL (31.8-35.4); Mean Corpuscular Hemoglobin 31.5 pg (27.0-31.2); Mean Platelet Volume 8.1 fl (7.4-10.4); Monocytes # 0.6 K/mm3 (0.1-1.0); Monocytes % 4.6 % (1.7-9.3); Neutrophils # 9.8 K/mm3 (1.8-7.8); Neutrophils % 77.7 % (37.0-80.0); Platelet Count 686 K/mm3 (142-424); Red Blood Count 3.67 M/mm3 (4.60-6.20); Red Cell Distribution Width 15.3 % (11.5-17.5); White Blood Count 12.6 K/mm3 (4.8-10.8)
[2023-07-26 16:51] LABS: Alanine Aminotransferase 26 U/L (12-78); Albumin Level 4.1 g/dl (3.5-5.0); Albumin/Globulin Ratio 1.3 (1.1-1.8); Alkaline Phosphatase 121 U/L (38-126); Anion Gap 15.2 mEq/L (5-15); Aspartate Amino Transferase 32 U/L (17-59); Bilirubin,Total 0.7 mg/dl (0.2-1.3); Blood Urea Nitrogen 14 mg/dl (9-20); Calcium 9.6 mg/dl (8.4-10.2); Carbon Dioxide 30 mmol/L (22.0-30.0); Chloride 98 mmol/L (98-107); Estimated Glomerular Filt Rate 54 ml/min (>60); GFR (African American) 65 ML/MIN (>60); Globulin 3.2 g/dL (1.3-3.2); Glucose 162 mg/dl (74-100); Potassium 4.2 mmoL/L (3.5-5.1); Sodium 139 mmol/L (136-145); Total Protein,Serum 7.3 g/dl (6.3-8.2)
[2023-07-26 17:55] LABS: Iron 85 ug/dL (49-181)
[2023-07-26 18:10] LABS: Total Iron Binding Capacity 346 ug/dL (261-462)
[2023-07-26 18:34] LABS: Ferritin 130 ng/ml (17.9-464)
== END 2023-07-26 15:51 ==
PROVIDERS: PCP Internal Medicine; Visit Provider Internal Medicine Medical Oncology
DX: Z79.01 Long term (current) use of anticoagulants; D50.9 Iron deficiency anemia, unspecified
CPT/HCPCS: 36415; 80053; 82728; 83540; 83550; 85025; 85610; 99211; G0463

== ENCOUNTER 2023-08-01 12:38 | Outpatient (CLI) | payer MEDICARE, MEDICAID, SELFPAY ==
[2023-08-01 13:50] LABS: PHA INR Fingerstick 2.2 (0.9-1.1)
[2023-08-01 15:33] LABS: Basophils # 0.1 K/mm3 (0-0.2); Basophils % 0.8 % (0.1-2.0); Eosinophils # 0.6 K/mm3 (0.0-0.4); Eosinophils % 5.2 % (0.1-12.0); Hematocrit 37.2 % (42.0-52.0); Hemoglobin 11.5 g/dL (14.1-18.0); Lymphocytes # 3.4 K/mm3 (0.7-4.5); Lymphocytes % 31.1 % (10-50); Mean Corpuscular HGB Conc 30.8 g/dL (31.8-35.4); Mean Corpuscular Hemoglobin 31.2 pg (27.0-31.2); Mean Corpuscular Volume 101.2 fl (80-94); Mean Platelet Volume 8.1 fl (7.4-10.4); Monocytes % 8.8 % (1.7-9.3); Neutrophils # 5.9 K/mm3 (1.8-7.8); Neutrophils % 54.1 % (37.0-80.0); Platelet Count 531 K/mm3 (142-424); Red Blood Count 3.68 M/mm3 (4.60-6.20); Red Cell Distribution Width 15.1 % (11.5-17.5); White Blood Count 10.9 K/mm3 (4.8-10.8)
[2023-08-01 15:57] LABS: Anion Gap 7.3 mEq/L (5-15); Blood Urea Nitrogen 12 mg/dl (9-20); Calcium 8.8 mg/dl (8.4-10.2); Carbon Dioxide 37 mmol/L (22.0-30.0); Chloride 97 mmol/L (98-107); Estimated Glomerular Filt Rate 73 ml/min (>60); GFR (African American) 88 ML/MIN (>60); Glucose 126 mg/dl (74-100); Potassium 3.3 mmoL/L (3.5-5.1); Sodium 138 mmol/L (136-145)
== END 2023-08-01 14:12 | disposition home or self-care (01) ==
LOC: ACC 12:39
PROVIDERS: Internal Medicine; PCP Internal Medicine; Visit Provider Internal Medicine
DX: Z79.01 Long term (current) use of anticoagulants (principal); K21.9 Gastro-esophageal reflux disease without esophagitis; R06.09 Other forms of dyspnea; I26.93 Single subsegmental thrombotic pulmonary embolism without acute cor pulmonale; E11.9 Type 2 diabetes mellitus without complications; D68.51 Activated protein C resistance; I10 Essential (primary) hypertension; I50.9 Heart failure, unspecified; Z51.81 Encounter for therapeutic drug level monitoring
CPT/HCPCS: 36415; 80048; 85025; 85610; 99211; G0463

== ENCOUNTER 2023-08-08 08:54 | Outpatient (CLI) | payer MEDICARE, MEDICAID, SELFPAY ==
[2023-08-08 10:19] LABS: Anion Gap 9.7 mEq/L (5-15); Blood Urea Nitrogen 18 mg/dl (9-20); Calcium 9.2 mg/dl (8.4-10.2); Carbon Dioxide 33 mmol/L (22.0-30.0); Chloride 100 mmol/L (98-107); Estimated Glomerular Filt Rate 82 ml/min (>60); GFR (African American) 100 ML/MIN (>60); Glucose 161 mg/dl (74-100); Potassium 3.7 mmoL/L (3.5-5.1); Sodium 139 mmol/L (136-145)
== END 2023-08-08 23:59 | disposition home or self-care (01) ==
LOC: LAB 08:56
PROVIDERS: PCP Internal Medicine; Visit Provider Physician Assistant
DX: E87.6 Hypokalemia (principal)
CPT/HCPCS: 36415; 80048

== ENCOUNTER 2023-08-11 10:16 | Outpatient (CLI) | payer MEDICARE, MEDICAID, SELFPAY ==
[2023-08-11 10:45] LABS: Basophils # 0.1 K/mm3 (0-0.2); Basophils % 0.9 % (0.1-2.0); Eosinophils # 0.4 K/mm3 (0.0-0.4); Hemoglobin 11.5 g/dL (14.1-18.0); Lymphocytes # 2.6 K/mm3 (0.7-4.5); Lymphocytes % 29.2 % (10-50); Mean Corpuscular Hemoglobin 30.5 pg (27.0-31.2); Mean Corpuscular Volume 98.7 fl (80-94); Mean Platelet Volume 7.5 fl (7.4-10.4); Monocytes # 0.6 K/mm3 (0.1-1.0); Monocytes % 6.1 % (1.7-9.3); Neutrophils # 5.4 K/mm3 (1.8-7.8); Neutrophils % 59.7 % (37.0-80.0); Platelet Count 400 K/mm3 (142-424); Red Blood Count 3.75 M/mm3 (4.60-6.20); Red Cell Distribution Width 14.7 % (11.5-17.5)
[2023-08-11 11:23] LABS: Anion Gap 12.9 mEq/L (5-15); Blood Urea Nitrogen 14 mg/dl (9-20); Calcium 8.8 mg/dl (8.4-10.2); Carbon Dioxide 32 mmol/L (22.0-30.0); Chloride 101 mmol/L (98-107); Estimated Glomerular Filt Rate 82 ml/min (>60); GFR (African American) 100 ML/MIN (>60); Glucose 152 mg/dl (74-100); Potassium 3.9 mmoL/L (3.5-5.1); Sodium 142 mmol/L (136-145)
[2023-08-11 11:35] LABS: INR 3.52 (0.9-1.1)
[2023-08-11 11:39] LABS: Free T4 (Free Thyroxine) 0.94 ng/dl (0.78-2.19)
[2023-08-11 11:54] LABS: Thyroid Stimulating Hormone 1.65 uIU/mL (0.465-4.68)
== END 2023-08-11 23:59 | disposition home or self-care (01) ==
PROVIDERS: PCP Internal Medicine; Visit Provider Nurse Practitioner
DX: R55 Syncope and collapse (principal); R00.1 Bradycardia, unspecified; Z79.01 Long term (current) use of anticoagulants; I48.91 Unspecified atrial fibrillation
CPT/HCPCS: 36415; 80048; 83735; 84439; 84443; 85025; 85610; 93270

== ENCOUNTER 2023-08-17 11:02 | Outpatient (CLI) | payer MEDICARE, MEDICAID, SELFPAY ==
--- NOTE | 2023-08-17 | CA_ITS ---
APPROVED REPORT Exam: Pharmacologic Technologist: Lynsey Otero, Ht: 5 ft 7 in Wt: 270 lbs BSA: 2.30 m2 HR: 91 bpm Rhythm: sinus rhythm with frequent PACs, low voltage QRS Indications: Syncope, SOA Medical History Medications: Pravastatin,,,,, Allopurinol,,,,, Pantoprazole,,,,, TAMSULOSIN,,,,, Tramadol,,,,, BisOPROLOL,,,,, ElIQUIS,,,,, Furosemide,,,,, Cardiac Risk Factors: HTN, Diabetes (non-insulin), FHX of CAD, Smoking Stress Test Details Test: LEXISCAN HR Resting HR: 93 bpm Max Heart Rate (APMHR): 145 bpm Max HR Achieved: 106 bpm Target HR (85% APMHR): 123 bpm % of APMHR: 73 Recovery HR: 99 bpm BP Resting BP: 101/48 mmHg Max BP: 107/38 mmHg Recovery BP: 90.0/41.0 mmHg ECG Resting ECG: sinus rhythm with frequent PACs, low voltage QRS Stress ECG: No significant ST changes Arrhythmia: PACs Clinical Exercise duration: 04:00 min Highest Stage Achieved: Exercise capacity: 1.0 METs Stress ECG Conclusion During lexiscan pt experinced brief burning chest discomfort and very mild stomach discomfort. Ectopy: Frequent PACs ST changes: No significant ST changes. Conclusion: Unremarkable lexiscan stress. Myoview images reported separately. Test Summary REST . . . . . . . Sitting REST 03:11 . . 93 . 101/ 48 . . Stage 1 01:00 . . 98 . . . . Stage 2 01:00 . . 95 . . . . Stage 3 01:00 . . 97 . 107/ 38 . . Stage 4 01:00 . . 100 . 87/ 39 . Stop exercise at 04:00 RECOVERY 01:00 . . 99 . 90/ 41 . . RECOVERY 02:00 . . 98 . 92/ 45 . . RECOVERY 03:00 . . 97 . 101/ 48 . . RECOVERY 03:17 . . 98 . 101/ 48 . . Electronically signed by : Mary Jo Sanchez MD 08/18/2023 13:41:10
--- NOTE | 2023-08-17 11:03 | NM_ITS ---
APPROVED REPORT Exam: Nuclear Stress Test Indication: H/O VA, OBESITY, HTN, DM, FM HX, A-FIB, SOB, ABN EKG Patient Location: Outpatient Stress Tech: Lynsey Otero NM Tech:Saumya Nguyen, ARRT, RT (R)(N) Ht: 5 ft 7 in Wt: 269 lbs HR: 93 bpm BP: 101/48 mmHg BSA: 2.29 m2 TID: 0.93 BMI: 42.1 History: H/O VA, OBESITY, HTN, DM, FM HX, A-FIB, SOB, ABN EKG Procedure: Patient received 0.4 mg of intravenous Lexiscan, resting heart rate 93 bpm, resting blood pressure 101/48 mmHg, with Lexiscan maximum heart rate achieved was 106 bpm which is % of the maximum predicted heart rate and blood pressure was 107/38 mmHg. With Lexiscan, patient denied any complaint of chest pain. Cardiac Stress and Resting SPECT Images: Cardiac Stress and Resting SPECT images were obtained using technetium 99m Myoview 32.1 mCi stress and 10.45 mCi at rest. Resting and stress imaging in supine and prone positions demonstrate a small sized, moderate, reversible perfusion defect in the LV apex (noted on prone stress imaging). There is mild reduction global LV systolic function. LVEF is calculated at 49%. Of note, the LVEF calculation may be inaccurate in the setting of frequent ectopy. Conclusion: Small sized, moderate, reversible perfusion defect in the LV apex (noted on prone stress imaging). Findings are suggestive of reversible ischemia. There is mild reduction global LV systolic function. LVEF is calculated at 49%. Of note, the LVEF calculation may be inaccurate in the setting of frequent ectopy. Electronically signed by : Mary Jo Sanchez MD 08/18/2023 13:43:27
[2023-08-17] MEDS: REGADENOSON 0.4MG/5ML SYRINGE 0.400000000000000022 MG IV (12:37)
[2023-08-17] MEDS: ISOTOPE MYOVIEW (PER STUDY) 1 DOSE IV (12:37)
[2023-08-17] MEDS: SODIUM CHLORIDE 0.9% 10ML SYR (RAD ONLY) 10 ML IV ×2 (12:37)
== END 2023-08-17 23:59 | disposition home or self-care (01) ==
LOC: RAD 11:03
PROVIDERS: PCP Internal Medicine; Visit Provider Physician Assistant
DX: R94.31 Abnormal electrocardiogram [ECG] [EKG] (principal); I48.91 Unspecified atrial fibrillation; R00.0 Tachycardia, unspecified; R55 Syncope and collapse
CPT/HCPCS: 78452; 93017; 93018; A9502; J2785

== ENCOUNTER 2023-08-23 16:54 | Outpatient (CLI) | payer MEDICARE, MEDICAID, SELFPAY ==
[2023-08-23 17:26] LABS: Basophils # 0.1 K/mm3 (0-0.2); Basophils % 0.6 % (0.1-2.0); Eosinophils # 0.3 K/mm3 (0.0-0.4); Eosinophils % 2.9 % (0.1-12.0); Hematocrit 40.4 % (42.0-52.0); Hemoglobin 12.3 g/dL (14.1-18.0); Lymphocytes % 17.7 % (10-50); Mean Corpuscular HGB Conc 30.4 g/dL (31.8-35.4); Mean Corpuscular Hemoglobin 30.2 pg (27.0-31.2); Mean Corpuscular Volume 99.2 fl (80-94); Mean Platelet Volume 9.4 fl (7.4-10.4); Monocytes # 0.9 K/mm3 (0.1-1.0); Monocytes % 8.1 % (1.7-9.3); Neutrophils # 8.1 K/mm3 (1.8-7.8); Neutrophils % 70.7 % (37.0-80.0); Platelet Count 572 K/mm3 (142-424); Red Blood Count 4.08 M/mm3 (4.60-6.20); Red Cell Distribution Width 14.3 % (11.5-17.5); White Blood Count 11.5 K/mm3 (4.8-10.8)
[2023-08-23 17:57] LABS: Alanine Aminotransferase 26 U/L (12-78); Albumin Level 4.2 g/dl (3.5-5.0); Albumin/Globulin Ratio 1.2 (1.1-1.8); Alkaline Phosphatase 134 U/L (38-126); Anion Gap 18.1 mEq/L (5-15); Aspartate Amino Transferase 35 U/L (17-59); Bilirubin,Total 0.4 mg/dl (0.2-1.3); Blood Urea Nitrogen 12 mg/dl (9-20); Calcium 8.6 mg/dl (8.4-10.2); Carbon Dioxide 33 mmol/L (22.0-30.0); Chloride 96 mmol/L (98-107); Cholesterol 190 mg/dl (140-200); Estimated Glomerular Filt Rate 73 ml/min (>60); GFR (African American) 88 ML/MIN (>60); Globulin 3.4 g/dL (1.3-3.2); Glucose 128 mg/dl (74-100); HDL Cholesterol 48 mg/dl (40-60); Potassium 4.1 mmoL/L (3.5-5.1); Sodium 143 mmol/L (136-145); Total Protein,Serum 7.6 g/dl (6.3-8.2); Triglycerides 187 mg/dl (30-150); VLDL Cholesterol 37 mg/dL (0-40)
[2023-08-23 18:09] LABS: Direct LDL Cholesterol 97.02 mg/dL (100-129)
[2023-08-23 18:58] LABS: Microalbumin/Creatinine Ratio 24.4
[2023-08-23 19:01] LABS: Creatinine,Urine Random 75 mg/dL (Not Estab.)
== END 2023-08-23 23:59 | disposition home or self-care (01) ==
LOC: LAB.DROPOF 16:55
PROVIDERS: PCP Internal Medicine; Visit Provider Internal Medicine
DX: E11.59 Type 2 diabetes mellitus with other circulatory complications (principal); E11.42 Type 2 diabetes mellitus with diabetic polyneuropathy; I11.0 Hypertensive heart disease with heart failure; I48.91 Unspecified atrial fibrillation; I50.32 Chronic diastolic (congestive) heart failure; I25.10 Atherosclerotic heart disease of native coronary artery without angina pectoris; J44.1 Chronic obstructive pulmonary disease with (acute) exacerbation; M10.9 Gout, unspecified; E78.5 Hyperlipidemia, unspecified
CPT/HCPCS: 80053; 80061; 82043; 82570; 83036; 84550; 85025

== ENCOUNTER 2023-08-24 00:03 | Observation (INO) | payer MEDICARE, MEDICAID, SELFPAY ==
[2023-08-24] VITALS (15 sets, daily range): BP systolic 126–162; BP diastolic 52–79; PULSE 82–125; RESP 16–24; TEMP 36.5–36.9; O2SAT 91–100; BMI 42.5; BMI 41.9
--- NOTE | 2023-08-24 00:23 | XR_ITS ---
PROCEDURE INFORMATION: Exam: XR Chest Exam date and time: 08/24/2023 12:42 AM Age: 73 years old Clinical indication: Cough TECHNIQUE: Imaging protocol: Radiologic exam of the chest. Views: 1 view. COMPARISON: CT ANGIO CHEST PE PROTOCOL 07/20/2023 9:27 PM FINDINGS: Lungs: Unremarkable. No consolidation. Pleural spaces: Unremarkable. No pleural effusion. No pneumothorax. Heart/Mediastinum: Unremarkable. No cardiomegaly. Bones/joints: Unremarkable. IMPRESSION: No acute findings.
--- NOTE | 2023-08-24 00:23 | CT_ITS ---
PROCEDURE INFORMATION: Exam: CTA Chest With Contrast Exam date and time: 08/24/2023 12:52 AM Age: 73 years old Clinical indication: Pain; Chest pressure; Additional info: Post tussive near syncope, HX clots TECHNIQUE: Imaging protocol: Computed tomographic angiography of the chest with contrast. Exam focused on the arteries. 3D rendering (Not supervised by radiologist): MIP and/or 3D reconstructed images were created by the technologist. Radiation optimization: All CT scans at this facility use at least one of these dose optimization techniques: automated exposure control; mA and/or kV adjustment per patient size (includes targeted exams where dose is matched to clinical indication); or iterative reconstruction. Contrast material: ISOVUE; Contrast volume: 70 ml; Contrast route: INTRAVENOUS (IV); COMPARISON: CT ANGIO CHEST PE PROTOCOL 07/20/2023 9:27 PM FINDINGS: Pulmonary arteries: The pulmonary arterial enhancement is suboptimal but within this limitation no pulmonary emboli are identified. Aorta: Unremarkable. No aortic aneurysm. No aortic dissection. Lungs: Unremarkable. No consolidation. No masses. Pleural spaces: Unremarkable. No pneumothorax. No pleural effusion. Heart: Unremarkable. No cardiomegaly. No pericardial effusion. Coronary arteries: Coronary atherosclerosis. Coronary atherosclerosis. Lymph nodes: Small calcified hilar lymph nodes. Bones/joints: Unremarkable. No acute fracture. Soft tissues: Unremarkable. IMPRESSION: 1. No evidence of pulmonary embolus. Pulmonary arterial enhancement is suboptimal. 2. Coronary atherosclerosis. 3. Calcified mediastinal lymph nodes consistent with prior granulomatous disease.
--- NOTE | 2023-08-24 00:25 | ECG_ITS ---
APPROVED REPORT Exam: Resting ECG HR:99 bpm ECG Measurements Heart Rate 99 AXES QRSd 102 QRS 105 QT 381 T 33 QTc 437 Conclusion ATRIAL FIBRILLATION RIGHT AXIS DEVIATION [QRS AXIS > 100] LOW QRS VOLTAGE IN PRECORDIAL LEADS [QRS DEFLECTION < 1.0 mV IN CHEST LEADS] PATTERN CONSISTENT WITH PULMONARY DISEASE MINIMAL ST DEPRESSION [0.025+ mV ST DEPRESSION] ABNORMAL ECG UNCONFIRMED REPORT Electronically signed by : Amadou Rachel MD 08/27/2023 08:32:03
--- NOTE | 2023-08-24 00:28 | HMH.EDGENADL ---
Discharge Plan Disposition Patient Disposition: Admitted Condition: Good Chief Complaint: Upper Respiratory Infection Clinical Impressions Clinical Impression: Sepsis, Cough Discharge ED Provider: Adan Sprague General Adult HPI General Chief complaint: Upper Respiratory Infection Stated complaint: has bronchitis,sweats,high bp,dizziness,tenitis Time Seen by Provider: 08/24/23 00:11 History of Present Illness HPI narrative: 73-year-old male presents to the ER with concerns of cough, dizziness. Patient states he saw his primary care physician Dr. Lincoln earlier today and was diagnosed with bronchitis. He states he was put on prednisone and some other medication . Patient states he went to bed and woke up with a coughing fit. He states he had a sound like a siren in his ear associated with a coughing fit. He also states he had episodes of dizziness and his vision started to go dark with severe coughing fit. He states the symptoms are only associated with hard coughing fits, but he states he is not having a significantly productive cough and is worried about potentially passing out or having other dangerous symptoms at home due to the hard coughing. He has no headaches, no vomiting or diarrhea, no abdominal pain, no fevers, no new swelling in the legs, no chest pain. Patient does have a history of abnormal cardiac rhythm, atrial fibrillation on Eliquis, he also has had history of vasovagal syncope and currently has a Holter monitor on. Patient denies any falls or actual syncope tonight. He states he is asymptomatic aside from the cough at this time. He did have 1 hard coughing fit during triage where he desaturated to 90% on room air and reported feeling like he was going to syncopized but did not. Related Data Home Medications Medication Instructions Recorded Confirmed allopurinol 100 mg tablet 100 mg PO BID 06/12/18 08/11/23 furosemide 40 mg tablet 40 mg PO BID 06/12/18 08/11/23 tamsulosin 0.4 mg capsule 0.4 mg PO HS 06/12/18 08/11/23 tramadol 50 mg tablet 50 mg PO Q6 PRN Pain 06/12/18 08/11/23 pravastatin 80 mg tablet 80 mg PO HS 07/21/23 08/11/23 bisoprolol fumarate 5 mg tablet 2.5 mg PO DAILY 08/11/23 08/11/23 Previous Rx's Medication Instructions Recorded pantoprazole 40 mg tablet,delayed 40 mg PO BID 30 days #60 tabs 07/22/23 release apixaban 5 mg tablet (Eliquis) 5 mg PO BID #180 tabs 08/11/23 Allergies Allergy/AdvReac Type Severity Reaction Status Date / Time lisinopril Allergy Severe S-SWELLS-OR Verified 08/11/23 10:50 AL/THROAT hydrochlorothiazide Allergy Mild S-SWELLS-OR Verified 08/11/23 10:50 [From Maxzide] AL/THROAT triamterene [From Maxzide] Allergy Mild S-SWELLS-OR Verified 08/11/23 10:50 AL/THROAT PFSH PFSH Disclaimer: The information contained in this section may have been updated after the patient was seen, as this information can be updated by other users. Medical History (Updated 08/24/23 @ 01:47 by Adan Sprague MD) Abnormal ECG Tachycardia Hypokalemia Factor 5 Leiden mutation, heterozygous Pneumonia Diabetes mellitus, type 2 Hypertension History of heart attack Deep vein thrombosis (DVT) Congestive heart failure Atrial fibrillation Atrial fibrillation Shingles Rib contusion COPD exacerbation SIRS (systemic inflammatory response syndrome) Acute exacerbation of chronic obstructive airways disease Surgical History History of amputation of thumb Family History Other Family history of acute congestive heart failure Family history of cancer Family history of cardiomyopathy Family history of hypertension Family history of myocardial infarction Social History Smoking Status: Never smoker alcohol intake: never current occupational status: retired Travel in the last 8 weeks: None household members: none housing: apartment current occupational exposures/hazards: No caffeine: No ROS Obtained: Yes All systems reviewed & no additional complaints except as documented Constitutional Constitutional: Denies chills, Denies fever(s), Denies headache(s) and Denies weakness Comments: Near syncope associated with coughing fits Eyes Eyes: Denies change in vision ENT Ears, Nose, Mouth, and Throat: Denies dizziness, Denies headache(s), Denies nasal congestion and Denies sore throat Comments: Transient tinnitus associated with coughing fit Cardiovascular Cardiovascular: Denies chest pain, Denies dyspnea and Denies leg edema Respiratory Respiratory: Reports cough and Denies dyspnea Gastrointestinal Gastrointestingal: Denies constipation, diarrhea, nausea or vomiting Genitourinary Male Genitourinary: Denies difficulty urinating Musculoskeletal Musculoskeletal: Denies arthralgias, Denies myalgias, Denies numbness and Denies tingling Integumentary/Breasts Skin/Breast: Denies change in pigmentation Neurologic Neurologic: Denies dizziness, Denies headache(s), Denies numbness, Denies tingling and Denies weakness Physical Exam General General appearance: alert and in no apparent distress Head Head exam: atraumatic and normocephalic Eye Eye exam: Present PERRL and EOMI; Absent nystagmus ENT ENT exam: Present mucous membranes moist Neck Neck exam: Present normal inspection and full ROM Chest Chest inspection: Present symmetric chest wall rise Respiratory Respiratory exam: Present normal lung sounds bilaterally; Absent respiratory distress, wheezes or stridor Cardiovascular Cardiovascular exam: Present regular rate and normal rhythm Abdominal Exam Abdominal exam: Present soft; Absent distention or tenderness Extremities Exam Extremities exam: Present full ROM Neurological Exam Neurological exam: Present alert, oriented X3, CN II-XII intact, normal gait and other (Negative pronator drift, normal finger-nose, normal [id number], 5 out of 5 strength throughout, no deficits); Absent motor sensory deficit Psychiatric Psychiatric exam: Present normal affect and normal mood Skin Skin exam: Present warm and dry Medical Decision Making Asa Inquiry Pt receiving controlled substance: No Vital Signs: 08/24/23 00:08 08/24/23 00:31 08/24/23 01:32 Temperature 97.7 F Temperature Source Oral Pulse Rate 112 H 99 H Pulse Rate [Right Radial] 97 H Respiratory Rate 24 24 21 Blood Pressure 136/52 L 139/79 Blood Pressure [Right Arm] 129/66 Blood Pressure Mean 80 88 Blood Pressure Mean [Right Arm] 87 Blood Pressure Source [Right Arm] Automatic Cuff Blood Pressure Position [Right Arm] Sitting 02 Sat by Pulse Oximetry 97 94 L 100 Oxygen Delivery Method Room Air Lab Data Lab Results 08/24/23 00:20: WBC 16.2 H D, RBC 4.10 L, Hgb 12.2 L, Hct 39.4 L, MCV 96.2 H, MCH 29.6, MCHC 30.8 L, RDW 14.1, Plt Count 518 H, MPV 7.9, Neut % (Auto) 86.3 H, Lymph % (Auto) 9.7 L, [place] % (Auto) 2.9, Eos % (Auto) 0.7, Baso % (Auto) 0.4, Neut # (Auto) 14.0 H, Lymph # (Auto) 1.6, [place] # (Auto) 0.5, Eos # (Auto) 0.1, Baso # (Auto) 0.1, Total Counted 100, Neutrophils % (Manual) 84 H, Lymphocytes % (Manual) 14, Monocytes % (Manual) 2, Platelet Estimate Normal, RBC Morphology Normal, Sodium 138, Potassium 3.9, Chloride 100, Carbon Dioxide 26, Anion Gap 15.9 H, BUN 20 D, Creatinine 1.00, Estimated Creat Clear 60, Estimated GFR 73, Est GFR ( Amer) 88, Glucose 198 H D, Calcium 9.3, Total Bilirubin 0.3, AST 40, ALT 35 D, Alkaline Phosphatase 127 H, Troponin I < 0.01, NT-Pro-B Natriuret Pep 530 H, Total Protein 8.2, Albumin 4.3, Globulin 3.9 H, Albumin/Globulin Ratio 1.1 08/24/23 00:20 08/24/23 00:20 Orders (Tests/Meds): ED MEDICATIONS Generic Name Dose Route Start Last Admin Trade Name Freq PRN Reason Stop Dose Admin Lactated Ringer's 1,000 mls @ 999 mls/hr 08/24/23 01:17 08/24/23 01:24 Lactated Ringer's 1000 Ml Bag IV 08/24/23 02:17 999 mls/hr .Q1H1M ONE Administration Ceftriaxone Sodium 1 gm/ 50 mls @ 100 mls/hr 08/24/23 01:19 08/24/23 01:37 Sodium Chloride IV 08/24/23 01:48 100 mls/hr ONCE ONE Administration Discontinued Medications Generic Name Dose Route Start Last Admin Trade Name Freq PRN Reason Stop Dose Admin Azithromycin 500 mg/ Sodium 250 mls @ 250 mls/hr 08/24/23 01:21 Chloride IV 08/24/23 01:22 ONCE ONE Iopamidol 70 ml 08/24/23 01:13 08/24/23 01:14 Iopamidol-370 (76%);100ml Bottle IV 08/24/23 01:14 70 ml ONCE ONE Administration Lidocaine HCl 2 ml 08/24/23 00:45 08/24/23 01:26 Lidocaine 2% 5ml Pf Vial IH 08/24/23 00:46 Not Given ONCE ONE Lidocaine HCl 2 ml 08/24/23 01:24 08/24/23 01:25 Lidocaine 2% 20ml Vial 08/24/23 01:25 2 ml ONCE ONE Administration Sodium Chloride 50 ml 08/24/23 01:13 08/24/23 01:14 0.9 % Sodium Chloride 50 Ml Vial IV 08/24/23 01:14 50 ml ONCE ONE Administration Sodium Chloride 10 ml 08/24/23 01:13 08/24/23 01:14 Sodium Chloride 0.9% 10ml Syr (Rad Only) IV 08/24/23 01:14 10 ml ONCE ONE Administration Sodium Chloride 3 ml 08/24/23 01:15 08/24/23 01:23 Sodium Chloride 3% 15ml Neb 08/24/23 01:16 3 ml ONCE ONE Administration ORDERS Category Date Time Status CTA Chest [CT angio chest PE protocol] Stat Cat Scan 08/24/23 00:23 Taken CXR --portable [XR chest portable] Stat Exams 08/24/23 00:23 Taken BNP [NT Pro Brain Natriuretic Pep.] Stat Lab 08/24/23 00:20 Completed CBC w/Auto Diff [Complete Blood Count Auto Diff] Stat Lab 08/24/23 00:20 Completed CMP [Comprehensive Metabolic Panel] Stat Lab 08/24/23 00:20 Completed Lactic Acid Stat Lab 08/24/23 01:30 Received Trop I [Troponin I] Stat Lab 08/24/23 00:20 Completed Troponin I Q3H Lab 08/24/23 03:30 Ordered Troponin I Q3H Lab 08/24/23 06:30 Ordered Blood Culture Stat Micro 08/24/23 01:34 Received Tissue Perfus/Sepsis Re-Eval Sepsis Re-Evaluation Performed: Yes Date Performed: 08/24/23 Time Performed: 01:41 Medical Decision Narrative: In summary, this 73-year-old male presents to the emergency department today with concerns of cough associated with near syncope. On initial evaluation patient is hemodynamically stable, afebrile, saturating well on room air. He has nonproductive cough, lungs clear to auscultation bilaterally, no neurologic deficits. Differential diagnosis includes but is not limited to increased vagal tone due to coughing fits causing near syncope, I also considered arrhythmia, electrolyte abnormality, ACS, patient has a comorbidity of history of PEs and is currently on Eliquis, so I did consider pulmonary embolism as well as bronchitis, pneumonia. Based on these concerns, I ordered cardiac workup, CTA PE, basic labs. ECG personally interpreted demonstrates atrial fibrillation, rate 99, borderline right axis deviation, normal QTc, no STEMI. Patient received lidocaine nebulized for treatment. Patient is not receiving a full sepsis bolus because he has peripheral edema and history of CHF. He is not hypotensive and is only transiently tachycardic, so he is receiving 1 L of LR. He is receiving Rocephin and azithromycin for likely source of infection in the lungs. Labs personally reviewed demonstrate leukocytosis up to 16.2 with left shift, this is increased from 11.5 less than 24 hours prior. This is what prompted me to treat the patient like sepsis because when he was monitored clinically, he was not consistently tachycardic or tachypneic, and his tachycardia and tachypnea only presented with coughing fits. Patient has normal electrolytes, no findings of kidney dysfunction, trace elevation in alkaline phosphatase, nonspecific and nonactionable at this time, BNP 530, similar to July. XR personally interpreted demonstrates no obvious lobar infiltrate. CTA PE was personally interpreted, it is difficult to read secondary to motion artifact, however I do not appreciate obvious large segmental PE. No significant groundglass opacities in either lung. Patient had a strong coughing fit in the ER and desaturated just below 90%. Since patient has increasing leukocytosis, borderline tachycardia, intermittent tachypnea, findings consistent with mild sepsis, I believe he requires admission. Patient and family are comfortable with this plan. I discussed this with the hospitalist including patient's current lab findings and changes in his leukocytosis and less than 24 hours. He has been accepted for admission. Critical Care Critical Care Time Critical Care Time: No
[2023-08-24 00:33] LABS: Basophils # 0.1 K/mm3 (0-0.2); Basophils % 0.4 % (0.1-2.0); Eosinophils # 0.1 K/mm3 (0.0-0.4); Eosinophils % 0.7 % (0.1-12.0); Hematocrit 39.4 % (42.0-52.0); Hemoglobin 12.2 g/dL (14.1-18.0); Lymphocytes # 1.6 K/mm3 (0.7-4.5); Lymphocytes % 9.7 % (10-50); Mean Corpuscular HGB Conc 30.8 g/dL (31.8-35.4); Mean Corpuscular Hemoglobin 29.6 pg (27.0-31.2); Mean Corpuscular Volume 96.2 fl (80-94); Mean Platelet Volume 7.9 fl (7.4-10.4); Monocytes # 0.5 K/mm3 (0.1-1.0); Monocytes % 2.9 % (1.7-9.3); Neutrophils % 86.3 % (37.0-80.0); Platelet Count 518 K/mm3 (142-424); Red Cell Distribution Width 14.1 % (11.5-17.5); White Blood Count 16.2 K/mm3 (4.8-10.8)
[2023-08-24 00:36] LABS: MANUAL DIFFERENTIAL MANUAL DIFFERENTIAL (MANUAL DIFF)
[2023-08-24 00:38] LABS: Chloride 100 mmol/L (98-107)
[2023-08-24 00:39] LABS: Potassium 3.9 mmoL/L (3.5-5.1); Sodium 138 mmol/L (136-145)
[2023-08-24 00:41] LABS: Alanine Aminotransferase 35 U/L (12-78); Albumin Level 4.3 g/dl (3.5-5.0); Albumin/Globulin Ratio 1.1 (1.1-1.8); Alkaline Phosphatase 127 U/L (38-126); Anion Gap 15.9 mEq/L (5-15); Aspartate Amino Transferase 40 U/L (17-59); Bilirubin,Total 0.3 mg/dl (0.2-1.3); Blood Urea Nitrogen 20 mg/dl (9-20); Carbon Dioxide 26 mmol/L (22.0-30.0); Creatinine Clearance Estimated 60 mL/min (50-200); Estimated Glomerular Filt Rate 73 ml/min (>60); GFR (African American) 88 ML/MIN (>60); Globulin 3.9 g/dL (1.3-3.2); Total Protein,Serum 8.2 g/dl (6.3-8.2)
[2023-08-24 00:42] LABS: Calcium 9.3 mg/dl (8.4-10.2); Glucose 198 mg/dl (74-100)
[2023-08-24 00:51] LABS: NT Pro Brain Natriuretic Pep. 530 pg/mL (0-450)
[2023-08-24 00:54] LABS: Troponin I < 0.01 ng/ml (0.00-0.034)
[2023-08-24 01:14] LABS: Lymphocytes % 14 % (10-50); Monocytes % 2 % (2-9); Neutrophils % 84 % (42-76); Total Cells Counted 100
[2023-08-24] MEDS: SODIUM CHLORIDE 0.9% 10ML SYR (RAD ONLY) 10 ML IV (01:14)
[2023-08-24] MEDS: IOPAMIDOL-370 (76%);100ML BOTTLE 70 ML IV (01:14)
[2023-08-24] MEDS: 0.9 % SODIUM CHLORIDE 50 ML VIAL IV (01:14)
[2023-08-24 01:15] LABS: Platelet Estimate Normal; RBC Morphology Normal
[2023-08-24] MEDS: SODIUM CHLORIDE 3% 15ML NEB 3 ML IH (01:23)
[2023-08-24] MEDS: LACTATED RINGERS 1000ML 1,000 ML 999 ML IV (01:24)
[2023-08-24] MEDS: LIDOCAINE 2% 20ML VIAL IH (01:25)
--- NOTE | 2023-08-24 01:33 | PC.NURSE ---
on phone with hospitalist
[2023-08-24] MEDS: CEFTRIAXONE SODIUM 1 GM in 0.9 % SODIUM CHLORIDE 50 ML IV (01:37)
--- NOTE | 2023-08-24 01:45 | PC.NURSE ---
Nurse to nurse report given to Leola OLGUIN
[2023-08-24] MEDS: AZITHROMYCIN 500 MG in 0.9 % SODIUM CHLORIDE 250 ML 250 MG IV (02:11)
--- NOTE | 2023-08-24 03:07 | EXP.HP ---
History of Present Illness *Admission Date: 08/24/23 *Reason for visit:: Cough *History of present illness: The patient presents to [facility] emergency department with concerns of cough and near syncope. His past medical history is significant for obstructive sleep apnea on home CPAP and 2 L of oxygen, paroxysmal atrial fibrillation on chronic anticoagulation, recent diagnoses of left lower lobe pulmonary embolus, diabetes and gastric ulcer (07/18/2023). He reports increased cough over the past week not resolving and becoming worse. He went to see his PCP and was diagnosed with bronchitis and placed on antibiotic and steroid therapy. He reports yellow sputum production but no hemoptysis. He denies fever or chills but he does endorse fatigue and general malaise. He continued to cough and describes decrease pulse oximetry and heart rates with home equipment. He reports current Holter monitor by cardiology for concerns of arrhythmia. In the ED he was tachypneic, tachycardic with leukocytosis and lactic acidosis. His chest x-ray is concerning for pneumonia. [facility] Medical History (Updated 08/24/23 @ 03:22 by Pancho Choe MD) Gastric ulcer Pulmonary embolism BMI 40.0-44.9, adult NAHID and COPD overlap syndrome (HFpEF) heart failure with preserved ejection fraction Paroxysmal atrial fibrillation Factor 5 Leiden mutation, heterozygous Diabetes mellitus, type 2 Hypertension Deep vein thrombosis (DVT) Shingles Surgical History (Updated 08/24/23 @ 03:22 by Pancho Choe MD) History of splenectomy Hx of esophagogastroduodenoscopy History of amputation of thumb Family History (Updated 08/24/23 @ 03:24 by Pancho Choe MD) Mother Embolism Father Stroke Other Family history of hypertension Social History (Updated 08/24/23 @ 03:26 by Pancho Choe MD) Smoking Status: Former smoker tobacco type: cigars smoking status start date: 1968 years smoked: 5 smoking status stop date: 1973 how long ago did patient quit smokin years ago alcohol intake: never current occupational status: retired Travel in the last 8 weeks: None household members: none housing: apartment lives independently: Yes marital status: number of children: 4 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 current occupational exposures/hazards: No caffeine: No Review of Systems Review of Systems Review of systems:: pertinent systems reviewed and negative unless documented below Constitutional Constitutional: Denies headache(s) and Denies weakness ENT Ears, Nose, Mouth, and Throat: Denies dizziness and Denies headache(s) *Cardiovascular Cardiovascular: Denies chest pain, Denies chest pain at rest, Reports dyspnea, Reports dyspnea on exertion and Reports slow heart rate *Respiratory Respiratory: Reports chest congestion, Reports cough, Reports dyspnea, Reports dyspnea on exertion, Reports excessive phlegm production and Denies hemoptysis *Gastrointestinal Gastrointestinal: Denies hematemesis, Denies hematochezia and Denies melena *Musculoskeletal Musculoskeletal: Denies numbness and Denies tingling *Neurologic Neurologic: Denies dizziness, Denies headache(s), Denies numbness, Denies tingling and Denies weakness Meds Home Medications and Allergies Home Medications Medication Instructions Recorded Confirmed Type allopurinol 100 mg tablet 100 mg PO BID 06/12/18 08/24/23 History furosemide 40 mg tablet 40 mg PO BID 06/12/18 08/24/23 History tamsulosin 0.4 mg capsule 0.4 mg PO HS 06/12/18 08/24/23 History tramadol 50 mg tablet 50 mg PO Q6 PRN Pain 06/12/18 08/24/23 History pravastatin 80 mg tablet 80 mg PO HS 07/21/23 08/24/23 History pantoprazole 40 mg tablet,delayed 40 mg PO BID 30 days #60 tabs 07/22/23 08/24/23 Rx release apixaban 5 mg tablet (Eliquis) 5 mg PO BID #180 tabs 08/11/23 08/24/23 Rx bisoprolol fumarate 5 mg tablet 2.5 mg PO DAILY 08/11/23 08/24/23 History New Prescriptions to Start Prescriptions: Allergies Allergy/AdvReac Type Severity Reaction Status Date / Time lisinopril Allergy Severe S-SWELLS-OR Verified 08/11/23 10:50 AL/THROAT hydrochlorothiazide Allergy Mild S-SWELLS-OR Verified 08/11/23 10:50 [From Maxzide] AL/THROAT triamterene [From Maxzide] Allergy Mild S-SWELLS-OR Verified 08/11/23 10:50 AL/THROAT Exam Data for Last 24 hours Vital signs and Labs for Last 24 Hours: Temp Pulse Resp BP Pulse Ox O2 Del Method FiO2 98.3 F 105 H 16 162/71 H 96 Room Air 95 05/22/24 02:08 08/24/23 02:08 08/24/23 02:08 08/24/23 02:08 08/24/23 02:08 08/24/23 02:37 08/24/23 00:08 Laboratory Results - last 24 hr 08/24/23 00:20: WBC 16.2 H D, RBC 4.10 L, Hgb 12.2 L, Hct 39.4 L, MCV 96.2 H, MCH 29.6, MCHC 30.8 L, RDW 14.1, Plt Count 518 H, MPV 7.9, Neut % (Auto) 86.3 H, Lymph % (Auto) 9.7 L, Williamson % (Auto) 2.9, Eos % (Auto) 0.7, Baso % (Auto) 0.4, Neut # (Auto) 14.0 H, Lymph # (Auto) 1.6, Williamson # (Auto) 0.5, Eos # (Auto) 0.1, Baso # (Auto) 0.1, Total Counted 100, Neutrophils % (Manual) 84 H, Lymphocytes % (Manual) 14, Monocytes % (Manual) 2, Platelet Estimate Normal, RBC Morphology Normal, Sodium 138, Potassium 3.9, Chloride 100, Carbon Dioxide 26, Anion Gap 15.9 H, BUN 20 D, Creatinine 1.00, Estimated Creat Clear 60, Estimated GFR 73, Est GFR ( Amer) 88, Glucose 198 H D, Calcium 9.3, Total Bilirubin 0.3, AST 40, ALT 35 D, Alkaline Phosphatase 127 H, Troponin I < 0.01, NT-Pro-B Natriuret Pep 530 H, Total Protein 8.2, Albumin 4.3, Globulin 3.9 H, Albumin/Globulin Ratio 1.1 08/24/23 01:30: Lactate 3.0 H I & O for Last 24 hours: Intake & Output 08/21/23 08/22/23 08/23/23 08/24/23 23:59 23:59 23:59 23:59 Weight 121.245 kg Constitutional Constitutional: no acute distress, morbidly obese and cooperative *Routine HEENT Exam Head: Present normocephalic Eye: Present EOMI, PERRL and conjunctivae pink ENT: Present mucous membranes moist *Routine Neck Exam Neck: Present supple and full ROM; Absent JVD *Routine Respiratory Exam Respiratory: Present rhonchi, wheezes, diminished air movement and able to speak in complete sentences *Routine Cardiovascular Exam Cardiovascular: Present Normal S1, Normal S2 and tachycardia; Absent murmur *Routine Abdominal Exam Abdominal: Present soft and normoactive bowel sounds; Absent tenderness *Routine Rectal Exam Rectal:: deferred *Routine Genitalia Exam Genitalia:: deferred *Routine Extremities Exam Extremities: Present edema and pulses intact; Absent cyanosis *Routine Skin Exam Skin: Present intact; Absent cyanosis or rash *Routine Neurological Exam Neurological: Present alert, oriented X3, moving all extremities, vision grossly intact, hearing grossly intact and normal speech; Absent sensory deficit or motor deficit Routine Psychiatric Exam Psychiatric: Present normal affect, normal thought process, cooperative, good insight and good judgment Assessment and Plan *Assessment and plan (1) Severe sepsis with acute organ dysfunction: Status: Acute Category: Medical Code(s): A41.9 - Sepsis, unspecified organism; R65.20 - Severe sepsis without septic shock (2) Bacterial pneumonia: Status: Acute Category: Medical Code(s): J15.9 - Unspecified bacterial pneumonia (3) NAHID and COPD overlap syndrome: Status: Acute Category: Medical Code(s): G47.33 - Obstructive sleep apnea (adult) (pediatric); J44.9 - Chronic obstructive pulmonary disease, unspecified (4) (HFpEF) heart failure with preserved ejection fraction: Status: Acute Category: Medical Code(s): I50.30 - Unspecified diastolic (congestive) heart failure (5) Paroxysmal atrial fibrillation: Status: Acute Category: Medical Code(s): I48.0 - Paroxysmal atrial fibrillation (6) Pulmonary embolism: Status: Acute Qualifiers: Pulmonary embolism type: single subsegmental (without acute cor pulmonale) Qualified Code(s): I26.93 - Single subsegmental pulmonary embolism without acute cor pulmonale Category: Medical Code(s): I26.99 - Other pulmonary embolism without acute cor pulmonale (7) 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: Status: Acute Category: Medical Code(s): Z79.01 - 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 (8) Diabetes mellitus, type 2: Status: Acute Qualifiers: Diabetes mellitus continuous churn buttermaker insulin use: unspecified retirement insulin use status Diabetes mellitus complication status: with other specified complication Qualified Code(s): E11.69 - Type 2 diabetes mellitus with other specified complication Category: Medical Code(s): E11.9 - Type 2 diabetes mellitus without complications (9) BMI 40.0-44.9, adult: Status: Acute Category: Medical Code(s): Z68.41 - Body mass index [BMI] 40.0-44.9, adult Plan This is a 73-year-old male who reports significant coughing with sputum production and presented to the ED and was identified with severe sepsis and pneumonia. He was recently hospitalized at [facility] in July and his care was transitioned to [facility] in [facility] for gastric ulcer, near syncope and underwent evaluation by gastroenterology, neurology and EP cardiology. He is currently wearing a Holter monitor and has resumed care with his cardiology team in [place]. He was recently evaluated by local soybean specialties cook, surgical services director and traffic clerk. Problems addressed as follows: Severe sepsis with acute organ dysfunction, present on admission Tachypnea, tachycardia, leukocytosis, lactic acidosis, source on imaging Bacterial pneumonia NAHID/BMI 43/OHS/COPD overlap Pulse oximetry monitoring Oxygen therapy to maintain appropriate oxygen saturations Home oxygen requirement 2 L via nasal cannula NIPPV therapy Caution with IV fluid resuscitation with CHF ED chest x-ray with RLL PNA CTA chest pending Trending labs and inflammatory markers Blood cultures pending IV Rocephin P.o. doxycycline Tanesha/Maximus inhalation therapy ICS therapy IV methylprednisolone therapy Acute on chronic HFpEF (class C/NYHA III) Telemetry monitoring ED chest x-ray with pulmonary edema ED proBNP 530 Echo (07/21/2023): EF 60% with MR, TR and pulmonic regurgitation Accurate I's and O's Sodium and fluid restriction Routine weights IV loop diuretic therapy Drug therapy requiring intensive monitoring for toxicity Routine electrolyte and creatinine evaluations Beta-cindy therapy SGLT2 inhibitor therapy Aldosterone antagonist therapy Avoiding ARNI therapy with identified AIDEN inhibitor angioedema Paroxysmal atrial fibrillation Near syncope episodes Telemetry monitoring Beta-cindy therapy Factor Xa inhibitor therapy Currently wearing Holter monitor Previous EP cardiology evaluation (Dr. Freed [place], [place]) Pulmonary embolus left lower lobe (July 2023) Factor V [place] heterozygous Recent hematology evaluation (Dr. Pedraza) Anticoagulation therapy with Eliquis Diabetes Routine blood sugar monitoring Hemoglobin A1c 6.0% Sliding scale insulin therapy SGLT2 inhibitor therapy Carbohydrate controlled diet Gastric ulcer EGD July 18, 2023 PPI therapy twice daily Trending CBC VTE prophylaxis: Eliquis CODE STATUS: Full code POA/HCS: Dulce Orozco-Daughter The length of stay for this patient will be 2 midnights or greater due to above diagnoses.
[2023-08-24 03:31] LABS: C-Reactive Protein 30.4 mg/L (0-4)
[2023-08-24 03:32] LABS: Microscopic, Urine URINE MICROSCOPIC (MICROSCOPIC)
[2023-08-24 03:34] LABS: Appearance,Urine CLEAR (Clear); Bilirubin,Urine Negative (Negative); Blood, Urine Negative (Negative); Color,Urine YELLOW (Yellow); Glucose,Urine (UA) Negative (Negative); Ketones,Urine Negative (Negative); Leukocyte Esterase,Urine Negative (Negative); Nitrate,Urine Negative (Negative); Protein,Urine Negative (Negative); Specific Gravity, Urine 1.015 (1.005-1.030); Urobilinogen,Urine 0.2 EU/dl (0.2)
[2023-08-24 03:44] LABS: Procalcitonin 0.222 ng/mL (0.0-2.0); Troponin I < 0.01 ng/ml (0.00-0.034)
[2023-08-24 03:46] LABS: WBC,Urine Occasional #/hpf (0-3)
[2023-08-24] MEDS: METHYLPREDNISOLONE SOD SUCC 40MG VIAL 40 MG IV (03:47)
[2023-08-24] MEDS: 0.9 % SODIUM CHLORIDE 1000ML 1,000 ML 50 ML IV (03:47)
[2023-08-24 04:02] LABS: Coronavirus 19, PCR Not Detected (NotDetected); Influenza A, PCR Not Detected (NotDetected); Influenza B, PCR Not Detected (NotDetected)
[2023-08-24 05:35] LABS: Reflex Lactic Add Lactic Reflex
[2023-08-24 05:49] LABS: POC Glucose,Bedside 170 (70-110)
[2023-08-24] MEDS: humaLOG 100 UNITS/ML 3ML VIAL (SSI) SQ ×3 (05:51→20:38)
[2023-08-24 06:16] LABS: Basophils % 0.2 % (0.1-2.0); Eosinophils # 0.1 K/mm3 (0.0-0.4); Eosinophils % 0.4 % (0.1-12.0); Hematocrit 39.1 % (42.0-52.0); Hemoglobin 12.1 g/dL (14.1-18.0); Lymphocytes # 1.6 K/mm3 (0.7-4.5); Mean Corpuscular Hemoglobin 30.1 pg (27.0-31.2); Mean Corpuscular Volume 97.1 fl (80-94); Mean Platelet Volume 8.3 fl (7.4-10.4); Monocytes # 0.4 K/mm3 (0.1-1.0); Monocytes % 2.1 % (1.7-9.3); Neutrophils % 88.3 % (37.0-80.0); Platelet Count 496 K/mm3 (142-424); Red Blood Count 4.02 M/mm3 (4.60-6.20); Red Cell Distribution Width 14.2 % (11.5-17.5); White Blood Count 18.1 K/mm3 (4.8-10.8)
[2023-08-24] MEDS: IPRATROPIUM/ALBUTEROL 3 ML NEB IH ×3 (06:20→18:53)
[2023-08-24] MEDS: BUDESONIDE 0.5MG/2ML NEB 0.5 MG IH ×2 (06:20→18:53)
[2023-08-24 06:23] LABS: INR 1.09 (0.9-1.1); Prothrombin Time 11.7 seconds (10.1-12.5)
[2023-08-24 06:24] LABS: Lactic Acid Follow Up (RFLX 1) 2.6 mmol/L (0.7-2.1)
[2023-08-24 06:26] LABS: Anion Gap 18.8 mEq/L (5-15); Blood Urea Nitrogen 19 mg/dl (9-20); Calcium 8.9 mg/dl (8.4-10.2); Carbon Dioxide 24 mmol/L (22.0-30.0); Chloride 100 mmol/L (98-107); Creatinine Clearance Estimated 58 mL/min (50-200); Estimated Glomerular Filt Rate 82 ml/min (>60); GFR (African American) 100 ML/MIN (>60); Glucose 193 mg/dl (74-100); Magnesium 1.8 mg/dl (1.6-2.3); Potassium 3.8 mmoL/L (3.5-5.1); Sodium 139 mmol/L (136-145)
--- NOTE | 2023-08-24 06:59 | PC.NURSE ---
Pt a/o x4. No complaints voiced to staff t/o shift. Pt has been sitting up on side of bed and up in chair since arriving to floor stating he feels like he is able to cough more efficiently doing so. Standby assist. 2 L o2 nc hs is his baseline. pt has had coughing fits and will drop down to low 90s during and states he feels dizzy. Call light within reach.
[2023-08-24 07:09] LABS: Troponin I < 0.01 ng/ml (0.00-0.034)
--- NOTE | 2023-08-24 07:15 | HMH.PHAINT1 ---
Pharmacy Intervention Comments: HOME MEDICATION LIST VERIFIED USING LIST FROM CARDIOLOGY OFFICE AND OUTPATIENT PHARMACY
[2023-08-24 08:25] LABS: Reflex Lactic (2 hrs) Add Lactic Reflex
[2023-08-24 09:02] LABS: Adenovirus,PCR Not Detected (NotDetected); Bordetella Pertussis Not Detected (NotDetected); Chlamydophila Pneumoniae, PCR Not Detected (NotDetected); Coronavirus 19, PCR Not Detected (NotDetected); Coronavirus 229E Not Detected (NotDetected); Coronavirus NL63 Not Detected (NotDetected); Coronavirus OC43 Not Detected (NotDetected); Coronovirus HKU1,PCR Not Detected (NotDetected); Human Metapneumovirus Not Detected (NotDetected); Influenza A, PCR Not Detected (NotDetected); Influenza AH1, 2009 Not Detected (NotDetected); Influenza AH1, PCR Not Detected (NotDetected); Influenza AH3,PCR Not Detected (NotDetected); Influenza B, PCR Not Detected (NotDetected); Mycoplasma Pneumoniae, PCR Not Detected (NotDetected); Parainfluenza 1, PCR Not Detected (NotDetected); Parainfluenza 2, PCR Not Detected (NotDetected); Parainfluenza 4, PCR Not Detected (NotDetected); Respiratory Syncytial Virus Not Detected (NotDetected); Rhinovirus/Enterovirus Not Detected (NotDetected)
[2023-08-24] MEDS: EMPAGLIFLOZIN 10MG TABLET 10 MG PO (09:06)
[2023-08-24] MEDS: DOXYCYCLINE HYCL 100 MG TABLET PO ×2 (09:06→20:26)
[2023-08-24] MEDS: FUROSEMIDE 40MG/4ML VIAL 40 MG IV ×2 (09:06→16:30)
[2023-08-24] MEDS: SPIRONOLACTONE 25MG TABLET 25 MG PO (09:06)
[2023-08-24] MEDS: PANTOPRAZOLE 40MG TABLET 40 MG PO ×2 (09:12→20:26)
[2023-08-24 09:25] LABS: Lactic Acid Follow up (RFLX 2) 2.6 mmol/L (0.7-2.1)
[2023-08-24] MEDS: *PAT OWN MED* APIXABAN 5MG TABLET 5 MG PO ×2 (10:45→20:26)
[2023-08-24 10:57] LABS: Parainfluenza 3, PCR Detected (NotDetected)
--- NOTE | 2023-08-24 13:17 | EXP.EVENT.NO ---
Patient weaned to room air by morning rounds. Comprehensive panel obtained showing patient is positive for parainfluenza 3. Likely culprit and COPD exacerbation/sepsis presentation. Will continue antibiotics and steroids at this time. Wean oxygen as tolerated to goal sats greater 90%. Monitor overnight. Repeat labs in the morning. If does well, anticipate discharge home tomorrow. Slight wheeze bilaterally on exam. Able to lay flat. 2+ edema bilateral lower extremities to knees Heart rate regular Alert and oriented x 4
[2023-08-24 13:41] LABS: POC Glucose,Bedside 244 (70-110)
[2023-08-24 16:44] LABS: POC Glucose,Bedside 136 (70-110)
[2023-08-24] MEDS: *PAT OWN MED* TAMSULOSIN 0.4MG CAPSULE 0.400000000000000022 MG PO (20:26)
[2023-08-24] MEDS: PRAVASTATIN 80 MG 1 EACH PO (20:26)
[2023-08-24 20:37] LABS: POC Glucose,Bedside 197 (70-110)
[2023-08-24] MEDS: BISOPROLOL 5MG TABLET 2.5 MG PO (21:28)
[2023-08-24] MEDS: MELATONIN 5MG TABLET 5 MG PO (22:25)
[2023-08-24] MEDS: GUAIFENESIN/DEXTROMETHORPHAN 200MG/20MG 10ML UDC 10 ML PO (23:40)
[2023-08-25] VITALS (9 sets, daily range): BP systolic 120–139; BP diastolic 49–84; PULSE 101–120; RESP 16–18; TEMP 36.6–36.9; O2SAT 94–100; BMI 39.4
[2023-08-25] MEDS: IPRATROPIUM/ALBUTEROL 3 ML NEB IH ×3 (00:53→11:31)
[2023-08-25] MEDS: CEFTRIAXONE SODIUM 1 GM in 0.9 % SODIUM CHLORIDE 50 ML IV (02:24)
[2023-08-25] MEDS: BENZONATATE 100MG CAPSULE 100 MG PO (05:26)
[2023-08-25 05:35] LABS: POC Glucose,Bedside 143 (70-110)
[2023-08-25] MEDS: BUDESONIDE 0.5MG/2ML NEB 0.5 MG IH (05:39)
--- NOTE | 2023-08-25 05:42 | PC.NURSE ---
Pt A/O x4. At beginning of shift, pt HR sustaining 125-135, sinus tach on tele. MD notified, Bisoprolol 2.5mg administered. Pt HR has sustained 110-120 t/o rest of shift. Pt stated he had not slept in 36 hours but could not sleep. MD notified and melatonin 5mg ordered and administered. Pt has had multiple coughing episodes t/o shift w/ complaints of feeling soa and dizziness. Robitussin administered. Pt had relief for a couple of hours and was able to rest for that time. Pt woke up in coughing fit and tessalon perles was administered. Pt has sat in tripod position on side of bed with bedside table t/o majority of shift stating he feels very SOA otherwise. Pt o2 is 89-90 % on RA at rest. Pt will drop to low/mid 80s during coughing episodes. Pt HS baseline 2 L nc has been applied multiple times t/o shift but pt pulls nc off shortly after leaving room stating it worsens his coughing episodes and makes him feel more SOA. Pt has been encouraged to leave nc on and its importance of use, especially during coughing episodes when oxygen drops. Pt remains non-compliant with this. 1+ edema to BLE. Pt using urinal independently. Urine clear yellow. Call light within reach.
[2023-08-25 06:41] LABS: Alanine Aminotransferase 38 U/L (12-78); Albumin/Globulin Ratio 1.1 (1.1-1.8); Alkaline Phosphatase 121 U/L (38-126); Anion Gap 17.6 mEq/L (5-15); Aspartate Amino Transferase 67 U/L (17-59); Bilirubin,Total 0.4 mg/dl (0.2-1.3); Blood Urea Nitrogen 23 mg/dl (9-20); Calcium 8.8 mg/dl (8.4-10.2); Carbon Dioxide 26 mmol/L (22.0-30.0); Chloride 100 mmol/L (98-107); Creatinine Clearance Estimated 86 mL/min (50-200); Estimated Glomerular Filt Rate 59 ml/min (>60); GFR (African American) 71 ML/MIN (>60); Globulin 3.5 g/dL (1.3-3.2); Glucose 154 mg/dl (74-100); Magnesium 1.8 mg/dl (1.6-2.3); Potassium 3.6 mmoL/L (3.5-5.1); Sodium 140 mmol/L (136-145); Total Protein,Serum 7.5 g/dl (6.3-8.2)
[2023-08-25 06:44] LABS: Basophils # 0.2 K/mm3 (0-0.2); Basophils % 0.6 % (0.1-2.0); Eosinophils # 0.2 K/mm3 (0.0-0.4); Eosinophils % 0.7 % (0.1-12.0); Hematocrit 38.3 % (42.0-52.0); Hemoglobin 11.9 g/dL (14.1-18.0); Lymphocytes # 3.9 K/mm3 (0.7-4.5); Lymphocytes % 15.6 % (10-50); Mean Corpuscular Hemoglobin 29.8 pg (27.0-31.2); Mean Corpuscular Volume 96.3 fl (80-94); Mean Platelet Volume 8.3 fl (7.4-10.4); Monocytes # 1.4 K/mm3 (0.1-1.0); Monocytes % 5.8 % (1.7-9.3); Neutrophils # 19.2 K/mm3 (1.8-7.8); Neutrophils % 77.3 % (37.0-80.0); Platelet Count 480 K/mm3 (142-424); Red Blood Count 3.98 M/mm3 (4.60-6.20); Red Cell Distribution Width 14.2 % (11.5-17.5); White Blood Count 24.8 K/mm3 (4.8-10.8)
[2023-08-25 06:46] LABS: MANUAL DIFFERENTIAL MANUAL DIFFERENTIAL (MANUAL DIFF)
--- NOTE | 2023-08-25 07:22 | EXP.DC.SUM ---
General Admission date:: 08/24/23 Discharge date: 08/25/23 HPI HPI HPI: The patient presents to [facility] emergency department with concerns of cough and near syncope. His past medical history is significant for obstructive sleep apnea on home CPAP and 2 L of oxygen, paroxysmal atrial fibrillation on chronic anticoagulation, recent diagnoses of left lower lobe pulmonary embolus, diabetes and gastric ulcer (07/18/2023). He reports increased cough over the past week not resolving and becoming worse. He went to see his PCP and was diagnosed with bronchitis and placed on antibiotic and steroid therapy. He reports yellow sputum production but no hemoptysis. He denies fever or chills but he does endorse fatigue and general malaise. He continued to cough and describes decrease pulse oximetry and heart rates with home equipment. He reports current Holter monitor by cardiology for concerns of arrhythmia. In the ED he was tachypneic, tachycardic with leukocytosis and lactic acidosis. His chest x-ray is concerning for pneumonia. Hospital Course Hospital Course Hospital Course: This is a 73-year-old male who reports significant coughing with sputum production and presented to the ED and was identified with severe sepsis and pneumonia. He was recently hospitalized at [facility] in July and his care was transitioned to [facility] in [facility] for gastric ulcer, near syncope and underwent evaluation by gastroenterology, neurology and EP cardiology. He is currently wearing a Holter monitor and has resumed care with his cardiology team in [place]. He was recently evaluated by local consultant internship, bill checker and safety investigator/cause analyst. Workup found to be positive for parainfluenza 3. Given rapid improvement in condition, viral etiology, stability on room air, stable to discharge home with further outpatient management. Recommend close follow-up with PCP. 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 Responded quickly to initiation of supportive therapy. Comprehensive panel returned positive for parainfluenza 3. Was able to wean to room air by the following morning after admission. Stable on baseline oxygen requirements of 2 L at night and room air during the day. Given his COPD exacerbation and viral respiratory infection, will continue short course of doxycycline to complete 5 days of antibiotics, prednisone 40 mg daily to complete 5 days of steroids. Tessalon Perlcosmo for cough. Nebulizer solution with DuoNeb sent for home use. Continue home inhaler regimen. - CTA reviewed, unremarkable with no pulmonary emboli. Has some calcified mediastinal lymph nodes consistent with prior granulomatous disease. No consolidation on CT and lung parenchyma -Had an initial jump in his white cell count, in light of steroid usage and clinical improvement along with de-escalation of oxygen and patient being afebrile, suspect this is reactive to his viral infection and steroids. Acute on chronic HFpEF (class C/NYHA III) Monitored on telemetry. BNP elevated at 530. Echo obtained last month with EF of 60% with MR, TR, and pulmonic regurgitation. Diuresed during admission. Continue home regimen for heart failure and fluid management. Diuresed with IV Lasix. Responding appropriately. Resume home regimen at discharge. Paroxysmal atrial fibrillation Near syncope episodes Continue beta-cindy therapy and anticoagulation per home regimen. Previous EP cardiology evaluation (Dr. 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 Recent hematology evaluation (Dr. Pedraza). Anticoagulation therapy with Eliquis Diabetes A1c well-controlled at 6. Continue oral therapy at discharge. Insulin during admission. Gastric ulcer EGD July 18, 2023. PPI therapy twice daily. Hemoglobin remained stable, 11.9 on day of discharge. Total time spent on discharge 35 minutes in counseling, documentation, chart review, and direct care with patient. Exam Data for Last 24 hours Vital signs and Labs for Last 24 Hours: Temp Pulse Resp BP Pulse Ox O2 Del Method O2 Flow Rate 97.9 F 106 H 18 126/62 95 Room Air 2 08/25/23 04:00 08/25/23 05:39 08/25/23 04:00 08/25/23 04:00 08/25/23 04:00 08/25/23 07:00 08/25/23 04:55 FiO2 95 08/24/23 00:08 Laboratory Results - last 24 hr 08/24/23 03:45: Chlamy pneumoniae PCR Not detected, Adenovirus (PCR) Not detected, B. pertussis DNA (PCR) Not detected, Coronavirus OC43 (PCR) Not detected, Coronavirus HKU1 (PCR) Not detected, Coronavirus 229E (PCR) Not detected, SARS-CoV-2 (PCR) Not detected, Coronavirus NL63 (PCR) Not detected, Human Metapneumovir PCR Not detected, Influenza A (H1) PCR Not detected, Influ A (H1N1/09) PCR Not detected, Influenza A (H3) PCR Not detected, Influenza Type A (PCR) Not detected, Influenza Type B (PCR) Not detected, M. pneumoniae (PCR) Not detected, Parainfluenza 1 (PCR) Not detected, Parainfluenza 2 (PCR) Not detected, Parainfluenza 3 (PCR) Detected A, Parainfluenza 4 (PCR) Not detected, RSV (PCR) Not detected, Entero/Rhino (PCR) Not detected 08/24/23 08:46: Lactate 2.6 H 08/24/23 13:32: POC Glucose 244 H 08/24/23 16:36: POC Glucose 136 H 08/24/23 20:30: POC Glucose 197 H 08/25/23 05:28: POC Glucose 143 H 08/25/23 06:07: WBC 24.8 H* D, RBC 3.98 L, Hgb 11.9 L, Hct 38.3 L, MCV 96.3 H, MCH 29.8, MCHC 31.0 L, RDW 14.2, Plt Count 480 H, MPV 8.3, Neut % (Auto) 77.3, Lymph % (Auto) 15.6, Cooper % (Auto) 5.8, Eos % (Auto) 0.7, Baso % (Auto) 0.6, Neut # (Auto) 19.2 H, Lymph # (Auto) 3.9, Cooper # (Auto) 1.4 H, Eos # (Auto) 0.2, Baso # (Auto) 0.2, Sodium 140, Potassium 3.6, Chloride 100, Carbon Dioxide 26, Anion Gap 17.6 H, BUN 23 H, Creatinine 1.20 D, Estimated Creat Clear 86, Estimated GFR 59, Est GFR ( Amer) 71 D, Glucose 154 H, Calcium 8.8, Magnesium 1.8, Total Bilirubin 0.4, AST 67 H D, ALT 38, Alkaline Phosphatase 121, Total Protein 7.5, Albumin 4.0, Globulin 3.5 H, Albumin/Globulin Ratio 1.1 I & O for Last 24 hours: Intake & Output 08/22/23 08/23/23 08/24/23 08/25/23 23:59 23:59 23:59 23:59 Intake Total 2280 / 2280 Output Total 1900 / 1900 Balance 380 / 380 Weight 121.245 kg 114.078 kg Microbiology Reports for the Last 24 Hours: Microbiology 08/24/23 03:45 Sputum - Expectorated Sputum Gram Stain - Final Constitutional Constitutional: no acute distress, morbidly obese, chronically ill appearing and cooperative *Routine HEENT Exam Head: Present normocephalic Eye: Present EOMI and PERRL ENT: Present mucous membranes moist *Routine Neck Exam Neck: Present supple; Absent lymphadenopathy *Routine Respiratory Exam Respiratory: Present prolonged expiratory phase and normal respiratory effort; Absent rhonchi, wheezes or crackles Comments: croupy cough with talking *Routine Cardiovascular Exam Cardiovascular: Present RRR *Routine Abdominal Exam Abdominal: Present soft and normoactive bowel sounds; Absent tenderness *Routine Rectal Exam Patient deferred: visual exam *Routine Exam Patient deferred: penile exam *Routine Extremities Exam Extremities: Present edema (1+ to knees); Absent cyanosis or clubbing *Routine Skin Exam Skin: Present warm; Absent rash *Routine Neurological Exam Neurological: Present alert, oriented X3 and moving all extremities; Absent altered mental status Results Data Completed and Pending Labs on day of discharge: Labs from last 24 hours 08/25/23 08/25/23 08/24/23 06:07 05:28 20:30 WBC 24.8 H* D RBC 3.98 L Hgb 11.9 L Hct 38.3 L MCV 96.3 H MCH 29.8 MCHC 31.0 L RDW 14.2 Plt Count 480 H MPV 8.3 Neut % (Auto) 77.3 Lymph % (Auto) 15.6 Cooper % (Auto) 5.8 Eos % (Auto) 0.7 Baso % (Auto) 0.6 Neut # (Auto) 19.2 H Lymph # (Auto) 3.9 Cooper # (Auto) 1.4 H Eos # (Auto) 0.2 Baso # (Auto) 0.2 Sodium 140 Potassium 3.6 Chloride 100 Carbon Dioxide 26 Anion Gap 17.6 H BUN 23 H Creatinine 1.20 D Estimated Creat Clear 86 Estimated GFR 59 Est GFR ( Amer) 71 D Glucose 154 H POC Glucose 143 H 197 H Lactate Calcium 8.8 Magnesium 1.8 Total Bilirubin 0.4 AST 67 H D ALT 38 Alkaline Phosphatase 121 Total Protein 7.5 Albumin 4.0 Globulin 3.5 H Albumin/Globulin Ratio 1.1 Chlamy pneumoniae PCR Adenovirus (PCR) B. pertussis DNA (PCR) Coronavirus OC43 (PCR) Coronavirus HKU1 (PCR) Coronavirus 229E (PCR) SARS-CoV-2 (PCR) Coronavirus NL63 (PCR) Human Metapneumovir PCR Influenza A (H1) PCR Influ A (H1N1/09) PCR Influenza A (H3) PCR Influenza Type A (PCR) Influenza Type B (PCR) M. pneumoniae (PCR) Parainfluenza 1 (PCR) Parainfluenza 2 (PCR) Parainfluenza 3 (PCR) Parainfluenza 4 (PCR) RSV (PCR) Entero/Rhino (PCR) 08/24/23 08/24/23 08/24/23 16:36 13:32 08:46 WBC RBC Hgb Hct MCV MCH MCHC RDW Plt Count MPV Neut % (Auto) Lymph % (Auto) Cooper % (Auto) Eos % (Auto) Baso % (Auto) Neut # (Auto) Lymph # (Auto) Cooper # (Auto) Eos # (Auto) Baso # (Auto) Sodium Potassium Chloride Carbon Dioxide Anion Gap BUN Creatinine Estimated Creat Clear Estimated GFR Est GFR ( Amer) Glucose POC Glucose 136 H 244 H Lactate 2.6 H Calcium Magnesium Total Bilirubin AST ALT Alkaline Phosphatase Total Protein Albumin Globulin Albumin/Globulin Ratio Chlamy pneumoniae PCR Adenovirus (PCR) B. pertussis DNA (PCR) Coronavirus OC43 (PCR) Coronavirus HKU1 (PCR) Coronavirus 229E (PCR) SARS-CoV-2 (PCR) Coronavirus NL63 (PCR) Human Metapneumovir PCR Influenza A (H1) PCR Influ A (H1N1/) PCR Influenza A (H3) PCR Influenza Type A (PCR) Influenza Type B (PCR) M. pneumoniae (PCR) Parainfluenza 1 (PCR) Parainfluenza 2 (PCR) Parainfluenza 3 (PCR) Parainfluenza 4 (PCR) RSV (PCR) Entero/Rhino (PCR) 08/24/23 03:45 WBC RBC Hgb Hct MCV MCH MCHC RDW Plt Count MPV Neut % (Auto) Lymph % (Auto) Cooper % (Auto) Eos % (Auto) Baso % (Auto) Neut # (Auto) Lymph # (Auto) Cooper # (Auto) Eos # (Auto) Baso # (Auto) Sodium Potassium Chloride Carbon Dioxide Anion Gap BUN Creatinine Estimated Creat Clear Estimated GFR Est GFR ( Amer) Glucose POC Glucose Lactate Calcium Magnesium Total Bilirubin AST ALT Alkaline Phosphatase Total Protein Albumin Globulin Albumin/Globulin Ratio Chlamy pneumoniae PCR Not detected Adenovirus (PCR) Not detected B. pertussis DNA (PCR) Not detected Coronavirus OC43 (PCR) Not detected Coronavirus HKU1 (PCR) Not detected Coronavirus 229E (PCR) Not detected SARS-CoV-2 (PCR) Not detected Coronavirus NL63 (PCR) Not detected Human Metapneumovir PCR Not detected Influenza A (H1) PCR Not detected Influ A (H1N1/09) PCR Not detected Influenza A (H3) PCR Not detected Influenza Type A (PCR) Not detected Influenza Type B (PCR) Not detected M. pneumoniae (PCR) Not detected Parainfluenza 1 (PCR) Not detected Parainfluenza 2 (PCR) Not detected Parainfluenza 3 (PCR) Detected A Parainfluenza 4 (PCR) Not detected RSV (PCR) Not detected Entero/Rhino (PCR) Not detected DS: Diagnosis Discharge Diagnosis (1) Severe sepsis with acute organ dysfunction: Status: Acute Code(s): A41.9 - Sepsis, unspecified organism; R65.20 - Severe sepsis without septic shock (2) Bacterial pneumonia: Status: Acute Code(s): J15.9 - Unspecified bacterial pneumonia (3) NAHID and COPD overlap syndrome: Status: Acute Code(s): G47.33 - Obstructive sleep apnea (adult) (pediatric); J44.9 - Chronic obstructive pulmonary disease, unspecified (4) (HFpEF) heart failure with preserved ejection fraction: Status: Acute Code(s): I50.30 - Unspecified diastolic (congestive) heart failure (5) Paroxysmal atrial fibrillation: Status: Acute Code(s): I48.0 - Paroxysmal atrial fibrillation (6) Pulmonary embolism: Status: Acute Code(s): I26.99 - Other pulmonary embolism without acute cor pulmonale Qualifiers: Pulmonary embolism type: single subsegmental (without acute cor pulmonale) Qualified Code(s): I26.93 - Single subsegmental pulmonary embolism without acute cor pulmonale (7) hand finisher (current) use of anticoagulants: Status: Acute Code(s): Z79.01 - jail (current) use of anticoagulants (8) Diabetes mellitus, type 2: Status: Acute Code(s): E11.9 - Type 2 diabetes mellitus without complications Qualifiers: Diabetes mellitus complication status: with other specified complication Diabetes mellitus senior sas programmer insulin use: unspecified senior sas programmer insulin use status Qualified Code(s): E11.69 - Type 2 diabetes mellitus with other specified complication (9) BMI 40.0-44.9, adult: Status: Acute Code(s): Z68.41 - Body mass index [BMI] 40.0-44.9, adult Meds Home Medications and Allergies Home Medications Medication Instructions Recorded Confirmed Type allopurinol 100 mg tablet 100 mg PO BID 06/12/18 08/24/23 History tamsulosin 0.4 mg capsule 0.4 mg PO HS 06/12/18 08/24/23 History tramadol 50 mg tablet 50 mg PO TIDP PRN Pain 06/12/18 08/24/23 History pravastatin 80 mg tablet 80 mg PO HS 07/21/23 08/24/23 History pantoprazole 40 mg tablet,delayed 40 mg PO BID 30 days #60 tabs 07/22/23 08/24/23 Rx release apixaban 5 mg tablet (Eliquis) 5 mg PO BID #180 tabs 08/11/23 08/24/23 Rx bisoprolol fumarate 5 mg tablet 2.5 mg PO DAILY 08/11/23 08/24/23 History umeclidinium 62.5 mcg-vilanterol 1 inh inhalation DAILY 08/24/23 08/24/23 History 25 mcg/actuation powdr for inhalation (Anoro Ellipta) benzonatate 100 mg capsule 100 mg PO TIDP PRN Cough 7 days 08/25/23 Rx #20 caps doxycycline hyclate 100 mg tablet 100 mg PO BID 3 days #6 tabs 08/25/23 Rx furosemide 40 mg tablet 40 mg PO DIRECTED #90 tabs 08/25/23 08/24/23 Rx ipratropium 0.5 mg-albuterol 3 mg 3 ml inhalation Q6HP PRN shortness 08/25/23 Rx (2.5 mg base)/3 mL nebulization of breath 30 days #180 mL soln prednisone 20 mg tablet 40 mg (2 x 20 mg) PO DAILY 3 days 08/25/23 Rx #6 tabs New Prescriptions to Start Prescriptions: benzonatate Billie,Marques doxycycline hyclate Marques Wise ipratropium-albuterol Billie,Marques prednisone Billie,Marques Allergies Allergy/AdvReac Type Severity Reaction Status Date / Time lisinopril Allergy Severe S-SWELLS-OR Verified 08/11/23 10:50 AL/THROAT hydrochlorothiazide Allergy Mild S-SWELLS-OR Verified 08/11/23 10:50 [From Maxzide] AL/THROAT triamterene [From Maxzide] Allergy Mild S-SWELLS-OR Verified 08/11/23 10:50 AL/THROAT Discharge Plan Disposition Patient Disposition: Home, Self-Care Condition: Good Follow up Plan Follow up with: Constantine Lincoln MD [Primary Care Provider] - Enter time for follow up (Office is closed today, please call tomorrow to make a follow up appt. ) Prescriptions/Medication Reconciliation: New ipratropium-albuterol 0.5 mg-3 mg(2.5 mg base)/3 mL solution for nebulization 3 ml inhalation Q6HP PRN (Reason: shortness of breath) 30 Days Qty: 180 0RF prednisone 20 mg Tablet 40 mg PO DAILY 3 Days Qty: 6 0RF benzonatate 100 mg Capsule 100 mg PO TIDP PRN (Reason: Cough) 7 Days Qty: 20 0RF doxycycline hyclate 100 mg Tablet 100 mg PO BID 3 Days Qty: 6 0RF Continued Eliquis 5 mg tablet 5 mg PO BID Qty: 180 3RF bisoprolol fumarate 5 mg tablet 2.5 mg PO DAILY allopurinol 100 MG tablet 100 mg PO BID tramadol 50 MG tablet 50 mg PO TIDP PRN (Reason: Pain) tamsulosin 0.4 MG capsule 0.4 mg PO HS Anoro Ellipta 62.5-25 mcg/actuation blister with device 1 inh INHALATION DAILY Patient Comments: INHALE 1 PUFF BY MOUTH EVERY DAY FOR BREATHING furosemide 40 MG tablet 40 mg PO DIRECTED Qty: 90 0RF Rx Instructions: TAKE 2 TABLETS (80MG) EACH MORNING AND 1 TABLET (40MG) EACH afternoon pravastatin 80 mg tablet 80 mg PO HS pantoprazole 40 mg Tablet,Delayed Release (Dr/Ec) 40 mg PO BID 30 Days Qty: 60 0RF Discontinued prednisone 10 mg tablet 10 mg PO BID cefdinir 300 mg capsule 300 mg PO BID Problem Reconciliation Problems Reviewed?: Yes Patient Discharge Instructions ACTIVITY: Continue current activity DIET: continue same diet Patient Instructions: DI for Heart Failure, DI for Pneumonia -- Adult, DI for Sepsis -- Adult Providers Primary Care Provider: Constantine Lincoln Admit Provider: Marques Wise Attending Provider: Marques Wise
[2023-08-25 08:25] LABS: Lymphocytes % 15 % (10-50); Monocytes % 10 % (2-9); Neutrophils % 75 % (42-76); Platelet Estimate Slight Increase; RBC Morphology Normal; Total Cells Counted 100
[2023-08-25] MEDS: predniSONE 20MG TAB 40 MG PO (09:04)
[2023-08-25] MEDS: *PAT OWN MED* APIXABAN 5MG TABLET 5 MG PO (09:04)
[2023-08-25] MEDS: DOXYCYCLINE HYCL 100 MG TABLET PO (09:05)
[2023-08-25] MEDS: PANTOPRAZOLE 40MG TABLET 40 MG PO (09:05)
[2023-08-25] MEDS: SPIRONOLACTONE 25MG TABLET 25 MG PO (09:05)
[2023-08-25] MEDS: BISOPROLOL 5MG TABLET 2.5 MG PO (09:06)
[2023-08-25] MEDS: FUROSEMIDE 40MG/4ML VIAL 40 MG IV ×2 (09:06→12:03)
[2023-08-25] MEDS: GUAIFENESIN/DEXTROMETHORPHAN 200MG/20MG 10ML UDC 10 ML PO (09:06)
[2023-08-25] MEDS: humaLOG 100 UNITS/ML 3ML VIAL (SSI) SQ (11:07)
[2023-08-25 11:15] LABS: POC Glucose,Bedside 183 (70-110)
--- NOTE | 2023-08-25 13:04 | HMH.PHAINT1 ---
Pharmacy Intervention Comments: DISCHARGE MEDICATION COUNSELING PROVIDED. DISCUSSED THE FOLLOWING MEDICATION CHANGES: -STOP CEFDINIR -CHANGE ON PREDNISONE FROM 10 MG TWICE DAILY TO 40 MG DAILY. -START DOXYCYCLINE (ANTIBIOTIC, TWICE DAILY, START TONIGHT, TAKE WITH FOOD, N/V/D POSSIBLE, SUN SENSITIVITY) -BENZONATATE (FOR COUGH, THREE TIMES DAILY NEEDED, IF NOT COUGHING YOU DONT HAVE TO TAKE) -DUONEBS (FOR SHORTNESS OF BREATH/WHEEZING, INHALE EVERY 6 HOURS NEEDED, MAY CAUSE JITTERY/NERVOUS FEELING) PATIENT VERBALIZED NO QUESTIONS AT THIS TIME.
--- NOTE | 2023-08-30 14:47 | CARE MANAGER ---
Patient reports that he just had the ambulance at his home as he had passed out again. He reports that he is taking the medication as ordered at discharge and has appointment with cardiology tomorrow. He has already worn a holter monitor and hopes to get the results on it and his stress test tomorrow. Denies questions or concerns. SHARIF Garcia
== END 2023-08-25 15:09 | disposition home or self-care (01) ==
LOC: ER 01:00 → 2ND 01:47
PROVIDERS: Family Medicine; Admitting Provider Internal Medicine Adolescent Medicine; Emergency Provider Emergency Medicine; PCP Internal Medicine; Visit Provider Internal Medicine Adolescent Medicine
DX: A41.9 Sepsis, unspecified organism (principal); R65.20 Severe sepsis without septic shock; J15.9 Unspecified bacterial pneumonia; G47.33 Obstructive sleep apnea (adult) (pediatric); J44.9 Chronic obstructive pulmonary disease, unspecified; I48.0 Paroxysmal atrial fibrillation; I26.93 Single subsegmental thrombotic pulmonary embolism without acute cor pulmonale; Z79.01 Long term (current) use of anticoagulants; E11.69 Type 2 diabetes mellitus with other specified complication; Z68.41 Body mass index [BMI] 40.0-44.9, adult; I25.2 Old myocardial infarction; I50.33 Acute on chronic diastolic (congestive) heart failure; K25.9 Gastric ulcer, unspecified as acute or chronic, without hemorrhage or perforation; B34.8 Other viral infections of unspecified site
CPT/HCPCS: 36415; 71045; 71275; 80048; 80053; 81001; 82962; 83605; 83735; 83880; 84145; 84484; 85007; 85025; 85610; 86140; 87040; 87070; 87205; 87581; 87632; 87635; 87636; 87798; 93005; 94640; 99285; G0378; J0456; J0696; Q9967

== ENCOUNTER 2023-08-27 16:38 | Emergency (ER) | payer MEDICARE, MEDICAID, SELFPAY ==
[2023-08-27 16:40] VITALS: BP 133/69; PULSE 104; RESP 18; TEMP 36.9; O2SAT 96; BMI 41.5
--- NOTE | 2023-08-27 16:45 | ECG_ITS ---
APPROVED REPORT Exam: Resting ECG HR:103 bpm ECG Measurements Heart Rate 103 AXES ND 162 P -90 QRSd 114 QRS 90 QT 391 T -4 QTc 451 Conclusion SINUS TACHYCARDIA WITH FREQUENT SUPRAVENTRICULAR PREMATURE COMPLEXES LOW QRS VOLTAGE IN PRECORDIAL LEADS [QRS DEFLECTION < 1.0 mV IN CHEST LEADS] MODERATE INTRAVENTRICULAR CONDUCTION DELAY [110+ ms QRS DURATION] ABNORMAL QRS-T ANGLE [QRS-T AXIS DIFFERENCE > 60] ABNORMAL ECG Electronically signed by : JOSE GUADALUPE SALCEDO, 08/28/2023 00:53:40
[2023-08-27 17:00] VITALS: PULSE 98; O2SAT 95
[2023-08-27 17:28] LABS: Microscopic, Urine URINE MICROSCOPIC (MICROSCOPIC)
[2023-08-27 17:29] LABS: VBG Base Excess 0.4 mmol/L (-2.4-2.3); VBG HCO3 25.4 mmol/L (23-30); VBG Oxygen Saturation 73.7 % (50-70); VBG PCO2 43.2 mmol/L (35-51); VBG PH 7.39 mmol/L (7.31-7.41); VBG PO2 39.3 mmol/L (28-40); VBG Total CO2 26.7 mmol/L (23-27)
[2023-08-27 17:30] LABS: Lactate Venous 3.6 mmol/L (0.4-2.0)
[2023-08-27 17:33] LABS: Basophils % 0.4 % (0.1-2.0); Eosinophils # 0.1 K/mm3 (0.0-0.4); Eosinophils % 0.7 % (0.1-12.0); Hematocrit 39.2 % (42.0-52.0); Hemoglobin 12.2 g/dL (14.1-18.0); Lymphocytes # 1.4 K/mm3 (0.7-4.5); Lymphocytes % 11.5 % (10-50); Mean Corpuscular HGB Conc 31.1 g/dL (31.8-35.4); Mean Corpuscular Hemoglobin 29.4 pg (27.0-31.2); Mean Corpuscular Volume 94.3 fl (80-94); Mean Platelet Volume 8.2 fl (7.4-10.4); Monocytes # 0.5 K/mm3 (0.1-1.0); Monocytes % 3.8 % (1.7-9.3); Neutrophils # 10.1 K/mm3 (1.8-7.8); Neutrophils % 83.6 % (37.0-80.0); Platelet Count 484 K/mm3 (142-424); Red Blood Count 4.16 M/mm3 (4.60-6.20); Red Cell Distribution Width 14.3 % (11.5-17.5); White Blood Count 12.1 K/mm3 (4.8-10.8)
[2023-08-27 17:40] LABS: Chloride 99 mmol/L (98-107); Potassium 3.4 mmoL/L (3.5-5.1); Sodium 137 mmol/L (136-145)
[2023-08-27] MEDS: RINGERS SOLUTION,LACTATED 500 ML 999 ML IV (17:40)
--- NOTE | 2023-08-27 17:40 | ED_ITS ---
Discharge Plan Disposition Patient Disposition: Home, Self-Care Condition: Good Prescriptions Prescriptions: No Action Eliquis 5 mg tablet 5 mg PO BID Qty: 180 3RF bisoprolol fumarate 5 mg tablet 2.5 mg PO DAILY allopurinol 100 MG tablet 100 mg PO BID tramadol 50 MG tablet 50 mg PO TIDP PRN (Reason: Pain) tamsulosin 0.4 MG capsule 0.4 mg PO HS Anoro Ellipta 62.5-25 mcg/actuation blister with device 1 inh INHALATION DAILY Patient Comments: INHALE 1 PUFF BY MOUTH EVERY DAY FOR BREATHING ipratropium-albuterol 0.5 mg-3 mg(2.5 mg base)/3 mL solution for nebulization 3 ml inhalation Q6HP PRN (Reason: shortness of breath) 30 Days Qty: 180 0RF prednisone 20 mg Tablet 40 mg PO DAILY 3 Days Qty: 6 0RF benzonatate 100 mg Capsule 100 mg PO TIDP PRN (Reason: Cough) 7 Days Qty: 20 0RF doxycycline hyclate 100 mg Tablet 100 mg PO BID 3 Days Qty: 6 0RF furosemide 40 MG tablet 40 mg PO DIRECTED Qty: 90 0RF Rx Instructions: TAKE 2 TABLETS (80MG) EACH MORNING AND 1 TABLET (40MG) EACH afternoon pravastatin 80 mg tablet 80 mg PO HS pantoprazole 40 mg Tablet,Delayed Release (Dr/Ec) 40 mg PO BID 30 Days Qty: 60 0RF Referrals Follow up/Referrals: Constantine Lincoln MD [Primary Care Provider] - See instructions Activity Restrictions/Add. Instructions Additional Instructions/Restrictions: You were evaluated in the emergency department today. At this time, we feel your blood sugar is elevated secondary to your steroid use and acute illness. Please keep an eye on this at home and provide your primary care provider with a log of blood sugars. Make sure to watch your diet and limit carbs. Make sure that you stay hydrated. Return to the emergency department for new or worsening symptoms. Clinical Impressions Clinical Impression: Hyperglycemia due to type 2 diabetes mellitus Instructions Patient Instructions: DI for Hyperglycemia -- Adult Discharge ED Provider: Meliza Rea General Adult HPI General Chief complaint: Hyper/Hypoglycemia Stated complaint: High blood sugar Time Seen by Provider: 08/27/23 16:43 Mode of Arrival: Wheelchair Source of Information: Patient Limitations: No Limitations Description of Symptoms (Recalled from ER Triage Doc. by RN): high blood sugar History of Present Illness HPI narrative: This patient is a 73-year-old male with a history of type 2 diabetes on oral management, factor V Leiden, PE on long-term anticoagulation, hypertension, NAHID, COPD, and CHF presenting to the emergency department for evaluation with concern for high blood sugar readings at home. He states he had not been feeling right and checked his blood sugar and noted that it was 380. He states he is currently on prednisone because he was recently admitted for pneumonia and discharged home with it. He only has 2 days left of this, but he is concerned that his blood sugar has been high while he is been taking the prednisone. No fevers, chest pain, shortness of breath, abdominal pain, vomiting, changes bowel movements, or other concerns noted. He is otherwise been improving since discharge. Related Data Home Medications Medication Instructions Recorded Confirmed allopurinol 100 mg tablet 100 mg PO BID 06/12/18 08/24/23 tamsulosin 0.4 mg capsule 0.4 mg PO HS 06/12/18 08/24/23 tramadol 50 mg tablet 50 mg PO TIDP PRN Pain 06/12/18 08/24/23 pravastatin 80 mg tablet 80 mg PO HS 07/21/23 08/24/23 bisoprolol fumarate 5 mg tablet 2.5 mg PO DAILY 08/11/23 08/24/23 umeclidinium 62.5 mcg-vilanterol 1 inh inhalation DAILY 08/24/23 08/24/23 25 mcg/actuation powdr for inhalation (Anoro Ellipta) Previous Rx's Medication Instructions Recorded pantoprazole 40 mg tablet,delayed 40 mg PO BID 30 days #60 tabs 07/22/23 release apixaban 5 mg tablet (Eliquis) 5 mg PO BID #180 tabs 08/11/23 benzonatate 100 mg capsule 100 mg PO TIDP PRN Cough 7 days 08/25/23 #20 caps doxycycline hyclate 100 mg tablet 100 mg PO BID 3 days #6 tabs 08/25/23 furosemide 40 mg tablet 40 mg PO DIRECTED #90 tabs 08/25/23 ipratropium 0.5 mg-albuterol 3 mg 3 ml inhalation Q6HP PRN shortness 08/25/23 (2.5 mg base)/3 mL nebulization of breath 30 days #180 mL soln prednisone 20 mg tablet 40 mg (2 x 20 mg) PO DAILY 3 days 08/25/23 #6 tabs Allergies Allergy/AdvReac Type Severity Reaction Status Date / Time lisinopril Allergy Severe S-SWELLS-OR Verified 08/11/23 10:50 AL/THROAT hydrochlorothiazide Allergy Mild S-SWELLS-OR Verified 08/11/23 10:50 [From Maxzide] AL/THROAT triamterene [From Maxzide] Allergy Mild S-SWELLS-OR Verified 08/11/23 10:50 AL/THROAT PFSH PFSH Disclaimer: The information contained in this section may have been updated after the patient was seen, as this information can be updated by other users. Medical History GI bleed Acute allergic rhinitis Unspecified urinary incontinence Benign localized prostatic hyperplasia with lower urinary tract symptoms (LUTS) Gout Chronic obstructive pulmonary disease, unspecified Atherosclerotic heart disease of [place] coronary artery without angina pectoris Chronic diastolic (congestive) heart failure Anxiety Morbid obesity Gastric ulcer Pulmonary embolism BMI 40.0-44.9, adult NAHID and COPD overlap syndrome (HFpEF) heart failure with preserved ejection fraction Paroxysmal atrial fibrillation Factor 5 Leiden mutation, heterozygous Diabetes mellitus, type 2 Hypertension Deep vein thrombosis (DVT) Shingles Surgical History History of splenectomy Hx of esophagogastroduodenoscopy History of amputation of thumb Family History Mother Embolism Father Stroke Other Family history of hypertension Social History Smoking Status: Never smoker smoking status start date: 1968 years smoked: 5 smoking status stop date: 1973 how long ago did patient quit smokin years ago alcohol intake: never current occupational status: retired Travel in the last 8 weeks: None household members: none housing: apartment lives independently: Yes marital status: number of children: 4 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 current occupational exposures/hazards: No caffeine: No ROS Obtained: Yes All systems reviewed & no additional complaints except as documented Physical Exam General General appearance: alert, in no apparent distress and obese Head Head exam: atraumatic and normocephalic Eye Eye exam: Present normal appearance, PERRL and EOMI ENT ENT exam: Present normal oropharynx, mucous membranes dry and normal external ear exam Neck Neck exam: Present normal inspection, full ROM and trachea midline; Absent tenderness Chest Chest inspection: Present normal inspection and symmetric chest wall rise; Absent tenderness Respiratory Respiratory exam: Present normal lung sounds bilaterally; Absent respiratory distress, wheezes, stridor or accessory muscle use Cardiovascular Cardiovascular exam: Present normal rhythm and tachycardia Abdominal Exam Abdominal exam: Present soft; Absent distention, tenderness or guarding Extremities Exam Extremities exam: Present normal inspection, full ROM and normal capillary refill; Absent tenderness or edema Back Exam Back exam: Present normal inspection and full ROM; Absent tenderness Neurological Exam Neurological exam: Present alert, oriented X3, CN II-XII intact and normal gait; Absent motor sensory deficit Psychiatric Psychiatric exam: Present normal affect and normal mood Skin Skin exam: Present warm and dry Medical Decision Making Medical Records Medical records reviewed: Yes I reviewed the patient's medical records. Asa Inquiry Pt receiving controlled substance: No Vital Signs: 08/27/23 16:40 08/27/23 17:00 08/27/23 17:58 Temperature 98.5 F Temperature Source Oral Pulse Rate 98 H 81 Pulse Rate [Right] 104 H Respiratory Rate 18 Blood Pressure 143/67 H Blood Pressure [Right Arm] 133/69 Blood Pressure Mean [Right Arm] 90 02 Sat by Pulse Oximetry 96 95 94 L Oxygen Delivery Method Room Air 08/27/23 18:58 Temperature 98.5 F Temperature Source Pulse Rate 100 H Pulse Rate [Right] Respiratory Rate 16 Blood Pressure 143/67 H Blood Pressure [Right Arm] Blood Pressure Mean [Right Arm] 02 Sat by Pulse Oximetry Oxygen Delivery Method Room Air Lab Data Lab results reviewed: Yes I reviewed the patient's lab results. Lab Results 08/27/23 17:19: WBC 12.1 H D, RBC 4.16 L, Hgb 12.2 L, Hct 39.2 L, MCV 94.3 H, MCH 29.4, MCHC 31.1 L, RDW 14.3, Plt Count 484 H, MPV 8.2, Neut % (Auto) 83.6 H, Lymph % (Auto) 11.5, [place] % (Auto) 3.8, Eos % (Auto) 0.7, Baso % (Auto) 0.4, N eut # (Auto) 10.1 H, Lymph # (Auto) 1.4, [place] # (Auto) 0.5, Eos # (Auto) 0.1, Baso # (Auto) 0.0, Sodium 137, Potassium 3.4 L, Chloride 99, Carbon Dioxide 29, Anion Gap 12.4, BUN 28 H, Creatinine 1.10, Estimated Creat Clear 54, Estimated GFR 65, Est GFR ( Amer) 79, Glucose 326 H, Calcium 8.7, Total Bilirubin 0.2, AST 62 H, ALT 46, Alkaline Phosphatase 112, Total Protein 7.5, Albumin 3.9, Globulin 3.6 H, Albumin/Globulin Ratio 1.1, Acetone Level None detected 08/27/23 17:24: VBG pH 7.39, VBG pCO2 43.2, VBG pO2 39.3, VBG HCO3 25.4, VBG Total CO2 26.7, VBG O2 Saturation 73.7 H, VBG Base Excess 0.4, VBG Lactic Acid 3.6 H 08/27/23 17:25: Urine Color Yellow, Urine Appearance Clear, Urine pH 6.0, Ur Specific [place] 1.015, Urine Protein Negative, Urine Glucose (UA) 1+, Urine Ketones Negative, Urine Blood Negative, Urine Nitrate Negative, Urine Bilirubin Negative, Urine Urobilinogen 0.2, Ur Leukocyte Esterase Negative, Urine RBC None, Urine WBC None, Ur Squamous Epith Cells None, Urine Bacteria None 08/27/23 17:19 08/27/23 17:19 Orders (Tests/Meds): ED MEDICATIONS Discontinued Medications Generic Name Dose Route Start Last Admin Trade Name Daniq PRN Reason Stop Dose Admin Lactated Ringer's 500 mls @ 999 mls/hr 08/27/23 17:32 08/27/23 17:40 Lactated Ringer's 500ml IV 08/27/23 18:02 999 mls/hr .Q31M ONE Administration ORDERS Category Date Time Status Acetone, Serum (Rapid) Stat Lab 08/27/23 17:19 Completed Complete Blood Count Auto Diff Stat Lab 08/27/23 17:19 Completed Comprehensive Metabolic Panel Stat Lab 08/27/23 17:19 Completed Urinalysis and Microscopic Stat Lab 08/27/23 17:25 Completed Venous Blood Gas Stat RT 08/27/23 17:24 Completed ECG Data Tracing #1: I reviewed this ECG and interpreted as documented below: Sinus tachycardia with a ventricular rate of 103 bpm. PACs noted. No significant changes noted from prior EKG. ECG initial impression date: 08/27/23 ECG initial impression time: 17:17 Medical Decision Narrative: In summary, this patient is a 73-year-old male presenting to the Emergency Department for evaluation of high blood sugar readings at home in the setting of prednisone use for URI. Differential diagnoses considered include but are not limited to hyperglycemia, HHS, DKA, dehydration, electrolyte derangements. Ruling out the most morbid conditions drove assessment. It should be noted patient's history includes diabetes, obesity, thrombophilia, paroxysmal atrial fibrillation, CHF, NAHID, and COPD which may or may not be at goal therapy. This complicates all aspects of care by increasing patient's risk for morbidity. I reviewed patient's past medical records and noted his recent admission for sepsis/pneumonia in the setting of parainfluenza 3 and discharged home 2 days ago. On exam, the patient is well-appearing in no acute distress. He is mildly tachycardic with mildly dry mucous membranes, and he overall looks a little bit clinically volume down. This is in the setting of hyperglycemia secondary to prednisone use. Workup included CBC, CMP, ketones, VBG, EKG, urinalysis. EKG obtained is reassuring without significant change. Please see their read for final interpretation. Labs were obtained that demonstrated hyperglycemia, very mild hypokalemia, and mild leukocytosis in the setting of steroid use. No elevation in anion gap. No significant ketosis. For his lab derangements, patient was given 500 cc bolus of IV fluids since he appears volume down. Blood sugars still trending downward with repeat 212. No signs of DKA or HHS. At this time, I feel it is appropriate for discharge home for continued management of his blood sugars and outpatient. He is finishing up his steroids today. Given this, I feel his blood sugar will likely normalize. Advised that he keep a log of his blood sugars and follow-up with his primary care provider for further evaluation and management of this. He was discharged with strict return precautions in stable condition after all questions were answered. Critical Care Critical Care Time Critical Care Time: No
[2023-08-27 17:42] LABS: Blood Urea Nitrogen 28 mg/dl (9-20); Creatinine Clearance Estimated 54 mL/min (50-200); Estimated Glomerular Filt Rate 65 ml/min (>60); GFR (African American) 79 ML/MIN (>60)
[2023-08-27 17:43] LABS: Alanine Aminotransferase 46 U/L (12-78); Albumin Level 3.9 g/dl (3.5-5.0); Albumin/Globulin Ratio 1.1 (1.1-1.8); Alkaline Phosphatase 112 U/L (38-126); Anion Gap 12.4 mEq/L (5-15); Aspartate Amino Transferase 62 U/L (17-59); Bilirubin,Total 0.2 mg/dl (0.2-1.3); Carbon Dioxide 29 mmol/L (22.0-30.0); Globulin 3.6 g/dL (1.3-3.2); Glucose 326 mg/dl (74-100); Total Protein,Serum 7.5 g/dl (6.3-8.2)
[2023-08-27 17:44] LABS: Calcium 8.7 mg/dl (8.4-10.2)
[2023-08-27 17:46] LABS: Appearance,Urine CLEAR (Clear); Bilirubin,Urine Negative (Negative); Blood, Urine Negative (Negative); Color,Urine YELLOW (Yellow); Glucose,Urine (UA) 1+ (Negative); Ketones,Urine Negative (Negative); Leukocyte Esterase,Urine Negative (Negative); Nitrate,Urine Negative (Negative); Protein,Urine Negative (Negative); Specific Gravity, Urine 1.015 (1.005-1.030); Urobilinogen,Urine 0.2 EU/dl (0.2)
[2023-08-27 17:46] LABS: Acetone, Serum (Rapid) None Detected (None Detect)
[2023-08-27 17:58] VITALS: BP 143/67; PULSE 81; O2SAT 94
[2023-08-27 18:58] VITALS: BP 143/67; PULSE 100; RESP 16; TEMP 36.9; O2SAT 95
== END 2023-08-27 18:58 | disposition home or self-care (01) ==
PROVIDERS: Emergency Provider Emergency Medicine; PCP Internal Medicine
DX: E11.65 Type 2 diabetes mellitus with hyperglycemia (principal); I49.1 Atrial premature depolarization; R00.0 Tachycardia, unspecified; I11.0 Hypertensive heart disease with heart failure; I50.30 Unspecified diastolic (congestive) heart failure; J44.9 Chronic obstructive pulmonary disease, unspecified; Z87.891 Personal history of nicotine dependence; Z79.84 Long term (current) use of oral hypoglycemic drugs; Z79.01 Long term (current) use of anticoagulants; Z86.711 Personal history of pulmonary embolism
CPT/HCPCS: 80053; 81001; 82009; 82803; 85025; 93005; 99284

== ENCOUNTER 2023-08-31 11:08 | Outpatient (CLI) | payer MEDICARE, MEDICAID, SELFPAY ==
--- NOTE | 2023-08-31 11:13 | XR_ITS ---
FINAL REPORT CLINICAL HISTORY: FALL;RT KNEE PAIN FINDINGS: RIGHT KNEE Three views demonstrate no acute fracture or dislocation. There is advanced medial compartment joint space narrowing and subchondral sclerosis. There is narrowing of the patellofemoral joint with a small joint effusion. There is an osteochondral injury along the undersurface of the medial femoral condyle. The osteochondral defect measures up to 2 cm. IMPRESSION: Osteochondral ventrally along the undersurface of the medial femoral condyle. Advanced medial compartment joint space narrowing and subchondral sclerosis. Narrowing of the patellofemoral joint with a small joint effusion. Reviewed, Interpreted and Dictated by Parrish Bello MD Transcribed by Avelina Salazar Authenticated and [facility]
== END 2023-08-31 23:59 | disposition home or self-care (01) ==
LOC: RAD 11:10
PROVIDERS: PCP Internal Medicine; Visit Provider Internal Medicine
DX: M25.561 Pain in right knee (principal); W19.XXXA Unspecified fall, initial encounter
CPT/HCPCS: 73562

== ENCOUNTER 2023-09-07 08:38 | Day surgery (SDC) | payer MEDICARE, MEDICAID, SELFPAY ==
--- NOTE | 2023-09-07 08:43 | CA_ITS ---
FINAL REPORT TECHNIQUE: Color Doppler, duplex Doppler and hoff scale sonography of the bilateral neck arterial vasculature was performed. Velocities were measured in the carotid arteries. Stenosis evaluation based on the validated velocity criteria. CLINICAL HISTORY: syncope, Obesity COMPARISON: None FINDINGS: The peak systolic velocity of the right common carotid artery is 55 cm/s. The peak systolic velocity of the right internal carotid artery is 80 cm/s and end diastolic velocity 23 cm/s. The ICA/CCA ratio is 1.46. A mild amount of plaque is present. The right external carotid artery is patent. The right vertebral artery is patent with antegrade flow. The peak systolic velocity of the left common carotid artery is 97 cm/s. The peak systolic velocity of the left internal carotid artery is 104 cm/s and end diastolic velocity 34 cm/s. The ICA/CCA ratio is 1.37. A mild amount of plaque is present. The left external carotid artery is patent.The left vertebral artery is patent with antegrade flow. IMPRESSION: Less than 50% bilateral carotid stenoses. Bilateral patent vertebral arteries with antegrade flow. If indicated, CTA or MRA could further evaluate. Reviewed, Interpreted and Dictated by Rohit Ford III, MD Transcribed by Morelia Aquino Authenticated and [facility]
[2023-09-07 09:38] VITALS: BP 141/80; PULSE 110; RESP 18; TEMP 36.1; O2SAT 94
[2023-09-07 09:51] LABS: POC Glucose,Bedside 160 (70-110)
--- NOTE | 2023-09-07 11:15 | P.PCN_ITS ---
Findings:: PROCEDURE: Tilt Table Test REQUESTING PROVIDER: Jayme Martins PA-C INDICATION: Recurrent syncopal episodes BETA BLOCKERS: Patient states he is no longer Bisoprolol, although it is still listed as a current med in his provider's most recent note. PRE-TEST VITAL SIGNS (2 VS checks completed while pt was in the supine position): BP 156/87 mmHg and 167/85 mmHg, HR 111 bpm and 109 bpm (both sinus rhythm), O2 sats 97% and 97%. PROCEDURE SUMMARY: When the patient moved from his wheel chair to the procedure table and turned over to lie in the prone position, he complained of some brief dizziness. He was prepped per protocol, IV started, connected to heart, blood pressure and oxygen saturation monitors and safety straps applied. He was then tilted upright at 70 degrees for a total of 25 minutes. He denied any symptoms during the entire time that he was tilted upright. He denied any light- headedness, dizziness, feelings of near syncope or feeling like he might pass- out. Immediately after being placed into the upright position his BP dropped to 148/71 (from 167/85 supine) and his HR increased slightly to 117 (from 109 supine). After 5 minutes upright his BP was 123/67 with a HR of 117. After 10 minutes upright his BP was down to 94/71 with a HR of 127. As noted previously, he remained asymptomatic. Four minutes later (after 14 minutes upright) his BP was 101/54 with a HR of 124. After two more minutes (16 minutes upright) his BP was 122/70 with a HR of 123). His BP had stabilized at this point with his final two BPs (after 20 and 25 minutes upright) being 121/63 and 126/63 with HRs of 124 and 125. His heart rhythm was sinus tachycardia throughout the test. His oxygen saturation ranged between a low of 91% (after 20 minutes upright) and a high of 96%. He had several coughing spells while tilted upright. CONCLUSIONS: Orthostatic hypotension which continued to worsen for 10 minutes after being placed upright. However, the patient remained totally asymptomatic during the test. Patient was advised of test results showing an abnormal drop in blood pressure when standing and was advised to be very cautious when moving from a lying or seated position to standing. He should do so slowly and have a place to quickly sit down if he starts feeling lightheaded.
== END 2023-09-07 11:11 | disposition home or self-care (01) ==
PROVIDERS: PCP Internal Medicine; Visit Provider Physician Assistant
DX: R55 Syncope and collapse (principal); R06.09 Other forms of dyspnea; Z79.01 Long term (current) use of anticoagulants; D68.51 Activated protein C resistance; I10 Essential (primary) hypertension; E11.69 Type 2 diabetes mellitus with other specified complication; I48.0 Paroxysmal atrial fibrillation; I50.30 Unspecified diastolic (congestive) heart failure; I26.93 Single subsegmental thrombotic pulmonary embolism without acute cor pulmonale
CPT/HCPCS: 82962; 93660; 93880

== ENCOUNTER 2023-09-12 11:46 | Observation (INO) | payer MEDICARE, MEDICAID, SELFPAY ==
[2023-09-12] VITALS (23 sets, daily range): BP systolic 91–180; BP diastolic 52–99; PULSE 94–116; RESP 16–18; TEMP 36.4–36.8; O2SAT 90–98; BMI 42.1; BMI 40.8
--- NOTE | 2023-09-12 07:10 | IR_ITS ---
APPROVED REPORT Patient Location: Outpatient Music Cataloguer: JENNIFER Batista RT (R) PROCEDURES Left heart catheterization Left ventriculogram Selective coronary angiogram Drug-eluting stent deployment to the proximal and mid LAD in a contiguous manner Drug-eluting stent deployment to the ostial proximal mid and distal dominant right coronary artery Drug-eluting stent deployment to the posterior sending artery INDICATION Coronary artery disease, Abnormal Myoview, Angina pectoris Informed consent was obtained prior to the procedure. COMPLICATIONS NONE Estimated Blood Loss: LESS THAN 10 ML TECHNIQUE One percent lidocaine used to anesthetize the right anterior aspect of the wrist. The right radial artery was accessed via the Seldinger technique. A 6 [place] sheath was placed in the right radial artery. 2.5 mg of Verapamil, 800 mcg of nitroglycerin, 1mg Lidocaine and 5000 U Heparin were given through the arterial sheath. The papa catheter was also used to perform left heart catheterization, left ventriculogram and selective coronary angiogram. At the end of the diagnostic angiogram therapeutic heparin was administered giving a therapeutic ACT and the guide catheter was placed in left main artery followed by Choice PT extra-support wire placed on the LAD. A 3.5 x 38 mm [place] frontier stent was deployed in the proximal LAD at 20 ana reducing the stenosis. A 3 mm x 12 mm [place] frontier stent was placed distal to the for stent yet still overlapping and deployed at 20 ana. The balloon was brought back and deployed at 26 ana to mesh the 2 stents. A 4 mm x 12 mm noncompliant balloon was deployed at 20 ana in the proximal segment of the LAD this was deployed twice with overlapping balloon segments. ALURA-3 flow was present before and after the procedure. At the end the procedure the apparatus was removed the guide catheter was placed into the right coronary artery followed by Choice PT extra-support wire. A 4 mm x 15 mm [place] frontier stent was placed in the mid dominant right coronary artery at 20 ana. Dissection was identified distally therefore an additional 4 mm x 38 mm [place] frontier stent was placed distal to this and deployed at 20 ana. A 3.5 x 12 mm [place] frontier stent was then placed distally into the dominant right coronary extending into the proximal posterior descending artery this was deployed at 20 ana. The balloon was brought back and deployed at 24 ana to mesh the 3.5 and 4 mm stent. An additional 4 mm x 38 mm [place] frontier stent was placed in the ostial proximal segment and deployed at 24 ana. A 4 mm x 12 mm [place] frontier stent was placed in between to mid vessel stents in order to connect the stents and provide complete contiguous stenting. A 4.5 x 20 mm noncompliant balloon was deployed at 20 ana in the distal mid and proximal portion of the right coronary artery to post dilate. LAURA-3 flow was present before and after the procedure. At the end the procedure the apparatus was removed the sheath was removed good hemostasis was achieved using TR banding patient was transferred to the postop putting in stable condition ANGIOGRAPHIC RESULTS The left main artery Has an ostial 20% stenosis The left anterior descending artery Has a proximal 80% concentric stenosis followed by an additional 70% proximal stenosis. There is an additional 50% stenosis in the mid LAD followed by an additional 40 to 50% in the mid LAD along a tortuous bend The circumflex artery Large nondominant with 30 to 40% stenosis in the proximal second obtuse marginal artery The right coronary artery Is a large dominant vessel and has mid vessel eccentric 70 to 80% stenosis The NAVARRETE ventriculogram reveals Preserved 55% The left ventricular end-diastolic pressure 15 mmHg IMPRESSION Severe two-vessel coronary disease as described above Successful stenting of the proximal and mid LAD severe disease reduced to 0% with 2 contiguous drug-eluting stents Successful stenting of the ostial proximal mid and distal dominant right coronary artery extending into the proximal posterior descending artery severe disease reduced to 0% with 5 contiguous drug-eluting stents Preserved ejection fraction Normal left ventricular end-diastolic pressure PLAN 1. Plavix 75 mg daily plus aspirin 81 mg daily 2. LDL less than 55 to be achieved with high intensity statin 3. Patient should be admitted overnight due to the copious contrast and complexity of the procedure. Furthermore patient has a horrific cough which is very intense and patient should be monitored for this and appropriately treated 4. Consider pulmonology consultation based on the bad cough 5. Cardiac rehabilitation 6. Chemistry panel CBC in the morning Electronically signed by : Salvador Mac MD 09/12/2023 11:33:25
[2023-09-12 09:00] LABS: Chloride 95 mmol/L (98-107); Sodium 134 mmol/L (136-145)
[2023-09-12 09:01] LABS: Potassium 3.2 mmoL/L (3.5-5.1)
[2023-09-12 09:04] LABS: Anion Gap 14.2 mEq/L (5-15); Blood Urea Nitrogen 24 mg/dl (9-20); Calcium 8.4 mg/dl (8.4-10.2); Carbon Dioxide 28 mmol/L (22.0-30.0); Creatinine Clearance Estimated 50 mL/min (50-200); Estimated Glomerular Filt Rate 59 ml/min (>60); GFR (African American) 71 ML/MIN (>60); Glucose 183 mg/dl (74-100)
[2023-09-12 09:08] LABS: Basophils # 0.1 K/mm3 (0-0.2); Basophils % 0.6 % (0.1-2.0); Eosinophils # 0.2 K/mm3 (0.0-0.4); Eosinophils % 1.9 % (0.1-12.0); Hematocrit 44.3 % (42.0-52.0); Hemoglobin 14.2 g/dL (14.1-18.0); Lymphocytes # 2.7 K/mm3 (0.7-4.5); Lymphocytes % 20.7 % (10-50); Mean Corpuscular Hemoglobin 29.5 pg (27.0-31.2); Mean Corpuscular Volume 92.1 fl (80-94); Mean Platelet Volume 7.9 fl (7.4-10.4); Monocytes # 0.7 K/mm3 (0.1-1.0); Monocytes % 5.2 % (1.7-9.3); Neutrophils # 9.3 K/mm3 (1.8-7.8); Neutrophils % 71.8 % (37.0-80.0); Platelet Count 359 K/mm3 (142-424); Red Blood Count 4.81 M/mm3 (4.60-6.20); Red Cell Distribution Width 14.6 % (11.5-17.5); White Blood Count 12.9 K/mm3 (4.8-10.8)
[2023-09-12] MEDS: diphenhydrAMINE 50MG/ML VIAL 50 MG IV (10:07)
[2023-09-12] MEDS: VERAPAMIL 2.5MG/ML 2ML VIAL 2.5 MG IV (10:07)
[2023-09-12] MEDS: HEPARIN 1,000 UNITS/500ML NS (CATH LAB) 3000 UNIT IV (10:08)
[2023-09-12] MEDS: MIDAZOLAM HCL 1MG/1ML 5ML VIAL 1 MG IV (10:08)
[2023-09-12] MEDS: NITROGLYCERIN 800MCG/8ML SYR (CATH LAB) 800 MCG IA (10:08)
[2023-09-12] MEDS: LIDOCAINE 1% 10ML MDV 20 ML IJ (10:08)
[2023-09-12] MEDS: HEPARIN 1,000 UNITS/ML 10ML VIAL (CATH LAB) 10000 UNIT IV (10:08)
[2023-09-12] MEDS: 0.9 % SODIUM CHLORIDE 500 ML 25 ML IV (10:08)
[2023-09-12] MEDS: FENTANYL 100MCG/2ML VIAL 50 MCG IV (10:09)
[2023-09-12] MEDS: METOPROLOL TARTRATE 5MG/5ML VIAL 5 MG IV (11:25)
[2023-09-12] MEDS: PROPOFOL 10MG/ML 20ML VIAL 50 MG IV (11:27)
[2023-09-12] MEDS: CLOPIDOGREL 300MG TABLET 600 MG PO (11:35)
[2023-09-12] MEDS: IOPAMIDOL-370 (76%);100ML BOTTLE 230 ML IV (11:44)
[2023-09-12 11:45] LABS: CATHL Activated Clotting Time 201 SEC (74-125)
--- NOTE | 2023-09-12 12:05 | PC.NURSE ---
arrived by [facility] from [employer]
--- NOTE | 2023-09-12 12:18 | HMH.PHAINT1 ---
Pharmacy Intervention Comments: MEDICATION RECONCILIATION COMPLETED ON PATIENT USING EXTERNAL FILL HISTORY FROM PHARMACY. -EMIR QUINTERO, [facility]
--- NOTE | 2023-09-12 15:41 | EXP.HP ---
History of Present Illness *Admission Date: 09/12/23 *Reason for visit:: CAD, cough *History of present illness: Mr. Hua is a 73-year-old male with history of diabetes, CAD, pulmonary emboli, COPD, CPAP use at home on 2 L oxygen, paroxysmal A-fib on chronic anticoagulation, and gastric ulcer earlier this year. He presented as an elective case for outpatient left heart cath. Taken to the [facility] with significant disease noted. Patient received approximately 6 stents and multiple balloons with stents placed in his LAD and RCA. Procedure was complicated by patient's persistent cough. Because of contrast administration, difficulty of procedure, extensive stenting, cardiology consulted medicine for admission and further management. Will need repeat labs in the morning. On arrival to the floor, patient denies any chest pain. Complains about his cough that has been present for over a month. He has been admitted for pneumonia and treated twice in the past month. Cough is nonproductive. States it is worsening lays back due to postnasal drip. Takes allergy meds daily. Using Anoro and nebulizer and has seen pulmonology but does not recall being diagnosed with COPD. Cough is dry and nonproductive. Was diagnosed with parainfluenza 3 last month (2-1/2 weeks ago). Afebrile today. Denies any shortness of breath. Stable on room air. [facility] Disclaimer: The information contained in this section may have been updated after the patient was seen, as this information can be updated by other users. Medical History Atrial fibrillation Abnormal nuclear cardiac imaging test Acute allergic rhinitis Unspecified urinary incontinence Benign localized prostatic hyperplasia with lower urinary tract symptoms (LUTS) Gout Chronic obstructive pulmonary disease, unspecified Atherosclerotic heart disease of [place] coronary artery without angina pectoris Chronic diastolic (congestive) heart failure Anxiety Morbid obesity Gastric ulcer BMI 40.0-44.9, adult NAHID and COPD overlap syndrome (HFpEF) heart failure with preserved ejection fraction Paroxysmal atrial fibrillation Factor 5 Leiden mutation, heterozygous Pulmonary embolism GI bleed Diabetes mellitus, type 2 Hypertension Deep vein thrombosis (DVT) Shingles Surgical History History of splenectomy Hx of esophagogastroduodenoscopy History of amputation of thumb Family History Mother Embolism Father Stroke Brother Stroke Other Family history of cancer Family history of hypertension Social History Smoking Status: Never smoker smoking status start date: 1968 years smoked: 5 smoking status stop date: 1973 how long ago did patient quit smokin years ago alcohol intake: never current occupational status: retired Travel in the last 8 weeks: None household members: none housing: apartment lives independently: Yes marital status: number of children: 4 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 current occupational exposures/hazards: No caffeine: No Review of Systems Review of Systems Review of systems (narrative): 14 point review of systems performed, pertinent positives and negatives as per [facility] Meds Home Medications and Allergies Home Medications Medication Instructions Recorded Confirmed Type allopurinol 100 mg tablet 100 mg PO BID 06/12/18 09/12/23 History tramadol 50 mg tablet 50 mg PO Q6HP PRN Moderate Pain 06/12/18 09/12/23 History (Scale Score 5-6) pravastatin 80 mg tablet 80 mg PO HS 07/21/23 09/12/23 History apixaban 5 mg tablet (Eliquis) 5 mg PO BID #180 tabs 08/11/23 09/12/23 Rx umeclidinium 62.5 mcg-vilanterol 1 inh inhalation DAILY 08/24/23 09/12/23 History 25 mcg/actuation powdr for inhalation (Anoro Ellipta) ipratropium 0.5 mg-albuterol 3 mg 3 ml inhalation Q6HP PRN shortness 08/25/23 09/12/23 Rx (2.5 mg base)/3 mL nebulization of breath 30 days #180 mL soln empagliflozin 10 mg tablet 10 mg PO DAILY 08/31/23 09/12/23 History (Jardiance) blood-glucose meter (Blood Glucose #1 ea 09/05/23 09/12/23 Rx Monitoring kit) furosemide 40 mg tablet 80 mg PO DAILY 09/07/23 09/12/23 History furosemide 40 mg tablet 40 mg PO HS 09/12/23 09/12/23 History pantoprazole 40 mg tablet,delayed 40 mg PO DAILY 09/12/23 09/12/23 History release New Prescriptions to Start Prescriptions: Allergies Allergy/AdvReac Type Severity Reaction Status Date / Time lisinopril Allergy Severe S-SWELLS-OR Verified 09/12/23 13:24 AL/THROAT hydrochlorothiazide Allergy Mild S-SWELLS-OR Verified 09/12/23 13:24 [From Maxzide] AL/THROAT triamterene [From Maxzide] Allergy Mild S-SWELLS-OR Verified 09/12/23 13:24 AL/THROAT Exam Data for Last 24 hours Vital signs and Labs for Last 24 Hours: Temp Pulse Resp BP Pulse Ox O2 Del Method O2 Flow Rate 97.6 F 102 H 18 132/88 93 L Room Air 3 09/12/23 14:45 09/12/23 14:45 09/12/23 14:45 09/12/23 14:45 09/12/23 14:45 09/12/23 14:45 09/12/23 11:30 Laboratory Results - last 24 hr 09/12/23 08:45: WBC 12.9 H, RBC 4.81, Hgb 14.2, Hct 44.3, MCV 92.1, MCH 29.5, MCHC 32.0, RDW 14.6, Plt Count 359, MPV 7.9, Neut % (Auto) 71.8, Lymph % (Auto) 20.7, [place] % (Auto) 5.2, Eos % (Auto) 1.9, Baso % (Auto) 0.6, Neut # (Auto) 9.3 H, Lymph # (Auto) 2.7, [place] # (Auto) 0.7, Eos # (Auto) 0.2, Baso # (Auto) 0.1, Sodium 134 L, Potassium 3.2 L, Chloride 95 L, Carbon Dioxide 28, Anion Gap 14.2, BUN 24 H, Creatinine 1.20, Estimated Creat Clear 50, Estimated GFR 59, Est GFR ( Amer) 71, Glucose 183 H, Calcium 8.4 09/12/23 11:08: Activated Clotting Time 201 H* I & O for Last 24 hours: Intake & Output 09/09/23 09/10/23 09/11/23 09/12/23 23:59 23:59 23:59 23:59 Output Total 675 / 675 Balance -675 / -675 Weight 118.444 kg Constitutional Constitutional: no acute distress, morbidly obese and cooperative *Routine HEENT Exam Head: Present normocephalic Eye: Present EOMI, PERRL and conjunctivae pink ENT: Present mucous membranes moist *Routine Neck Exam Neck: Present supple and full ROM; Absent JVD *Routine Respiratory Exam Respiratory: Present rhonchi, wheezes, diminished air movement and able to speak in complete sentences *Routine Cardiovascular Exam Cardiovascular: Present Normal S1, Normal S2 and tachycardia; Absent murmur *Routine Abdominal Exam Abdominal: Present soft and normoactive bowel sounds; Absent tenderness *Routine Rectal Exam Rectal:: deferred *Routine Genitalia Exam Genitalia:: deferred *Routine Extremities Exam Extremities: Present edema and pulses intact; Absent cyanosis *Routine Skin Exam Skin: Present intact; Absent cyanosis or rash *Routine Neurological Exam Neurological: Present alert, oriented X3, moving all extremities, vision grossly intact, hearing grossly intact and normal speech; Absent sensory deficit or motor deficit Routine Psychiatric Exam Psychiatric: Present normal affect, normal thought process, cooperative, good insight and good judgment Assessment and Plan *Assessment and plan (1) CAD (coronary artery disease): Status: Acute Category: Medical Code(s): I25.10 - Atherosclerotic heart disease of [place] coronary artery without angina pectoris (2) Status post coronary artery stent placement: Status: Acute Category: Surgical Code(s): Z95.5 - Presence of coronary angioplasty implant and graft (3) Cough: Status: Acute Category: Medical Code(s): R05.9 - Cough, unspecified (4) Pulmonary embolism on left: Status: Acute Category: Medical Code(s): I26.99 - Other pulmonary embolism without acute cor pulmonale (5) BMI 40.0-44.9, adult: Status: Acute Category: Medical Code(s): Z68.41 - Body mass index [BMI] 40.0-44.9, adult (6) NAHID and COPD overlap syndrome: Status: Acute Category: Medical Code(s): G47.33 - Obstructive sleep apnea (adult) (pediatric); J44.9 - Chronic obstructive pulmonary disease, unspecified (7) (HFpEF) heart failure with preserved ejection fraction: Status: Acute Category: Medical Code(s): I50.30 - Unspecified diastolic (congestive) heart failure (8) Paroxysmal atrial fibrillation: Status: Acute Category: Medical Code(s): I48.0 - Paroxysmal atrial fibrillation (9) Hypertension: Status: Acute Qualifiers: Hypertension type: unspecified Qualified Code(s): I10 - Essential (primary) hypertension Category: Medical Code(s): I10 - Essential (primary) hypertension (10) Factor 5 Leiden mutation, heterozygous: Status: Acute Category: Medical Code(s): D68.51 - Activated protein C resistance (11) Diabetes mellitus, type 2: Status: Acute Qualifiers: Diabetes mellitus complication status: with other specified complication Diabetes mellitus manager functional insulin use: unspecified [facility] insulin use status Qualified Code(s): E11.69 - Type 2 diabetes mellitus with other specified complication Category: Medical Code(s): E11.9 - Type 2 diabetes mellitus without complications Plan 73-year-old gentleman presented for outpatient cath. Had significant disease. Received numerous stents. Cardiology consulted medicine for admission and monitoring overnight. Medicine agreed to admit. Problems addressed as follows: CAD HFpEF -Status post stenting to LAD and RCA. Will continue dual antiplatelet therapy with aspirin 81 mg daily and Plavix 75 mg daily. -Continue Jardiance 10 mg daily for heart failure and diabetes -Gentle hydration overnight with 1 L of LR. Resume diuretic in the morning for chronic volume overload. -Continue pravastatin 80 mg nightly -Not currently on AIDEN/ARB or beta-cindy -Cardiology consulted to assist in further management. COPD/NAHID Cough -Oxygen overnight, goal sats greater 90% -DuoNebs every 6 hours scheduled due to cough -Respiratory panel pending -Afrin nasal spray twice daily for postnasal drip -Positive for para flu 3 last month, cough concerning for persistent inflammation from viral etiology. -Chest x-ray obtained, personally reviewed showing no focal consolidation or airspace disease PE Factor V Leiden mutation -Continue 5 mill twice daily Diabetes: A1c 6.0, well-controlled. Continue sliding scale insulin with fingersticks ACHS. Continue Jardiance 10 mg daily. Class III obesity complicates all aspects of his care Full code Eliquis 5 mg twice daily Diabetic diet
--- NOTE | 2023-09-12 15:43 | XR_ITS ---
FINAL REPORT CLINICAL HISTORY: Acute cough FINDINGS: A single portable view of the chest was obtained. The heart size and pulmonary vascularity are within normal limits. The mediastinum is within normal limits. No acute pulmonary abnormality is identified. The bony thorax is intact. IMPRESSION: No active cardiopulmonary disease. Reviewed, Interpreted and Dictated by Rohit Ford III, MD Transcribed by Avelina Salazar Authenticated and [facility]
--- NOTE | 2023-09-12 15:50 | PC.NURSE ---
Right wrist cath device removed and non adherent dressing and tegaderm placed.
[2023-09-12] MEDS: FUROSEMIDE 40 MG TABLET PO (16:43)
[2023-09-12 17:22] LABS: Adenovirus,PCR Not Detected (NotDetected); Bordetella Pertussis Not Detected (NotDetected); Chlamydophila Pneumoniae, PCR Not Detected (NotDetected); Coronavirus 19, PCR Not Detected (NotDetected); Coronavirus 229E Not Detected (NotDetected); Coronavirus NL63 Not Detected (NotDetected); Coronavirus OC43 Not Detected (NotDetected); Coronovirus HKU1,PCR Not Detected (NotDetected); Human Metapneumovirus Not Detected (NotDetected); Influenza A, PCR Not Detected (NotDetected); Influenza AH1, 2009 Not Detected (NotDetected); Influenza AH1, PCR Not Detected (NotDetected); Influenza AH3,PCR Not Detected (NotDetected); Influenza B, PCR Not Detected (NotDetected); Mycoplasma Pneumoniae, PCR Not Detected (NotDetected); Parainfluenza 1, PCR Not Detected (NotDetected); Parainfluenza 2, PCR Not Detected (NotDetected); Parainfluenza 3, PCR Not Detected (NotDetected); Parainfluenza 4, PCR Not Detected (NotDetected); Respiratory Syncytial Virus Not Detected (NotDetected); Rhinovirus/Enterovirus Not Detected (NotDetected)
[2023-09-12] MEDS: IPRATROPIUM/ALBUTEROL 3 ML NEB IH ×2 (18:10→23:54)
[2023-09-12] MEDS: ALLOPURINOL 100MG TABLET 100 MG PO (20:27)
[2023-09-12] MEDS: PRAVASTATIN 40MG TAB 80 MG PO (20:27)
[2023-09-12] MEDS: APIXABAN 5MG TABLET 5 MG PO (20:27)
[2023-09-12] MEDS: LACTATED RINGERS 1000ML 1,000 ML 125 ML IV (22:26)
[2023-09-12 22:36] LABS: POC Glucose,Bedside 118 (70-110)
[2023-09-12 23:03] LABS: POC Glucose,Bedside 140 (70-110)
[2023-09-13] VITALS (9 sets, daily range): BP systolic 103–138; BP diastolic 58–73; PULSE 78–120; RESP 18–20; TEMP 36.6–36.9; O2SAT 91–94; BMI 41.1
--- NOTE | 2023-09-13 04:17 | PC.NURSE ---
Pt is alert and oriented x4 and currently tolerating RA well. Pt dressing to right radial cath site is clean and dry. Pt denies pain and has had no acute changes this shift.
[2023-09-13 04:51] LABS: POC Glucose,Bedside 142 (70-110)
[2023-09-13] MEDS: IPRATROPIUM/ALBUTEROL 3 ML NEB IH ×2 (06:20→11:37)
[2023-09-13] MEDS: UMECLIDINIUM/VILANTEROL 62.5/25MCG INHALER 1 PUFF IH (06:20)
[2023-09-13 06:59] LABS: Basophils # 0.1 K/mm3 (0-0.2); Basophils % 0.5 % (0.1-2.0); Eosinophils # 0.4 K/mm3 (0.0-0.4); Eosinophils % 3.2 % (0.1-12.0); Hematocrit 39.8 % (42.0-52.0); Lymphocytes # 3.4 K/mm3 (0.7-4.5); Lymphocytes % 24.5 % (10-50); Mean Corpuscular HGB Conc 31.4 g/dL (31.8-35.4); Mean Corpuscular Volume 92.4 fl (80-94); Mean Platelet Volume 7.9 fl (7.4-10.4); Monocytes # 0.9 K/mm3 (0.1-1.0); Monocytes % 6.2 % (1.7-9.3); Neutrophils # 9.1 K/mm3 (1.8-7.8); Neutrophils % 65.7 % (37.0-80.0); Platelet Count 340 K/mm3 (142-424); Red Blood Count 4.31 M/mm3 (4.60-6.20); Red Cell Distribution Width 14.6 % (11.5-17.5); White Blood Count 13.9 K/mm3 (4.8-10.8)
[2023-09-13 07:00] LABS: Chloride 95 mmol/L (98-107); Sodium 132 mmol/L (136-145)
[2023-09-13 07:04] LABS: Anion Gap 9.9 mEq/L (5-15); Blood Urea Nitrogen 17 mg/dl (9-20); Calcium 8.3 mg/dl (8.4-10.2); Carbon Dioxide 30 mmol/L (22.0-30.0); Creatinine Clearance Estimated 52 mL/min (50-200); Estimated Glomerular Filt Rate 65 ml/min (>60); GFR (African American) 79 ML/MIN (>60); Glucose 139 mg/dl (74-100)
[2023-09-13 07:22] LABS: Potassium 2.9 mmoL/L (3.5-5.1)
[2023-09-13 07:27] LABS: Hemoglobin 12.5 g/dL (14.1-18.0)
[2023-09-13 07:49] LABS: Hemoglobin A1C 6.9 % (4.0-6.0)
[2023-09-13] MEDS: OXYMETAZOLINE NASAL SPRAY 0.05% 15ML NS (07:50)
[2023-09-13] MEDS: FUROSEMIDE 40 MG TABLET 80 MG PO (07:50)
[2023-09-13] MEDS: PANTOPRAZOLE 40MG TABLET 40 MG PO (07:50)
[2023-09-13] MEDS: ASPIRIN 81MG CHEWABLE TABLET 81 MG PO (07:51)
[2023-09-13] MEDS: CLOPIDOGREL 75MG TAB 75 MG PO (07:51)
[2023-09-13] MEDS: EMPAGLIFLOZIN 10MG TABLET 10 MG PO (07:51)
[2023-09-13] MEDS: ALLOPURINOL 100MG TABLET 100 MG PO (07:51)
[2023-09-13] MEDS: APIXABAN 5MG TABLET 5 MG PO (07:51)
[2023-09-13] MEDS: POTASSIUM CHLORIDE 20MEQ TAB 60 MEQ PO (09:40)
[2023-09-13 10:23] LABS: POC Glucose,Bedside 171 (70-110)
--- NOTE | 2023-09-13 10:52 | HMH.PTEV ---
Physical Therapy Evaluation Rehab PT IP Evaluation Start: 09/13/23 10:21 Freq: ONCE Status: Active Protocol: Document 09/13/23 10:49 ALYSSA (Rec: 09/13/23 10:52 ALYSSA [id number]) Subjective/History History History 73-year-old male with history of diabetes, CAD, pulmonary emboli, COPD, CPAP use at home on 2 L oxygen, paroxysmal A- fib on chronic anticoagulation , and gastric ulcer earlier this year. He presented as an elective case for outpatient left heart cath. Taken to the [facility] with significant disease noted. Patient received approximately 6 stents and multiple balloons with stents placed in his LAD and RCA. He reports he lives alone, has an aide that comes in 3 x/wk, uses a rolator walker for all mobility at baseline, and has 2-3 CHRISTINE the home. Subjective Subjective He reports no c/o this am, This is the first time I'll be out of bed since my heart cath. New diagnosis of cancer in past 12 No months? Rehab PT IP Eval Objective Appearance Patient Behavior Appropriate Patient Orientation Person,Place,Time Difficulty following instructions none Speech Pattern Clear Ambulation Patient Able to Ambulate Yes Ambulation Observation IP General Gait Pattern Observation Wide Based Gait Ambulation Distance (feet) 50 Ambulation Assistive Device Rolling Walker Ambulation Ability Independent Balance Ability to Arise Able, uses arms to help Sitting Balance Steady, safe Standing Balance Steady, wide stance Dynamic Sitting Balance Ability Good Dynamic Standing Balance Ability Fair Transfers Bed Transfer Ability Independent Chair Transfer Ability Independent Sit to Stand Bed Transfer Ability Independent Sit to Stand Chair Transfer Ability Independent ROM All Extremities PT ROM Status WFL MMT All Extremities PT MMT WFL Rehab PT IP prob,goals,plan Problems Date of Evaluation: 09/13/23 Discharge Plan PT Discharge Plan Pt appears to be at baseline status for all mobility this am, He is appropriate to return home once medically stable for d/c. No current needs for inpatient therapy services. Eval Complexity Eval Charge Codes 59927 - High Complexity PHYSICIAN CERTIFICATION: I certify the specified therapy services for Rene Hua are required, authorized, and reviewed every 30 days.
[2023-09-13] MEDS: humaLOG 100 UNITS/ML 10ML VIAL (SSI) SQ (11:10)
--- NOTE | 2023-09-13 11:32 | P.CONCA_ITS ---
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 He had extensive inpatient and outpatient workup. Outpatient stress abnormal so he was referred for left heart cath. He underwent left heart cath yesterday which revealed extensive multivessel disease. He had 6 stents and numerous balloons. He was kept overnight for observation. This morning labs are within normal limits. He denies chest pain shortness of breath palpitations and feelings of near syncope. Of note patient also recently had tilt table test indicating 70 point drop in systolic blood pressure with associated symptoms. He has a severe cough which actually interfered with his heart cath and cause numerous repositioning of the catheters. [facility] Disclaimer: The information contained in this section may have been updated after the patient was seen, as this information can be updated by other users. Medical History Atrial fibrillation Abnormal nuclear cardiac imaging test Acute allergic rhinitis Unspecified urinary incontinence Benign localized prostatic hyperplasia with lower urinary tract symptoms (LUTS) Gout Chronic obstructive pulmonary disease, unspecified Atherosclerotic heart disease of [place] coronary artery without angina pectoris Chronic diastolic (congestive) heart failure Anxiety Morbid obesity Gastric ulcer BMI 40.0-44.9, adult NAHID and COPD overlap syndrome (HFpEF) heart failure with preserved ejection fraction Paroxysmal atrial fibrillation Factor 5 Leiden mutation, heterozygous Pulmonary embolism GI bleed Diabetes mellitus, type 2 Hypertension Deep vein thrombosis (DVT) Shingles Surgical History History of splenectomy Hx of esophagogastroduodenoscopy History of amputation of thumb Family History Mother Embolism Father Stroke Brother Stroke Other Family history of cancer Family history of hypertension Social History Smoking Status: Never smoker smoking status start date: 1968 years smoked: 5 smoking status stop date: 1973 how long ago did patient quit smokin years ago alcohol intake: never current occupational status: retired Travel in the last 8 weeks: None household members: none housing: apartment lives independently: Yes marital status: number of children: 4 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 current occupational exposures/hazards: No caffeine: No Review of Systems Constitutional Constitutional: Denies fatigue and Denies weakness Eyes Eyes: Denies loss of vision ENT Ears, Nose, Mouth, and Throat: Denies hearing loss and Denies vertigo *Cardiovascular Cardiovascular: Denies chest pain, Denies dyspnea and Denies syncope *Respiratory Respiratory: Denies cough and Denies dyspnea *Gastrointestinal Gastrointestinal: Denies change in stool character, Denies nausea and Denies vomiting *Genitourinary Genitourinary: Denies difficulty urinating *Musculoskeletal Musculoskeletal: Denies muscle weakness Integumentary/Breasts Skin/Breast: Denies changing lesions *Neurologic Neurologic: Denies loss of vision, Denies syncope, Denies vertigo and Denies weakness Endocrine Endocrine: Denies fatigue Exam Data for Last 24 hours Vital signs and Labs for Last 24 Hours: Temp Pulse Resp BP Pulse Ox O2 Del Method O2 Flow Rate 98.1 F 116 H 20 133/65 93 L Room Air 3 09/13/23 07:27 09/13/23 07:27 09/13/23 07:27 09/13/23 07:27 09/13/23 07:27 09/13/23 10:54 09/12/23 11:30 Laboratory Results - last 24 hr 09/12/23 11:08: Activated Clotting Time 201 H* 09/12/23 16:41: POC Glucose 140 H 09/12/23 17:00: Chlamy pneumoniae PCR Not detected, Adenovirus (PCR) Not detected, B. pertussis DNA (PCR) Not detected, Coronavirus OC43 (PCR) Not detected, Coronavirus HKU1 (PCR) Not detected, Coronavirus 229E (PCR) Not detected, SARS-CoV-2 (PCR) Not detected, Coronavirus NL63 (PCR) Not detected, Human Metapneumovir PCR Not detected, Influenza A (H1) PCR Not detected, Influ A (H1N1/09) PCR Not detected, Influenza A (H3) PCR Not detected, Influenza Type A (PCR) Not detected, Influenza Type B (PCR) Not detected, M. pneumoniae (PCR) Not detected, Parainfluenza 1 (PCR) Not detected, Parainfluenza 2 (PCR) Not detected, Parainfluenza 3 (PCR) Not detected, Parainfluenza 4 (PCR) Not detected, RSV (PCR) Not detected, Entero/Rhino (PCR) Not detected 09/12/23 22:21: POC Glucose 118 H 09/13/23 04:43: POC Glucose 142 H 09/13/23 05:32: WBC 13.9 H, RBC 4.31 L, Hgb 12.5 L D, Hct 39.8 L, MCV 92.4, MCH 29.0, MCHC 31.4 L, RDW 14.6, Plt Count 340, MPV 7.9, Neut % (Auto) 65.7, Lymph % (Auto) 24.5, [place] % (Auto) 6.2, Eos % (Auto) 3.2, Baso % (Auto) 0.5, Neut # (Auto) 9.1 H, Lymph # (Auto) 3.4, [place] # (Auto) 0.9, Eos # (Auto) 0.4, Baso # (Auto) 0.1, Sodium 132 L, Potassium 2.9 L*, Chloride 95 L, Carbon Dioxide 30, Anion Gap 9.9, BUN 17 D, Creatinine 1.10, Estimated Creat Clear 52, Estimated GFR 65, Est GFR ( Amer) 79, Glucose 139 H D, Hemoglobin A1c 6.9 H, Calcium 8.3 L 09/13/23 10:17: POC Glucose 171 H I & O for Last 24 hours: Intake & Output 09/10/23 09/11/23 09/12/23 09/13/23 23:59 23:59 23:59 23:59 Intake Total 600 / 840 660 / 660 Output Total 1974 500 / 500 Balance -1375 / -1135 160 / 160 Weight 261 lb 2 oz 261 lb 12.8 oz Constitutional Constitutional: no acute distress, obese and cooperative *Routine HEENT Exam Eye: Present PERRL *Routine Respiratory Exam Respiratory: Present CTA bilaterally; Absent accessory muscle use, wheezes or crackles *Routine Cardiovascular Exam Cardiovascular: Present RRR, Normal S1 and Normal S2; Absent murmur, gallop or rubs *Routine Abdominal Exam Abdominal: Present soft; Absent tenderness *Routine Extremities Exam Extremities: Present pulses intact; Absent cyanosis or edema *Routine Skin Exam Skin: Present intact; Absent erythema or wounds *Routine Neurological Exam Neurological: Present alert and oriented X3 Routine Psychiatric Exam Psychiatric: Present cooperative Meds Home Medications and Allergies Home Medications Medication Instructions Recorded Confirmed Type allopurinol 100 mg tablet 100 mg PO BID 06/12/18 09/12/23 History tramadol 50 mg tablet 50 mg PO Q6HP PRN Moderate Pain 06/12/18 09/12/23 History (Scale Score 5-6) pravastatin 80 mg tablet 80 mg PO HS 07/21/23 09/12/23 History apixaban 5 mg tablet (Eliquis) 5 mg PO BID #180 tabs 08/11/23 09/12/23 Rx umeclidinium 62.5 mcg-vilanterol 1 inh inhalation DAILY 08/24/23 09/12/23 History 25 mcg/actuation powdr for inhalation (Anoro Ellipta) ipratropium 0.5 mg-albuterol 3 mg 3 ml inhalation Q6HP PRN shortness 08/25/23 09/12/23 Rx (2.5 mg base)/3 mL nebulization of breath 30 days #180 mL soln empagliflozin 10 mg tablet 10 mg PO DAILY 08/31/23 09/12/23 History (Jardiance) blood-glucose meter (Blood Glucose #1 ea 09/05/23 09/12/23 Rx Monitoring kit) furosemide 40 mg tablet 80 mg PO DAILY 09/07/23 09/12/23 History furosemide 40 mg tablet 40 mg PO HS 09/12/23 09/12/23 History pantoprazole 40 mg tablet,delayed 40 mg PO DAILY 09/12/23 09/12/23 History release aspirin 81 mg chewable tablet 81 mg PO DAILY 30 days #30 tabs 09/13/23 Rx nitroglycerin 0.4 mg sublingual 0.4 mg sublingual Q5MINP PRN Chest 09/13/23 Rx tablet (Nitrostat) Pain 5 days #10 tabs prasugrel 10 mg tablet 10 mg PO DAILY 30 days #30 tabs 09/13/23 Rx New Prescriptions to Start Prescriptions: nitroglycerin [Nitrostat] Velasquez,Irfan aspirin Velasquez,Irfan prasugrel Velasquez,Irfan Allergies Allergy/AdvReac Type Severity Reaction Status Date / Time lisinopril Allergy Severe S-SWELLS-OR Verified 09/12/23 13:24 AL/THROAT hydrochlorothiazide Allergy Mild S-SWELLS-OR Verified 09/12/23 13:24 [From Maxzide] AL/THROAT triamterene [From Maxzide] Allergy Mild S-SWELLS-OR Verified 09/12/23 13:24 AL/THROAT Assessment and Plan *Assessment and plan (1) CAD (coronary artery disease): Status: Acute Category: Medical Code(s): I25.10 - Atherosclerotic heart disease of [place] coronary artery without angina pectoris (2) Status post coronary artery stent placement: Status: Acute Category: Surgical Code(s): Z95.5 - Presence of coronary angioplasty implant and graft (3) Cough: Status: Acute Category: Medical Code(s): R05.9 - Cough, unspecified (4) Pulmonary embolism on left: Status: Acute Category: Medical Code(s): I26.99 - Other pulmonary embolism without acute cor pulmonale (5) BMI 40.0-44.9, adult: Status: Acute Category: Medical Code(s): Z68.41 - Body mass index [BMI] 40.0-44.9, adult (6) NAHID and COPD overlap syndrome: Status: Acute Category: Medical Code(s): G47.33 - Obstructive sleep apnea (adult) (pediatric); J44.9 - Chronic obstructive pulmonary disease, unspecified (7) (HFpEF) heart failure with preserved ejection fraction: Status: Acute Category: Medical Code(s): I50.30 - Unspecified diastolic (congestive) heart failure (8) Paroxysmal atrial fibrillation: Status: Acute Category: Medical Code(s): I48.0 - Paroxysmal atrial fibrillation (9) Hypertension: Status: Acute Qualifiers: Hypertension type: unspecified Qualified Code(s): I10 - Essential (primary) hypertension Category: Medical Code(s): I10 - Essential (primary) hypertension (10) Factor 5 Leiden mutation, heterozygous: Status: Acute Category: Medical Code(s): D68.51 - Activated protein C resistance (11) Diabetes mellitus, type 2: Status: Acute Qualifiers: Diabetes mellitus fdc insulin use: unspecified fdc insulin u se status Diabetes mellitus complication status: with other specified complication Qualified Code(s): E11.69 - Type 2 diabetes mellitus with other s pecified complication Category: Medical Code(s): E11.9 - Type 2 diabetes mellitus without complications Plan MV-CAD s/p VERÓNICA 09/12/23 - new dx this admission - [facility]: see full report for details, stents to LAD and RCA - CCS = 0 - Plan: Triple therapy - ASA, Effient, Eliquis for 1 month then will DC ASA. Resume BB, cont statin. Orthostasis with recurrent syncope -70 point drop in BP On tilt table 08/2023 - will resume BB due to CAD/A-fib and see how he reponds, he may have less trouble now that he's been stented - consider Midodrine if refractory symptoms PAF - SR here - Cont Eliquis, resume Bisoprolol 2.5mg Factor V Mutation s/p PE - cont Eliquis Htn - 150s here - systolic BP drop to 90s on tilt table - pt reports ample hydration at home - consider Midodrine outpatient Obesity - needs aggressive weight loss via diet and exercise Persistant Dry Cough - severe, interfered with [facility] - recent parainfluenza 3 infection - CTA 08/23 - calcified mediastinal lymph nodes consistent with prior granulomatous disease - plans per Hospitalist 09/12: I have asked the RN/PT to ambulate patient and make sure he is no syncopal prior to DC. If asymptomatic he can DC home and f/u in our office in 2 weeks. He needs cardiac rehab. CV DC Meds: -Aspirin 81 mg p.o. daily -Effient 10mg p.o. daily -Eliquis 5 mg p.o. twice daily -Bisoprolol 2.5 mg p.o. daily -Atorvastatin 80 mg p.o. nightly -Jardiance 10 mg p.o. daily -Furosemide 40 mg p.o. daily as needed edema
--- NOTE | 2023-09-13 11:54 | EXP.DC.SUM ---
General Admission date:: 09/12/23 Discharge date: 09/13/23 HPI HPI HPI: Mr. Hua is a 73-year-old male with history of diabetes, CAD, pulmonary emboli, COPD, CPAP use at home on 2 L oxygen, paroxysmal A-fib on chronic anticoagulation, and gastric ulcer earlier this year. He presented as an elective case for outpatient left heart cath. Taken to the [facility] with significant disease noted. Patient received approximately 6 stents and multiple balloons with stents placed in his LAD and RCA. Procedure was complicated by patient's persistent cough. Because of contrast administration, difficulty of procedure, extensive stenting, cardiology consulted medicine for admission and further management. Will need repeat labs in the morning. On arrival to the floor, patient denies any chest pain. Complains about his cough that has been present for over a month. He has been admitted for pneumonia and treated twice in the past month. Cough is nonproductive. States it is worsening lays back due to postnasal drip. Takes allergy meds daily. Using Anoro and nebulizer and has seen pulmonology but does not recall being diagnosed with COPD. Cough is dry and nonproductive. Was diagnosed with parainfluenza 3 last month (2-1/2 weeks ago). Afebrile today. Denies any shortness of breath. Stable on room air. Hospital Course Hospital Course Hospital Course: 73-year-old gentleman presented for outpatient cath. Had significant disease. Received numerous stents. Cardiology consulted medicine for admission and monitoring overnight. CAD HFpEF -Status post stenting to LAD and RCA. patient evaluated by cardiology and underwent cardiac cath with stenting, tolerated well, patient will be discharged on ASA, Prasugrel and Eliquis, DC Plavix per cardiology. patient wishes to be discharged On the date of discharge, the patient reported feeling stable. The patient was found not to be in any acute distress, and no new abnormalities on physical examination. Further, the patient expressed appropriate understanding of, and agreement with, the discharge recommendations, medications, and plan. Time spent 37 mins Exam Data for Last 24 hours Vital signs and Labs for Last 24 Hours: Temp Pulse Resp BP Pulse Ox O2 Del Method O2 Flow Rate 98.5 F 115 H 20 138/73 94 L Room Air 3 09/13/23 11:49 09/13/23 11:49 09/13/23 11:49 09/13/23 11:49 09/13/23 11:49 09/13/23 11:49 09/12/23 11:30 Laboratory Results - last 24 hr 09/12/23 16:41: POC Glucose 140 H 09/12/23 17:00: Chlamy pneumoniae PCR Not detected, Adenovirus (PCR) Not detected, B. pertussis DNA (PCR) Not detected, Coronavirus OC43 (PCR) Not detected, Coronavirus HKU1 (PCR) Not detected, Coronavirus 229E (PCR) Not detected, SARS-CoV-2 (PCR) Not detected, Coronavirus NL63 (PCR) Not detected, Human Metapneumovir PCR Not detected, Influenza A (H1) PCR Not detected, Influ A (H1N1/09) PCR Not detected, Influenza A (H3) PCR Not detected, Influenza Type A (PCR) Not detected, Influenza Type B (PCR) Not detected, M. pneumoniae (PCR) Not detected, Parainfluenza 1 (PCR) Not detected, Parainfluenza 2 (PCR) Not detected, Parainfluenza 3 (PCR) Not detected, Parainfluenza 4 (PCR) Not detected, RSV (PCR) Not detected, Entero/Rhino (PCR) Not detected 09/12/23 22:21: POC Glucose 118 H 09/13/23 04:43: POC Glucose 142 H 09/13/23 05:32: WBC 13.9 H, RBC 4.31 L, Hgb 12.5 L D, Hct 39.8 L, MCV 92.4, MCH 29.0, MCHC 31.4 L, RDW 14.6, Plt Count 340, MPV 7.9, Neut % (Auto) 65.7, Lymph % (Auto) 24.5, [place] % (Auto) 6.2, Eos % (Auto) 3.2, Baso % (Auto) 0.5, Neut # (Auto) 9.1 H, Lymph # (Auto) 3.4, [place] # (Auto) 0.9, Eos # (Auto) 0.4, Baso # (Auto) 0.1, Sodium 132 L, Potassium 2.9 L*, Chloride 95 L, Carbon Dioxide 30, Anion Gap 9.9, BUN 17 D, Creatinine 1.10, Estimated Creat Clear 52, Estimated GFR 65, Est GFR ( Amer) 79, Glucose 139 H D, Hemoglobin A1c 6.9 H, Calcium 8.3 L 09/13/23 10:17: POC Glucose 171 H I & O for Last 24 hours: Intake & Output 09/10/23 09/11/23 09/12/23 09/13/23 23:59 23:59 23:59 23:59 Intake Total 600 / 840 660 / 660 Output Total 1974 500 / 500 Balance -1375 / -1135 160 / 160 Weight 118.444 kg 118.75 kg Constitutional Constitutional: no acute distress *Routine HEENT Exam Head: Present normocephalic Eye: Present EOMI and PERRL ENT: Present mucous membranes moist *Routine Neck Exam Neck: Present supple; Absent lymphadenopathy *Routine Respiratory Exam Respiratory: Present CTA bilaterally *Routine Cardiovascular Exam Cardiovascular: Present RRR *Routine Abdominal Exam Abdominal: Present soft and normoactive bowel sounds; Absent tenderness *Routine Extremities Exam Extremities: Absent cyanosis, clubbing or edema *Routine Skin Exam Skin: Present warm; Absent rash *Routine Neurological Exam Neurological: Present alert and oriented X3 Results Data Completed and Pending Labs on day of discharge: Labs from last 24 hours 09/13/23 09/13/23 09/13/23 10:17 05:32 04:43 WBC 13.9 H RBC 4.31 L Hgb 12.5 L D Hct 39.8 L MCV 92.4 MCH 29.0 MCHC 31.4 L RDW 14.6 Plt Count 340 MPV 7.9 Neut % (Auto) 65.7 Lymph % (Auto) 24.5 [place] % (Auto) 6.2 Eos % (Auto) 3.2 Baso % (Auto) 0.5 Neut # (Auto) 9.1 H Lymph # (Auto) 3.4 [place] # (Auto) 0.9 Eos # (Auto) 0.4 Baso # (Auto) 0.1 Sodium 132 L Potassium 2.9 L* Chloride 95 L Carbon Dioxide 30 Anion Gap 9.9 BUN 17 D Creatinine 1.10 Estimated Creat Clear 52 Estimated GFR 65 Est GFR ( Amer) 79 Glucose 139 H D POC Glucose 171 H 142 H Hemoglobin A1c 6.9 H Calcium 8.3 L Chlamy pneumoniae PCR Adenovirus (PCR) B. pertussis DNA (PCR) Coronavirus OC43 (PCR) Coronavirus HKU1 (PCR) Coronavirus 229E (PCR) SARS-CoV-2 (PCR) Coronavirus NL63 (PCR) Human Metapneumovir PCR Influenza A (H1) PCR Influ A (H1N1/09) PCR Influenza A (H3) PCR Influenza Type A (PCR) Influenza Type B (PCR) M. pneumoniae (PCR) Parainfluenza 1 (PCR) Parainfluenza 2 (PCR) Parainfluenza 3 (PCR) Parainfluenza 4 (PCR) RSV (PCR) Entero/Rhino (PCR) 09/12/23 09/12/23 09/12/23 22:21 17:00 16:41 WBC RBC Hgb Hct MCV MCH MCHC RDW Plt Count MPV Neut % (Auto) Lymph % (Auto) [place] % (Auto) Eos % (Auto) Baso % (Auto) Neut # (Auto) Lymph # (Auto) [place] # (Auto) Eos # (Auto) Baso # (Auto) Sodium Potassium Chloride Carbon Dioxide Anion Gap BUN Creatinine Estimated Creat Clear Estimated GFR Est GFR ( Amer) Glucose POC Glucose 118 H 140 H Hemoglobin A1c Calcium Chlamy pneumoniae PCR Not detected Adenovirus (PCR) Not detected B. pertussis DNA (PCR) Not detected Coronavirus OC43 (PCR) Not detected Coronavirus HKU1 (PCR) Not detected Coronavirus 229E (PCR) Not detected SARS-CoV-2 (PCR) Not detected Coronavirus NL63 (PCR) Not detected Human Metapneumovir PCR Not detected Influenza A (H1) PCR Not detected Influ A (H1N1/09) PCR Not detected Influenza A (H3) PCR Not detected Influenza Type A (PCR) Not detected Influenza Type B (PCR) Not detected M. pneumoniae (PCR) Not detected Parainfluenza 1 (PCR) Not detected Parainfluenza 2 (PCR) Not detected Parainfluenza 3 (PCR) Not detected Parainfluenza 4 (PCR) Not detected RSV (PCR) Not detected Entero/Rhino (PCR) Not detected DS: Diagnosis Discharge Diagnosis (1) CAD (coronary artery disease): Status: Acute Code(s): I25.10 - Atherosclerotic heart disease of [place] coronary artery without angina pectoris (2) Status post coronary artery stent placement: Status: Acute Code(s): Z95.5 - Presence of coronary angioplasty implant and graft (3) Cough: Status: Acute Code(s): R05.9 - Cough, unspecified (4) Pulmonary embolism on left: Status: Acute Code(s): I26.99 - Other pulmonary embolism without acute cor pulmonale (5) BMI 40.0-44.9, adult: Status: Acute Code(s): Z68.41 - Body mass index [BMI] 40.0-44.9, adult (6) NAHID and COPD overlap syndrome: Status: Acute Code(s): G47.33 - Obstructive sleep apnea (adult) (pediatric); J44.9 - Chronic obstructive pulmonary disease, unspecified (7) (HFpEF) heart failure with preserved ejection fraction: Status: Acute Code(s): I50.30 - Unspecified diastolic (congestive) heart failure (8) Paroxysmal atrial fibrillation: Status: Acute Code(s): I48.0 - Paroxysmal atrial fibrillation (9) Hypertension: Status: Acute Code(s): I10 - Essential (primary) hypertension Qualifiers: Hypertension type: unspecified Qualified Code(s): I10 - Essential (primary) hypertension (10) Factor 5 Leiden mutation, heterozygous: Status: Acute Code(s): D68.51 - Activated protein C resistance (11) Diabetes mellitus, type 2: Status: Acute Code(s): E11.9 - Type 2 diabetes mellitus without complications Qualifiers: Diabetes mellitus senior living 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 Diabetes mellitus complication status: with other specified complication Qualified Code(s): E11.69 - Type 2 diabetes mellitus with other specified complication Meds Home Medications and Allergies Home Medications Medication Instructions Recorded Confirmed Type allopurinol 100 mg tablet 100 mg PO BID 06/12/18 09/12/23 History tramadol 50 mg tablet 50 mg PO Q6HP PRN Moderate Pain 06/12/18 09/12/23 History (Scale Score 5-6) pravastatin 80 mg tablet 80 mg PO HS 07/21/23 09/12/23 History apixaban 5 mg tablet (Eliquis) 5 mg PO BID #180 tabs 08/11/23 09/12/23 Rx umeclidinium 62.5 mcg-vilanterol 1 inh inhalation DAILY 08/24/23 09/12/23 History 25 mcg/actuation powdr for inhalation (Anoro Ellipta) ipratropium 0.5 mg-albuterol 3 mg 3 ml inhalation Q6HP PRN shortness 08/25/23 09/12/23 Rx (2.5 mg base)/3 mL nebulization of breath 30 days #180 mL soln empagliflozin 10 mg tablet 10 mg PO DAILY 08/31/23 09/12/23 History (Jardiance) blood-glucose meter (Blood Glucose #1 ea 09/05/23 09/12/23 Rx Monitoring kit) furosemide 40 mg tablet 80 mg PO DAILY 09/07/23 09/12/23 History furosemide 40 mg tablet 40 mg PO HS 09/12/23 09/12/23 History pantoprazole 40 mg tablet,delayed 40 mg PO DAILY 09/12/23 09/12/23 History release aspirin 81 mg chewable tablet 81 mg PO DAILY 30 days #30 tabs 09/13/23 Rx nitroglycerin 0.4 mg sublingual 0.4 mg sublingual Q5MINP PRN Chest 09/13/23 Rx tablet (Nitrostat) Pain 5 days #10 tabs prasugrel 10 mg tablet 10 mg PO DAILY 30 days #30 tabs 09/13/23 Rx New Prescriptions to Start Prescriptions: nitroglycerin [Nitrostat] Velasquez,Irfan aspirin Velasquez,Irfan prasugrel Velasquez,Irfan Allergies Allergy/AdvReac Type Severity Reaction Status Date / Time lisinopril Allergy Severe S-SWELLS-OR Verified 09/12/23 13:24 AL/THROAT hydrochlorothiazide Allergy Mild S-SWELLS-OR Verified 09/12/23 13:24 [From Maxzide] AL/THROAT triamterene [From Maxzide] Allergy Mild S-SWELLS-OR Verified 09/12/23 13:24 AL/THROAT Discharge Plan Disposition Patient Disposition: Home, Self-Care Condition: Good Follow up Plan Follow up with: Salvador Mac MD [Staff Physician] - 09/26/23 11:15 am Prescriptions/Medication Reconciliation: New nitroglycerin [Nitrostat] 0.4 mg Tablet, Sublingual 0.4 mg sublingual Q5MINP PRN (Reason: Chest Pain) 5 Days Qty: 10 0RF prasugrel 10 mg Tablet 10 mg PO DAILY 30 Days Qty: 30 0RF aspirin 81 mg Tablet,Chewable 81 mg PO DAILY 30 Days Qty: 30 0RF Continued Jardiance 10 mg tablet 10 mg PO DAILY Eliquis 5 mg tablet 5 mg PO BID Qty: 180 3RF (DME) blood-glucose meter [Blood Glucose Monitoring] Kit See Rx Instructions .Route Qty: 1 0RF Rx Instructions: check sugar twice daily allopurinol 100 MG tablet 100 mg PO BID tramadol 50 MG tablet 50 mg PO Q6HP PRN (Reason: Moderate Pain (Scale Score 5-6)) Anoro Ellipta 62.5-25 mcg/actuation blister with device 1 inh INHALATION DAILY Patient Comments: INHALE 1 PUFF BY MOUTH EVERY DAY FOR BREATHING ipratropium-albuterol 0.5 mg-3 mg(2.5 mg base)/3 mL solution for nebulization 3 ml inhalation Q6HP PRN (Reason: shortness of breath) 30 Days Qty: 180 0RF furosemide 40 MG tablet 80 mg PO DAILY furosemide 40 mg tablet 40 mg PO HS Patient Comments: TAKE TWO TABLETS BY MOUTH EVERY MORNING and TAKE ONE TABLET EVERY EVENING DIRECTED pantoprazole 40 mg tablet,delayed release (DR/EC) 40 mg PO DAILY pravastatin 80 mg tablet 80 mg PO HS Problem Reconciliation Problems Reviewed?: Yes Patient Discharge Instructions ACTIVITY: Ambulate as tolerated DIET: continue same diet Patient Instructions: DI for Cardiac Catheterization, DI for Surgical Site Infection Providers Primary Care Provider: Constantine Lincoln Admit Provider: Marques Wise Attending Provider: Marques Wise
--- NOTE | 2023-09-13 13:37 | HMH.OTEV ---
OT Inpatient Evaluation Rehab OT IP Evaluation Start: 09/13/23 10:21 Freq: ONCE Status: Active Protocol: Document 09/13/23 13:34 [facility] (Rec: 09/13/23 13:37 [facility] [id number]) Rehab OT IP Assessment Subjective History Pt oriented x 3 on arrival. Pt agreeable to engage in therapy evaluation. Pt admitted on 09/12/23 due to CAD and cough. History and physical: Mr. Hua is a 73-year-old male with history of diabetes, CAD, pulmonary emboli, COPD, CPAP use at home on 2 L oxygen , paroxysmal A-fib on chronic anticoagulation, and gastric ulcer earlier this year. He presented as an elective case for outpatient left heart cath . Taken to the [facility] with significant disease noted. Patient received approximately 6 stents and multiple balloons with stents placed in his LAD and RCA. Procedure was complicated by patient's persistent cough. Because of contrast administration, difficulty of procedure, extensive stenting, cardiology consulted medicine for admission and further management. Will need repeat labs in the morning. Subjective Prior to being in the hospital , pt lived at home alone. Pt claims normally he is independent with all ADLs and most IADLs. He does all of his cooking, but does have a person come 3 days a week to clean for him. Pt has 4 steps to enter home. Pt uses rollator during functional transfers. Pt also still drives. Objective Patient Orientation Person,Place,Birthday Right Upper Extremity Gross ROM WFL Left Upper Extremity Gross ROM WFL Bed Mobility bed mobility-scooting,bed mobility - supine/sit Assist Level Supervision/Stand by Transfer Training Sit/Stand Transfer Assist Level Supervision/Stand by Chair Transfer Ability Supervision/Stand by Chair Transfer Technique Sit to/from Ambulatory Upper Body Dressing Ability Standby Assistance Overall Commode/Toilet Transfer Ability Standby Assistance Commode/Toilet Transfer Technique Sit to/from Ambulatory Commode/Toilet Transfer Assistive Grab Bars Devices Rehab OT IP prob,goals,plan Problems Date of Evaluation: 09/13/23 Rehab Potential Rehab Potential Innapropriate for Skilled Therapy Discharge Plan OT Discharge Plan Pt appears to be at his baseline with functional transfers and ADL independence . Pt can return home once he is medically stable per physician. Eval Complexity Eval Charge Codes 39752 - Low Complexity PHYSICIAN CERTIFICATION: I certify the specified therapy services for Rene Brookfield Javid are required, authorized, and reviewed every 30 days.
--- NOTE | 2023-09-14 13:54 | CARE MANAGER ---
Contacted patient related to hospital discharge. He states he has new medications and is aware of follow up appointments. Denies questions or concerns. SHARIF Garcia
== END 2023-09-13 15:53 | disposition home or self-care (01) ==
LOC: 2ND 11:47
PROVIDERS: Internal Medicine; Admitting Provider Internal Medicine Adolescent Medicine; PCP Internal Medicine; Visit Provider Internal Medicine Adolescent Medicine
DX: I25.10 Atherosclerotic heart disease of native coronary artery without angina pectoris (principal); R06.09 Other forms of dyspnea; D68.51 Activated protein C resistance; I48.0 Paroxysmal atrial fibrillation; I50.30 Unspecified diastolic (congestive) heart failure; E11.69 Type 2 diabetes mellitus with other specified complication; Z79.01 Long term (current) use of anticoagulants; R93.1 Abnormal findings on diagnostic imaging of heart and coronary circulation; Z95.5 Presence of coronary angioplasty implant and graft; R05.9 Cough, unspecified; Z68.41 Body mass index [BMI] 40.0-44.9, adult; G47.33 Obstructive sleep apnea (adult) (pediatric); J44.9 Chronic obstructive pulmonary disease, unspecified; I11.0 Hypertensive heart disease with heart failure; Z86.711 Personal history of pulmonary embolism; Z79.899 Other long term (current) drug therapy
CPT/HCPCS: G0379; 36415; 71045; 80048; 82962; 83036; 85025; 85347; 87581; 87632; 87635; 87798; 92928; 92929; 93458; 94640; 97163; 97165; 99152; 99153; C1725; C1769; C1874; C9600; C9601; G0378; J1644; J2250; J3010; J7120; J7620; Q9967

== ENCOUNTER 2023-09-16 17:37 | Emergency (ER) | payer MEDICARE, MEDICAID, SELFPAY ==
[2023-09-16 17:49] VITALS: BP 104/67; PULSE 124; RESP 20; TEMP 36.7; O2SAT 97; BMI 40.7
[2023-09-16 17:59] VITALS: BP 152/86; PULSE 104; O2SAT 97
--- NOTE | 2023-09-16 18:10 | ED_ITS ---
Discharge Plan Disposition Patient Disposition: Home, Self-Care Prescriptions Prescriptions: No Action Jardiance 10 mg tablet 10 mg PO DAILY Eliquis 5 mg tablet 5 mg PO BID Qty: 180 3RF (DME) lancets [Easy Touch Lancets] 30 gauge misc See Rx Instructions .Route Qty: 100 5RF Rx Instructions: check blood sugar BID (DME) blood-glucose meter [Easy Touch Glucose Monitor] Misc See Rx Instructions .Route Qty: 1 0RF Rx Instructions: check blood sugar BID (DME) Easy Touch Test Strip Strip See Rx Instructions .Route Qty: 100 5RF Rx Instructions: check twice a day allopurinol 100 MG tablet 100 mg PO BID tramadol 50 MG tablet 50 mg PO Q6HP PRN (Reason: Moderate Pain (Scale Score 5-6)) Anoro Ellipta 62.5-25 mcg/actuation blister with device 1 inh INHALATION DAILY Patient Comments: INHALE 1 PUFF BY MOUTH EVERY DAY FOR BREATHING ipratropium-albuterol 0.5 mg-3 mg(2.5 mg base)/3 mL solution for nebulization 3 ml inhalation Q6HP PRN (Reason: shortness of breath) 30 Days Qty: 180 0RF furosemide 40 MG tablet 80 mg PO DAILY furosemide 40 mg tablet 40 mg PO HS Patient Comments: TAKE TWO TABLETS BY MOUTH EVERY MORNING and TAKE ONE TABLET EVERY EVENING DIRECTED pantoprazole 40 mg tablet,delayed release (DR/EC) 40 mg PO DAILY nitroglycerin [Nitrostat] 0.4 mg Tablet, Sublingual 0.4 mg sublingual Q5MINP PRN (Reason: Chest Pain) 5 Days Qty: 10 0RF prasugrel 10 mg Tablet 10 mg PO DAILY 30 Days Qty: 30 0RF aspirin 81 mg Tablet,Chewable 81 mg PO DAILY 30 Days Qty: 30 0RF pravastatin 80 mg tablet 80 mg PO HS Referrals Follow up/Referrals: Constantine Lincoln MD [Primary Care Provider] - See instructions Activity Restrictions/Add. Instructions Additional Instructions/Restrictions: The defect that you had in your finger that was bleeding extensively required electrocautery Surgicel and pressure. Please take your dressing off of the wound tonight and apply a Band-Aid. The Surgicel eventually will fall off. You may put a Band-Aid on this until it is healed. Return with any significant worsening of your bleeding. You may resume your Eliquis as previously prescribed. Clinical Impressions Clinical Impression: Finger laceration, Anticoagulated Instructions Patient Instructions: DI for Laceration Repair Discharge ED Provider: Gregorio Ruiz General Adult HPI General Chief complaint: Wound/Laceration Stated complaint: AO 09/16/23 1530 Laceration Left index finger Time Seen by Provider: 09/16/23 17:53 Mode of Arrival: Wheelchair Source of Information: Patient Limitations: No Limitations Description of Symptoms (Recalled from ER Triage Doc. by RN): pt reports he was cooking and cut himself with a knife accidentally. pt presents with a lac to his L index that parallels his nail bed without damaging it. pt states he is on eliquis. the lac has been bleeding constantly x2h when it occured. History of Present Illness HPI narrative: Patient is a 73-year-old male on Eliquis presenting today with a finger laceration that he was unable to get controlled from a bleeding standpoint at home. States has been work on it for 2 hours. Was cooking and cut himself with a knife accidentally. Patient claims that he has had a tetanus vaccination within the last 5 years at another hospital. Finger involved his left index finger. Related Data Home Medications Medication Instructions Recorded Confirmed allopurinol 100 mg tablet 100 mg PO BID 06/12/18 09/12/23 tramadol 50 mg tablet 50 mg PO Q6HP PRN Moderate Pain 06/12/18 09/12/23 (Scale Score 5-6) pravastatin 80 mg tablet 80 mg PO HS 07/21/23 09/12/23 umeclidinium 62.5 mcg-vilanterol 1 inh inhalation DAILY 08/24/23 09/12/23 25 mcg/actuation powdr for inhalation (Anoro Ellipta) empagliflozin 10 mg tablet 10 mg PO DAILY 08/31/23 09/12/23 (Jardiance) furosemide 40 mg tablet 80 mg PO DAILY 09/07/23 09/12/23 furosemide 40 mg tablet 40 mg PO HS 09/12/23 09/12/23 pantoprazole 40 mg tablet,delayed 40 mg PO DAILY 09/12/23 09/12/23 release Previous Rx's Medication Instructions Recorded apixaban 5 mg tablet (Eliquis) 5 mg PO BID #180 tabs 08/11/23 ipratropium 0.5 mg-albuterol 3 mg 3 ml inhalation Q6HP PRN shortness 08/25/23 (2.5 mg base)/3 mL nebulization of breath 30 days #180 mL soln aspirin 81 mg chewable tablet 81 mg PO DAILY 30 days #30 tabs 09/13/23 nitroglycerin 0.4 mg sublingual 0.4 mg sublingual Q5MINP PRN Chest 09/13/23 tablet (Nitrostat) Pain 5 days #10 tabs prasugrel 10 mg tablet 10 mg PO DAILY 30 days #30 tabs 09/13/23 blood sugar diagnostic (Easy Touch #100 ea 09/14/23 Test Strip) blood-glucose meter (Easy Touch #1 ea 09/14/23 Glucose Monitor) lancets 30 gauge (Easy Touch #100 ea 09/14/23 Lancets) Allergies Allergy/AdvReac Type Severity Reaction Status Date / Time lisinopril Allergy Severe S-SWELLS-OR Verified 09/16/23 17:56 AL/THROAT hydrochlorothiazide Allergy Mild S-SWELLS-OR Verified 09/16/23 17:56 [From Maxzide] AL/THROAT triamterene [From Maxzide] Allergy Mild S-SWELLS-OR Verified 09/16/23 17:56 AL/THROAT PFSH PFSH Disclaimer: The information contained in this section may have been updated after the patient was seen, as this information can be updated by other users. 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 Paroxysmal atrial fibrillation Factor 5 Leiden mutation, heterozygous Pulmonary embolism GI bleed Diabetes mellitus, type 2 Hypertension Deep vein thrombosis (DVT) Shingles Surgical History History of splenectomy Hx of esophagogastroduodenoscopy History of amputation of thumb Family History Mother Embolism Father Stroke Brother Stroke Other Family history of cancer Family history of hypertension Social History Smoking Status: Never smoker smoking status start date: 1968 years smoked: 5 smoking status stop date: 1973 how long ago did patient quit smokin years ago alcohol intake: never current occupational status: retired Travel in the last 8 weeks: None household members: none housing: apartment lives independently: Yes marital status: number of children: 4 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 current occupational exposures/hazards: No caffeine: No ROS Obtained: Yes All systems reviewed & no additional complaints except as documented Physical Exam General General appearance: alert Respiratory Respiratory exam: Present normal lung sounds bilaterally Cardiovascular Cardiovascular exam: Present regular rate Extremities Exam Extremities exam: Present other (Radial aspect of the left index finger just lateral to the nailbed has a 1 cm laceration that is actively hemorrhaging wound edges are well reapproximated otherwise neurovascular intact) Neurological Exam Neurological exam: Present alert and oriented X3 Medical Decision Making Asa Inquiry Pt receiving controlled substance: No Vital Signs: 09/16/23 17:49 09/16/23 17:59 09/16/23 18:13 Temperature 98.1 F Temperature Source Oral Pulse Rate 104 H 110 H Pulse Rate [Right] 124 H Respiratory Rate 20 Blood Pressure 152/86 H 148/81 H Blood Pressure [Right Arm] 104/67 L Blood Pressure Mean [Right Arm] 79 Blood Pressure Source [Right Arm] Automatic Cuff Blood Pressure Position [Right Arm] Sitting 02 Sat by Pulse Oximetry 97 97 96 Oxygen Delivery Method Room Air 09/16/23 18:30 Temperature Temperature Source Pulse Rate 111 H Pulse Rate [Right] Respiratory Rate Blood Pressure 148/80 H Blood Pressure [Right Arm] Blood Pressure Mean [Right Arm] Blood Pressure Source [Right Arm] Blood Pressure Position [Right Arm] 02 Sat by Pulse Oximetry 96 Oxygen Delivery Method Orders (Tests/Meds): ED MEDICATIONS Discontinued Medications Generic Name Dose Route Start Last Admin Trade Name Freq PRN Reason Stop Dose Admin Tetanus/Diphtheria Toxoids 0.5 ml 09/16/23 18:15 09/16/23 18:36 Tetanus-Diphth Toxoid, Adult 0.5ml Syr IM 09/16/23 18:16 Not Given .ONCE ONE Tetanus/Reduced Diphtheria/Acell Pertussis 0.5 ml 09/16/23 18:36 09/16/23 18:37 Tet/Diphth/Pert-Adult 0.5ml Syringe IM 09/16/23 18:37 0.5 ml .ONCE ONE Administration Medical Decision Narrative: 73-year-old presents today with hemorrhage control of the small laceration while on anticoagulants. Pressure and of itself did not work. Surgicel has been applied with a pressure dressing will reassess in 30 minutes after its administration. Reassessment after 30 minutes dressing was taken down he was till bleeding. At this point I did a digital block with lidocaine with epinephrine and performed electrocautery on the wound itself to cauterize the bleeding which successfully stopped the bleeding a small piece of Surgicel was placed back on top of this as well as a pressure dressing. Patient was hemostatic at this point and was discharged in stable condition return precautions emphasized. Critical Care Critical Care Time Critical Care Time: No
[2023-09-16 18:13] VITALS: BP 148/81; PULSE 110; O2SAT 96
[2023-09-16 18:30] VITALS: BP 148/80; PULSE 111; O2SAT 96
[2023-09-16] MEDS: TET/DIPHTH/PERT-ADULT 0.5ML SYRINGE 0.5 ML IM (18:37)
[2023-09-16 18:53] VITALS: BP 148/80; PULSE 100; RESP 18; TEMP 36.6; O2SAT 96
== END 2023-09-16 18:57 | disposition home or self-care (01) ==
PROVIDERS: Emergency Provider Student in an Organized Health Care Education/Training Program; PCP Internal Medicine
DX: S61.211A Laceration without foreign body of left index finger without damage to nail, initial encounter (principal); Z79.01 Long term (current) use of anticoagulants; W26.0XXA Contact with knife, initial encounter; Z86.718 Personal history of other venous thrombosis and embolism; E11.9 Type 2 diabetes mellitus without complications; Z79.84 Long term (current) use of oral hypoglycemic drugs; Z23 Encounter for immunization
CPT/HCPCS: 90471; 90715; 99283

== ENCOUNTER 2023-09-19 10:40 | Outpatient (CLI) | payer MEDICARE, MEDICAID, SELFPAY ==
[2023-09-19 11:24] LABS: Basophils # 0.1 K/mm3 (0-0.2); Eosinophils # 0.4 K/mm3 (0.0-0.4); Eosinophils % 4.4 % (0.1-12.0); Hematocrit 41.1 % (42.0-52.0); Hemoglobin 13.1 g/dL (14.1-18.0); Lymphocytes # 2.3 K/mm3 (0.7-4.5); Lymphocytes % 25.8 % (10-50); Mean Corpuscular HGB Conc 31.7 g/dL (31.8-35.4); Mean Corpuscular Hemoglobin 29.1 pg (27.0-31.2); Mean Corpuscular Volume 91.7 fl (80-94); Mean Platelet Volume 7.7 fl (7.4-10.4); Monocytes # 0.6 K/mm3 (0.1-1.0); Monocytes % 6.9 % (1.7-9.3); Neutrophils # 5.4 K/mm3 (1.8-7.8); Platelet Count 360 K/mm3 (142-424); Red Blood Count 4.48 M/mm3 (4.60-6.20); Red Cell Distribution Width 14.5 % (11.5-17.5); White Blood Count 8.8 K/mm3 (4.8-10.8)
[2023-09-19 11:35] LABS: Chloride 97 mmol/L (98-107); Sodium 135 mmol/L (136-145)
[2023-09-19 11:38] LABS: Alanine Aminotransferase 37 U/L (12-78); Albumin/Globulin Ratio 1.2 (1.1-1.8); Alkaline Phosphatase 120 U/L (38-126); Anion Gap 11.7 mEq/L (5-15); Aspartate Amino Transferase 41 U/L (17-59); Bilirubin,Total 0.5 mg/dl (0.2-1.3); Blood Urea Nitrogen 11 mg/dl (9-20); Carbon Dioxide 29 mmol/L (22.0-30.0); Estimated Glomerular Filt Rate 73 ml/min (>60); GFR (African American) 88 ML/MIN (>60); Globulin 3.4 g/dL (1.3-3.2); Total Protein,Serum 7.4 g/dl (6.3-8.2)
[2023-09-19 11:39] LABS: Calcium 8.7 mg/dl (8.4-10.2); Glucose 161 mg/dl (74-100)
[2023-09-19 13:06] LABS: Potassium 2.7 mmoL/L (3.5-5.1)
== END 2023-09-19 23:59 | disposition home or self-care (01) ==
PROVIDERS: PCP Internal Medicine; Visit Provider Internal Medicine
DX: Z95.5 Presence of coronary angioplasty implant and graft (principal); I25.10 Atherosclerotic heart disease of native coronary artery without angina pectoris
CPT/HCPCS: 36415; 80053; 85025

== ENCOUNTER 2023-10-03 16:44 | Outpatient (CLI) | payer MEDICARE, MEDICAID, SELFPAY ==
[2023-10-03 16:20] LABS: Basophils # 0.1 K/mm3 (0-0.2); Basophils % 1.2 % (0.1-2.0); Eosinophils # 0.2 K/mm3 (0.0-0.4); Eosinophils % 2.8 % (0.1-12.0); Hematocrit 40.5 % (42.0-52.0); Hemoglobin 12.4 g/dL (14.1-18.0); Lymphocytes # 2.6 K/mm3 (0.7-4.5); Mean Corpuscular HGB Conc 30.6 g/dL (31.8-35.4); Mean Corpuscular Hemoglobin 28.1 pg (27.0-31.2); Mean Corpuscular Volume 91.8 fl (80-94); Mean Platelet Volume 8.4 fl (7.4-10.4); Monocytes # 0.8 K/mm3 (0.1-1.0); Monocytes % 10.6 % (1.7-9.3); Neutrophils % 52.4 % (37.0-80.0); Platelet Count 550 K/mm3 (142-424); Red Blood Count 4.42 M/mm3 (4.60-6.20); Red Cell Distribution Width 14.4 % (11.5-17.5); White Blood Count 7.7 K/mm3 (4.8-10.8)
[2023-10-03 16:34] LABS: Chloride 104 mmol/L (98-107); Sodium 138 mmol/L (136-145)
[2023-10-03 16:37] LABS: Blood Urea Nitrogen 15 mg/dl (9-20); Carbon Dioxide 26 mmol/L (22.0-30.0); Estimated Glomerular Filt Rate 73 ml/min (>60); GFR (African American) 88 ML/MIN (>60)
[2023-10-03 16:38] LABS: Calcium 8.9 mg/dl (8.4-10.2); Glucose 112 mg/dl (74-100)
== END 2023-10-03 23:59 | disposition home or self-care (01) ==
LOC: LAB.DROPOF 16:44
PROVIDERS: PCP Internal Medicine; Visit Provider Internal Medicine
DX: I10 Essential (primary) hypertension (principal); I50.32 Chronic diastolic (congestive) heart failure
CPT/HCPCS: 80048; 85025

== ENCOUNTER 2023-10-04 23:06 | Emergency (ER) | payer MEDICARE, MEDICAID, SELFPAY ==
[2023-10-04 23:07] VITALS: BP 145/92; PULSE 107; RESP 20; TEMP 37.1; O2SAT 97; BMI 41.5
--- NOTE | 2023-10-04 23:14 | ED_ITS ---
Discharge Plan Disposition Patient Disposition: Home, Self-Care Prescriptions Prescriptions: No Action Eliquis 5 mg tablet 5 mg PO BID Qty: 180 3RF tamsulosin 0.4 mg capsule 0.4 mg PO DAILY Jardiance 25 mg tablet 25 mg PO DAILY Qty: 30 3RF prasugrel 10 mg tablet 10 mg PO DAILY Qty: 96 3RF Rx Instructions: take one daily flecainide 50 mg tablet 50 mg PO Q12H Qty: 180 3RF furosemide 40 mg tablet 80 mg PO DAILY Qty: 90 3RF pravastatin 80 mg tablet 80 mg PO HS Qty: 90 3RF mupirocin 2 % ointment 1 applic topical BID Patient Comments: APPLY TOPICALLY TO THE AFFECTED AREA(S) THREE TIMES DAILY -- FOR EXTERNAL USE ONLY-- (DME) lancets [Easy Touch Lancets] 30 gauge misc See Rx Instructions .Route Qty: 100 5RF Rx Instructions: check blood sugar BID (DME) blood-glucose meter [Easy Touch Glucose Monitor] Misc See Rx Instructions .Route Qty: 1 0RF Rx Instructions: check blood sugar BID (DME) Easy Touch Test Strip Strip See Rx Instructions .Route Qty: 100 5RF Rx Instructions: check twice a day potassium chloride 20 mEq tablet extended release 40 meq PO BID Qty: 120 5RF allopurinol 100 mg tablet 100 mg PO BID Qty: 180 1RF tramadol 50 mg tablet See Rx Instructions PO Q6H PRN (Reason: pain) Qty: 150 0RF Rx Instructions: 1 or 2 tablets orally every 6 hours PRN; Anoro Ellipta 62.5-25 mcg/actuation blister with device 1 inh INHALATION DAILY Patient Comments: INHALE 1 PUFF BY MOUTH EVERY DAY FOR BREATHING ipratropium-albuterol 0.5 mg-3 mg(2.5 mg base)/3 mL solution for nebulization 3 ml inhalation Q6HP PRN (Reason: shortness of breath) 30 Days Qty: 180 0RF pantoprazole 40 mg tablet,delayed release (DR/EC) 40 mg PO DAILY nitroglycerin [Nitrostat] 0.4 mg Tablet, Sublingual 0.4 mg sublingual Q5MINP PRN (Reason: Chest Pain) 5 Days Qty: 10 0RF Referrals Follow up/Referrals: Constantine Lincoln MD [Primary Care Provider] - See instructions Activity Restrictions/Add. Instructions Additional Instructions/Restrictions: Please follow-up with your watch train inspector. Please return to the emergency department if you develop any new or worsening symptoms or become concerned for your health. Clinical Impressions Clinical Impression: Intermittent lightheadedness Discharge ED Provider: Dennis Cali General Adult HPI General Chief complaint: Arrhythmia/Palpitations Stated complaint: low hr,cp Time Seen by Provider: 10/04/23 23:14 History of Present Illness HPI narrative: 73-year-old male with extensive past medical history including paroxysmal A-fib on Eliquis, type 2 diabetes, prior PEs, coronary artery disease status post multiple stents 2 weeks ago, severe orthostasis, heart failure, obesity presents with transient lightheadedness. He reports that prior to his stents a few weeks ago, he had been having multiple episodes of passing out. Since his cath he has not had any of those episodes. He comes in tonight because he felt lightheaded while sitting at home. He reports that he has a home pulse ox monitor and during his episode of lightheadedness it showed his heart rate in the 30s and 40s. He denies any syncope. He reports that he had a slight transient twinge in his left chest at that time as well. No chest pain currently. On chart review, he has had extensive workup with cardiology recently. He has had no documented evidence of severe bradycardia on prior heart monitors. He does have severe orthostasis however. He reports that he is currently asymptomatic. He reports that his normal heart rate is between 110 and 120. He reports that he has had some changes in his blood pressure medications but not in the last couple of weeks. Related Data Home Medications Medication Instructions Recorded Confirmed umeclidinium 62.5 mcg-vilanterol 1 inh inhalation DAILY 08/24/23 10/04/23 25 mcg/actuation powdr for inhalation (Anoro Ellipta) pantoprazole 40 mg tablet,delayed 40 mg PO DAILY 09/12/23 10/04/23 release tamsulosin 0.4 mg capsule 0.4 mg PO DAILY 09/26/23 10/04/23 mupirocin 2 % topical ointment 1 applic topical BID 10/03/23 10/04/23 Previous Rx's Medication Instructions Recorded apixaban 5 mg tablet (Eliquis) 5 mg PO BID #180 tabs 05/09/24 ipratropium 0.5 mg-albuterol 3 mg 3 ml inhalation Q6HP PRN shortness 08/25/23 (2.5 mg base)/3 mL nebulization of breath 30 days #180 mL soln nitroglycerin 0.4 mg sublingual 0.4 mg sublingual Q5MINP PRN Chest 09/13/23 tablet (Nitrostat) Pain 5 days #10 tabs blood sugar diagnostic (Easy Touch #100 ea 09/14/23 Test Strip) blood-glucose meter (Easy Touch #1 ea 09/14/23 Glucose Monitor) lancets 30 gauge (Easy Touch #100 ea 09/14/23 Lancets) potassium chloride 20 mEq 40 meq (2 x 20 mEq) PO BID #120 09/19/23 tablet,extended release tabs allopurinol 100 mg tablet 100 mg PO BID #180 tabs 09/21/23 empagliflozin 25 mg tablet 25 mg PO DAILY #30 tabs 09/26/23 (Jardiance) flecainide 50 mg tablet 50 mg PO Q12H #180 tabs 09/26/23 furosemide 40 mg tablet 80 mg (2 x 40 mg) PO DAILY #90 tabs 09/26/23 prasugrel 10 mg tablet 10 mg PO DAILY #96 tabs 09/26/23 pravastatin 80 mg tablet 80 mg PO HS #90 tabs 09/26/23 tramadol 50 mg tablet See Rx Instructions PO Q6H PRN 09/26/23 pain #150 tabs Allergies Allergy/AdvReac Type Severity Reaction Status Date / Time lisinopril Allergy Severe S-SWELLS-OR Verified 10/03/23 08:51 AL/THROAT hydrochlorothiazide Allergy Mild S-SWELLS-OR Verified 10/03/23 08:51 [From Maxzide] AL/THROAT triamterene [From Maxzide] Allergy Mild S-SWELLS-OR Verified 10/03/23 08:51 AL/THROAT metformin AdvReac Mild leg Uncoded 09/26/23 11:53 weakness [facility] Disclaimer: The information contained in this section may have been updated after the patient was seen, as this information can be updated by other users. Medical History (Updated 10/05/23 @ 01:48 by Dennis Cali MD) HLD (hyperlipidemia) Atrial fibrillation Abnormal nuclear cardiac imaging test Acute allergic rhinitis Unspecified urinary incontinence Benign localized prostatic hyperplasia with lower urinary tract symptoms (LUTS) Gout Chronic obstructive pulmonary disease, unspecified Atherosclerotic heart disease of [place] coronary artery without angina pectoris Chronic diastolic (congestive) heart failure Anxiety Morbid obesity Gastric ulcer BMI 40.0-44.9, adult NAHID and COPD overlap syndrome (HFpEF) heart failure with preserved ejection fraction Paroxysmal atrial fibrillation Factor 5 Leiden mutation, heterozygous Pulmonary embolism GI bleed Diabetes mellitus, type 2 Hypertension Deep vein thrombosis (DVT) Shingles Surgical History H/O heart artery stent S/P cardiac cath History of splenectomy Hx of esophagogastroduodenoscopy History of amputation of thumb Family History Mother Embolism Father Stroke Brother Stroke Other Family history of cancer Family history of hypertension Social History Smoking Status: Never smoker smoking status start date: 1968 years smoked: 5 smoking status stop date: 1973 how long ago did patient quit smokin years ago alcohol intake: never current occupational status: retired Travel in the last 8 weeks: None household members: none housing: apartment lives independently: Yes marital status: number of children: 4 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 current occupational exposures/hazards: No caffeine: No ROS Obtained: Yes All systems reviewed & no additional complaints except as documented Physical Exam General General appearance: alert and in no apparent distress Head Head exam: atraumatic and normocephalic Eye Eye exam: Present normal appearance, PERRL and EOMI ENT ENT exam: Present normal oropharynx and normal external ear exam Neck Neck exam: Present normal inspection and full ROM Chest Chest inspection: Present normal inspection and symmetric chest wall rise; Absent tenderness Respiratory Respiratory exam: Present normal lung sounds bilaterally; Absent respiratory distress Cardiovascular Cardiovascular exam: Present regular rate and normal rhythm Abdominal Exam Abdominal exam: Present soft; Absent distention, tenderness or guarding Extremities Exam Extremities exam: Present normal inspection and edema (Bilateral lower extremity pitting edema, stable per patient); Absent joint swelling Back Exam Back exam: Present normal inspection; Absent tenderness Neurological Exam Neurological exam: Present alert and oriented X3; Absent motor sensory deficit Psychiatric Psychiatric exam: Present normal affect and normal mood Skin Skin exam: Present warm, dry and normal color Lymphatic Lymphatic Findings: no adenopathy Medical Decision Making Medical Records Medical records reviewed: Yes I reviewed the patient's medical records. Asa Inquiry Pt receiving controlled substance: No Asa was queried for this patient: No Vital Signs: 10/04/23 23:07 10/04/23 23:31 10/05/23 00:00 Temperature 98.8 F Temperature Source Oral Pulse Rate 69 108 H Pulse Rate [Right Radial] 107 H Respiratory Rate 20 22 18 Blood Pressure 155/60 H 121/55 L Blood Pressure [Right Arm] 145/92 H Blood Pressure Mean [Right Arm] 109 02 Sat by Pulse Oximetry 97 94 L 95 Oxygen Delivery Method Room Air Lab Data Lab results reviewed: Yes I reviewed the patient's lab results. Lab Results 10/04/23 23:11: WBC 11.8 H D, RBC 4.56 L, Hgb 13.0 L, Hct 40.4 L, MCV 88.6, MCH 28.5, MCHC 32.2, RDW 14.6, Plt Count 514 H, MPV 7.5, Neut % (Auto) 50.7, Lymph % (Auto) 37.2, [place] % (Auto) 7.7, Eos % (Auto) 2.7, Baso % (Auto) 1.7, Neut # (Auto) 6.0, Lymph # (Auto) 4.4, [place] # (Auto) 0.9, Eos # (Auto) 0.3, Baso # (Auto) 0.2, Sodium 138, Potassium 3.9 D, Chloride 106, Carbon Dioxide 25, Anion Gap 10.9, BUN 16, Creatinine 1.20, Estimated Creat Clear 50, Estimated GFR 59, Est GFR ( Amer) 71, Glucose 143 H, Calcium 8.8, Magnesium 2.0, Total Bilirubin 0.2, AST 37, ALT 31, Alkaline Phosphatase 101, Troponin I < 0.01, NT-Pro-B Natriuret Pep 146, Total Protein 7.2, Albumin 4.0, Globulin 3.2, Albumin/Globulin Ratio 1.3 10/05/23 01:47: Troponin I < 0.01 10/04/23 23:11 10/04/23 23:11 Orders (Tests/Meds): ORDERS Category Date Time Status CXR --portable [XR chest portable] Stat Exams 10/04/23 23:26 Completed BNP [NT Pro Brain Natriuretic Pep.] Stat Lab 10/04/23 23:11 Completed CBC w/Auto Diff [Complete Blood Count Auto Diff] Stat Lab 10/04/23 23:11 Completed CMP [Comprehensive Metabolic Panel] Stat Lab 10/04/23 23:11 Completed Magnesium Stat Lab 10/04/23 23:11 Completed Troponin I Q3H Lab 10/04/23 23:11 Completed Troponin I Q3H Lab 10/05/23 01:47 Completed ECG holter initial pfn Stat Y 10/05/23 01:08 Completed ECG Data Tracing #1: I reviewed this ECG and interpreted as documented below: Sinus tachycardia with premature supraventricular complexes., rate of 112, no significant ST changes, ECG initial impression date: 10/04/23 ECG initial impression time: 23:10 HEART Score History (anamnesis): Slightly suspicious ECG: Normal Age: >65 years Risk factors: Atherosclerosis history Troponin: </= normal limit HEART Score: 4 Medical Decision Narrative: 73-year-old male with extensive past medical history including paroxysmal A-fib on Eliquis, type 2 diabetes, prior PEs, coronary artery disease status post multiple stents 2 weeks ago, severe orthostasis, heart failure, obesity presents with transient lightheadedness. See HPI for details. History was obtained interactive discussion with patient, extensive chart review. On arrival, patient is [afebrile, hemodynamically stable, satting appropriately, alert, oriented x4, GCS 15], moving all extremities spontaneously. Full physical exam performed and significant for stable bilateral lower extremity edema Differential includes but is not limited to palpitations, arrhythmia, orthostasis, stent occlusion ACS. Workup initiated including chest x-ray EKG CBC CMP mag troponin x 2. On re-evaluation, patient [remains afebrile, HD stable.] On my interpretation of last ironer, patient has a somewhat variable rate and sinus rhythm between 100 and 120, which is his baseline. At one point, patient had his home pulse ox monitor on and he reported it was showing his HR was in the 30's. At that time, patient was in the 120s on last ironer. This points to likely technological malfunction as the underlying source of his reported bradycardia earlier today. Laboratory workup independently interpreted by me and significant for negative troponin x 2, normal renal function, no significant electrolyte derangement. Imaging independently interpreted by me and significant for chest x-ray without focal opacity.. See radiology read for full review of final results. Admission for cardiology evaluation was considered, but deemed unnecessary due to asymptomatic patient during ER stay, negative workup. Given patient history, exam and workup, patient's presentation most likely represents lightheadedness secondary to chronic orthostasis. The patient's reported bradycardia based on home pulse ox monitor is likely erroneous. However, I believe that he would benefit from a 48 hour Holter monitor for further assessment. This was placed and patient was discharged in stable condition with instructions to follow-up with his watch train inspector. Procedures Risk/Benefits of Procedure(s) Were Explained: Yes Critical Care Critical Care Time Critical Care Time: No
--- NOTE | 2023-10-04 23:26 | XR_ITS ---
PROCEDURE INFORMATION: Exam: XR Chest Exam date and time: 10/04/2023 11:27 PM Age: 73 years old Clinical indication: Pain; Chest pressure; Additional info: Cp TECHNIQUE: Imaging protocol: Radiologic exam of the chest. Views: 1 view. COMPARISON: CR XR CHEST PORTABLE 09/12/2023 3:54 PM FINDINGS: Lungs: No consolidation. Pleural spaces: No pleural effusion. No pneumothorax. Heart/Mediastinum: No cardiomegaly. Bones/joints: No acute findings. IMPRESSION: No acute pulmonary findings.
[2023-10-04 23:31] VITALS: BP 155/60; PULSE 69; RESP 22; O2SAT 94
[2023-10-04 23:33] LABS: Basophils # 0.2 K/mm3 (0-0.2); Basophils % 1.7 % (0.1-2.0); Chloride 106 mmol/L (98-107); Eosinophils # 0.3 K/mm3 (0.0-0.4); Eosinophils % 2.7 % (0.1-12.0); Hematocrit 40.4 % (42.0-52.0); Lymphocytes # 4.4 K/mm3 (0.7-4.5); Lymphocytes % 37.2 % (10-50); Mean Corpuscular HGB Conc 32.2 g/dL (31.8-35.4); Mean Corpuscular Hemoglobin 28.5 pg (27.0-31.2); Mean Corpuscular Volume 88.6 fl (80-94); Mean Platelet Volume 7.5 fl (7.4-10.4); Monocytes # 0.9 K/mm3 (0.1-1.0); Monocytes % 7.7 % (1.7-9.3); Neutrophils % 50.7 % (37.0-80.0); Platelet Count 514 K/mm3 (142-424); Red Blood Count 4.56 M/mm3 (4.60-6.20); Red Cell Distribution Width 14.6 % (11.5-17.5); Sodium 138 mmol/L (136-145); White Blood Count 11.8 K/mm3 (4.8-10.8)
[2023-10-04 23:34] LABS: Potassium 3.9 mmoL/L (3.5-5.1)
[2023-10-04 23:36] LABS: Alanine Aminotransferase 31 U/L (12-78); Alkaline Phosphatase 101 U/L (38-126); Anion Gap 10.9 mEq/L (5-15); Aspartate Amino Transferase 37 U/L (17-59); Bilirubin,Total 0.2 mg/dl (0.2-1.3); Blood Urea Nitrogen 16 mg/dl (9-20); Carbon Dioxide 25 mmol/L (22.0-30.0); Creatinine Clearance Estimated 50 mL/min (50-200); Estimated Glomerular Filt Rate 59 ml/min (>60); GFR (African American) 71 ML/MIN (>60); Glucose 143 mg/dl (74-100)
[2023-10-04 23:37] LABS: Albumin/Globulin Ratio 1.3 (1.1-1.8); Calcium 8.8 mg/dl (8.4-10.2); Globulin 3.2 g/dL (1.3-3.2); Total Protein,Serum 7.2 g/dl (6.3-8.2)
[2023-10-04 23:46] LABS: NT Pro Brain Natriuretic Pep. 146 pg/mL (0-450)
[2023-10-04 23:50] LABS: Troponin I < 0.01 ng/ml (0.00-0.034)
[2023-10-05] VITALS: BP 121/55; PULSE 108; RESP 18; O2SAT 95
--- NOTE | 2023-10-05 01:08 | PC.NURSE ---
CALL placed to resp, spoke with rico) and notified of need for 48 hr holter monitor placement.
[2023-10-05 02:18] LABS: Troponin I < 0.01 ng/ml (0.00-0.034)
--- NOTE | 2023-10-05 02:23 | PC.NURSE ---
Patient called out from his room and after walking into the room he presented to me his at home pulse ox which was reading his heart rate of 36bpm, I educated the patient that we had him placed on our monitor and obtaining a rhythm strip along with other vital signs that were all within normal limits. I also informed him there may be a malfunction with his pulse ox.
[2023-10-05 02:24] VITALS: BP 126/98; PULSE 114; RESP 18; TEMP 36.6; O2SAT 95
--- NOTE | 2023-10-05 23:09 | ECG_ITS ---
APPROVED REPORT Exam: Resting ECG HR:112 bpm ECG Measurements Heart Rate 112 AXES CA 158 P 79 QRSd 106 QRS 88 QT 358 T 43 QTc 425 Conclusion SINUS TACHYCARDIA WITH FREQUENT SUPRAVENTRICULAR PREMATURE COMPLEXES LOW QRS VOLTAGE IN PRECORDIAL LEADS [QRS DEFLECTION < 1.0 mV IN CHEST LEADS] PATTERN CONSISTENT WITH PULMONARY DISEASE ABNORMAL ECG UNCONFIRMED REPORT Electronically signed by : GUERITA PRESSLEY, 10/05/2023 04:35:59
== END 2023-10-05 02:26 | disposition home or self-care (01) ==
PROVIDERS: Emergency Provider Emergency Medicine; PCP Internal Medicine
DX: R42 Dizziness and giddiness (principal); I48.0 Paroxysmal atrial fibrillation; E11.9 Type 2 diabetes mellitus without complications; I11.0 Hypertensive heart disease with heart failure; I50.32 Chronic diastolic (congestive) heart failure; I25.10 Atherosclerotic heart disease of native coronary artery without angina pectoris; E78.5 Hyperlipidemia, unspecified; J44.9 Chronic obstructive pulmonary disease, unspecified; Z87.891 Personal history of nicotine dependence; Z79.01 Long term (current) use of anticoagulants; Z79.84 Long term (current) use of oral hypoglycemic drugs
CPT/HCPCS: 71045; 80053; 83735; 83880; 84484; 85025; 93005; 93225; 93227; 99284

== ENCOUNTER 2023-11-02 09:26 | Outpatient (CLI) | payer MEDICARE, MEDICAID, SELFPAY | END 2023-11-02 23:59 | disposition home or self-care (01) | LOC: RT 09:26 | PROVIDERS: PCP Internal Medicine; Visit Provider Internal Medicine Pulmonary Disease | DX: R06.09 Other forms of dyspnea (principal); Z86.718 Personal history of other venous thrombosis and embolism; Z79.01 Long term (current) use of anticoagulants | CPT/HCPCS: 94060; 94618; 94726; 94729 ==

== ENCOUNTER 2024-03-07 09:10 | Outpatient (CLI) | payer MEDICARE, MEDICAID, SELFPAY ==
[2024-03-07 12:48] LABS: Basophils # 0.1 K/mm3 (0-0.2); Basophils % 0.6 % (0.1-2.0); Eosinophils # 0.3 K/mm3 (0.0-0.4); Eosinophils % 3.1 % (0.1-12.0); Hematocrit 49.1 % (42.0-52.0); Hemoglobin 15.8 g/dL (14.1-18.0); Lymphocytes # 3.1 K/mm3 (0.7-4.5); Lymphocytes % 35.4 % (10-50); Mean Corpuscular HGB Conc 32.2 g/dL (31.8-35.4); Mean Corpuscular Hemoglobin 29.5 pg (27.0-31.2); Mean Corpuscular Volume 91.5 fl (80-94); Mean Platelet Volume 8.9 fl (7.4-10.4); Monocytes # 0.9 K/mm3 (0.1-1.0); Monocytes % 9.9 % (1.7-9.3); Neutrophils # 4.5 K/mm3 (1.8-7.8); Platelet Count 305 K/mm3 (142-424); Red Blood Count 5.37 M/mm3 (4.60-6.20); Red Cell Distribution Width 15.6 % (11.5-17.5); White Blood Count 8.9 K/mm3 (4.8-10.8)
[2024-03-07 13:09] LABS: Alanine Aminotransferase 16 U/L (12-78); Albumin Level 3.9 g/dl (3.5-5.0); Albumin/Globulin Ratio 1.4 (1.1-1.8); Alkaline Phosphatase 108 U/L (38-126); Anion Gap 13.6 mEq/L (5-15); Aspartate Amino Transferase 27 U/L (17-59); Bilirubin,Total 0.4 mg/dl (0.2-1.3); Blood Urea Nitrogen 27 mg/dl (9-20); Calcium 8.8 mg/dl (8.4-10.2); Carbon Dioxide 29 mmol/L (22.0-30.0); Chloride 104 mmol/L (98-107); Chol/HDL Ratio 3.2 (1-3.5); Cholesterol 161 mg/dl (140-200); Estimated Glomerular Filt Rate 59 ml/min (>60); GFR (African American) 71 ML/MIN (>60); Globulin 2.7 g/dL (1.3-3.2); Glucose 102 mg/dl (74-100); HDL Cholesterol 50 mg/dl (40-60); Potassium 5.6 mmoL/L (3.5-5.1); Sodium 141 mmol/L (136-145); Total Protein,Serum 6.6 g/dl (6.3-8.2); Triglycerides 87 mg/dl (30-150); VLDL Cholesterol 17 mg/dL (0-40)
[2024-03-07 13:20] LABS: Direct LDL Cholesterol 89.31 mg/dL (100-129)
[2024-03-07 13:39] LABS: Hemoglobin A1C 6.4 % (4.0-6.0)
== END 2024-03-07 23:59 | disposition home or self-care (01) ==
LOC: LAB.DROPOF 03-08 09:25
PROVIDERS: PCP Internal Medicine; Visit Provider Internal Medicine
DX: I10 Essential (primary) hypertension (principal); E11.59 Type 2 diabetes mellitus with other circulatory complications; E11.42 Type 2 diabetes mellitus with diabetic polyneuropathy; E78.5 Hyperlipidemia, unspecified
CPT/HCPCS: 80053; 80061; 83036; 85025

== ENCOUNTER 2024-03-22 13:38 | Outpatient (CLI) | payer MEDICARE, MEDICAID, SELFPAY ==
[2024-03-22 15:09] LABS: Chloride 106 mmol/L (98-107); Sodium 137 mmol/L (136-145)
[2024-03-22 15:10] LABS: Potassium 4.7 mmoL/L (3.5-5.1)
[2024-03-22 15:12] LABS: Blood Urea Nitrogen 24 mg/dl (9-20); Estimated Glomerular Filt Rate 59 ml/min (>60); GFR (African American) 71 ML/MIN (>60)
[2024-03-22 15:13] LABS: Anion Gap 9.7 mEq/L (5-15); Calcium 8.7 mg/dl (8.4-10.2); Carbon Dioxide 26 mmol/L (22.0-30.0); Glucose 110 mg/dl (74-100)
== END 2024-03-22 23:59 | disposition home or self-care (01) ==
LOC: LAB.DROPOF 13:39
PROVIDERS: PCP Internal Medicine; Visit Provider Internal Medicine
DX: E87.5 Hyperkalemia (principal)
CPT/HCPCS: 80048

== ENCOUNTER 2024-07-13 07:08 | Outpatient (CLI) | payer MEDICARE, MEDICAID, SELFPAY ==
--- NOTE | 2024-07-13 07:30 | CT_ITS ---
FINAL REPORT TECHNIQUE: Axial CT without IV contrast administration. This study was performed with techniques to keep radiation doses as low as reasonably achievable, (ALARA). Individualized dose reduction techniques using automated exposure control or adjustment of mA and/or kV according to the patient''s size were employed. CLINICAL HISTORY: cough, shortness of breath, chest pain COMPARISON: CTA 08/24/2023 FINDINGS: No acute lung disease is present. There are scattered small nodules predominantly in the right lung measuring 4 mm or less. These are considered inflammatory in nature. There is minimal scattered scarring in the right lung. The left lung is clear. No pleural or pericardial effusion is seen. No adenopathy or mass lesion is present. IMPRESSION: No acute lung disease. Numerous small nodules in the right lung considered postinflammatory in nature. Reviewed, Interpreted and Dictated by Tyler Contreras MD Transcribed by Morelia Aquino Authenticated and [facility]
== END 2024-07-13 23:59 | disposition home or self-care (01) ==
LOC: RAD 07:09
PROVIDERS: PCP Internal Medicine; Visit Provider Nurse Practitioner
DX: R05.8 Other specified cough (principal)
CPT/HCPCS: 71250

== ENCOUNTER 2024-09-05 09:10 | Outpatient (CLI) | payer MEDICARE, MEDICAID, SELFPAY ==
[2024-09-05 13:44] LABS: Basophils # 0.1 K/mm3 (0-0.2); Basophils % 0.8 % (0.1-2.0); Eosinophils # 0.4 Kmm3 (0.0-0.4); Eosinophils % 4.1 % (0.1-12.0); Hematocrit 50.2 % (42.0-52.0); Immature Granulocytes # 0.03 10^3uL; Immature Granulocytes % 0.3 %; Lymphocytes # 2.8 K/mm3 (0.7-4.5); Lymphocytes % 29.2 % (10-50); Mean Corpuscular HGB Conc 31.9 g/dL (31.8-35.4); Mean Corpuscular Hemoglobin 29.9 pg (27.0-31.2); Mean Corpuscular Volume 93.8 fl (80-94); Mean Platelet Volume 10.7 fl (7.4-10.4); Monocytes % 10.6 % (1.7-9.3); Neutrophils # 5.2 K/mm3 (1.8-7.8); Nucleated Red Blood Cells # 0 10^3/uL; Nucleated Red Blood Cells % 0 %; Platelet Count 335 K/mm3 (142-424); Red Blood Count 5.35 M/mm3 (4.60-6.20); Red Cell Distribution Width 14.9 % (11.5-17.5); Red Cell Distribution Width-SD 51.6 fL; White Blood Count 9.5 K/mm3 (4.8-10.8)
[2024-09-05 14:04] LABS: Albumin Level 4.2 g/dl (3.5-5.0); Chloride 104 mmol/L (98-107); Potassium 5.5 mmoL/L (3.5-5.1); Sodium 142 mmol/L (136-145)
[2024-09-05 14:05] LABS: Hemoglobin A1C 6.2 % (4.0-6.0)
[2024-09-05 14:07] LABS: Alanine Aminotransferase 16 U/L (12-78); Albumin/Globulin Ratio 1.4 (1.1-1.8); Alkaline Phosphatase 118 U/L (38-126); Anion Gap 14.5 mEq/L (5-15); Aspartate Amino Transferase 26 U/L (17-59); Bilirubin,Total 0.6 mg/dl (0.2-1.3); Blood Urea Nitrogen 19 mg/dl (9-20); Carbon Dioxide 29 mmol/L (22.0-30.0); Cholesterol 214 mg/dl (140-200); Estimated Glomerular Filt Rate 73 ml/min (>60); GFR (African American) 88 ML/MIN (>60); Globulin 3.1 g/dL (1.3-3.2); Total Protein,Serum 7.3 g/dl (6.3-8.2); Triglycerides 151 mg/dl (30-150); VLDL Cholesterol 30 mg/dL (0-40)
[2024-09-05 14:08] LABS: Calcium 8.8 mg/dl (8.4-10.2); Chol/HDL Ratio 4.1 (1-3.5); Glucose 110 mg/dl (74-100); HDL Cholesterol 52 mg/dl (40-60)
[2024-09-05 14:19] LABS: Direct LDL Cholesterol 119.45 mg/dL (100-129)
[2024-09-05 15:26] LABS: Creatinine,Urine Random 142 mg/dL (Not Estab.)
[2024-09-05 15:30] LABS: Microalbumin/Creatinine Ratio 6.1
--- OUTSIDE RECORDS SUMMARY | 2024-09-13 09:18 | XMS_ITS | Continuity of Care Document ---
Author Organization [place] - [facility], PULMONARY Address [address] [address] Assessment Encounter Date Assessment Date Assessment LastModified by Organization Details LastModified Time 08/22/2024 08/22/2024 The patient is a 74-year-old male with history of asthma, obstructive sleep apnea syndrome, and extreme obesity with alveolar hypoventilation, presenting for follow-up appointment. Current asthma management with Symbicort indicates disease control, with infrequent rescue inhaler use. Potential therapy adjustment for allergies is noted, with partial effectiveness from Claritin reported. Discontinuation of CPAP therapy persists due to aspiratory challenges, yet daytime function remains acceptable. Recent vaccinations are updated and recent COVID-19 infection resulted in mild symptomatic impact. [email or web address] Not available 08/22/2024 08:52:37 Plan of Treatment Reminders Order Date Submit Date Provider Last Modified By Organization Details Last Modified Time Details Appointments RECHECK 2024 08:15A [address] MD Not available Not available Not available Lab None recorded . Referral None recorded . Procedures None recorded . Surgeries None recorded . Imaging None recorded . Medication Orders None recorded . Patient TargetsNo targets recorded. Patient Instructions Encounter Date Encounter Id Patient Instructions Last Modified By Organization Details Last Modified Time 08/22/2024 [id number] - Continue using your Symbicort inhaler as directed twice a day. - Rinse your mouth after using the inhaler. - Use your rescue inhaler only if needed. - Take Claritin in the morning, and Zyrtec in the evening if necessary. - Maintain an active lifestyle within your comfort level. - Seek medical care if you experience difficulty breathing, or increased use of your rescue inhaler. - Keep up with vaccinations as recommended. [email or web address] Not available 08/22/2024 08:42:05 I reviewed with the patient the management of his asthma, emphasizing adherence to the Symbicort regimen and reviewed signs of exacerbation. The conversation included an assessment of current antihistamine regimen effectiveness and the occasional need for Zyrtec. We touched upon the discontinuation of CPAP due to aspiratory difficulties and potential non-CPAP alternatives at future assessments if required. The patient's vaccination status was confirmed, noting his mild COVID-19 infection post-vaccination. We discussed ongoing lifestyle modifications pertinent to his obesity with hypoventilation, and the importance of pacing and physical activity discussed. No immediate procedural interventions were recommended, and the need for follow-up visits was emphasized to monitor ongoing respiratory stability. [email or web address] Not available 08/22/2024 09:00:37 Reason for Referral None Reported. Problems Name Problem SNOMED Code Status Onset Date Resolution Date Notes Provider Name and Address Organization Details Recorded Time Asthma 102122594 Active [address] MD [address] [place] [address], [phone], [facility] 10:36:49 Obstructive sleep apnea syndrome 60365478 Active [address] MD [address] [place] [address], [phone], [facility] 10:38:21 Extreme obesity with alveolar hypoventilatio n 772333549 Active [address] MD [address] [place] [address], [phone], [facility] 10:41:18 Mild intermittent asthma 703371259 Active [address] MD [address] [place] [address], [phone] 1, [facility] 09:01:17 Problem Notes None recorded. Procedures Surgical History Date Name Laterality Status Provider Name and Address Organization Details Recorded Time 07/12/19 Pulmonary Function Testing completed SUSAN STREET MD [address] [place] [address] [place], [phone], [facility] 07/11/2024 12:26:56 07/12/19 25 Airway Resistance completed [facility] Adriana gton [facility] 07/11/2024 09:59:09 07/12/19 25 Diffusion Capacity completed [facility] Abby ngton [facility] 07/11/2024 09:59:02 07/12/19 25 Lung Volumes, Plethysmography completed [facility] 07/11/2024 09:59:04 07/12/19 25 Demonstration Aerosol/Generator/N ebulizer/Optichambe r completed [facility] 07/11/2024 09:59:01 07/12/19 25 Pulmonary Lab Procedure completed [facility] 07/11/2024 09:55:56 07/12/19 25 Spirometry with Bronchodilator completed [facility] 07/11/2024 09:59:00 Imaging Results None recorded. Procedure Notes None recorded. Medical Equipment None Reported. Allergies Allergen ID Allergen Name Allergen Category Reaction Reaction Severity Criticality Documentation Date Start Date Code Code System Note Provider Name and Address Organization Details Recorded Time 961301 lisinopri l medicatio n Not available Not available Not available 02/27/20162013 07558 RxNorm Comme nt: Creat ed By: Ishmael rubio Date: 2013 4:18: 35 PM; Not Available [facility] 6 05:04:00 Medications Name Sig Start Date Stop Date Status Note LastModified by Organization Details LastModified Time Zyrtec 10 mg tablet Take 1 tablet every day by oral route. 2024 active Not Available Not Available Not Avai lable allopurin ol 100 mg tablet Take 1 tablet every day by oral route. active Not Available Not Available No t Available tramadol 50 mg tablet Two times a day 07/11 completed Frequenc y: bid;Medi cation Descript ion: tramadol ; Route:or al; refills: 0 Not Available Not Available Not Available bisoprolo l fumarate 10 mg tablet Daily 07/11 completed Frequenc y: daily;Me dication Descript ion: bisoprol ol; Dosage:1 ; Route:or al; refills: 12; Quantity :30 tablet Not Available Not Available Not Available pravastat in 80 mg tablet Take 1 tablet every day by oral route. active Not Available Not Available No t Available tamsulosi n 0.4 mg capsule Take 1 capsule every day by oral route. active Not Available Not Available No t Available flecainid e 50 mg tablet Two times a day active Frequenc y: bid;Medi cation Descript ion: flecaini de; Dosage:1 ; Route:or al; refills: 0; Quantity :60 tablet Not Available Not Available Not Available metoprolo l succinate ER 25 mg tablet,ex tended release 24 hr Take 1 tablet every day by oral route. active Not Available Not Available No t Available Zantac Maximum Strength 150 mg tablet Daily 07/11 completed Duration : 10 days;Dani quency: daily;Me dication Descript ion: ranitidi ne; Route:or al; refills: 0; Quantity :84 tablet Not Available Not Available Not Available potassium chloride 20 MEQ active Not Available Not Available Not Available Coumadin 07/11 completed Medicati on Descript ion: warfarin ; Dosage:a s directed ; refills: 0 Not Available Not Available Not Available Vitamin D3 Every week 07/11 completed Frequenc y: Every week;Med ication Descript ion: cholecal ciferol; Route:or al; refills: 0 Not Available Not Available Not Available metformin 07/11 completed Medicati on Descript ion: metformi n; Route:or al; refills: 0 Not Available Not Available Not Available Symbicort 160 mcg-4.5 mcg/actua tion HFA aerosol inhaler Inhale 2 puffs twice a day by inhalati on route. 2024 active Not Available Not Available Not Avai lable Healthy Eyes active Not Available Not Available Not Available Eliquis 5 mg tablet Take 1 tablet twice a day by oral route. active Not Available Not Available No t Available Anoro Ellipta 62.5 mcg-25 mcg/actua tion powder for inhalatio n Inhale 1 puff every day by inhalati on route. 08/22 completed Takes as needed- per pt. Not Available Not Available Not Available Jardiance 25 mg tablet Take 1 tablet every day by oral route. active Not Available Not Available No t Available Rybelsus 3 mg tablet Take 1 tablet every day by oral route. active Not Available Not Available No t Available albuterol sulf 90 mcg/actua tion breath activated powder inhaler,s ensor Inhale 2 puffs as needed by inhalati on route. active Not Available Not Available No t Available Vitals Date Recorded Body height Body mass index (BMI) Body weight Oxygen saturation Oxygen saturation in Arterial blood by Pulse oximetry Heart rate Systolic blood pressure Diastolic blood pressure Provider Name and Address Organization Details Last Updated DateTime 5 166.37 cm 45.6 kg/m2 149390. 68 g 95 % 95 % 90 /min 120 mm[Hg] 65 mm[Hg] Estee Jimenez [facility] 5 08:19:58 Social History Question Answer Notes LastModified by Organizat ion Details LastModified Time Tobacco Smoking Status [facility] 08/22/2024 08:17:48 What Is Your Level Of Caffeine Consumption? Occasional [email or web address] Information not available 08/22/2024 When Did You Quit Smoking? 16+yearssincela mer Information not available 08/22/2024 What Was The Date Of Your Most Recent Tobacco Screening? 08/22/2024 [email or web address] Information not available 08/22/2024 Sex: Unknown Functional Status Question Answer Note LastModified by Organization D etails LastModified Time What is your level of alcohol consumption? None [email or web address] Information not available 08/22/2024 Mental Status None recorded. Family History Nothing Reported. Medical History No medical history recorded. Past Encounters Encounter ID Performer Location Encounter Start Date Encounter Closed Date Diagnosis/Indication Diagnosis SNOMED-CT Code Diagnosis ICD10 Code Diagnosis Note [id number] SUSAN ST[address] MD PULMONARY [address] [facility], [address] [place] [address] 08/22/2024 08:01:18 08/22/2024 15:55:50 Obstructive sleep apnea syndrome 19167106 G47.33 He has obstructiv e sleep apnea he has not been compliant with his CPAP due to significan t nasal drainage and difficulty going to sleep. He also reports some aspiration issuesHe denies any pickwickia n symptoms.I have discussed with him the benefits of CPAP machineRea ssessment of non-CPAP alternativ es for symptom relief. Extreme ob esity with alveolar hypoventilation 023127482 E66.2 I think some of his shortness of breath is attributab le to body habitus with physical deconditio hua and functional hypoventil ationHe has a BMI of 46We have discussed lifestyle modificati ons and dietary restrictio ns to achieve weight loss.He tries to be as active as he can be walking his dog .He also goes fishing with his son. Mild inter mittent asthma 151509590 J45.20 He has asthma. PFTs and his clinical symptoms are fairly consistent .1. He had an FEV1 FVC ratio of 75 FEV1 of 70% FVC 71% he had an 11% postbronch odilator improvemen t almost 300 cc. TLC was 79% DLCO could not be obtained. He also had significan t improvemen t in his FEF 25 75 with a 57% improvemen t postbronch odilatorTh ere was a mixed ventilator y defect picture of obstructiv e or restrictiv e airways disease.2. He will continue on Symbicort 160/4.5 mcg 2 puffs inhaled twice daily I have reviewed correct inhaler technique with him again including rinsing his mouth after each use3. He understand s the different utility of the inhaler he rarely has need for the rescue inhaler. He is on as needed albuterol. 4. He had a 6-minute walk in the office with no evidence of desaturati on during a previous visit..5. He has eosinophil ia with an AEC of 400 he is well-contr olled at this time no indication for Biologics6 . He remains on Claritin and Flonase for allergies. 7. Previous x-ray noted with some chronic interstiti al changes we will consider for HRCT in 6 months I will repeat a PFT. We will evaluate for any evidence of worsening restrictio n.8. He is up-to-date with age-approp riate and recommende d vaccines. Health Concerns Section Related Observation LastModified by Organization Laurie moreno LastModified Time None Recorded Concern Status LastModified by Organization Details LastModified Time None Recorded Payers Encounter Date Sequence Insurance Name Policy Number Policy Covered Member ID Member ID Guarantor Name 08/22/2024 1 MEDICARE-[employer] (MEDICARE) Rene Hua [id number] Rene Hua 08/22/2024 2 MEDICAID-[facility] CHOICES - FFS/TRADITIO NAL Rene Hua [id number] Rene Hua Notes Date Note Type Note Provider Name and Address Organization Details Recorded Time 08/22/2024 text/html The patient is a 74-year-old male presenting with follow-up concerns for asthma management and respiratory stability. Asthma has been well-maintained with Symbicort used twice daily, and the need for the rescue inhaler is infrequent, suggesting good control. He adheres to proper inhalation technique, mitigating risks of oral thrush, which he has never experienced. Post-inhalation techniques are observed. He has altered his antihistamine regimen, eliminating Zyrtec and using Claritin with partial relief of drainage symptoms. Occasionally, Zyrtec supplementation is necessary by evening due to symptomatology arising from allergens. Sleep apnea management is impacted by intolerance to CPAP due to aspiration issues, although daytime somnolence is not a concern. Recent vaccinations are updated, and the patient underwent mild symptoms following a recent COVID-19 infection post-vaccination. The patient remains physically active and reports maintaining functional exercise capacity appropriate to his age. SUSAN STREET MD [address] [place] [address], [phone], [facility] 08/22/2024 09:01:34
--- OUTSIDE RECORDS SUMMARY | 2024-09-13 09:18 | XMS_ITS | Clinical Summary ---
Author Organization [facility] Address [address] [place] [address] Phone Care Team Providers Care Section Crews Activities Clerk Name Role Phone Unavailable Unavailable Conditions or Problems No information available. Medications No information available. Medications Administered No information available. Allergies, Adverse Reactions, Alerts No information available. Results No information available. Plan of Care No information available. Procedures No information available. Vital Signs No information available. Immunizations No information available. Advance Directives No information available.
--- OUTSIDE RECORDS SUMMARY | 2024-09-13 09:18 | XMS_ITS | Data Portability ---
Author Organization MICHAEL - Antelope JEM Churchill [facility] CLOSED Address [address] [facility] [address] [place] [address] Assessment Encounter Date Assessment Date Assessment LastModified [...] Not available Not available Not available Lab IgE, quantit ative, serum 2024 [facility]25 [facility], [address] [place] [address], [phone], 07/13/2024 10:19:58 CBC w/ auto diff 2024 025 [email or web address] [facility], [address] [place] [address], [phone], 07/11/2024 12:35:30 Referral None recorde d. Procedures pulse oximetr y with exercis e (PROC) 2024 025 [facility], [address] [place] [address], [address], [place], [address], 07/11/2024 12:35:31 Surgeries None recorde d. Imaging None recorde d. Medication Orders Symbico rt 160 mcg-4.5 mcg/act uation HFA aerosol inhaler 2024 025 [facility], [address] [place] [address] [address] [address], [place], [place], [id number], 09/12/2024 08:27:18 Zyrtec 10 mg tablet 2024 025 [facility], [address] [place] [address] [address] [facility], [place], [place], [phone], 09/12/2024 08:27:19 Patient TargetsNo targets recorded. Patient Instructions Encounter Date Encounter Id Patient Instructions Last Modified By Organization Details Last Modified Time 07/11/2024 [id number] He has a high probability of asthma PFTs and his clinical symptoms are consistent I have switched him to inhaled ICS/LABA he will return to see me 6 weeks or sooner if needed. [email or web address] Not available 07/11/2024 12:35:00 08/22/2024 [id number] - Continue using your Symbicort inhaler as [...] 08/22/2024 09:00:37 Reason for Referral None Reported. Results Created Date Observation Date Name Description Value Unit Range Abnormal Flag Note LastModifiedBy Organization Detail LastModifiedTime 07/12/1907/11/2024 COMPL ETE BLOOD COUNT white blood cells 10.8 10*3/ uL 3.8-10 .8 normal Not Available [facility] [address] [place] [address], [phone], 07/11/2024 11:26:41 07/12/19 25 07/11/2024 COMPL ETE BLOOD COUNT red blood cells 5.39 10*6/ uL 4.20-5 .80 normal Not Available [facility] [address] [place] [address], [phone], 07/11/2024 11:26:41 07/12/19 25 07/11/2024 COMPL ETE BLOOD COUNT hemoglobin 16.2 g/dL 14.0-1 8.0 normal Not Available [facility] [address] [place] [address], [address], 07/11/2024 11:26:41 07/12/19 25 07/11/2024 COMPL ETE BLOOD COUNT hematocrit 50.5 % 40.0-5 2.0 normal Not Available [facility] [address] [place] [address], [address], 07/11/2024 11:26:41 07/12/19 25 07/11/2024 COMPL ETE BLOOD COUNT MCV 94 fL 80-100 normal Not Available [facility] [address] [place] [address], [address], 07/11/2024 11:26:41 07/12/19 25 07/11/2024 COMPL ETE BLOOD COUNT MCH 30 pg 26-35 normal Not Available [facility] [address] [place] [address], [address], 07/11/2024 11:26:41 07/12/19 25 07/11/2024 COMPL ETE BLOOD COUNT MCHC 32 g/dL 32-36 normal Not Available [facility] [address] [place] [address], [address], 07/11/2024 11:26:41 07/12/19 25 07/11/2024 COMPL ETE BLOOD COUNT RDW 14.6 % 11.0-1 5.0 normal Not Available [facility] [address] [place] [address], [address], 07/11/2024 11:26:41 07/12/19 25 07/11/2024 COMPL ETE BLOOD COUNT MPV 8.5 fL 6.2-10 .5 normal Not Available [facility] [address] [place] [address], [address], 07/11/2024 11:26:41 07/12/19 25 07/11/2024 COMPL ETE BLOOD COUNT platelet count 318 10*3/ uL 150-40 0 normal Not Available [facility] [address] [place] [address], [phone], 07/11/2024 11:26:41 07/12/19 25 07/11/2024 COMPL ETE BLOOD COUNT neutrophil,a bsolute 5.3 10*3/ uL 1.6-8. 4 normal Not Available [facility] [address] [place] [address], [phone], 07/11/2024 11:26:41 07/12/19 25 07/11/2024 COMPL ETE BLOOD COUNT lymphocyte,a bsolute 3.8 10*3/ uL 0.4-5. 1 normal Not Available [facility] [address] [place] [address], [phone], 07/11/2024 11:26:41 07/12/19 25 07/11/2024 COMPL ETE BLOOD COUNT monocyte,abs olute 1.3 10*3/ uL 0.0-1. 2 high Not Available [facility] [address] [place] [address], [address], 07/11/2024 11:26:41 07/12/19 25 07/11/2024 COMPL ETE BLOOD COUNT eosinophil,a bsolute 0.4 10*3/ uL 0.0-0. 8 normal Not Available [facility] [address] [place] [address], [phone], 07/11/2024 11:26:41 07/12/19 25 07/11/2024 COMPL ETE BLOOD COUNT basophil,abs olute 0.1 10*3/ uL 0.0-0. 3 normal Not Available [facility] [address] [place] [address], [phone], 07/11/2024 11:26:41 07/12/19 25 07/11/2024 COMPL ETE BLOOD COUNT % neutrophils 48.6 % 42.0-7 8.0 normal Not Available [facility] [address] [place] [address], [address], 07/11/2024 11:26:41 07/12/19 25 07/11/2024 COMPL ETE BLOOD COUNT % lymphocytes 35.5 % 11.0-4 7.0 normal Not Available [facility] [address] [place] [address], [phone], 07/11/2024 11:26:41 07/12/19 25 07/11/2024 COMPL ETE BLOOD COUNT % monocytes 11.8 % 0.0-11 .0 high Not Available [facility] [address] [place] [address], [phone], 07/11/2024 11:26:41 07/12/19 25 07/11/2024 COMPL ETE BLOOD COUNT % eosinophils 3.4 % 0.0-7. 0 normal Not Available [facility] [address] [place] [address], [address], 07/11/2024 11:26:41 07/12/19 25 07/11/2024 COMPL ETE BLOOD COUNT % basophils 0.7 % 0.0-3. 0 normal Not Available [facility] [address] [place] [address], [phone], 07/11/2024 11:26:41 07/12/19 25 07/11/2024 COMPL ETE BLOOD COUNT nucleated red cells 0.1 % 0.0-0. 9 normal Not Available [facility] [address] [place] [address], [phone], 07/11/2024 11:26:41 07/12/19 25 07/11/2024 COMPL ETE BLOOD COUNT nucleated RBCs, absolute 0.01 10*3/ uL not estab. normal Not Available [facility] [address] [place] [address], [address], 07/11/2024 11:26:41 07/12/19 25 07/13/2024 IGE, TOTAL IgE, total 12 kU/L <or=11 4 normal Not Available [facility] [address] [place] [address], [phone], 07/13/2024 10:19:57 07/12/19 25 07/11/2024 XR, chest , [address], [address] [place] [address] Clay loyola Name: SONYA loyola : [birth year] Clay loyola Orderi ng Provid er: INOCENTE PIERSON MERI EXAM DATE: 2024 EXAM: XR CHEST PA/LAT CLINIC AL INFORM ATION: IMAGES PROVID ED: PA and latera l views of the chest. COMPAR BOWEN: None. FINDIN GS: Heart size is within normal limits . Lung [place] are clear. 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 Problems Name Problem SNOMED Code Status Onset Date Resolution Date Notes Provider Name and Address Organization Details Recorded Time Asthma 267335710 Active [address] MD [address] [place] [address], [phone], [facility] 10:36:49 Obstructive sleep apnea syndrome 17149966 Active [address] MD [address] [place] [address], [address], [facility] 10:38:21 Extreme obesity with alveolar hypoventilatio n 052208412 Active [address] MD [address] [place] [address], [address], [facility] 10:41:18 Mild intermittent asthma 405841307 Active [address] MD [address] [place] [address], [address], [facility] 09:01:17 Problem Notes None recorded. Procedures Surgical History Date Name Laterality Status Provider Name and Address Organization Details Recorded Time 07/12/19 Pulmonary Function Testing completed SUSAN STREET MD [address] [place] [address], [phone], [facility] 07/11/2024 12:26:56 07/12/19 Airway Resistance completed [facility] 07/11/2024 09:59:09 07/12/19 25 Diffusion Capacity completed [facility] 07/11/2024 09:59:02 07/12/19 25 Lung Volumes, Plethysmography completed [facility] 07/11/2024 09:59:04 07/12/19 25 Demonstration Aerosol/Generator/N ebulizer/Optichambe r completed [facility] 07/11/2024 09:59:01 07/12/19 25 Pulmonary Lab Procedure completed [facility] 07/11/2024 09:55:56 07/12/19 25 Spirometry with Bronchodilator completed [facility] 07/11/2024 09:59:00 Imaging Results None recorded. Procedure Notes None recorded. Medical Equipment None Reported. Allergies Allergen ID Allergen Name Allergen Category Reaction Reaction Severity Criticality Documentation Date Start Date Code Code System Note Provider Name and Address Organization Details Recorded Time 576962 lisinopri l medicatio n Not available Not available Not available 02/27/20162013 02596 RxNorm Comme nt: Creat ed By: Ishmael brunsonCre ated Date: 2013 4:18: 35 PM; Not Available Pending sale to [facility] 6 05:04:00 Medications Name Sig Start Date [...] No t Available Vitals Date Recorded Body weight Body mass index (BMI) Body height Oxygen saturation Oxygen saturation in Arterial blood by Pulse oximetry Heart rate Systolic blood pressure Diastolic blood pressure Provider Name and Address Organization Details Last Updated DateTime 5 079910. 76 g 43.9 kg/m2 166.37 cm 95 % 95 % 90 /min 126 mm[Hg] 78 mm[Hg] [facility] 09:38:38 Date Recorded Body height Body mass index (BMI) Body weight Oxygen saturation Oxygen saturation in Arterial blood by Pulse oximetry Heart rate Systolic blood pressure Diastolic blood pressure Provider Name and Address Organization Details Last Updated DateTime 166.37 cm 45.6 kg/m2 987569. 68 g 95 % 95 % 90 /min 120 mm[Hg] 65 mm[Hg] Estee Jimenez [facility] 08:19:58 Social History Question Answer Notes LastModified by Organizat ion Details LastModified Time Tobacco Smoking Status [facility] 08/22/2024 08:17:48 What Is Your Level Of Caffeine Consumption? Occasional [email or web address] Information not available 08/22/2024 When Did You Quit Smoking? 14+yearssincela mer [email or web address] Information not available 08/22/2024 What Was The Date Of Your Most Recent Tobacco Screening? 08/22/2024 [email or web address] Information not available 08/22/2024 Sex: Unknown Functional Status Question Answer Note LastModified by Organization D etails LastModified Time What is your level of alcohol consumption? None [email or web address] Information not available 08/22/2024 Mental Status None recorded. Family History Nothing Reported. Medical History No medical history recorded. Past Encounters Encounter ID Performer Location Encounter Start Date Encounter Closed Date Diagnosis/Indication Diagnosis SNOMED-CT Code Diagnosis ICD10 Code Diagnosis Note [id number] SUSAN STREET MD PULMONARY [address] [facility] [place] [address] 07/11/2024 09:20:48 07/11/2024 11:14:[id number] MD PULMONARY [address] [facility] [place] [address] 07/11/2024 09:21:05 07/11/2024 13:36:11 Asthma 590485471 J45.909 He has asthma. PFTs and his clinical symptoms are fairly consistent .1. He has an FEV1 FVC ratio of 75 FEV1 of 70% FVC 71% he had an 11% postbronch odilator improvemen t almost 300 cc. TLC was not 79% DLCO could not be obtained. He also had significan t improvemen t in his FEF 25 75 with a 57% improvemen t postbronch odilatorTh ere is a mixed ventilator y defect picture of obstructiv e or restrictiv e airways disease.2. He is currently taking Anoro Ellipta I will discontinu e this as it does not have an ICS in it3. I will start him on Symbicort 160/4.5 mcg 2 puffs inhaled twice daily I have reviewed correct inhaler technique with him including rinsing his mouth after each use4. He will continue on the as needed albuterol I explained to him the different utility of the inhalers.5 . He had a 6-minute walk in the office with no evidence of desaturati on.6. I will order blood work for type II phenotype. 7. I advised him to avoid the Benadryl due to the sedating effects and recommende d Zyrtec he may also benefit from Flonase.8. Chest x-ray with some chronic interstiti al changes we may consider HRCT of the chest at some point to rule out interstiti al lung disease. Obstructiv e sleep apnea syndrome 48917809 G47.33 He has obstructiv e sleep apnea he has not been compliant with his CPAP due to significan t nasal drainage and difficulty going to sleep.I have discussed with him the benefits of CPAP machine , hopefully once his postnasal drainage improves , Extreme ob esity with alveolar hypoventilation 012355388 E66.2 I think some of his shortness of breath is attributab le to body habitus with physical deconditio hua and functional hypoventil ationWe have discussed lifestyle modificati ons and dietary restrictio ns to achieve weight loss. [id number] SUSAN STREET MD PULMONARY [address] [facility] [place] [address] 08/22/2024 08:01:18 08/22/2024 15:55:50 Obstructive sleep apnea syndrome 78043010 G47.33 He has obstructiv e sleep apnea he has not been compliant with his CPAP due to significan t nasal drainage and difficulty going to sleep. He also reports some aspiration issuesHe denies any pickwickia n symptoms.I have discussed with him the benefits of CPAP machineRea ssessment of non-CPAP alternativ es for symptom relief. Extreme ob esity with alveolar hypoventilation 506229588 E66.2 I think some of his shortness [...] with his son. Mild inter mittent asthma 527373188 J45.20 He has asthma. PFTs and his [...] Concerns Section Related Observation LastModified by Organization Detai ls LastModified Time None Recorded Concern Status LastModified by Organization Details LastModified Time None Recorded Advance Directives Directive None Recorded Payers Insurance Date Sequence Insurance Name Policy Number Policy Covered Member ID Member ID Guarantor Name 08/19/2024 2 MEDICAID-[facility] - FFS/TRADITIO NAL Sonya Hua [id number] Sonya Hua 08/19/2024 1 [place] Sonya Hua [id number] Sonya Hua Notes Date Note Type Note Provider Name and Address Organization Details Recorded Time 07/11/2024 text/html This is a 74-yea r-old male referred to the pulmonary clinic for evaluation of cough. He indicates this has been ongoing for more than a year to 2 years. Cough productive of thick sputum like yellowish he denies any hemoptysis does have occasional wheezing especially at night. He has worsening of the cough once he lays down to sleep he thinks this is due to postnasal drip. He started himself on Benadryl a few days ago with significant improvement in the cough although still present.He had an OK 30 years ago. 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 SUSAN STREET MD [address] [place] [address], [phone], [facility] 07/11/2024 12:40:25 08/22/2024 text/html The patient is a 74-year-old [...] appropriate to his age. SUSAN STREET MD [facility] [place], [address], [facility] 08/22/2024 09:01:34
--- OUTSIDE RECORDS SUMMARY | 2024-09-13 09:19 | XMS_ITS | Clinical Summary ---
Author Organization Healthcare Address [address] [place] [address] Care Team Providers Care Client Services Vice President Name Role Phone Pcp, No Primary Care Provider Unavailabl e Allergies Active Allergy Reactions Criticality Noted Date Comments Hydrochlorothiazide Swelling High 09/12/2023 Lisinopril Swelling High 09/12/2023 Triamterene Swelling High 09/12/2023 Medications allopurinol (Zyloprim) 100 MG tablet Take 1 tablet (100 mg) by mouth 2 (two) times a day. Active apixaban (Eliquis) 5 MG tablet 1 tablet (5 mg). 4 Active bisoprolol (Zebeta) 5 MG tablet Take 0.5 tablets (2.5 mg) by mouth 2 (two) times a day. 4 Active budesonide-form oterol (Symbicort) 160-4.5 MCG/ACT inhaler INHALE 1 PUFF BY MOUTH FOUR TIMES DAILY NEEDED FOR SHORTNESS OF BREATH OR wheezing 4 Active Jardiance 25 MG 5 Active flecainide (Tambocor) 50 MG tablet Take 1 tablet (50 mg) by mouth every 12 (twelve) hours. Active fluticasone (Flonase) 50 MCG/ACT nasal spray INSTILL 2 SPRAYS IN EACH NOSTRIL EVERY DAY 4 Active furosemide (Lasix) 40 MG tablet Take 2 tablets (80 mg) by mouth 1 (one) time each day. Active GNP Easy Touch Glucose Test test strip USE TO check blood sugar FOUR TIMES DAILY 4 Active ipratropium-alb uterol (Duo-Neb) 0.5-2.5 mg/3 mL nebulizer solution 3 mL. 4 Active TRUEplus Lancets 30G misc USE TO CHECK BLOOD SUGAR TWICE DAILY 4 Active metoprolol succinate XL (Toprol-XL) 25 MG 24 hr tablet 5 Active mupirocin (Bactroban) 2 % ointment 5 Active nitroglycerin (Nitrostat) 0.[address] 1 TABLET UNDER TONGUE EVERY 5 MINUTES IF NEEDED FOR CHEST PAIN; MAY REPEAT 2 TIMES; IF NO RELIEF AFTER 3 DOSES CALL 911 OR GO TO ER Active pantoprazole (Protonix) 40 MG EC tablet Take 1 tablet (40 mg) by mouth 1 (one) time each day. Active potassium chloride CR (Klor-Con M20) 20 MEQ ER tablet Take 1 tablet (20 mEq) by mouth 2 (two) times a day. 4 Active pravastatin (Pravachol) 80 MG tablet Take 1 tablet (80 mg) by mouth every night. Active tamsulosin (Flomax) 0.4 MG 24 hr capsule Take 1 capsule (0.4 mg) by mouth 1 (one) time each day. Active traMADol (Ultram) 50 MG tablet Take 1-2 tablets (50-100 mg) by mouth. Active Anoro Ellipta 62.5-25 MCG/ACT aerosol powder aerosol powder INHALE 1 PUFF BY MOUTH EVERY DAY FOR BREATHING Active Multiple Vitamins-Minera ls (PRESERVISION AREDS 2 PO) Take by mouth. Act adrian Active Problems Problem Noted Date Diagnosed Date (HFpEF) heart failure with preserved ejection fr action 04/16/2024 Abnormal ECG 04/16/2024 Abnormal nuclear cardiac imaging test 04/16/2024 Bacterial pneumonia 04/16/2024 CAD (coronary artery disease) 04/16/2024 COPD (chronic obstructive pulmonary disease) Cough 04/16/2024 Diabetes mellitus, type 2 04/16/2024 Exertional dyspnea 04/16/2024 Factor 5 Leiden mutation, heterozygous Head injury 04/16/2024 Hyperglycemia due to type 2 diabetes mellitus Hypertension 04/16/2024 Hypokalemia 04/16/2024 CA, old 04/16/2024 A-fib 04/16/2024 NAHID and COPD overlap syndrome 04/16/2024 Pulmonary embolism 04/16/2024 Rib contusion 04/16/2024 RLL pneumonia 04/16/2024 Bronchitis 04/16/2024 Sepsis 04/16/2024 Shingles 04/16/2024 SIRS (systemic inflammatory response syndrome) 0 04/16/2024 Status post coronary artery stent placement 04/04 Subtherapeutic international normalized ratio (I NR) 04/16/2024 Syncope 04/16/2024 Tachycardia 04/16/2024 Thrombophilia 04/16/2024 Gastric ulcer 07/15/2023 GI bleed 07/15/2023 Melena 07/15/2023 Immunizations Immunization Administration Dates Next Due Rsvpref, Recombinant, Protein Subunit, Adjuvent 03/14/2024 Tdap 09/16/2023,01/06/2012 Family History Medical History Relation Name Comments Brain cancer Brother Blood clots Daughter Lupus Daughter Blood clots Father Diabetes Father Blood clots Maternal Grandmother Blood clots Mother Diabetes Mother Relation Name Status Comments Brother Daughter Alive Father Maternal Grandmother Mother Social History Tobacco Use Types Packs/Day Years Used Date Smoking Tobacco: Former Cigars 1 - 2004 Passive Smoke Exposure: Past Smokeless Tobacco: Never Tobacco Cessation:Counseling Given: Not Answered Sex and Gender Information Value Date Recorded Sex Assigned at Male 04/16/2024 9:49 AM EST Legal Sex Male 8:55 AM EST Gender Identity Not on file Sexual Orientation Not on file Plan of Treatment Health Maintenance Due Date Last Done Comments [facility]-Depression Screening 1950 [facility]-Diabetes: Hemoglobin A1C 1950 [facility]-Hepatitis C Screening 1950 [facility]-Medicare Annual Wellness (AWV) 1950 [facility]-/Child/Adol SDOH Screenings 1948 Diabetes: Dental Exam 1958 [facility]- SDOH Screenings 1966 [facility]-Adult SDOH Screenings 1966 [facility]-Pneumococcal Vaccine: 50+ Years (1 of 2 - PCV) 1967 [facility]-Zoster Vaccines (1 of 2) 1998 ABB-IIABB-50 Vaccine ( season) 2023 07/27/2021, 02/04/2021, 06/11/2020, Additional history exists [facility]-Influenza Vaccine (Season Ended) 2024 [facility]-DTaP,Tdap,and Td Vaccines (3 - Td or Tdap) 09/15/2033 09/16/2023, 01/06/2012 [facility]-RSV Vaccine: 60+ Years or Completed 03/14/2024 HPV Vaccines Aged Out No longer eligi ble based on patient's age to complete this topic [facility]-HIB Vaccines Aged Out No longer e ligible based on patient's age to complete this topic [facility]-Hepatitis A Vaccines Aged Out No longer eligible based on patient's age to complete this topic [facility]-IPV Vaccines Aged Out No longer e ligible based on patient's age to complete this topic [facility]-Rotavirus Vaccines Aged Out No lo nger eligible based on patient's age to complete this topic Insurance MEDICARE [place]ICAID-[place] Care Teams Client Services Vice President Relationship Specialty Start Date End Date Pcp, Clarissa [address] [place] [address] PCP - General Family Medicine 04/16/24
== END 2024-09-05 23:59 ==
LOC: LAB 09-13 09:11
PROVIDERS: PCP Internal Medicine; Visit Provider Internal Medicine
DX: I10 Essential (primary) hypertension (principal); E78.5 Hyperlipidemia, unspecified; E11.42 Type 2 diabetes mellitus with diabetic polyneuropathy
CPT/HCPCS: 80053; 80061; 82043; 82570; 83036; 85025

== ENCOUNTER 2024-09-19 16:20 | Outpatient (CLI) | payer MEDICARE, MEDICAID, SELFPAY ==
[2024-09-19 12:48] LABS: Potassium 4.7 mmoL/L (3.5-5.1)
--- OUTSIDE RECORDS SUMMARY | 2024-09-19 16:22 | XMS_ITS | Clinical Summary ---
Author Organization [facility] Address [address] [facility] [address] [place] [address] Phone Care Team Providers Care Manager Wholesale Name Role Phone Unavailable Unavailable Conditions or Problems No information available. Medications No information available. Medications Administered No information available. Allergies, Adverse Reactions, Alerts No information available. Results No information available. Plan of Care No information available. Procedures No information available. Vital Signs No information available. Immunizations No information available. Advance Directives No information available.
--- OUTSIDE RECORDS SUMMARY | 2024-09-19 16:23 | XMS_ITS | Clinical Summary ---
Author Organization [employer] Address [address] [place] [address] Care Team Providers Care Brim Cutter Name Role Phone Constantine Lincoln MD Primary Care Provider [phone] Allergies No known active allergies Medications flecainide (TAMBOCOR) 50 MG tablet Take 1 tablet (50 mg total) by mouth 2 (two) times daily. Active traMADoL (ULTRAM) 50 mg tablet Take 1-2 tablets (50-100 mg total) by mouth every 6 (six) hours as needed for Pain. Max Daily Amount: 400 mg Active warfarin (COUMADIN, JANTOVEN) 4 MG tablet Take 1 tablet (4 mg total) by mouth daily. Active pravastatin (PRAVACHOL) 80 MG tablet Take 1 tablet (80 mg total) by mouth nightly. Active tamsulosin (FLOMAX) 0.4 mg Cap 24 hr capsule Take 1 capsule (0.4 mg total) by mouth nightly. Active allopurinoL (ZYLOPRIM) 100 MG tablet Take 1 tablet (100 mg total) by mouth 2 (two) times daily. Active metoprolol tartrate (LOPRESSOR) 25 MG tablet Take 1 tablet (25 mg total) by mouth 2 (two) times daily. 60 tablet 07/18/2023 Active furosemide (LASIX) 40 MG tablet Take 1 tablet (40 mg total) by mouth daily. 30 tablet 07/18/2023 Active Active Problems Problem Noted Date Diagnosed Date GI bleed 07/15/2023 Melena 07/15/2023 Gastric ulcer 07/15/2023 Diabetes mellitus COPD (chronic obstructive pulmonary disease) A-fib Bronchitis Hypertension CAD (coronary artery disease) [place], old Family History Medical History Relation Name Comments Stroke Father Aneurysm Mother Stroke Mother Relation Name Status Comments Father Mother Social History Tobacco Use Types Packs/Day Years Used Date Smoking Tobacco: Never Smokeless Tobacco: Never Tobacco Cessation:Counseling Given: Not Answered Alcohol Use Standard Drinks/Week Comments Never 0 (1 standard drink = 0.6 oz pur e alcohol) Utilities Answer Date Recorded In the past 12 months, has t he electric, gas, oil, or water company threatened to shut off services in your home? No 07/15/2023 Interpersonal Safety Answer Date Record ed How often does anyone, jean devine family and friends, physically hurt you? Never 07/15/2023 How often does anyone, jean devine family and friends, insult or talk down to you? Never 07/15/2023 How often does anyone, jean devine family and friends, threaten you with harm? Never 07/15/2023 How often does anyone, jean devine family and friends, scream or curse at you? Never 07/15/2023 Housing Stability Answer Date Recorded What is your living situation today? I have a [facility] place to live 07/15/[address] you li ve. Do you have problems with any of the following? None of the above 07/15/2023 Food Insecurity Answer Date Recorded Within the past 12 months, y ou worried that your food would run out before you got money to buy more. Never true 07/15/2023 Within the past 12 months, t he food you bought just didn't last and you didn't have money to get more. Never true 07/15/2023 Transportation Needs Answer Date Record ed In the past 12 months, has l ack of reliable transportation kept you from medical appointments, meetings, work or from getting things needed for daily living? No 07/15/2023 Financial Resource Strain Answer Date R ecorded How hard is it for you to pa y for the very basics like food, housing, medical care, and heating? Would you say it is: Not hard at all 07/15/2023 Employment Answer Date Recorded Do you want help finding or keeping work or a job? I do not need or want help 07/15/2023 Family and Community Support Answer Dave e Recorded If for any reason you need h elp with day-to-day activities such as bathing, preparing meals, shopping, managing finances, etc., do you get the help you need? I get all the help I need 07/15/2023 Feeling Lonely or Isolated 0 07/14 Educational Attainment Answer Date Adams rded Do you speak a language other than Ukrainian at ho me? No 07/15/2023 Do you want help with school or training? For example, starting or completing job training or getting a high school diploma, GED or equivalent. No 07/15/2023 Physical Activity Answer Date Recorded Number of minutes of exercise per week 40 07/15/2023 Alcohol Use Answer Date Recorded 5 or More Drinks Per Day Past 12 Months 0 02/18/2024 Depression Answer Date Recorded Calculation of above two rows 0 Stress Answer Date Recorded Stress means a situation in which a person feels tense, restless, nervous, or anxious, or is unable to sleep at night because his or her mind is troubled all the time. Do you feel this kind of stress these days? Not at all 07/15/2023 Disabilities Answer Date Recorded Because of a physical, menta l, or emotional condition, do you have serious difficulty concentrating, remembering, or making decisions? (5 years or older) No 07/15/2023 Because of a physical, menta l, or emotional condition, do you have difficulty doing errands alone such as visiting a doctor's office or shopping? (15 years or older) No 07/15/2023 Substance Use Answer Date Recorded How many times in the past y ear have you used prescription drugs for non-medical reasons? Never 07/15/2023 How many times in the past year have you used [place] legal drugs? Never 07/15/2023 Sex and Gender Information Value Date Recorded Sex Assigned at Not on file Legal Sex Male 6:27 PM CDT Gender Identity Not on file Sexual Orientation Not on file Last Filed Vital Signs Vital Sign Reading Time Taken Comments Blood Pressure 110/57 07/18/2023 10:23 AM EDT Pulse 89 07/18/2023 10:23 AM EDT Temperature 36 C (96.8 F) 07/18/2023 10:23 AM EDT Respiratory Rate 16 07/18/2023 10:2 3 AM EDT Oxygen Saturation 96% 07/18/2023 10: 23 AM EDT Inhaled Oxygen Concentration - - Weight 127.1 kg (280 lb 1.6 oz) 07/15/2023 5:26 AM EDT Height 170.2 cm (5' 7 ) 07/15/2023 5:26 AM EDT Body Mass Index 43.87 07/15/2023 5:26 AM EDT Plan of Treatment Health Maintenance Due Date Last Done Comments Diabetic Kidney Health Evalu ation (KED) 1948 Diabetic Eye Exam 1958 Diabetic foot exam 1958 Depression Screening (12+) 1960 Hepatitis C Screening 1966 Pneumococcal 50+ years (1 of 2 - PCV) 1967 Shingles Vaccine (Zoster) (1 of 2) 1998 Medicare Initial AWV [id number] 05/06/2014 DTAP/TDAP/TD VACCINES (2 - T d or Tdap) 01/05/2022 01/06/2012 Respiratory Syncytial Virus (RSV) Adult or (1 - 1-dose 75+ series) 2023 COVID-19 VACCINE ( - 2023-2 5 season) 2023 07/27/2021, 02/04/2021, 06/11/2020, Additional history exists Hemoglobin A1C 01/14/2024 07/15/2023 Falls Risk Screening 04/04/2024 Tobacco Cessation Counseling and Screening (12+) 07/17/2024 07/18/2023 Influenza Vaccine (Season Ended) 2024 Procedures Procedure Name Priority Date/Time Associated Diagnosis Comments HEMOGLOBIN A1C Routine 07/15/2023 7:49 AM EDT from Last 3 Months or Most Recently Relevant to Health Maintenance Results * Hemoglobin A1c (07/15/2023 7:49 AM EDT) Hemoglobin A1C 7.1 % 07/15/2023 11:26 AM EDT [facility] Comment: Hemoglobin A1C levels are related to mean glucose during the preceding 2-3 months. Less than 7% demonstrates glycemic control in diabetic patients. Hemoglobin AlC % Suggested Diagnosis > or = 6.5 Diabetic 5.7 - 6.4 Prediabetic <5.7 Non-diabetic eAVG Glucose 157.07 mg/dL 07/15/2023 11:26 AM EDT [facility] Blood Venipuncture / Unknown 07/15/2023 7:49 AM EDT 07/15/2023 8:38 AM EDT us Amadou Bin DO LAB BLOOD ORDERABLES Final Res ult [facility] [address] [id number] [phone] from Last 3 Months or Most Recently Relevant to Health Maintenance Insurance MEDICARE PART A B MEDICAID [place] Advance Directives For more information, please contact: [phone] * Full Code (Latest Code Status on File) Date Activated Date Inactivated Comments 07/15/2023 4:21 AM 07/18/2023 6:52 PM -Attempt Res uscitation if person has no pulse and is not breathing. -If no pulse or not breathing attempt CPR/CODE. -Call Rapid Response if patient is in distress. Care Teams Brim Cutter Relationship Specialty Start Date End Date Constantine Lincoln MD [address] [place] [address] PCP - General General Internal Medicine 07/15/23
--- OUTSIDE RECORDS SUMMARY | 2024-09-19 16:23 | XMS_ITS | Clinical Summary ---
Author Organization Healthcare Address [address] [place] [address] Care Team Providers Care Case Preparer And Liner Name Role Phone Pcp, No Primary Care [...] 2 diabetes mellitus Hypertension 04/16/2024 Hypokalemia 04/16/2024 NH, old 04/16/2024 A-fib 04/16/2024 NAHID and COPD [...] Health Maintenance Due Date Last Done Comments [facility]-Depression Screening 1950 [facility]-Diabetes: Hemoglobin A1C 1948 [facility]-Hepatitis C Screening 1950 [facility]-Medicare Annual Wellness (AWV) 1948 [facility]-/Child/Adol SDOH Screenings 1948 Diabetes: Dental Exam 1958 [facility]- SDOH Screenings 1966 [facility]-Adult SDOH Screenings 1966 [facility]-Pneumococcal Vaccine: 50+ Years (1 of 2 - PCV) 1967 [facility]-Zoster Vaccines (1 of 2) 1998 [facility]-ALBRX-42 Vaccine ( season) 2023 07/27/2021, 02/04/2021, 06/11/2020, [...] this topic Insurance MEDICARE [place] Care Teams Case Preparer And Liner Relationship Specialty Start Date End Date Pcp, Clarissa [address] [place] [address] PCP - General Family Medicine 04/16/24
--- OUTSIDE RECORDS SUMMARY | 2024-09-19 16:23 | XMS_ITS | Encounter Summary ---
Author Organization [employer] Address [address] [place] [address] Care Team Providers Care Internet Manager Name Role Phone Constantine Lincoln MD Primary Care Provider [phone] Encounter Details Date Type Department Care Team (Late st Contact Info) Description 09/19/2023 Hospital Encounter [facility] Endoscopy [address] [place] [address] Cristal Trevino MD [address] [facility] [address] [place] [address] Social History Tobacco Use Types Packs/Day Years Used Date Smoking Tobacco: Never Smokeless Tobacco: Never Alcohol Use Standard Drinks/Week Comments Never 0 [...] your living situation today? I have a [facility] place to live 07/15/2023 Think [...] Do you speak a language other than [place] Citizen at ho sc? No 07/15/2023 Do you want help with [...] on file Sexual Orientation Not on file documented as of this encounter H&P Notes * Karen Infante PA-C - 09/13/2023 11:47 AM EDT Patient did not show! HPI History Of Present Illness Patient is here today for follow up EGD for gastric ulcer. Denies dysphagia, melena, hematemesis, BRBPR, weight loss. No known family history of GI disease or malignancy. Coumadin Denies use of aspirin, NSAIDs. Previous EGD: 07/18/[address] Barnes- Hiatal hernia (small, sliding) Altered gastric mucosa (proximal body, snake skin appearance, ?PHG); biopsied Gastric ulcer (5mm, clean based, lesser curve of antrum) Normal otherwise DIAGNOSIS: GASTRIC BIOPSY: Moderate chronic gastritis No H. pylori identified (negative IHC stain, adequate control) Negative for metaplasia, dysplasia or malignancy Current GI Meds: Past Medical History Past Medical History: Diagnosis Date ??? A-fib (HCC) ??? Bronchitis ??? COPD (chronic obstructive pulmonary disease) (HCC) ??? Diabetes mellitus (HCC) ??? Hypertension Surgical History Past Surgical History: Procedure Laterality Date ??? ABDOMINAL SURGERY ??? UPPER ENDOSCOPY,BIOPSY 07/18/2023 Procedure: ENDOSCOPY, UPPER GI TRACT, WITH BIOPSY; Surgeon: Costa Barnes MD; Location: [facility]; Service: Gastroenterology;; Social History Social History Tobacco Use ??? Smoking status: Never ??? Smokeless tobacco: Never Substance Use Topics ??? Alcohol use: Never ??? Drug use: Never Family History Family History Problem Relation Age of Onset ??? Stroke Mother ??? Aneurysm Mother ??? Stroke Father Allergies No Known Allergies Medications No current facility-administered medications for this encounter. Current Outpatient Medications: ??? allopurinoL (ZYLOPRIM) 100 MG tablet, Take 1 tablet (100 mg total) by mouth 2 (two) times daily., Disp: , Rfl: ??? flecainide (TAMBOCOR) 50 MG tablet, Take 1 tablet (50 mg total) by mouth 2 (two) times daily., Disp: , Rfl: ??? furosemide (LASIX) 40 MG tablet, Take 1 tablet (40 mg total) by mouth daily., Disp: 30 tablet, Rfl: 0 ??? metoprolol tartrate (LOPRESSOR) 25 MG tablet, Take 1 tablet (25 mg total) by mouth 2 (two) times daily., Disp: 60 tablet, Rfl: 0 ??? pravastatin (PRAVACHOL) 80 MG tablet, Take 1 tablet (80 mg total) by mouth nightly., Disp: , Rfl: ??? tamsulosin (FLOMAX) 0.4 mg Cap 24 hr capsule, Take 1 capsule (0.4 mg total) by mouth nightly., Disp: , Rfl: ??? traMADoL (ULTRAM) 50 mg tablet, Take 1-2 tablets (50-100 mg total) by mouth every 6 (six) hoursas needed for Pain. Max Daily Amount: 400 mg, Disp: , Rfl: ??? warfarin (COUMADIN, JANTOVEN) 4 MG tablet, Take 1 tablet (4 mg total) by mouth daily., Disp: , Rfl: Review of Systems Review of Systems All other systems reviewed and are negative. VITALS No data recorded Physical Exam Physical Exam Vitals reviewed. Constitutional: Appearance: Normal appearance. HENT: Head: Normocephalic and atraumatic. Mouth/Throat: Mouth: Mucous membranes are moist. Eyes: Extraocular Movements: Extraocular movements intact. Pupils: Pupils are equal, round, and reactive to light. Cardiovascular: Rate and Rhythm: Normal rate and regular rhythm. Heart sounds: Normal heart sounds. Pulmonary: Effort: Pulmonary effort is normal. Breath sounds: Normal breath sounds. Abdominal: General: Abdomen is flat. Bowel sounds are normal. Palpations: Abdomen is soft. Tenderness: There is no abdominal tenderness. Musculoskeletal: General: Normal range of motion. Cervical back: Normal range of motion and neck supple. Skin: General: Skin is warm and dry. Neurological: Mental Status: He is alert and oriented to person, place, and time. Psychiatric: Mood and Affect: Mood normal. Behavior: Behavior normal. Assessment & Plan Follow up EGD for gastric ulcer. Proceed with EGD for further evaluation. Risks including that of bleeding and perforation have been discussed with the patient who verbalizes understanding and agreesto proceed. Further recommendations will be based on the above findings. Electronically signed by: Melissa Guillen PA-C, 11:48 AM 09/13/23 Cosigned by Cristal Trevino MD at 09/19/2023 2:38 PM EDT documented in this encounter Plan of Treatment Not on file documented as of this encounter Visit Diagnoses Diagnosis Gastric ulcer- Primary Gastric ulcer, unspecified as acute or chronic, without mention of hemorrhage, perforation, or obstruction documented in this encounter Admitting Diagnoses Diagnosis Gastric ulcer Gastric ulcer, unspecified as acute or chronic, without mention of hemorrhage, perforation, or obstruction documented in this encounter Care Teams Internet Manager Relationship Specialty Start Date End Date Constantine Lincoln MD [address] [place] [address] PCP - General General Internal Medicine 07/15/23 documented as of this encounter
--- OUTSIDE RECORDS SUMMARY | 2024-09-19 16:23 | XMS_ITS | Continuity of Care Document ---
Author Organization MD - [facility], PULMONARY Address [address] [address] Assessment Encounter Date Assessment Date Assessment LastModified [...] By Organization Details Last Modified Time 08/22/2024 [id number] - Continue using your Symbicort inhaler as [...] and Address Organization Details Recorded Time Asthma 654486092 Active [address] MD [address] [place] [address], [phone], [facility] 10:36:49 Obstructive sleep apnea syndrome 10317429 Active [address] MD [address] [place] [address], [phone], [facility] 10:38:21 Extreme obesity with alveolar hypoventilatio n 147545275 Active [address] MD [address] [place] [address], [phone], [facility] 10:41:18 Mild intermittent asthma 570894993 Active [address] MD [address] [place] [address], [phone], [facility] 09:01:17 Problem Notes None recorded. Procedures Surgical History Date Name Laterality Status Provider Name and Address Organization Details Recorded Time 07/12/19 Pulmonary Function Testing completed SUSAN STREET MD [address] [place] [address] [place], [address], [facility] 07/11/2024 12:26:56 07/12/19 25 Airway Resistance completed [facility] Adriana gton [facility] 07/11/2024 09:59:09 07/12/19 25 Diffusion Capacity completed [facility] Abby ngton [facility] 07/11/2024 09:59:02 07/12/19 25 Lung Volumes, Plethysmography completed [facility] 07/11/2024 09:59:04 07/12/19 25 Demonstration Aerosol/Generator/N ebulizer/Optichambe r completed [facility] 07/11/2024 09:59:01 07/12/19 25 Pulmonary Lab Procedure completed [facility] 07/11/2024 09:55:56 07/12/19 25 Spirometry with Bronchodilator completed [facility] 07/11/2024 09:59:00 Imaging Results None recorded. Procedure Notes None recorded. Medical Equipment None Reported. Allergies Allergen ID Allergen Name Allergen Category Reaction Reaction Severity Criticality Documentation Date Start Date Code Code System Note Provider Name and Address Organization Details Recorded Time [id number] lisinopri l medicatio n Not available Not available Not available 02/27/20162013 88493 RxNorm Comme nt: Creat ed By: Ishmael rubio Date: 2013 4:18: 35 PM; Not Available [facility] 6 05:04:00 Medications Name Sig Start [...] Updated DateTime 5 166.37 cm 45.6 kg/m2 916131. 68 g 95 % 95 % 90 /min 120 mm[Hg] 65 mm[Hg] Estee Jimenez [facility] 5 08:19:58 Social History Question Answer Notes LastModified by Organizat ion Details LastModified Time Tobacco Smoking Status [facility] 08/22/2024 08:17:48 What Is Your Level Of Caffeine Consumption? Occasional [email or web address] Information not available 08/22/2024 When Did You Quit Smoking? 14+yearssincela mer [email or web address] Information not available 08/22/2024 What Was The Date Of Your Most Recent Tobacco Screening? 08/22/2024 [email or web address] Information not available 08/22/2024 Sex: Unknown Functional Status Question Answer Note LastModified by Organization D etails LastModified Time What is your level of alcohol consumption? None [email or web address] Information not available 08/22/2024 Mental Status None recorded. Family History Nothing Reported. Medical History No medical history recorded. Past Encounters Encounter ID Performer Location Encounter Start Date Encounter Closed Date Diagnosis/Indication Diagnosis SNOMED-CT Code Diagnosis ICD10 Code Diagnosis Note [id number] SUSAN [address] MD PULMONARY [address] [facility] [place] [address] 08/22/2024 08:01:18 08/22/2024 15:55:50 Obstructive sleep apnea syndrome 99363252 G47.33 He has obstructiv e sleep apnea he has not been compliant with his CPAP due to significan t nasal drainage and difficulty going to sleep. He also reports some aspiration issuesHe denies any pickwickia n symptoms.I have discussed with him the benefits of CPAP machineRea ssessment of non-CPAP alternativ es for symptom relief. Extreme ob esity with alveolar hypoventilation 672236941 E66.2 I think some of his shortness of breath is attributab le to body habitus with physical deconditio hua and functional hypoventil ationMarlon has a BMI of 46We have discussed lifestyle modificati ons and dietary restrictio ns to achieve weight loss.He tries to be as active as he can be walking his dog .He also goes fishing with his son. Mild inter mittent asthma 336795388 J45.20 He has asthma. PFTs and his [...] Member ID Member ID Guarantor Name 08/22/2024 2 [place] [employer] - FFS/TRADITIO NAL Rene Hua [id number] Rene Hua 08/22/2024 1 MEDICARE-[place] (MEDICARE) Rene Hua [id number] Rene Hau Notes Date Note Type Note Provider Name [...] appropriate to his age. SUSAN STREET MD [address] [place] [address], [phone], [facility] 08/22/2024 09:01:34
--- OUTSIDE RECORDS SUMMARY | 2024-09-19 16:23 | XMS_ITS | Referral Summary ---
Author Organization [email or web address] Address [address] [place] [address] Care Team Providers Care Opinion Polls Survey Worker Name Role Phone Constantine Lincoln MD Primary Care Provider [phone] Allergies No known active allergies Medications flecainide [...] A-fib Bronchitis Hypertension CAD (coronary artery disease) [place], [place] Social History Tobacco Use Types Packs/Day Years [...] your living situation today? I have a [facility] place to live 07/15/2023 Think about the [...] Do you speak a language other than Zambian at ho me? No 07/15/2023 Do you [...] 07/15/2023 5:26 AM EDT Plan of Treatment Not on file Procedures Procedure Name Priority Date/Time Associated Diagnosis Comments HEMOGLOBIN A1C Routine 07/15/2023 7:49 AM EDT from Last 3 Months or Most Recently Relevant to Health Maintenance Results * Hemoglobin A1c (07/15/2023 7:49 AM EDT) Hemoglobin A1C 7.1 % 07/15/2023 11:26 AM EDT [facility] Comment: Hemoglobin A1C levels are related to mean glucose during the preceding 2-3 months. Less than 7% demonstrates glycemic control in diabetic patients. Hemoglobin AlC % Suggested Diagnosis > or = 6.5 Diabetic 5.7 - 6.4 Prediabetic <5.7 Non-diabetic eAVG Glucose 157.07 mg/dL 07/15/2023 11:26 AM EDT [facility] Blood Venipuncture / Unknown 07/15/2023 7:49 AM EDT 07/15/2023 8:38 AM EDT us Amadou Steward DO LAB BLOOD ORDERABLES Final Res ult [facility] [address] [phone] from Last 3 Months or Most Recently Relevant to Health Maintenance Insurance MEDICARE PART A B MEDICAID [place] Advance Directives For more information, please contact: [phone] * Full Code (Latest Code Status on File) Date Activated Date Inactivated Comments 07/15/2023 4:21 AM 07/18/2023 6:52 PM -Attempt Res uscitation if person has no pulse and is not breathing. -If no pulse or not breathing attempt CPR/CODE. -Call Rapid Response if patient is in distress. Care Teams Opinion Polls Survey Worker Relationship Specialty Start Date End Date Constantine Lincoln MD [address] [place] [id number] PCP - General General Internal Medicine 07/15/23
== END 2024-09-19 23:59 | disposition home or self-care (01) ==
LOC: LAB.DROPOF 16:20
PROVIDERS: PCP Internal Medicine; Visit Provider Internal Medicine
DX: E87.5 Hyperkalemia (principal)
CPT/HCPCS: 84132

== ENCOUNTER 2025-02-07 23:42 | Observation (INO) | payer MEDICARE, MEDICAID, SELFPAY ==
[2025-02-07 23:52] VITALS: BP 148/78; PULSE 109; RESP 16; TEMP 36.8; O2SAT 95; BMI 42.4
--- OUTSIDE RECORDS SUMMARY | 2025-02-07 23:52 | XMS_ITS | Clinical Summary ---
Author Organization [facility] Address [address] [facility] [address] [place] [address] Phone Care Team Providers Care Catering Operations Manager Name Role Phone Unavailable Unavailable Conditions or Problems No information available. Medications No information available. Medications Administered No information available. Allergies, Adverse Reactions, Alerts No information available. Results No information available. Plan of Care No information available. Procedures No information available. Vital Signs No information available. Immunizations No information available. Advance Directives No information available.
--- OUTSIDE RECORDS SUMMARY | 2025-02-07 23:52 | XMS_ITS | Clinical Summary ---
[facility] Address [address] [place] [address] Care Team Providers Care Wheel Braider Name Role Phone Unavailable Primary Care Provider Unavailabl e Social History Tobacco Use Types Packs/Day Years Used Date Smoking Tobacco: Never Assessed Abuse Screen Answer Date Recorded Unsafe at Home or Work/School Not on file Feels Threatened by Someone? Not on file 11/2023 Does Anyone Keep You from Co ntacting Others or Doint Things Outside the Home? Not on file 08/10/2023 Physical Sign of Abuse Present Not on file 0 08/10/2023 Housing Stability Answer Date Recorded Current Living Arrangements Not on file 11/2023 Potentially Unsafe Housing Conditions Not on mariah e 08/10/2023 Family and Community Support Answer Dave e Recorded Help with Day-to-Day Activities Not on file 08/10/2023 Lonely or Isolated Not on file 08/10/2023 Employment Answer Date Recorded Do you want help finding or keeping work or a landon b? Not on file 08/10/2023 Disabilities Answer Date Recorded Concentrating, Remembering, or Making Decisions Difficulty Not on file 08/10/2023 Doing Errands Independently Difficulty Not on fi le 08/10/2023 Education Answer Date Recorded Help with school or training? Not on file Preferred Language Not on file 08/10/2023 Sex and Gender Information Value Date Recorded Sex Assigned at Not on file Legal Sex Male 11:09 AM EDT Gender Identity Not on file Sexual Orientation Not on file Plan of Treatment Health Maintenance Due Date Last Done Comments TDAP/TD VACCINES (1 - Tdap) 1967 Pneumococcal Vaccine 50+ (1 of 1 - PCV) 1998 ZOSTER VACCINE (1 of 2) 1998 RSV Vaccine - Adults (1 - 1-dose 75+ series) 4 ANNUAL PHYSICAL 08/11/2023 HEPATITIS C SCREENING 08/11/2023 INFLUENZA VACCINE 11/02/2024 COVID-19 Vaccine ( season) 2024
--- OUTSIDE RECORDS SUMMARY | 2025-02-07 23:52 | XMS_ITS | Clinical Summary ---
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 Pulmonary embolism 04/16/2024 Rib contusion 04/16/2024 Shingles 04/16/2024 SIRS (systemic inflammatory response syndrome) 0 04/16/2024 Status post coronary artery stent placement 04/04 Subtherapeutic international normalized ratio (I NR) 04/16/2024 Syncope 04/16/2024 Tachycardia 04/16/2024 Thrombophilia 04/16/2024 Gastric ulcer 07/15/2023 GI bleed 07/15/2023 Melena 07/15/2023 Resolved Problems Problem Noted Date Diagnosed Date Resolved Date RLL pneumonia 04/16/2024 12/23/2024 Bronchitis 04/16/2024 12/23/2024 Sepsis 04/16/2024 12/23/2024 Immunizations Immunization Administration Dates Next Due Rsvpref, [...] Years Used Date Smoking Tobacco: Former Cigars - 2004 Passive Smoke Exposure: Past Smokeless Tobacco: Never Tobacco Cessation:Counseling Given: Not Answered Sex and Gender Information Value Date Recorded Sex Assigned at Male 04/16/2024 9:49 AM EST Legal Sex Male 8:55 AM EST Gender Identity Not on file Sexual Orientation Not on file Plan of Treatment Health Maintenance Due Date Last Done Comments [facility]-Depression Screening 1950 [facility]-Diabetes: Hemoglobin A1C 1950 [facility]-Hepatitis C Screening 1950 [facility]-Medicare Annual Wellness (AWV) 1950 [facility]-Infant/Child/Adol SDOH Screenings 1950 Diabetes: Dental Exam 1958 [facility]- SDOH Screenings 1966 [facility]-Adult SDOH Screenings 1966 [facility]-Pneumococcal Vaccine: 50+ Years (1 of 2 - PCV) 1967 [facility]-Zoster Vaccines (1 of 2) 1998 CGF-ULGEZ-10 Vaccine ( - 2025-26 season) 2024 07/27/2021, 02/04/2021, 06/11/2020, Additional history exists [facility]-Influenza Vaccine (#1) 2024 [facility]-DTaP,Tdap,and Td Vaccines (3 - Td [...] age to complete this topic Insurance [place] Care Teams Boiler Attendant Relationship Specialty Start Date End Date Pcp, Clarissa [address] [place] [address] PCP - General Family Medicine 04/16/24
--- OUTSIDE RECORDS SUMMARY | 2025-02-07 23:53 | XMS_ITS | Encounter Summary ---
Author Organization [employer] ([place], [place], [place], [place], [place]) Address [address] [place] [address] Care Team Providers Care Behaviour Support Teacher Name Role Phone Constantine Lincoln MD Primary Care Provider [phone] Encounter Details Date Type Department Care Team (Late st Contact Info) Description 09/19/2023 Hospital Encounter [facility] Endoscopy [address] [place] [address] Cristal Tervino MD [address] [facility] [address] [place] [address] Social History Tobacco Use Types Packs/Day Years Used Date Smoking Tobacco: Never Smokeless Tobacco: Never Alcohol Use Standard Drinks/Week Comments Never 0 (1 standard drink = 0.6 oz pur e alcohol) Utilities Answer Date Recorded In the past 12 months, has t he electric, gas, oil, or water company threatened to shut off services in your home? No 07/15/2023 Food Insecurity Answer Date Recorded Within [...] Do you speak a language other than Portuguese at [facility]? No 07/15/2023 Do you want help with school or training? For example, starting or completing job training or getting a high school diploma, GED or equivalent. No 07/15/2023 Physical Activity Answer Date Recorded Number of minutes of exercise per week 40 07/15/2023 Substance Use Answer Date Recorded How [...] WITH BIOPSY; Surgeon: Costa Barnes MD; Location: [facility]; Service: Gastroenterology;; Social History Social History Tobacco [...] obstruction documented in this encounter Care Teams Behaviour Support Teacher Relationship Specialty Start Date End Date Constantine Lincoln MD [address] [place] [address] [place] [address] PCP - General General Internal Medicine 07/15/23 documented as of this encounter
--- OUTSIDE RECORDS SUMMARY | 2025-02-07 23:53 | XMS_ITS | Data Portability ---
Author Organization [place] - [facility] Address [address] [facility] [address] [place] [address] Assessment Encounter Date Assessment Date Assessment LastModified [...] Lab IgE, quantit ative, serum 2024 025 [facility], [address] [place] [address], [phone], 07/13/2024 10:19:58 CBC w/ auto diff 2024 025 amedaise [facility], [address] [place] [address], [phone], 07/11/2024 12:35:30 Referral None recorde d. Procedures pulse oximetr y with exercis e (PROC) 2024 025 [facility], [address] [facility], [place], [address], 07/11/2024 12:35:31 Surgeries None recorde d. Imaging None recorde d. Medication Orders Symbico rt 160 mcg-4.5 mcg/act uation HFA aerosol inhaler 2024 025 [facility], [address] [place] [address] [address] [address], [place], [place], [phone], 09/13/2024 17:30:10 Zyrtec 10 mg tablet 2024 025 [facility], [address] [place] [address] [address] [facility], [place], [place], [phone], 10/12/2024 15:25:17 Patient TargetsNo targets recorded. Patient Instructions Encounter Date Encounter Id Patient Instructions Last Modified By Organization Details Last Modified Time 07/11/2024 [id number] He has a high probability of asthma PFTs and his clinical symptoms are consistent I have switched him to inhaled ICS/LABA he will return to see me 6 weeks or sooner if needed. [email or web address] Not available 07/11/2024 12:35:00 08/22/2024 [id number] - Continue using your Symbicort inhaler as [...] 10*3/ uL 3.8-10 .8 normal Not Available [facility] [address] [place] [address], [phone], 07/11/2024 11:26:41 07/12/19 25 07/11/2024 COMPL ETE BLOOD COUNT red blood cells 5.39 10*6/ uL 4.20-5 .80 normal Not Available [facility] [address] [place] [address], [phone], 07/11/2024 11:26:41 07/12/19 25 07/11/2024 COMPL ETE BLOOD COUNT hemoglobin 16.2 g/dL 14.0-1 8.0 normal Not Available [facility] [address] [place] [address], [address], 07/11/2024 11:26:41 07/12/19 25 07/11/2024 COMPL ETE BLOOD COUNT hematocrit 50.5 % 40.0-5 2.0 normal Not Available [facility] [address] [place] [address], [address], 07/11/2024 11:26:41 07/12/19 25 07/11/2024 COMPL ETE BLOOD COUNT MCV 94 fL 80-100 normal Not Available [facility] [address] [place] [address], [phone], 07/11/2024 11:26:41 07/12/19 25 07/11/2024 COMPL ETE BLOOD COUNT MCH 30 pg 26-35 normal Not Available [facility] [address] [place] [address], [address], 07/11/2024 11:26:41 07/12/19 25 07/11/2024 COMPL ETE BLOOD COUNT MCHC 32 g/dL 32-36 normal Not Available [facility] [address] [place] [address], [phone], 07/11/2024 11:26:41 07/12/19 25 07/11/2024 COMPL ETE BLOOD COUNT RDW 14.6 % 11.0-1 5.0 normal Not Available [facility] [address] [place] [address], [phone], 07/11/2024 11:26:41 07/12/19 25 07/11/2024 COMPL ETE BLOOD COUNT MPV 8.5 fL 6.2-10 .5 normal Not Available [facility] [address] [place] [address], [address], 07/11/2024 11:26:41 07/12/19 25 07/11/2024 COMPL ETE BLOOD COUNT platelet count 318 10*3/ uL 150-40 0 normal Not Available [facility] [address] [place] [address], [address], 07/11/2024 11:26:41 07/12/19 25 07/11/2024 COMPL ETE BLOOD COUNT neutrophil,a bsolute 5.3 10*3/ uL 1.6-8. 4 normal Not Available [facility] [address] [place] [address], [address], 07/11/2024 11:26:41 07/12/19 25 07/11/2024 COMPL ETE BLOOD COUNT lymphocyte,a bsolute 3.8 10*3/ uL 0.4-5. 1 normal Not Available [facility] [address] [place] [address], [address], 07/11/2024 11:26:41 07/12/19 25 07/11/2024 COMPL ETE BLOOD COUNT monocyte,abs olute 1.3 10*3/ uL 0.0-1. 2 high Not Available [facility] [address] [place] [address], [address], 07/11/2024 11:26:41 07/12/19 25 07/11/2024 COMPL ETE BLOOD COUNT eosinophil,a bsolute 0.4 10*3/ uL 0.0-0. 8 normal Not Available [facility] [address] [place] [address], [address], 07/11/2024 11:26:41 07/12/19 25 07/11/2024 COMPL ETE BLOOD COUNT basophil,abs olute 0.1 10*3/ uL 0.0-0. 3 normal Not Available [facility] [address] [place] [address], [address], 07/11/2024 11:26:41 07/12/19 25 07/11/2024 COMPL ETE BLOOD COUNT % neutrophils 48.6 % 42.0-7 8.0 normal Not Available [facility] [address] [place] [address], [address], 07/11/2024 11:26:41 07/12/19 25 07/11/2024 COMPL ETE BLOOD COUNT % lymphocytes 35.5 % 11.0-4 7.0 normal Not Available [facility] [address] [place] [address], [address], 07/11/2024 11:26:41 07/12/19 25 07/11/2024 COMPL ETE BLOOD COUNT % monocytes 11.8 % 0.0-11 .0 high Not Available [facility] [address] [place] [address], [address], 07/11/2024 11:26:41 07/12/19 25 07/11/2024 COMPL ETE BLOOD COUNT % eosinophils 3.4 % 0.0-7. 0 normal Not Available [facility] [address] [place] [address], [address], 07/11/2024 11:26:41 07/12/19 25 07/11/2024 COMPL ETE BLOOD COUNT % basophils 0.7 % 0.0-3. 0 normal Not Available [facility] [address] [place] [address], [address], 07/11/2024 11:26:41 07/12/19 25 07/11/2024 COMPL ETE BLOOD COUNT nucleated red cells 0.1 % 0.0-0. 9 normal Not Available [facility] [address] [place] [address], [phone], 07/11/2024 11:26:41 07/12/19 25 07/11/2024 COMPL ETE BLOOD COUNT nucleated RBCs, absolute 0.01 10*3/ uL not estab. normal Not Available [facility] [address] [place] [address], [phone], 07/11/2024 11:26:41 07/12/19 25 07/13/2024 IGE, TOTAL IgE, total 12 kU/L <or=11 4 normal Not Available [facility] [address] [place] [address], [address], 07/13/2024 10:19:57 07/12/19 25 07/11/2024 XR, chest , [address], [address] [place] [address] Clay loyola Name: SONYA loyola : [birth year] Clay loyola Orderi ng Provid er: INOCENTE BASSETT MEDDANIA MERI EXAM DATE: 2024 EXAM: XR CHEST [...] Justice MD on 07/12/19 10:23 AM [email or web address] [facility] [address] [place], [address], 07/11/2024 10:37:51 07/17/19 pre/p ost bronc hodil ator ghulam metry * [employer] Cough/ CXR/SP IRO cseese [facility] [employer] [address] [place], [address], 07/19/2024 11:09:56 Result Notes Documentation Provider Name and Address Organization Details Recorded Time Xr, Chest, 2 View : [facility] [address] [facility], [facility] [address] [place], [place] [id number] Patient Name: SONYA HUA Patient : 1950 Patient Ordering Provider: SUSAN STREET EXAM DATE: 07/11/2024 EXAM: XR CHEST PA/LAT CLINICAL INFORMATION: IMAGES PROVIDED: PA and lateral views of the chest. COMPARISON: None. FINDINGS: Heart size is within normal limits. Lung westbrook are clear. Chronic appearing interstitial changes in the lower lung westbrook likely related to bronchitis IMPRESSION: Bronchitis Interpreted By: Jarod Justice MD N STREET MD [address] [place], [address], [facility] 07/11/2024 10:37:52 Problems Name Problem SNOMED Code Status Onset Date Resolution Date Notes Provider Name and Address Organization Details Recorded Time Asthma 575305652 Active [address] MD [address] [place], [address], [facility] 5 10:36:49 Obstructive sleep apnea syndrome 84323947 Active [address] MD [employer] [place], [address], [facility] 5 10:38:21 Extreme obesity with alveolar hypoventilatio n 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 Procedures Surgical History Date Name Laterality Status Provider Name and Address Organization Details Recorded Time 07/12/19 25 Pulmonary Function Testing completed SUSAN STREET MD [address] [place] [address], [address], [facility] 07/11/2024 12:26:56 07/12/19 25 Airway Resistance completed [facility] 07/11/2024 09:59:09 07/12/19 25 Diffusion Capacity completed [facility] 07/11/2024 09:59:02 07/12/19 25 Lung Volumes, Plethysmography completed [facility] 07/11/2024 09:59:04 07/12/19 25 Demonstration Aerosol/Generator/N ebulizer/Optichambe r completed [facility] 07/11/2024 09:59:01 07/12/19 25 Pulmonary Lab Procedure completed [facility] 07/11/2024 09:55:56 07/12/19 25 Spirometry with Bronchodilator completed [facility] 07/11/2024 09:59:00 Imaging Results None recorded. Procedure Notes None recorded. Medical Equipment None Reported. Allergies Allergen ID Allergen Name Allergen Category Reaction Reaction Severity Criticality Documentation Date Start Date Code Code System Note Provider Name and Address Organization Details Recorded Time 022078 lisinopri l medicatio n Not available Not available Not available 02/27/20162013 95361 RxNorm Comme nt: Creat ed By: Ishmael brunsonCre joanne Date: 2013 4:18: 35 PM; Not Available [facility] 05:04:00 Medications Name Sig Start Date [...] blood by Pulse oximetry Heart rate Systolic And Diastolic Provider Name and Address Organization Details Last Updated DateTime 5 146735. 76 g 43.9 kg/m2 166.37 cm 95 % 95 % 90 /min 126/78 mm[Hg] Teodora House [facility] 09:38:38 Date Recorded Body height Body mass index (BMI) Body weight Oxygen saturation Oxygen saturation in Arterial blood by Pulse oximetry Heart rate Systolic And Diastolic Provider Name and Address Organization Details Last Updated DateTime 5 166.37 cm 45.6 kg/m2 615302. 68 g 95 % 95 % 90 /min 120/65 mm[Hg] Estee Jimenez [facility] 08:19:58 Social History Question Answer Notes LastModified by Organizat ion Details LastModified Time Tobacco Smoking Status [facility] 08/22/2024 08:17:48 What Is Your Level Of Caffeine Consumption? Occasional [email or web address] Information not available 08/22/2024 When Did You Quit Smoking? 16+yearsmaury del angel [email or web address] Information not available 08/22/2024 What Was The Date Of Your Most Recent Tobacco Screening? 08/22/2024 [email or web address] Information not available 08/22/2024 Sex: Unknown Functional Status Question Answer Note LastModified by Organization D etails LastModified Time What is your level of alcohol consumption? None [email or web address] Information not available 08/22/2024 Mental Status None recorded. Family History Nothing Reported. Medical History No medical history recorded. Past Encounters Encounter ID Performer Location Encounter Start Date Encounter Closed Date Diagnosis/Indication Diagnosis SNOMED-CT Code Diagnosis ICD10 Code Diagnosis IMO Codes Diagnosis Note [id number] SUSAN [address] MD [facility] [address] [place], [place] [address] 07/11/2024 09:20:48 07/11/2024 11:14:[id number] MD [facility] [address] [place], [place] [address] 07/11/2024 09:21:05 07/11/2024 13:36:11 Asthma 154041129 J45.909 He has asthma. PFTs and his clinical symptoms are fairly consistent .1. He has an FEV1 FVC ratio of 75 FEV1 of 70% FVC 71% he had an 11% postbronch odilator improvemen t almost 300 cc. TLC was not 79% DLCO could not be obtained. He also had significan t improvemen t in his FEF 25 7 5 with a 57% improvemen t postbronch odilatorTh [...] lung disease. Obstructiv e sleep apnea syndrome 80885811 G47.33 He has obstructiv e sleep apnea he has not been compliant with his CPAP due to significan t nasal drainage and difficulty going to sleep.I have discussed with him the benefits of CPAP machine , hopefully once his postnasal drainage improves , Extreme ob esity with alveolar hypoventilation 989834615 E66.2 I think some of his shortness of breath is attributab le to body habitus with physical deconditio hua and functional hypoventil ationWe have discussed lifestyle modificati ons and dietary restrictio ns to achieve weight loss. [id number] SUSAN STRE[address] MD PULMONARY [address] [facility], [address] [place] [id number] 08/22/2024 08:01:18 08/22/2024 15:55:50 Obstructive sleep apnea syndrome 66005743 G47.33 He has obstructiv e sleep apnea he has not been compliant with his CPAP due to significan t nasal drainage and difficulty going to sleep. He also reports some aspiration issuesHe denies any pickwickia n symptoms.I have discussed with him the benefits of CPAP machineRea ssessment of non-CPAP alternativ es for symptom relief. Extreme ob esity with alveolar hypoventilation 605599353 E66.2 I think some of his shortness [...] with his son. Mild inter mittent asthma 858496262 J45.20 [id number] He has asthma. PFTs and his clinical symptoms are fairly consistent .1. He had an FEV1 FVC ratio of 75 FEV1 of 70% FVC 71% he had an 11% postbronch odilator improvemen t almost 300 cc. TLC was 79% DLCO could not be obtained. He also had significan t improvemen t in his FEF 25 7 5 with a 57% improvemen t postbronch odilatorTh [...] ID Member ID Guarantor Name 08/19/2024 2 [place] [employer] - FFS/TRADITIO NAL Sonya Hua [id number] Sonya Hua 08/19/2024 1 [place] Sonya Hua [id number] Sonya Hua Notes Date Note Type Note Provider Name and Address Organization Details Recorded Time 07/11/2024 text/html ROS as noted in the HPI This is a 74-year-old male referred to the pulmonary clinic for [...] the cough although still present.He had an MT 30 years ago. 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 SUSAN STREET MD [address] [place], [address], [facility] 07/11/2024 12:40:25 08/22/2024 text/html ROS as noted in the HPI The patient is a 74-year-old male presenting [...] appropriate to his age. SUSAN STREET MD [address] [place], [address], [facility] 08/22/2024 09:01:34
--- NOTE | 2025-02-07 23:55 | ECG_ITS ---
APPROVED REPORT Exam: Resting ECG HR:107 bpm ECG Measurements Heart Rate 107 AXES AZ 135 P -84 QRSd 158 QRS 204 QT 419 T 17 QTc 482 Conclusion JUNCTIONAL TACHYCARDIA RIGHT AXIS DEVIATION [QRS AXIS > 100] RIGHT BUNDLE BRANCH BLOCK [120+ ms QRS DURATION, UPRIGHT V1, 40+ ms S IN I/aVL/V4/V5/V6] POSSIBLE ANTERIOR MYOCARDIAL INFARCTION , OF INDETERMINATE AGE [30 ms Q WAVE IN V3/V4, OR R < 0.2 mV IN V4] ST DEPRESSION, CONSIDER SUBENDOCARDIAL INJURY [0.1+ mV ST DEPRESSION] ABNORMAL ECG UNCONFIRMED REPORT Electronically signed by : GUERITA PRESSLEY, 02/10/2025 02:13:58
--- OUTSIDE RECORDS SUMMARY | 2025-02-07 23:55 | XMS_ITS | Clinical Summary ---
Author Organization [employer] ([place], [place], [place], [place], [place]) Address [address] [place] [address] Care Team Providers Care Electronics Processor Name Role Phone Constantine Lincoln MD Primary Care Provider [phone] Allergies No known active allergies Medications flecainide [...] A-fib Bronchitis Hypertension CAD (coronary artery disease) [place], old Family History Medical History Relation Name [...] Do you speak a language other than Yemeni at ho de? No 07/15/2023 Do you want help with [...] ation (KED) 1950 Diabetic Eye Exam 1958 Depression Screening (12+) 1960 Hepatitis C Screening 1966 Pneumococcal 50+ years (1 of 2 - PCV) 1967 Shingles Vaccine (Zoster) (1 of 2) 1998 Medicare Initial AWV [id number] 05/06/2014 DTAP/TDAP/TD VACCINES (2 - T d or Tdap) 01/05/2022 01/06/2012 Respiratory Syncytial Virus (RSV) Adult or (1 - 1-dose 75+ series) 2023 Hemoglobin A1C 01/14/2024 07/15/2023 Falls Risk Screening 04/04/2024 Tobacco Cessation Counseling and Screening (12+) 07/17/2024 07/18/2023 COVID-19 VACCINE ( - 2024-2 6 season) 2024 07/27/2021, 02/04/2021, 06/11/2020, Additional history exists Influenza Vaccine (#1) 2024 Procedures Procedure Name Priority Date/Time Associated [...] AT [facility] [address] [phone] from Last 3 Months or Most Recently Relevant to Health Maintenance Insurance MEDICARE PART A B MEDICAID [place] Advance Directives For more information, please contact: [phone] * Full Code (Latest Code Status on File) Date Activated Date Inactivated Comments 07/15/2023 4:21 AM 07/18/2023 6:52 PM -Attempt Res uscitation if person has no pulse and is not breathing. -If no pulse or not breathing attempt CPR/CODE. -Call Rapid Response if patient is in distress. Care Teams Electronics Processor Relationship Specialty Start Date End Date Constantine Lincoln MD [address] [place] [address] [place] [address] PCP - General General Internal Medicine 07/15/23
[2025-02-07 23:58] VITALS: BP 148/78; PULSE 109; RESP 18; TEMP 36.8; O2SAT 95
[2025-02-08] VITALS (11 sets, daily range): BP systolic 116–164; BP diastolic 56–75; PULSE 97–117; RESP 16–22; TEMP 36.6–37.1; O2SAT 92–96; BMI 41.5
[2025-02-08 00:05] LABS: Coronavirus 19, PCR Not Detected (NotDetected); Influenza A, PCR Not Detected (NotDetected); Influenza B, PCR Not Detected (NotDetected)
[2025-02-08 00:09] LABS: Lactate Venous 1.9 mmol/L (0.4-2.0); VBG HCO3 23.1 mmol/L (23-30); VBG PCO2 40.1 mmol/L (35-51); VBG PH 7.38 mmol/L (7.31-7.41); VBG PO2 37.7 mmol/L (28-40)
[2025-02-08 00:09] LABS: Hematocrit 51.5 % (42.0-52.0); Hemoglobin 16.9 g/dL (14.1-18.0); Immature Granulocytes % 0.7 %; Mean Corpuscular HGB Conc 32.8 g/dL (31.8-35.4); Mean Corpuscular Hemoglobin 30.1 pg (27.0-31.2); Mean Corpuscular Volume 91.6 fl (80-94); Nucleated Red Blood Cells % 0 %; Platelet Count 268 K/mm3 (142-424); Red Blood Count 5.62 M/mm3 (4.60-6.20); Red Cell Distribution Width-SD 47.1 fL; White Blood Count 8.2 K/mm3 (4.8-10.8)
--- NOTE | 2025-02-08 00:11 | ED_ITS ---
Discharge Plan Disposition Patient Disposition: Admitted Prescriptions Prescriptions: No Action guaifenesin 600 mg tablet extended release 12hr PO Patient Comments: TAKE 1 OR 2 TABLET(S) BY MOUTH TWICE DAILY NEEDED rosuvastatin 40 mg tablet 40 mg PO DAILY 30 Days Qty: 30 11RF fluticasone propionate [Allergy Relief (fluticasone)] 50 mcg/actuation spray,suspension 2 spray intranasal DAILY Qty: 16 5RF Rx Instructions: administer into each nostril cetirizine 10 mg tablet 10 mg PO DAILY Patient Comments: TAKE ONE TABLET BY MOUTH EVERY DAY penicillin V potassium 500 mg tablet 500 mg PO QID Qty: 60 1RF (DME) lancets [Easy Touch Lancets] 30 gauge misc See Rx Instructions .Route Qty: 100 5RF Rx Instructions: check blood sugar BID (DME) blood-glucose meter [Easy Touch Glucose Monitor] Misc See Rx Instructions .Route Qty: 1 0RF Rx Instructions: check blood sugar BID budesonide-formoterol [Symbicort] 160-4.5 mcg/actuation HFA aerosol inhaler 1 puff inhalation QID PRN (Reason: shortness of breath or wheezing) 90 Days Qty: 10.2 3RF allopurinol 100 mg tablet See Rx Instructions .ROUTE .COMPLEX Qty: 180 1RF Dose Instruction: TAKE ONE TABLET BY MOUTH TWICE DAILY Rx Instructions: TAKE ONE TABLET BY MOUTH TWICE DAILY (DME) Easy Touch Test Strip Strip See Rx Instructions .Route Qty: 100 5RF Rx Instructions: check sugar 4 TIMES a day Rybelsus 3 mg tablet 3 mg PO DAILY 90 Days Qty: 90 1RF tamsulosin 0.4 mg capsule See Rx Instructions .ROUTE .COMPLEX Qty: 90 1RF Dose Instruction: TAKE ONE CAPSULE BY MOUTH EVERY DAY Rx Instructions: TAKE ONE CAPSULE BY MOUTH EVERY DAY Jardiance 25 mg tablet 25 mg PO DAILY Qty: 30 11RF Eliquis 5 mg tablet 5 mg PO BID Qty: 180 3RF nitroglycerin 0.4 mg tablet, sublingual See Rx Instructions .ROUTE .COMPLEX Qty: 25 1RF Dose Instruction: PLACE 1 TABLET UNDER TONGUE EVERY 5 MINUTES IF NEEDED FOR CHEST PAIN; MAY REPEAT 2 TIMES; IF NO RELIEF AFTER 3 DOSES CALL 911 OR GO TO ER Rx Instructions: PLACE 1 TABLET UNDER TONGUE EVERY 5 MINUTES IF NEEDED FOR CHEST PAIN; MAY REPEAT 2 TIMES; IF NO RELIEF AFTER 3 DOSES CALL 911 OR GO TO ER pantoprazole 40 mg tablet,delayed release (DR/EC) See Rx Instructions .ROUTE .COMPLEX Qty: 90 1RF Dose Instruction: TAKE ONE TABLET BY MOUTH EVERY DAY Rx Instructions: TAKE ONE TABLET BY MOUTH EVERY DAY ipratropium-albuterol 0.5 mg-3 mg(2.5 mg base)/3 mL solution for nebulization 3 ml inhalation Q6HP PRN (Reason: shortness of breath) Qty: 180 1RF flecainide 50 mg tablet 50 mg PO Q12H Qty: 180 3RF metoprolol succinate 25 mg tablet extended release 24 hr 25 mg PO .at bedtime Qty: 90 3RF mupirocin 2 % ointment 1 applic topical BID Qty: 15 1RF furosemide 40 mg tablet 40 mg PO DAILY Qty: 135 3RF tramadol 50 mg tablet See Rx Instructions PO Q6H PRN (Reason: pain) Qty: 150 0RF Rx Instructions: 1 or 2 tablets orally every 6 hours PRN; Referrals Follow up/Referrals: Constantine Lincoln MD [Primary Care Provider, Medical] - See instructions Clinical Impressions Clinical Impression: Generalized weakness, Shortness of breath, Elevated troponin Print Language Print Language: Bulgarian Discharge ED Provider: Dennis Cali General Adult HPI General Chief complaint: Shortness of Breath/Dyspnea Stated complaint: SOA Time Seen by Provider: 02/07/25 23:46 Mode of Arrival: EMS Source of Information: Patient and EMS Description of Symptoms (Recalled from ER Triage Doc. by RN): PT brought to the ED via [facility] for evaluation of c/o SOA. PT stated he has felt bad x3 days. PT has had clear sputum production. EMS admin 1,000 mL of LR upon arrival. History of Present Illness HPI narrative: 74-year-old male with history of CAD, COPD, morbid obesity, type 2 diabetes, paroxysmal A-fib, heart failure presents for generalized weakness and shortness of breath. He reports that he has been feeling worse over the last few days. He has had some nasal congestion and clear sputum production. He was satting low 90s on EMS arrival and they put him on 2 L with improvement to the mid 90s. He denies any fever. Denies any changes in medications. Denies any chest pain abdominal pain. Related Data Home Medications ?Medication ?Instructions ?Recorded ?Confirmed cetirizine 10 mg tablet 10 mg PO DAILY 07/25/2401/02 guaifenesin 600 mg tablet, mg PO 01/16/25 01/16/25 extended release 12 hr Previous Rx's ?Medication ?Instructions ?Recorded blood-glucose meter (Easy Touch #1 ea 09/14/23 Glucose Monitor) lancets 30 gauge (Easy Touch #100 ea 09/14/23 Lancets) budesonide-formoterol HFA 160 1 puff inhalation QID NC N 02/07/24 mcg-4.5 mcg/actuation aerosol shortness of breath or w heezing 90 inhaler (Symbicort) days #10.2 grams fluticasone propionate 50 2 spray intranasal DAILY #16 grams 03/14/24 mcg/actuation nasal spray,suspension (Allergy Relief (fluticasone)) allopurinol 100 mg tablet See Rx Instructions .Route 1 05/17/23 .COMPLEX #180 tabs blood sugar diagnostic (Easy Touch #100 ea 05/31/24 Test Strip) semaglutide 3 mg tablet (Rybelsus) 3 mg PO DAILY 90 da ys #90 tabs 06/12/24 tamsulosin 0.4 mg capsule See Rx Instructions .Route 0 06/14/24 .COMPLEX #90 caps empagliflozin 25 mg tablet 25 mg PO DAILY #30 tabs 10/26 (Jardiance) apixaban 5 mg tablet (Eliquis) 5 mg PO BID #180 tabs 0 08/06/24 nitroglycerin 0.4 mg sublingual See Rx Instructions .R oute 08/09/24 tablet .COMPLEX #25 tabs pantoprazole 40 mg tablet,delayed See Rx Instructions .Route 08/09/24 release .COMPLEX #90 tabs ipratropium 0.5 mg-albuterol 3 mg 3 ml inhalation Q6HP PRN shortness 09/03/24 (2.5 mg base)/3 mL nebulization of breath #180 mL soln flecainide 50 mg tablet 50 mg PO Q12H #180 tabs 09/02 04/28 metoprolol succinate 25 mg 25 mg PO .at bedtime #90 ta bs 10/11/24 tablet,extended release 24 hr mupirocin 2 % topical ointment 1 applic topical BID #1 5 grams 12/04/24 penicillin V potassium 500 mg 500 mg PO QID #60 tabs 0 12/10/24 tablet furosemide 40 mg tablet 40 mg PO DAILY #135 tabs 06/26 tramadol 50 mg tablet See Rx Instructions PO Q6H P RN 01/10/25 pain #150 tabs rosuvastatin 40 mg tablet 40 mg PO DAILY 30 days #30 t abs 01/16/25 Allergies Allergy/AdvReac Type Severity Reaction Status Date / Time lisinopril Allergy Severe S-SWELLS-OR Verified 01/16/25 09:38 AL/THROAT hydrochlorothiazide (From Allergy Mild S-SWELLS-OR Verified 01/16/25 09:38 Maxzide) AL/THROAT triamterene (From Maxzide) Allergy Mild S-SWELLS-OR Verified 01/16/25 09:38 AL/THROAT metformin AdvReac Mild leg Uncoded 01/16/25 09:38 weakness PFSH PFSH Disclaimer: The information contained in this section may have been updated after the patient was seen, as this information can be updated by other users. Medical History Hyperkalemia Asthma HLD (hyperlipidemia) Atrial fibrillation Abnormal nuclear cardiac imaging test Acute allergic rhinitis Unspecified urinary incontinence Benign localized prostatic hyperplasia with lower urinary tract symptoms (LUTS) Gout Chronic obstructive pulmonary disease, unspecified Atherosclerotic heart disease of [place] coronary artery without angina pectoris Chronic diastolic (congestive) heart failure Anxiety Morbid obesity Gastric ulcer BMI 40.0-44.9, adult NAHID and COPD overlap syndrome (HFpEF) heart failure with preserved ejection fraction Paroxysmal atrial fibrillation Factor 5 Leiden mutation, heterozygous Pulmonary embolism GI bleed Diabetes mellitus, type 2 Hypertension Deep vein thrombosis (DVT) Shingles Surgical History H/O heart artery stent S/P cardiac cath History of splenectomy Hx of esophagogastroduodenoscopy History of amputation of thumb Family History Mother Embolism Father Stroke Brother Stroke Other Family history of cancer Family history of hypertension Social History Smoking Status: Former smoker tobacco type: cigars smoking status start date: 1968 years smoked: 5 smoking status stop date: 1973 how long ago did patient quit smokin years ago alcohol intake: never current occupational status: retired Travel in the last 8 weeks?: None household members: none housing: apartment lives independently: Yes marital status: number of children: 4 current occupation: [employer] current occupational exposures/hazards: No caffeine: No Other Medical History Have you received the Flu Vaccine for this season: No Have you received the Pneumonia Vaccine: Yes ROS Obtained: Yes All systems reviewed & no additional complaints except as documented Physical Exam General General appearance: alert and in no apparent distress Head Head exam: atraumatic and normocephalic Eye Eye exam: Present normal appearance, PERRL and EOMI ENT ENT exam: Present normal oropharynx and normal external ear exam Neck Neck exam: Present normal inspection and full ROM Chest Chest inspection: Present normal inspection and symmetric chest wall rise; Absent tenderness Respiratory Respiratory exam: Present normal lung sounds bilaterally; Absent respiratory distress Cardiovascular Cardiovascular exam: Present regular rate and normal rhythm Abdominal Exam Abdominal exam: Present soft; Absent distention, tenderness or guarding Extremities Exam Extremities exam: Present normal inspection; Absent edema or joint swelling Back Exam Back exam: Present normal inspection; Absent tenderness Neurological Exam Neurological exam: Present alert and oriented X3; Absent motor sensory deficit Psychiatric Psychiatric exam: Present normal affect and normal mood Skin Skin exam: Present warm, dry and normal color Lymphatic Lymphatic Findings: no adenopathy Medical Decision Making Medical Records Medical records reviewed: Yes I reviewed the patient's medical records. Screening: Per USPSTF and CDC recommendations, given the prevalence of disease in our region, it is our hospital?s policy to screen for HIV and viral Hepatitis for all patients aged 18 and over and those with ongoing risk factors. Asa Inquiry Pt receiving controlled substance: No Asa was queried for this patient: No Vital Signs: 02/07/25 23:52 02/07/25 23:58 02/07/25 23:58 Temperature 98.2 F 98.2 F Temperature Source Oral Oral Pulse Rate 109 H Pulse Rate [Right] 109 H Respiratory Rate 16 18 Blood Pressure 148/78 H Blood Pressure [Right Arm] 148/78 H Blood Pressure Mean [Right Arm] 101 02 Sat by Pulse Oximetry 95 95 95 Oxygen Delivery Method Nasal Cannula Nasal Cannula Nasal Cannula Oxygen Flow Rate (LPM) 2 2 2 02/08/25 01:15 02/08/25 03:05 02/08/25 03:18 Temperature 98.6 F Temperature Source Pulse Rate 104 H 97 H 117 H Pulse Rate [Right] Respiratory Rate 22 18 17 Blood Pressure 124/61 164/58 H 164/56 H Blood Pressure [Right Arm] Blood Pressure Mean [Right Arm] 02 Sat by Pulse Oximetry 92 L 92 L Oxygen Delivery Method Room Air Room Air Room Air Oxygen Flow Rate (LPM) Lab Data Lab results reviewed: Yes I reviewed the patient's lab results. Lab Results 02/07/25 22:48: SARS-CoV-2 (PCR) Not detected, Influenza A Untype (PCR) Not detected, Influenza Type B (PCR) Not detected 02/07/25 23:30: WBC 8.2, RBC 5.62, Hgb 16.9, Hct 51.5, MCV 91.6, MCH 30.1, MCHC 32.8, RDW 13.9, Plt Count 268, MPV 10.6 H, Neut % (Auto) 80.5 H, Lymph % (Auto) 12.4, [place] % (Auto) 5.5, Eos % (Auto) 0.0 L, Baso % (Auto) 0.9, Neut # (Auto) 6.6, Lymph # (Auto) 1.0, [place] # (Auto) 0.5, Eos # (Auto) 0.0, Baso # (Auto) 0.1, D-Dimer 1.55 H, Sodium 136, Potassium 3.7, Chloride 96 L, Carbon Dioxide 27, A nion [place] 16.7 H, BUN 14, Creatinine 1.30 H, Estimated Creat Clear 47, Estimated GFR 54 L, Est GFR ( Amer) 65, Glucose 137 H, Calcium 8.1 L, Magnesium 2.0, Total Bilirubin 0.7, AST 78 H, ALT 63, Alkaline Phosphatase 126, Troponin I < 0.01, NT-Pro-B Natriuret Pep 451 H, Total Protein 8.3 H, Albumin 5.0, Globulin 3.3 H, Albumin/Globulin Ratio 1.5, HCV Ab BRADEN w/Rflx PCR Qn Negative, HIV Ag/Ab Combo Qual Negative 02/08/25 00:05: VBG pH 7.38, VBG pCO2 40.1, VBG pO2 37.7, VBG HCO3 23.1, VBG Total CO2 24.4, VBG O2 Saturation 72.7 H, VBG Base Excess -2.0, VBG Lactic Acid 1.9 02/08/25 01:51: Urine Color Yellow, Urine Appearance Clear, Urine pH 6.0, Ur Specific [place] 1.015, Urine Protein 1+ A, Urine Glucose (UA) 3+, Urine Ketones 1+, Urine Blood Trace-i, Urine Nitrate Negative, Urine Bilirubin Negative, Urine Urobilinogen 0.2, Ur Leukocyte Esterase Negative, Urine RBC 3-5, Ur Squamous Epith Cells 5-10, Urine Mucus 2+ 02/08/25 02:28: Troponin I < 0.01 02/07/25 23:30 02/07/25 23:30 Orders (Tests/Meds): ED MEDICATIONS Discontinued Medications Generic Name Dose Route Start Last Admin Trade Name Freq PRN Reason Stop Dose Admin Albuterol/Ipratropium 6 ml 02/08/25 02:28 02/08/25 02:37 Ipratropium/Albuterol 3 Ml Neb IH 02/08/25 02:29 6 ml ONCE ONE Administration Iopamidol 80 ml 02/08/25 02:15 02/08/25 02:16 Iopamidol-370 (76%);100ml Bottle IV 02/08/25 02:16 80 ml ONCE ONE Administration Sodium Chloride 50 ml 02/08/25 02:15 02/08/25 02:16 0.9 % Sodium Chloride 50 Ml Vial IV 02/08/25 02:16 50 ml ONCE ONE Administration Sodium Chloride 10 ml 02/08/25 02:15 02/08/25 02:16 Sodium Chloride 0.9% 10ml Syr (Rad Only) IV 02/08/25 02:16 10 ml ONCE ONE Administration ORDERS Category Date Time Status CT angio chest PE protocol Stat Cat Scan 02/08/25 01:49 Completed CXR --portable [XR chest portable] Stat Exams 02/08/25 00:17 Completed POCUS Point of Care (ER Only) Stat Exams 02/07/25 23:45 Completed BNP [NT Pro Brain Natriuretic Pep.] Stat Lab 02/07/25 23:30 Completed CBC w/Auto Diff [Complete Blood Count Auto Diff] Stat Lab 02/07/25 23:30 Completed CMP [Comprehensive Metabolic Panel] Stat Lab 02/07/25 23:30 Completed D-Dimer Stat Lab 02/07/25 23:30 Completed HIV Combo Stat Lab 02/07/25 23:30 Completed Hepatitis C Ab Qual. W/ RFX Stat Lab 02/07/25 23:30 Completed MAG [Magnesium] Stat Lab 02/08/25 01:17 Completed Rapid PCR Covid and Flu A/B Stat Lab 02/07/25 22:48 Completed Troponin I Q3H Lab 02/07/25 23:30 Completed Troponin I Q3H Lab 02/08/25 02:28 Completed UA [Urinalysis and Microscopic] Stat Lab 02/08/25 01:51 Completed VBG [Venous Blood Gas] Stat RT 02/08/25 00:05 Completed ECG Data Tracing #1: I reviewed this ECG and interpreted as documented below: Sinus tachycardia with ventricular rate of 107. Right bundle branch block noted. No significant ST elevation. QRS is mildly prolonged ECG initial impression date: 02/07/25 ECG initial impression time: 23:55 HEART Score History (anamnesis): Slightly suspicious ECG: Non-specific disturbance Age: >65 years Risk factors: Atherosclerosis history Troponin: </= normal limit HEART Score: 5 Medical Decision Narrative: 74-year-old male with history of COPD, CAD, heart failure, A-fib presents for generalized weakness and some shortness of breath over the last 3 days. History was obtained via interactive discussion with patient. On arrival, patient is [afebrile, hemodynamically stable, satting appropriately, alert, oriented x4, GCS 15], moving all extremities spontaneously. Full physical exam performed and significant for clear lungs bilaterally, no significant pitting edema in the lower extremities. Patient satting low 90s on room air. Differential includes but is not limited to COPD exacerbation, heart failure exacerbation, pneumonia, URI, PE, ACS, electrolyte derangement, renal dysfunction. No wheezing or abnormal breath sounds on lung auscultation to suggest COPD exacerbation. No significant lower extremity pitting edema or crackles to suggest heart failure. No chest pain. Patient was given DuoNeb x 2 for symptomatic management and correction of underlying abnormalities. Workup initiated including CBC CMP D-dimer troponin EKG chest x-ray COVID flu swab UA. On re-evaluation, patient [remains afebrile, HD stable.] Laboratory workup independently interpreted by me and significant for D-dimer positive, CT ordered. Negative initial troponin. Creatinine mildly elevated. No leukocytosis, VBG unremarkable, BNP at the upper limit of normal. negative covid flu. Imaging independently interpreted by me and significant for clear lungs bilaterally on chest x-ray. CT scan shows progression of lymphadenopathy since prior CT scan. See radiology read for full review of final results. Antibiotics were considered, but no evidence of bacterial infection based on labs and imaging. Lasix were considered, but patient does not appear to be volume overloaded. Lung sounds are not consistent with COPD exacerbation. No PE on CT imaging. Given patient history, exam and workup, patient's presentation most likely represents generalized weakness, possible viral URI. Patient is unable to ambulate without significant assistance and is extremely short of breath with any exertion. Given this, I do not think he is safe to go home as he lives alone. As such, I consulted the hospitalist for admission for further assessment. Procedures Risk/Benefits of Procedure(s) Were Explained: Yes Critical Care Critical Care Time Critical Care Time: No
[2025-02-08 00:16] LABS: Albumin Level 5.0 g/dl (3.5-5.0); Chloride 96 mmol/L (98-107)
[2025-02-08 00:17] LABS: Potassium 3.7 mmoL/L (3.5-5.1); Sodium 136 mmol/L (136-145)
--- NOTE | 2025-02-08 00:17 | XR_ITS ---
PROCEDURE INFORMATION: Exam: XR Chest Exam date and time: 02/08/2025 12:23 AM Age: 74 years old Clinical indication: Cough and shortness of breath; Additional info: Cough, SOA TECHNIQUE: Imaging protocol: Radiologic exam of the chest. Views: 1 view. COMPARISON: CT CHEST WO CON 07/13/2024 7:14 AM FINDINGS: Lungs: Unremarkable. No consolidation. Pleural spaces: Unremarkable. No pleural effusion. No pneumothorax. Heart/Mediastinum: Unremarkable. No cardiomegaly. Bones/joints: Moderate degenerative changes of the spine and shoulders. No acute osseous abnormality. IMPRESSION: No acute disease
[2025-02-08 00:19] LABS: Alanine Aminotransferase 63 U/L (12-78); Albumin/Globulin Ratio 1.5 (1.1-1.8); Alkaline Phosphatase 126 U/L (38-126); Anion Gap 16.7 mEq/L (5-15); Aspartate Amino Transferase 78 U/L (17-59); Bilirubin,Total 0.7 mg/dl (0.2-1.3); Blood Urea Nitrogen 14 mg/dl (9-20); Carbon Dioxide 27 mmol/L (22.0-30.0); Creatinine Clearance Estimated 47 mL/min (50-200); Creatinine,Serum 1.30 mg/dl (0.66-1.25); Estimated Glomerular Filt Rate 54 ml/min (>60); GFR (African American) 65 ML/MIN (>60); Globulin 3.3 g/dL (1.3-3.2); Total Protein,Serum 8.3 g/dl (6.3-8.2)
[2025-02-08 00:20] LABS: Calcium 8.1 mg/dl (8.4-10.2); Glucose 137 mg/dl (74-100)
[2025-02-08 00:34] LABS: NT Pro Brain Natriuretic Pep. 451 pg/mL (0-450)
[2025-02-08 00:43] LABS: Troponin I < 0.01 ng/ml (0.00-0.034)
[2025-02-08 01:14] LABS: Hepatitis C Ab Qual. W/ RFX NEGATIVE (Negative)
[2025-02-08 01:27] LABS: Magnesium 2.0 mg/dl (1.6-2.3)
[2025-02-08 01:35] LABS: D-Dimer 1.55 ug/mL (0.0-0.5)
--- NOTE | 2025-02-08 01:49 | CT_ITS ---
PROCEDURE INFORMATION: Exam: CTA Chest With Contrast Exam date and time: 02/08/2025 2:04 AM Age: 74 years old Clinical indication: Shortness of breath; Additional info: SOA, positive dimer TECHNIQUE: Imaging protocol: Computed tomographic angiography of the chest with contrast. Exam focused on the arteries. 3D rendering (Not supervised by radiologist): MIP and/or 3D reconstructed images were created by the technologist. Radiation optimization: All CT scans at this facility use at least one of these dose optimization techniques: automated exposure control; mA and/or kV adjustment per patient size (includes targeted exams where dose is matched to clinical indication); or iterative reconstruction. Contrast material: ISOVUE; Contrast volume: 80 ml; Contrast route: INTRAVENOUS (IV); COMPARISON: CT ANGIO CHEST PE PROTOCOL 08/24/2023 12:52 AM FINDINGS: Pulmonary arteries: Normal. No pulmonary emboli. Aorta: Unremarkable. No aortic aneurysm. No aortic dissection. Lungs: There is a calcified granuloma within the right lower lobe. The previously noted small right lung nodules are not well identified on this exam due to the respiratory artifact and hypoventilatory in nature. A 4 mm nodule is present within the right upper lobe series 7, image 52. Pleural spaces: Unremarkable. No pneumothorax. No pleural effusion. Heart: Unremarkable. No cardiomegaly. No pericardial effusion. Lymph nodes: There is mediastinal and hilar lymphadenopathy. Several of the lymph nodes contain coarse calcifications. Right paratracheal lymph node series 5, image 45 measures 19 x 27 mm. Right hilar lymph node image 58 measures 20 x 35 mm. Spleen: The spleen is absent. Bones/joints: Numerous old right rib fractures are noted. There are moderate degenerative changes of the spine. No acute fracture. Soft tissues: Unremarkable. Other findings: Respiratory motion artifact is noted. IMPRESSION: 1. The study is degraded by motion artifact and hypoventilatory effort. 2. No pulmonary embolus is evident. 3. Progressive mediastinal and right hilar lymphadenopathy. Some of the adenopathy may be secondary to prior granulomatous exposure however, there has been progression since the study of July 2024. Further evaluation with bronchoscopy and biopsy is recommended. 4. Previously noted small right lung nodules are not well appreciated on this exam due to the artifact.
[2025-02-08] MEDS: 0.9 % SODIUM CHLORIDE 50 ML VIAL IV (02:16)
[2025-02-08] MEDS: SODIUM CHLORIDE 0.9% 10ML SYR (RAD ONLY) 10 ML IV (02:16)
[2025-02-08] MEDS: IOPAMIDOL-370 (76%);100ML BOTTLE 80 ML IV (02:16)
[2025-02-08 02:32] LABS: Microscopic, Urine URINE MICROSCOPIC (MICROSCOPIC)
[2025-02-08 02:34] LABS: Bilirubin,Urine Negative (Negative); Color,Urine YELLOW (Yellow); Glucose,Urine (UA) 3+ (Negative); Ketones,Urine 1+ (Negative); Leukocyte Esterase,Urine Negative (Negative); PH,Urine 6.0 (5.0-8.5); Protein,Urine 1+ (Negative); Specific Gravity, Urine 1.015 (1.005-1.030); Urobilinogen,Urine 0.2 EU/dl (0.2)
[2025-02-08] MEDS: IPRATROPIUM/ALBUTEROL 3 ML NEB 6 ML IH (02:37)
[2025-02-08 02:45] LABS: Mucus,Urine 2+ /lpf
[2025-02-08 03:01] LABS: Troponin I < 0.01 ng/ml (0.00-0.034)
--- NOTE | 2025-02-08 03:39 | P.HP_ITS ---
<Statement entered by Jarod Prado MD - 02/09/25 14:15> Agree with the plan of care as outlined by the ASSOCIATE PROFESSOR OF LAW. History of Present Illness *Admission Date: 02/08/25 *Reason for visit:: Weakness *History of present illness: This is a 74-year-old male who has a past medical history significant for asthma, hyperlipidemia, atrial fibrillation, allergic rhinitis, COPD, anxiety, morbid obesity, HFpEF, NAHID, pulmonary embolism, GI bleed, type 2 diabetes, DVT, and shingles who presents with a chief complaint of shortness of breath and nonfocal weakness due to patient's symptoms, he presented to the emergency room via EMS. EMS noted the patient's room air saturation over 90% he was placed on 2 L of oxygen. While in the emergency room, patient's weakness persisted. CT scan of the chest revealed Jeff embolism, progressive mediastinal and right healer lymphadenopathy and small right lung nodules. During my evaluation of the patient, patient states he has been feeling weak and short of breath for the past 3 days. He reports he has been having some wheezing and nonproductive cough. Patient reports he has a nebulizer at home and despite using his nebulizer he still has shortness of air. He is currently denying any chest pain, lightheadedness, dizziness, PND, focal weakness, loss of bowel or bladder, saddle paresthesia, chest pain, nausea, vomiting, orthopnea, leg swelling, or diarrhea. Additional pertinent labs obtained include a neutro phils 80.5%, D-dimer 1.55 chloride of 96, creatinine of 1.30, GFR 54, blood glucose of 137, calcium 8.1, AST of 78, BNP of 451, and total protein 8.3. [facility] Disclaimer: The information contained in this section may have been updated after the patient was seen, as this information can be updated by other users. Medical History Hyperkalemia Asthma HLD (hyperlipidemia) Atrial fibrillation Abnormal nuclear cardiac imaging test Acute allergic rhinitis Unspecified urinary incontinence Benign localized prostatic hyperplasia with lower urinary tract symptoms (LUTS) Gout Chronic obstructive pulmonary disease, unspecified Atherosclerotic heart disease of [place] coronary artery without angina pectoris Chronic diastolic (congestive) heart failure Anxiety Morbid obesity Gastric ulcer BMI 40.0-44.9, adult NAHID and COPD overlap syndrome (HFpEF) heart failure with preserved ejection fraction Paroxysmal atrial fibrillation Factor 5 Leiden mutation, heterozygous Pulmonary embolism GI bleed Diabetes mellitus, type 2 Hypertension Deep vein thrombosis (DVT) Shingles Surgical History H/O heart artery stent S/P cardiac cath History of splenectomy Hx of esophagogastroduodenoscopy History of amputation of thumb Family History Mother Embolism Father Stroke Brother Stroke Other Family history of cancer Family history of hypertension Social History Smoking Status: Former smoker tobacco type: cigars smoking status start date: 1968 years smoked: 5 smoking status stop date: 1973 how long ago did patient quit smokin years ago alcohol intake: never current occupational status: retired Travel in the last 8 weeks?: None household members: none housing: apartment lives independently: Yes marital status: number of children: 4 current occupation: [employer] current occupational exposures/hazards: No caffeine: No Other Medical History Have you received the Flu Vaccine for this season: No Have you received the Pneumonia Vaccine: Yes Review of Systems Review of Systems Review of systems:: pertinent systems reviewed and negative unless documented below Constitutional Constitutional: Reports lethargy and Reports weakness Eyes Eyes: Reports system reviewed and no additional complaints, except as documented ENT Ears, Nose, Mouth, and Throat: Reports system reviewed and no additional complaints, except as documented *Cardiovascular Cardiovascular: Reports system reviewed and no additional complaints, except as documented and Reports dyspnea *Respiratory Respiratory: Reports cough, Reports dyspnea and Reports wheezing *Gastrointestinal Gastrointestinal: Reports system reviewed and no additional complaints, except as documented *Genitourinary Genitourinary: Reports system reviewed and no additional complaints, except as documented *Musculoskeletal Musculoskeletal: Reports system reviewed and no additional complaints, except as documented Integumentary/Breasts Skin/Breast: Reports system reviewed and no additional complaints, except as documented *Neurologic Neurologic: Reports weakness Psychiatric Psychiatric: Reports system reviewed and no additional complaints, except as documented Endocrine Endocrine: Reports system reviewed and no additional complaints, except as documented Hematologic/Lymphatic Hematologic/Lymphatic: Reports system reviewed and no additional complaints, except as documented Allergic/Immunologic Allergic/Immunologic: Reports wheezing Meds Home Medications and Allergies Home Medications ?Medication ?Instructions ?Recorded ?Confirmed ?Type blood-glucose meter (Easy Touch #1 ea 09/14/23 5 Rx Glucose Monitor) lancets 30 gauge (Easy Touch #100 ea 09/14/23 01/16/25 Rx Lancets) budesonide-formoterol HFA 160 1 puff inhalation QID OR N 02/07/24 01/16/25 Rx mcg-4.5 mcg/actuation aerosol shortness of breath or w heezing 90 inhaler (Symbicort) days #10.2 grams fluticasone propionate 50 2 spray intranasal DAILY #16 grams 03/14/24 01/16/25 Rx mcg/actuation nasal spray,suspension (Allergy Relief (fluticasone)) allopurinol 100 mg tablet See Rx Instructions .Route 1 05/17/23 01/16/25 Rx .COMPLEX #180 tabs blood sugar diagnostic (Easy Touch #100 ea 05/31/24 Rx Test Strip) semaglutide 3 mg tablet (Rybelsus) 3 mg PO DAILY 90 da ys #90 tabs 06/12/24 01/16/25 Rx tamsulosin 0.4 mg capsule See Rx Instructions .Route 0 06/14/24 01/16/25 Rx .COMPLEX #90 caps empagliflozin 25 mg tablet 25 mg PO DAILY #30 tabs 10/2601/16/25 Rx (Jardiance) cetirizine 10 mg tablet 10 mg PO DAILY 07/25/2401/02 History apixaban 5 mg tablet (Eliquis) 5 mg PO BID #180 tabs 0 08/06/24 01/16/25 Rx nitroglycerin 0.4 mg sublingual See Rx Instructions .R oute 08/09/24 01/16/25 Rx tablet .COMPLEX #25 tabs pantoprazole 40 mg tablet,delayed See Rx Instructions .Route 08/09/24 01/16/25 Rx release .COMPLEX #90 tabs ipratropium 0.5 mg-albuterol 3 mg 3 ml inhalation Q6HP PRN shortness 09/03/24 01/16/25 Rx (2.5 mg base)/3 mL nebulization of breath #180 mL soln flecainide 50 mg tablet 50 mg PO Q12H #180 tabs 09/0201/16/25 Rx metoprolol succinate 25 mg 25 mg PO .at bedtime #90 ta bs 10/11/24 01/16/25 Rx tablet,extended release 24 hr mupirocin 2 % topical ointment 1 applic topical BID #1 5 grams 12/04/24 01/16/25 Rx penicillin V potassium 500 mg 500 mg PO QID #60 tabs 0 12/10/24 01/16/25 Rx tablet furosemide 40 mg tablet 40 mg PO DAILY #135 tabs 06/2601/16/25 Rx tramadol 50 mg tablet See Rx Instructions PO Q6H P RN 01/10/25 01/16/25 Rx pain #150 tabs guaifenesin 600 mg tablet, mg PO 01/16/25 01/16/25 His tory extended release 12 hr rosuvastatin 40 mg tablet 40 mg PO DAILY 30 days #30 t abs 01/16/25 01/16/25 Rx New Prescriptions to Start Prescriptions: Allergies Allergy/AdvReac Type Severity Reaction Status Date / Time lisinopril Allergy Severe S-SWELLS-OR Verified 01/16/25 09:38 AL/THROAT hydrochlorothiazide (From Allergy Mild S-SWELLS-OR Verified 01/16/25 09:38 Maxzide) AL/THROAT triamterene (From Maxzide) Allergy Mild S-SWELLS-OR Verified 01/16/25 09:38 AL/THROAT metformin AdvReac Mild leg Uncoded 01/16/25 09:38 weakness Exam Data for Last 24 hours Vital signs and Labs for Last 24 Hours: Temp Pulse Resp BP Pulse Ox O2 Del Method O2 Flow Rate 98.6 F 117 H 17 164/56 H 92 L Room Air 2 02/08/25 03:18 02/08/25 03:18 02/08/25 03:18 02/08/25 03:18 02/08/25 03:05 02/08/25 03:18 02/07/25 23:58 Laboratory Results - last 24 hr 02/07/25 22:48: SARS-CoV-2 (PCR) Not detected, Influenza A Untype (PCR) Not detected, Influenza Type B (PCR) Not detected 02/07/25 23:30: WBC 8.2, RBC 5.62, Hgb 16.9, Hct 51.5, MCV 91.6, MCH 30.1, MCHC 32.8, RDW 13.9, Plt Count 268, MPV 10.6 H, Neut % (Auto) 80.5 H, Lymph % (Auto) 12.4, Glenn % (Auto) 5.5, Eos % (Auto) 0.0 L, Baso % (Auto) 0.9, Neut # (Auto) 6.6, Lymph # (Auto) 1.0, Glenn # (Auto) 0.5, Eos # (Auto) 0.0, Baso # (Auto) 0.1, D-Dimer 1.55 H, Sodium 136, Potassium 3.7, Chloride 96 L, Carbon Dioxide 27, Anion Gap 16.7 H, BUN 14, Creatinine 1.30 H, Estimated Creat Clear 47, Estimated GFR 54 L, Est GFR ( Amer) 65, Glucose 137 H, Calcium 8.1 L, Magnesium 2.0, Total Bilirubin 0.7, AST 78 H, ALT 63, Alkaline Phosphatase 126, Troponin I < 0.01, NT-Pro-B Natriuret Pep 451 H, Total Protein 8.3 H, Albumin 5.0, Globulin 3.3 H, Albumin/Globulin Ratio 1.5, HCV Ab BRADEN w/Rflx PCR Qn Negative, HIV Ag/Ab Combo Qual Negative 02/08/25 00:05: VBG pH 7.38, VBG pCO2 40.1, VBG pO2 37.7, VBG HCO3 23.1, VBG Total CO2 24.4, VBG O2 Saturation 72.7 H, VBG Base Excess -2.0, VBG Lactic Acid 1.9 02/08/25 01:51: Urine Color Yellow, Urine Appearance Clear, Urine pH 6.0, Ur Specific [place] 1.015, Urine Protein 1+ A, Urine Glucose (UA) 3+, Urine Ketones 1+, Urine Blood Trace-i, Urine Nitrate Negative, Urine Bilirubin Negative, Urine Urobilinogen 0.2, Ur Leukocyte Esterase Negative, Urine RBC 3-5, Ur Squamous Epith Cells 5-10, Urine Mucus 2+ 02/08/25 02:28: Troponin I < 0.01 I & O for Last 24 hours: Intake & Output 02/05/25 02/06/25 02/07/2507/25 23:59 23:59 23:59 23:59 Weight 126.552 kg Constitutional Constitutional: no acute distress, obese and cooperative *Routine HEENT Exam Head: Present normocephalic and atraumatic Eye: Present EOMI, PERRL and normal accommodation ENT: Present mucous membranes moist *Routine Neck Exam Neck: Present supple, full ROM and trachea midline *Routine Respiratory Exam Respiratory: Present diminished air movement, normal respiratory effort, able to speak in complete sentences and symmetric chest movement *Routine Cardiovascular Exam Cardiovascular: Present Normal S1, Normal S2 and tachycardia *Routine Abdominal Exam Abdominal: Present soft, normoactive bowel sounds and obese *Routine Rectal Exam Rectal:: deferred *Routine Genitalia Exam Genitalia:: deferred *Routine Extremities Exam Extremities: Present full ROM and normal capillary refill Routine Back/Spine/Pelvis Exam Back/Spine: Present full ROM *Routine Skin Exam Skin: Present intact, dry and warm *Routine Neurological Exam Neurological: Present alert, oriented X3, CN II-XII intact, moving all extremities and normal speech Routine Psychiatric Exam Psychiatric: Present normal affect, normal thought process, cooperative, good insight and good judgment H&P: Result Impressions 74-year-old male presents with a chief complaint of shortness of air a nd weakness was acutely hypoxic on room air. Assessment and Plan *Assessment and plan (1) Acute hypoxic respiratory failure: Status: Acute Category: Medical Code(s): J96.01 - Acute respiratory failure with hypoxia (2) Weakness: Status: Acute Category: Medical Code(s): R53.1 - Weakness (3) Elevated d-dimer: Status: Acute Category: Medical Code(s): R79.89 - Other specified abnormal findings of blood chemistry (4) PREET (acute kidney injury): Status: Acute Category: Medical Code(s): N17.9 - Acute kidney failure, unspecified (5) Pulmonary nodule: Status: Acute Category: Medical Code(s): R91.1 - Solitary pulmonary nodule (6) COPD (chronic obstructive pulmonary disease): Status: Acute Category: Medical Code(s): J44.9 - Chronic obstructive pulmonary disease, unspecified Plan Assessment: Acute hypoxic respiratory failure COPD exacerbation Pulmonary nodule Elevated D-dimer - Will stop supplies supplemental oxygen to maintain oxygen saturation greater than 92% - 100 mg doxycycline p.o. twice daily - 20 mg of prednisone p.o. daily - Obtain CEA - Patient may need follow-up low-dose CT scan in 6 months for pulmonary nodules - May benefit from scale attendant evaluation with consideration of bronchoscopy - CTA was negative for any pulmonary embolism - 10 mg of Singulair p.o. daily - DuoNebs every 6 hours Acute kidney injury - Most likely prerenal - Will avoid nephrotoxic drugs - Will encourage p.o. intake - If patient's acute kidney injury worsen will obtain urine studies Generalized weakness - Physical therapy - Occupational Therapy - Will determine if patient will require inpatient rehab - Case management Plan: Admit patient to the MedSurg unit Up to chair as tolerated Cardiac/1800 ADA diet CBC/BMP daily Accu-Cheks AC and at bedtime with mild scale coverage 40 mg Lovenox subcu daily for DVT prophylax 5 mg [place] p.o. every 4 hours for moderate pain Full code I will discussed this case with attending physician Dr. Prado and I look forward to more input
--- NOTE | 2025-02-08 03:42 | PC.NURSE ---
Report called to [facility] to SHARIF Ramirez
[2025-02-08] MEDS: DOXYCYCLINE HYCL 100 MG TABLET PO ×2 (03:47→14:53)
--- NOTE | 2025-02-08 04:38 | PC.NURSE ---
Patient cannot list medications he takes at home, patient states they are prepackaged and the list is on those. Completed med rec based on external med list.
--- NOTE | 2025-02-08 05:26 | PC.NURSE ---
Patient placed on 2L NC at this time, O2 sat 88% on room air while sleeping. After NC applied, O2 sat 93%.
[2025-02-08] MEDS: IPRATROPIUM/ALBUTEROL 3 ML NEB IH (06:13)
[2025-02-08 08:37] LABS: Hematocrit 49.7 % (42.0-52.0); Hemoglobin 16.0 g/dL (14.1-18.0); Immature Granulocytes % 0.7 %; Mean Corpuscular HGB Conc 32.2 g/dL (31.8-35.4); Mean Corpuscular Hemoglobin 29.6 pg (27.0-31.2); Mean Corpuscular Volume 92.0 fl (80-94); Nucleated Red Blood Cells % 0 %; Platelet Count 238 K/mm3 (142-424); Red Blood Count 5.40 M/mm3 (4.60-6.20); Red Cell Distribution Width-SD 47.2 fL; White Blood Count 8.8 K/mm3 (4.8-10.8)
[2025-02-08 08:48] LABS: Alanine Aminotransferase 61 U/L (12-78); Albumin Level 3.7 g/dl (3.5-5.0); Albumin/Globulin Ratio 1.1 (1.1-1.8); Alkaline Phosphatase 129 U/L (38-126); Anion Gap 15.1 mEq/L (5-15); Aspartate Amino Transferase 80 U/L (17-59); Bilirubin,Total 0.5 mg/dl (0.2-1.3); Blood Urea Nitrogen 16 mg/dl (9-20); Calcium 8.2 mg/dl (8.4-10.2); Carbon Dioxide 25 mmol/L (22.0-30.0); Chloride 97 mmol/L (98-107); Creatinine Clearance Estimated 51 mL/min (50-200); Creatinine,Serum 1.20 mg/dl (0.66-1.25); Estimated Glomerular Filt Rate 59 ml/min (>60); GFR (African American) 71 ML/MIN (>60); Globulin 3.4 g/dL (1.3-3.2); Glucose 135 mg/dl (74-100); Potassium 4.1 mmoL/L (3.5-5.1); Sodium 133 mmol/L (136-145); Total Protein,Serum 7.1 g/dl (6.3-8.2)
--- NOTE | 2025-02-08 09:40 | HMH.PTEV ---
Physical Therapy Evaluation Rehab PT IP Evaluation Start: 02/08/25 03:35 Freq: ONCE Status: Active Protocol: Document 02/08/25 09:31 SOFYA (Rec: 02/08/25 09:39 SOFYA [id number]) Subjective/History History History Per H&P: This is a 74-year-old male who has a past medical history significant for asthma, hyperlipidemia, atrial fibrillation, allergic rhinitis, COPD, anxiety, morbid obesity, HFpEF, NAHID, pulmonary embolism, GI bleed, type 2 diabetes, DVT, and shingles who presents with a chief complaint of shortness of breath and nonfocal weakness due to patient's symptoms, he presented to the emergency room via EMS. EMS noted the patient's room air saturation over 90% he was placed on 2 L of oxygen. While in the emergency room, patient's weakness persisted. CT scan of the chest revealed Jeff embolism, progressive mediastinal and right healer lymphadenopathy and small right lung nodules. During my evaluation of the patient, patient states he has been feeling weak and short of breath for the past 3 days. He reports he has been having some wheezing and nonproductive cough. Patient reports he has a nebulizer at home and despite using his nebulizer he still has shortness of air. He is currently denying any chest pain, lightheadedness, dizziness, PND, focal weakness, loss of bowel or bladder, saddle paresthesia, chest pain, nausea, vomiting, orthopnea, leg swelling, or diarrhea. Additional pertinent labs obtained include a neutrophils 80.5%, D-dimer 1.55 chloride of 96, creatinine of 1.30, GFR 54, blood glucose of 137, calcium 8.1, AST of 78, BNP of 451, and total protein 8 .3. Subjective Subjective Pt reports he lives alone in a home with 3 CHRISTINE. Pt normally ambulates IND without AD. Pt does own a RW but doesn't normally use it. Pt reports a functional decline in past 3-4 days. [facility] How much help from another person do you currently need... Turning from your A little back to your side while in a flat bed without using bedrails? Moving from lying on A little back to sitting on the side of a flat bed without using bedrails? Moving to and from a A little bed to a chair ( including a wheelchair)? Standing up from a A little chair using your arms? (e.g., wheelchair, bedside chair) Walking in hospital A little room? Climbing 3-5 steps A lot with a railing? Mobility Score 17 Mobility Level [facility] 5 Stand (1 or more minutes) Mobility Calculator Rehab PT IP Eval Objective Appearance Patient Behavior Appropriate,Cooperative Difficulty following none instructions Speech Pattern Clear Ambulation Patient Able to No Ambulate Balance Ability to Arise Able, uses arms to help Sitting Balance Steady, safe Standing Balance Steady, wide stance Dynamic Sitting Good Balance Ability Dynamic Standing Fair Balance Ability Transfers Bed Transfer Ability Moderate x 1 (50% assist) Sit to Stand Bed Minimal x 1 (25% assist) Transfer Ability Rehab PT IP prob,goals,plan Problems Date of Evaluation: 02/08/25 PT IP Problems Bed Mobility,Transfers,Gait,Balance,Self care,Safety Rehab Potential Rehab Potential Good Plan PT Intervention Plan Bed Mobility,Transfers,Gait,Balance,Self care,Safety, Therapeutic Exercise Other Intervention 1-2 times Plan PT Plan Frequency Daily Duration LOS Discharge Goals Bed Transfer Ability Supervision/Stand by Sit to Stand Chair Supervision/Stand by Transfer Ability Ambulation Assistive Rolling Walker Device Ambulation Distance 15 (feet) Discharge Plan PT Discharge Plan Pt presents below his baseline in functional mobility and would benefit from skilled acute care PT while at [facility] to address his deficits and prevent further functional decline. At this time, PT does not feel pt is safe to d/c home alone d/t current mobility level. PT recommending inpatient rehabilitation upon d/c from [facility] to maximize safety with functional mobility. Eval Complexity Eval Charge Codes 69583 - Moderate Complexity PHYSICIAN CERTIFICATION: I certify the specified therapy services for Rene Hua are required, authorized, and reviewed every 30 days.
--- NOTE | 2025-02-08 09:46 | HMH.OTEV ---
OT Evaluation Rehab OT IP Evaluation Start: 02/08/25 03:35 Freq: ONCE Status: Active Protocol: Document 02/08/25 09:39 YELENA (Rec: 02/08/25 09:46 MARISOLWOODWARD [id number]) Rehab OT IP Assessment Subjective History Pt oriented x 3 on arrival. Pt agreeable to engage in therapy evaluation. Pt admitted on 02/08/25 due to weakness. History and physical: This is a 74-year-old male who has a past medical history significant for asthma, hyperlipidemia, atrial fibrillation, allergic rhinitis, COPD, anxiety, morbid obesity, HFpEF, NAHID, pulmonary embolism, GI bleed, type 2 diabetes, DVT, and shingles who presents with a chief complaint of shortness of breath and nonfocal weakness due to patient's symptoms, he presented to the emergency room via EMS. EMS noted the patient's room air saturation over 90% he was placed on 2 L of oxygen. While in the emergency room, patient 's weakness persisted. CT scan of the chest revealed Jeff embolism, progressive mediastinal and right healer lymphadenopathy and small right lung nodules. During my evaluation of the patient, patient states he has been feeling weak and short of breath for the past 3 days. He reports he has been having some wheezing and nonproductive cough. Patient reports he has a nebulizer at home and despite using his nebulizer he still has shortness of air. He is currently denying any chest pain, lightheadedness, dizziness, PND, focal weakness, loss of bowel or bladder, saddle paresthesia, chest pain, nausea, vomiting, orthopnea, leg swelling, or diarrhea. Additional pertinent labs obtained include a neutrophils 80.5%, D-dimer 1.55 chloride of 96, creatinine of 1.30, GFR 54, blood glucose of 137, calcium 8.1, AST of 78, BNP of 451, and total protein 8 .3. Subjective Prior to being in the hospital, pt lived at home alone. pt claims normally he is independent with all ADLs and simple IADLs. Pt still drives. Pt does have an aide come to his house 3x a week to assist with heavier IADLS. Objective Patient Orientation Person,Place,Birthday Right Upper WFL Extremity Gross ROM Left Upper Extremity WFL Gross ROM Bed Mobility bed mobility-scooting,bed mobility - supine/sit Assist Level Moderate x 1 (50% assist) Transfer Training Sit/Stand Transfer Assist Level Minimal x 1 (25% assist) Rehab OT IP prob,goals,plan Problems Date of Evaluation: 02/08/25 OT IP Problems Bed Mobility,Transfers,Balance,Self care,Safety Rehab Potential Rehab Potential Good Equipment Needs Assistive Devices Rolling / Wheeled Walker Plan OT intervention Plan Bed Mobility,Transfers,Balance,Self care,Safety, Therapeutic Exercise OT Plan Frequency Daily Duration LOS Discharge Goals Bed Mobility Ability Assistance x1 Sit to Stand Chair Contact Guard/Hand Hold Transfer Ability Chair Transfer Contact Guard/Hand Hold Ability Chair Transfer Sit to/from Ambulatory Technique Chair Transfer Rolling Walker Assistive Devices Lower Body Dressing Moderate Assistance Ability Performing Toilet Moderate Assistance Hygiene Ability Overall Commode/ Contact Guard,Minimal Assistance Toilet Transfer Ability Commode/Toilet Sit to/from Ambulatory Transfer Technique Discharge Plan OT Discharge Plan Pt will continue to be seen for OT services while at [facility]. Pt would benefit most from short term rehab at this time. However, if he demonstrates improvement with overall functional ability during hospital stay he could return home with OT evaluation. Continued skilled therapy is important in order for patient to improve strength, safety, endurance, ADL independence, and functional transfers to reach PLOF. Eval Complexity Eval Charge Codes 47594 - Moderate Complexity PHYSICIAN CERTIFICATION: I certify the specified therapy services for Rene Hua are required, authorized, and reviewed every 30 days.
--- NOTE | 2025-02-08 09:54 | HMH.PHAINT1 ---
Pharmacy Intervention Comments: MEDICATION RECONCILIATION COMPLETED ON PATIENT USING EXTERNAL FILL HISTORY FROM PHARMACY. -EMIR QUINTERO, [facility]
[2025-02-08 10:18] LABS: POC Glucose,Bedside 143 gm/dL (70-110)
[2025-02-08 10:47] LABS: Adenovirus,PCR Not Detected (NotDetected); Chlamydophila Pneumoniae, PCR Not Detected (NotDetected); Coronavirus 19, PCR Not Detected (NotDetected); Coronovirus HKU1,PCR Not Detected (NotDetected); Influenza A, PCR Not Detected (NotDetected); Influenza AH1, 2009 Not Detected (NotDetected); Influenza AH1, PCR Not Detected (NotDetected); Influenza AH3,PCR Not Detected (NotDetected); Influenza B, PCR Not Detected (NotDetected); Mycoplasma Pneumoniae, PCR Not Detected (NotDetected); Parainfluenza 1, PCR Not Detected (NotDetected); Parainfluenza 2, PCR Not Detected (NotDetected); Parainfluenza 3, PCR Not Detected (NotDetected); Parainfluenza 4, PCR Not Detected (NotDetected)
[2025-02-08] MEDS: LEVALBUTEROL 1.25MG/3ML NEB 1.25 MG IH ×3 (11:03→23:31)
[2025-02-08] MEDS: IPRATROPIUM BROMIDE 0.5 MG/2.5ML SOLUTION IH ×3 (11:03→23:31)
--- NOTE | 2025-02-08 12:03 | SW/DCPLANNER ---
Therapy recommends rehab for patient. He is in observation and so will not qualify for his Medicare to cover this. We discussed going under his Medicaid, but he will have to stay for 30 days and could affect him financially. He is unwilling to do this. We discussed his safety and and how gong to rehab would be a better choice. He continues to state he will go home with home health. He states he has DME equipment at home. Will continue to follow.
[2025-02-08] MEDS: LACTATED RINGERS 1000ML 500 ML 250 ML IV (12:55)
--- NOTE | 2025-02-08 13:16 | SW/DCPLANNER ---
Addendum entered by Yuko Duckworth 02/08/25 14:27: [facility] was able to accept patient. Saman Murrieta Original Note: Spoke with patient regarding home health services once he is medically stable and ready for discharge. Patient stated that he has waiver services through [facility] and that he does not have a preference in what home health agency i send his information to. I faxed patient's information to [facility] and will update once i hear back i will update. Saman Murrieta
[2025-02-08 15:49] LABS: POC Glucose,Bedside 150 gm/dL (70-110)
--- NOTE | 2025-02-08 18:46 | EXP.PN ---
Subjective *Date: 02/08/25 *Time: 18:46 Exam Data for Last 24 hours Vital signs and Labs for Last 24 Hours: Temp Pulse Resp BP Pulse Ox O2 Del Method O2 Flow Rate 97.8 F 109 H 16 117/60 94 L Nasal Cannula 2 02/08/25 16:00 02/08/25 17:17 02/08/25 16:00 02/08/25 16:00 02/08/25 17:17 02/08/25 17:56 02/08/25 17:56 Laboratory Results - last 24 hr 02/07/25 22:48: SARS-CoV-2 (PCR) Not detected, Influenza A Untype (PCR) Not detected, Influenza Type B (PCR) Not detected 02/07/25 23:30: WBC 8.2, RBC 5.62, Hgb 16.9, Hct 51.5, MCV 91.6, MCH 30.1, MCHC 32.8, RDW 13.9, Plt Count 268, MPV 10.6 H, Neut % (Auto) 80.5 H, Lymph % (Auto) 12.4, [place] % (Auto) 5.5, Eos % (Auto) 0.0 L, Baso % (Auto) 0.9, Neut # (Auto) 6.6, Lymph # (Auto) 1.0, [place] # (Auto) 0.5, Eos # (Auto) 0.0, Baso # (Auto) 0.1, D-Dimer 1.55 H, Sodium 136, Potassium 3.7, Chloride 96 L, Carbon Dioxide 27, Anion Gap 16.7 H, BUN 14, Creatinine 1.30 H, Estimated Creat Clear 47, Estimated GFR 54 L, Est GFR ( Amer) 65, Glucose 137 H, Calcium 8.1 L, Magnesium 2.0, Total Bilirubin 0.7, AST 78 H, ALT 63, Alkaline Phosphatase 126, Troponin I < 0.01, NT-Pro-B Natriuret Pep 451 H, Total Protein 8.3 H, Albumin 5.0, Globulin 3.3 H, Albumin/Globulin Ratio 1.5, HCV Ab BRADEN w/Rflx PCR Qn Negative, HIV Ag/Ab Combo Qual Negative 02/07/25 : Chlamy pneumoniae PCR Not detected, Adenovirus (PCR) Not detected, B. pertussis DNA (PCR) Not detected, Coronavirus OC43 (PCR) Not detected, Coronavirus HKU1 (PCR) Not detected, Coronavirus 229E (PCR) Not detected, SARS-CoV-2 (PCR) Not detected, Coronavirus NL63 (PCR) Not detected, Human Metapneumovir PCR Not detected, Influenza A (H1) PCR Not detected, Influ A (H1N1/09) PCR Not detected, Influenza A (H3) PCR Not detected, Influenza Type A (PCR) Not detected, Influenza Type B (PCR) Not detected, M. pneumoniae (PCR) Not detected, Parainfluenza 1 (PCR) Not detected, Parainfluenza 2 (PCR) Not detected, Parainfluenza 3 (PCR) Not detected, Parainfluenza 4 (PCR) Not detected, RSV (PCR) Not detected, Entero/Rhino (PCR) Not detected 02/08/25 00:05: VBG pH 7.38, VBG pCO2 40.1, VBG pO2 37.7, VBG HCO3 23.1, VBG Total CO2 24.4, VBG O2 Saturation 72.7 H, VBG Base Excess -2.0, VBG Lactic Acid 1.9 02/08/25 01:51: Urine Color Yellow, Urine Appearance Clear, Urine pH 6.0, Ur Specific [place] 1.015, Urine Protein 1+ A, Urine Glucose (UA) 3+, Urine Ketones 1+, Urine Blood Trace-i, Urine Nitrate Negative, Urine Bilirubin Negative, Urine Urobilinogen 0.2, Ur Leukocyte Esterase Negative, Urine RBC 3-5, Ur Squamous Epith Cells 5-10, Urine Mucus 2+ 02/08/25 02:28: Troponin I < 0.01 02/08/25 05:42: WBC 8.8, RBC 5.40, Hgb 16.0, Hct 49.7, MCV 92.0, MCH 29.6, MCHC 32.2, RDW 13.9, Plt Count 238, MPV 11.2 H, Neut % (Auto) 81.0 H, Lymph % (Auto) 12.0, [place] % (Auto) 5.3, Eos % (Auto) 0.5, Baso % (Auto) 0.5, Neut # (Auto) 7.2, Lymph # (Auto) 1.1, [place] # (Auto) 0.5, Eos # (Auto) 0.0, Baso # (Auto) 0.0, Sodium 133 L, Potassium 4.1, Chloride 97 L, Carbon Dioxide 25, Anion Gap 15.1 H, BUN 16, Creatinine 1.20, Estimated Creat Clear 51, Estimated GFR 59, Est GFR ( Amer) 71, Glucose 135 H, Calcium 8.2 L, Total Bilirubin 0.5, AST 80 H, ALT 61, Alkaline Phosphatase 129 H, Total Protein 7.1, Albumin 3.7 D, Globulin 3.4 H, Albumin/Globulin Ratio 1.1 02/08/25 10:11: POC Glucose 143 H 02/08/25 15:41: POC Glucose 150 H I & O for Last 24 hours: Intake & Output 02/05/25 02/06/25 02/07/25 02/08/25 23:59 23:59 23:59 23:59 Intake Total 1810 / 1810 Output Total 1825 / 1825 Balance -15 / -15 Weight 126.552 kg 124.058 kg
[2025-02-08 18:58] LABS: C-Reactive Protein 133.7 mg/L (0-4)
[2025-02-08 19:10] LABS: Procalcitonin 1.57 ng/mL (0.0-2.0)
[2025-02-08] MEDS: FLECAINIDE 50MG TABLET 50 MG PO (21:00)
[2025-02-08] MEDS: APIXABAN 5MG TABLET 5 MG PO (21:00)
[2025-02-08] MEDS: METOPROLOL SUCCINATE XL 25MG TABLET 25 MG PO (21:00)
[2025-02-08] MEDS: MONTELUKAST SODIUM 10MG TAB 10 MG PO (21:00)
[2025-02-08] MEDS: ALLOPURINOL 100MG TABLET 100 MG PO (21:00)
[2025-02-08 21:49] LABS: POC Glucose,Bedside 119 gm/dL (70-110)
[2025-02-08] MEDS: MELATONIN 5MG TABLET 10 MG PO (22:17)
[2025-02-08] MEDS: SODIUM CHLORIDE 3% 15ML NEB 3 ML IH (23:31)
[2025-02-09] MEDS: ALUMINUM/MAGNESIUM/SIMETHICONE 30ML UDC 30 ML PO ×2 (02:12→09:01)
[2025-02-09 04:00] VITALS: BP 108/63; PULSE 104; RESP 16; TEMP 37.1; O2SAT 94; BMI 40.8
--- NOTE | 2025-02-09 04:05 | PC.NURSE ---
Patient is alert and oriented x4. Upon initial assessment, he stated that he is feeling a little bit better but still needs to get [his] strength back. He was observed to be resting in bed with eyes closed, respirations even and unlabored on 2 L of oxygen via nasal cannula, and no apparent distress throughout the majority of the night. Melatonin (see provider notification intervention for 21:59) was administered per MAR as a sleep aid. Oxygen saturations have remained > 90%; no reports of worsening shortness of breath were made this shift. Patient did report having acid reflux and heartburn around 02:00 this shift, of which Maalox was given for relief (see provider notification intervention for 02:06). Reports having a productive cough with brownish/grayish sputum. Pending sputum sample results. Physical assessment performed as appropriately for this shift (see nursing shift biophysical intervention). Scheduled medications administered per MAR. Breathing treatments given by RTs. He gets up with assistance + use of a walker to ambulate. ACHS glucose checks performed. Stated that his last bowel movement occurred >2 days ago, has had multiple voids via urinal at bedside. Urine appearance transparent and yellow in color. At this time, the patient is resting in bed without any further complaints. No acute changes noted thus far. Call light within reach.
[2025-02-09] MEDS: DOXYCYCLINE HYCL 100 MG TABLET PO (04:37)
[2025-02-09] MEDS: FLECAINIDE 50MG TABLET 50 MG PO (06:19)
[2025-02-09 06:24] VITALS: PULSE 107; PULSE 110; O2SAT 94
[2025-02-09] MEDS: IPRATROPIUM BROMIDE 0.5 MG/2.5ML SOLUTION IH ×2 (06:24→11:58)
[2025-02-09] MEDS: LEVALBUTEROL 1.25MG/3ML NEB 1.25 MG IH ×2 (06:24→11:58)
[2025-02-09 06:28] LABS: POC Glucose,Bedside 138 gm/dL (70-110)
[2025-02-09 07:33] LABS: Hematocrit 46.2 % (42.0-52.0); Hemoglobin 15.6 g/dL (14.1-18.0); Immature Granulocytes % 0.6 %; Mean Corpuscular HGB Conc 33.8 g/dL (31.8-35.4); Mean Corpuscular Hemoglobin 30.4 pg (27.0-31.2); Mean Corpuscular Volume 89.9 fl (80-94); Nucleated Red Blood Cells % 0.3 %; Platelet Count 212 K/mm3 (142-424); Red Blood Count 5.14 M/mm3 (4.60-6.20); Red Cell Distribution Width-SD 45.4 fL; White Blood Count 7.2 K/mm3 (4.8-10.8)
[2025-02-09 07:42] LABS: Anion Gap 13.6 mEq/L (5-15); Blood Urea Nitrogen 19 mg/dl (9-20); Calcium 8.3 mg/dl (8.4-10.2); Carbon Dioxide 25 mmol/L (22.0-30.0); Chloride 96 mmol/L (98-107); Creatinine Clearance Estimated 90 mL/min (50-200); Creatinine,Serum 1.20 mg/dl (0.66-1.25); Estimated Glomerular Filt Rate 59 ml/min (>60); GFR (African American) 71 ML/MIN (>60); Glucose 132 mg/dl (74-100); Potassium 3.6 mmoL/L (3.5-5.1); Sodium 131 mmol/L (136-145)
[2025-02-09 08:00] VITALS: BP 124/71; PULSE 107; RESP 20; TEMP 36.6; O2SAT 97
[2025-02-09 08:12] LABS: C-Reactive Protein 161.1 mg/L (0-4)
[2025-02-09 08:33] LABS: CEA 1.1 ng/mL (0.0-4.7)
[2025-02-09] MEDS: APIXABAN 5MG TABLET 5 MG PO (09:01)
[2025-02-09] MEDS: ALLOPURINOL 100MG TABLET 100 MG PO (09:01)
[2025-02-09] MEDS: TAMSULOSIN 0.4MG CAPSULE 0.4 MG PO (09:01)
--- NOTE | 2025-02-09 10:26 | PC.NURSE ---
pt ambulated the room independently without o2. Pt o2 sat was 88% while ambulating and 92% on RA at rest.
[2025-02-09 10:27] VITALS: O2SAT 92
[2025-02-09 10:58] VITALS: O2SAT 88
[2025-02-09] MEDS: humaLOG 100 UNITS/ML 10ML VIAL (SSI) SUBCUT (11:35)
[2025-02-09 11:39] LABS: POC Glucose,Bedside 188 gm/dL (70-110)
--- NOTE | 2025-02-09 11:39 | EXP.DC.SUM ---
General Admission date:: 02/08/25 HPI HPI HPI: This is a 74-year-old male who has a past medical history significant for asthma, hyperlipidemia, atrial fibrillation, allergic rhinitis, COPD, anxiety, morbid obesity, HFpEF, NAHID, pulmonary embolism, GI bleed, type 2 diabetes, DVT, and shingles who presents with a chief complaint of shortness of breath and nonfocal weakness due to patient's symptoms, he presented to the emergency room via EMS. EMS noted the patient's room air saturation over 90% he was placed on 2 L of oxygen. While in the emergency room, patient's weakness persisted. CT scan of the chest revealed Jeff embolism, progressive mediastinal and right healer lymphadenopathy and small right lung nodules. During my evaluation of the patient, patient states he has been feeling weak and short of breath for the past 3 days. He reports he has been having some wheezing and nonproductive cough. Patient reports he has a nebulizer at home and despite using his nebulizer he still has shortness of air. He is currently denying any chest pain, lightheadedness, dizziness, PND, focal weakness, loss of bowel or bladder, saddle paresthesia, chest pain, nausea, vomiting, orthopnea, leg swelling, or diarrhea. Additional pertinent labs obtained include a neutrophils 80.5%, D-dimer 1.55 chloride of 96, creatinine of 1.30, GFR 54, blood glucose of 137, calcium 8.1, AST of 78, BNP of 451, and total protein 8.3. Hospital Course Hospital Course Hospital Course: Rene Hua is a 74-year-old male with a medical history significant for COPD on room air, A-fib on Eliquis, type 2 diabetes, obesity, who presented with shortness of breath and was admitted for suspected COPD exacerbation and community-acquired pneumonia. #Mild COPD exacerbation #Community-acquired pneumonia #Worsening mediastinal, right hilar lymphadenopathy ? Presented with progressive weakness, shortness of breath over 4 days, nonproductive cough, and hypoxia requiring 2 L. ? CT chest revealed progressive mediastinal, right hilar adenopathy without findings of consolidation. Full respiratory panel normal. ? Initially had airway restriction which improved with DuoNebs, steroids. However, patient continued to be quite weak. ? Clinically improved with IV ceftriaxone, doxycycline weaned back to room air. Patient states he feels significantly better, ambulating without issues or weakness. ? WBC normal, though CRP 161 but improvement in symptoms. No signs of sepsis. ? Discharged with cefdinir 300 mg twice daily, doxycycline 100 mg twice daily, prednisone 20 mg. ? Advised to follow-up with pulmonology for further investigation of lymphadenopathy, continue Symbicort for now. #HFpEF ? Continue home Bumex 3 mg, Jardiance 25 mg. BNP 451, given hypoxia given one-time dose of IV Lasix 40 mg. #A-fib ? Currently rate controlled. Continue home metoprolol, Eliquis #Obesity ? BMI 40. Continue home semaglutide. #GERD ? Continue home PPI. #BPH ? Continue home tamsulosin. #GERD ? Continue home allopurinol. Exam Data for Last 24 hours Vital signs and Labs for Last 24 Hours: Temp Pulse Resp BP Pulse Ox O2 Del Method O2 Flow Rate 97.9 F 107 H 20 124/71 88 L Room Air 2 02/09/25 08:00 02/09/25 08:00 02/09/25 08:00 02/09/25 08:00 02/09/25 10:58 02/09/25 10:58 02/09/25 09:00 Laboratory Results - last 24 hr 02/07/25 : Chlamy pneumoniae PCR Not detected, Adenovirus (PCR) Not detected, B. pertussis DNA (PCR) Not detected, Coronavirus OC43 (PCR) Not detected, Coronavirus HKU1 (PCR) Not detected, Coronavirus 229E (PCR) Not detected, SARS-CoV-2 (PCR) Not detected, Coronavirus NL63 (PCR) Not detected, Human Metapneumovir PCR Not detected, Influenza A (H1) PCR Not detected, Influ A (H1N1/09) PCR Not detected, Influenza A (H3) PCR Not detected, Influenza Type A (PCR) Not detected, Influenza Type B (PCR) Not detected, M. pneumoniae (PCR) Not detected, Parainfluenza 1 (PCR) Not detected, Parainfluenza 2 (PCR) Not detected, Parainfluenza 3 (PCR) Not detected, Parainfluenza 4 (PCR) Not detected, RSV (PCR) Not detected, Entero/Rhino (PCR) Not detected 02/08/25 05:42: Carcinoembryonic Ag 1.1 02/08/25 15:41: POC Glucose 150 H 02/08/25 17:42: C-Reactive Protein 133.7 H, Procalcitonin 1.57 02/08/25 21:09: POC Glucose 119 H 02/09/25 06:21: POC Glucose 138 H 02/09/25 06:31: WBC 7.2, RBC 5.14, Hgb 15.6, Hct 46.2, MCV 89.9, MCH 30.4, MCHC 33.8, RDW 13.8, Plt Count 212, MPV 11.2 H, Neut % (Auto) 73.5, Lymph % (Auto) 15.6, [place] % (Auto) 9.6 H, Eos % (Auto) 0.3, Baso % (Auto) 0.4, Neut # (Auto) 5.3, Lymph # (Auto) 1.1, [place] # (Auto) 0.7, Eos # (Auto) 0.0, Baso # (Auto) 0.0, Sodium 131 L, Potassium 3.6, Chloride 96 L, Carbon Dioxide 25, Anion Gap 13.6, BUN 19, Creatinine 1.20, Estimated Creat Clear 90, Estimated GFR 59, Est GFR ( Amer) 71, Glucose 132 H, Calcium 8.3 L, C-Reactive Protein 161.1 H 02/09/25 11:32: POC Glucose 188 H I & O for Last 24 hours: Intake & Output 02/06/25 02/07/25 02/08/25 02/09/25 23:59 23:59 23:59 23:59 Intake Total 1910 / 2160 350 / 350 Output Total 2550 / 2850 850 / 850 Balance -640 / -690 -500 / -500 Weight 126.552 kg 124.058 kg 122.073 kg Constitutional Constitutional: no acute distress and obese *Routine HEENT Exam Head: Present normocephalic Eye: Present EOMI and PERRL ENT: Present mucous membranes moist *Routine Neck Exam Neck: Present supple; Absent lymphadenopathy *Routine Respiratory Exam Respiratory: Present CTA bilaterally *Routine Cardiovascular Exam Cardiovascular: Present RRR *Routine Abdominal Exam Abdominal: Present soft and normoactive bowel sounds; Absent tenderness *Routine Extremities Exam Extremities: Absent cyanosis, clubbing or edema *Routine Skin Exam Skin: Present warm; Absent rash *Routine Neurological Exam Neurological: Present alert and oriented X3 Results Data Completed and Pending Labs on day of discharge: Labs from last 24 hours 02/09/25 02/09/25 02/09/25 11:32 06:31 06:21 WBC 7.2 RBC 5.14 Hgb 15.6 Hct 46.2 MCV 89.9 MCH 30.4 MCHC 33.8 RDW 13.8 Plt Count 212 MPV 11.2 H Neut % (Auto) 73.5 Lymph % (Auto) 15.6 [place] % (Auto) 9.6 H Eos % (Auto) 0.3 Baso % (Auto) 0.4 Neut # (Auto) 5.3 Lymph # (Auto) 1.1 [place] # (Auto) 0.7 Eos # (Auto) 0.0 Baso # (Auto) 0.0 Sodium 131 L Potassium 3.6 Chloride 96 L Carbon Dioxide 25 Anion Gap 13.6 BUN 19 Creatinine 1.20 Estimated Creat Clear 90 Estimated GFR 59 Est GFR ( Amer) 71 Glucose 132 H POC Glucose 188 H 138 H Calcium 8.3 L C-Reactive Protein 161.1 H Carcinoembryonic Ag Procalcitonin Chlamy pneumoniae PCR Adenovirus (PCR) B. pertussis DNA (PCR) Coronavirus OC43 (PCR) Coronavirus HKU1 (PCR) Coronavirus 229E (PCR) SARS-CoV-2 (PCR) Coronavirus NL63 (PCR) Human Metapneumovir PCR Influenza A (H1) PCR Influ A (H1N1/09) PCR Influenza A (H3) PCR Influenza Type A (PCR) Influenza Type B (PCR) M. pneumoniae (PCR) Parainfluenza 1 (PCR) Parainfluenza 2 (PCR) Parainfluenza 3 (PCR) Parainfluenza 4 (PCR) RSV (PCR) Entero/Rhino (PCR) 02/08/25 02/08/25 02/08/25 21:09 17:42 15:41 WBC RBC Hgb Hct MCV MCH MCHC RDW Plt Count MPV Neut % (Auto) Lymph % (Auto) [place] % (Auto) Eos % (Auto) Baso % (Auto) Neut # (Auto) Lymph # (Auto) [place] # (Auto) Eos # (Auto) Baso # (Auto) Sodium Potassium Chloride Carbon Dioxide Anion Gap BUN Creatinine Estimated Creat Clear Estimated GFR Est GFR ( Amer) Glucose POC Glucose 119 H 150 H Calcium C-Reactive Protein 133.7 H Carcinoembryonic Ag Procalcitonin 1.57 Chlamy pneumoniae PCR Adenovirus (PCR) B. pertussis DNA (PCR) Coronavirus OC43 (PCR) Coronavirus HKU1 (PCR) Coronavirus 229E (PCR) SARS-CoV-2 (PCR) Coronavirus NL63 (PCR) Human Metapneumovir PCR Influenza A (H1) PCR Influ A (H1N1/09) PCR Influenza A (H3) PCR Influenza Type A (PCR) Influenza Type B (PCR) M. pneumoniae (PCR) Parainfluenza 1 (PCR) Parainfluenza 2 (PCR) Parainfluenza 3 (PCR) Parainfluenza 4 (PCR) RSV (PCR) Entero/Rhino (PCR) 02/08/25 02/07/25 05:42 Unknown WBC RBC Hgb Hct MCV MCH MCHC RDW Plt Count MPV Neut % (Auto) Lymph % (Auto) [place] % (Auto) Eos % (Auto) Baso % (Auto) Neut # (Auto) Lymph # (Auto) [place] # (Auto) Eos # (Auto) Baso # (Auto) Sodium Potassium Chloride Carbon Dioxide Anion Gap BUN Creatinine Estimated Creat Clear Estimated GFR Est GFR ( Amer) Glucose POC Glucose Calcium C-Reactive Protein Carcinoembryonic Ag 1.1 Procalcitonin Chlamy pneumoniae PCR Not detected Adenovirus (PCR) Not detected B. pertussis DNA (PCR) Not detected Coronavirus OC43 (PCR) Not detected Coronavirus HKU1 (PCR) Not detected Coronavirus 229E (PCR) Not detected SARS-CoV-2 (PCR) Not detected Coronavirus NL63 (PCR) Not detected Human Metapneumovir PCR Not detected Influenza A (H1) PCR Not detected Influ A (H1N1/09) PCR Not detected Influenza A (H3) PCR Not detected Influenza Type A (PCR) Not detected Influenza Type B (PCR) Not detected M. pneumoniae (PCR) Not detected Parainfluenza 1 (PCR) Not detected Parainfluenza 2 (PCR) Not detected Parainfluenza 3 (PCR) Not detected Parainfluenza 4 (PCR) Not detected RSV (PCR) Not detected Entero/Rhino (PCR) Not detected DS: Diagnosis Discharge Diagnosis (1) Acute hypoxic respiratory failure: Status: Acute Code(s): J96.01 - Acute respiratory failure with hypoxia (2) Weakness: Status: Acute Code(s): R53.1 - Weakness (3) Elevated d-dimer: Status: Acute Code(s): R79.89 - Other specified abnormal findings of blood chemistry (4) PREET (acute kidney injury): Status: Acute Code(s): N17.9 - Acute kidney failure, unspecified (5) Pulmonary nodule: Status: Acute Code(s): R91.1 - Solitary pulmonary nodule (6) COPD (chronic obstructive pulmonary disease): Status: Acute Code(s): J44.9 - Chronic obstructive pulmonary disease, unspecified Meds Home Medications and Allergies Home Medications ?Medication ?Instructions ?Recorded ?Confirmed ?Type blood-glucose meter (Easy Touch #1 ea 09/14/23 02/08/25 Rx Glucose Monitor) lancets 30 gauge (Easy Touch #100 ea 09/14/23 02/08/25 Rx Lancets) fluticasone propionate 50 2 spray intranasal DAILY #16 grams 03/14/24 02/08/25 Rx mcg/actuation nasal spray,suspension (Allergy Relief (fluticasone)) blood sugar diagnostic (Easy Touch #100 ea 05/31/24 02/08/25 Rx Test Strip) semaglutide 3 mg tablet (Rybelsus) 3 mg PO DAILY 90 days #90 tabs 06/12/24 02/08/25 Rx empagliflozin 25 mg tablet 25 mg PO DAILY #30 tabs 07/09/24 02/08/25 Rx (Jardiance) cetirizine 10 mg tablet 10 mg PO DAILY 07/25/24 02/08/25 History apixaban 5 mg tablet (Eliquis) 5 mg PO BID #180 tabs 08/06/24 02/08/25 Rx flecainide 50 mg tablet 50 mg PO Q12H #180 tabs 09/12/24 02/08/25 Rx furosemide 40 mg tablet 40 mg PO DAILY #135 tabs 01/04/25 02/08/25 Rx guaifenesin 600 mg tablet, 600 mg PO BIDP PRN Cough 01/16/25 02/08/25 History extended release 12 hr rosuvastatin 40 mg tablet 40 mg PO DAILY 30 days #30 tabs 01/16/25 02/08/25 Rx allopurinol 100 mg tablet 100 mg PO BID 02/08/25 02/08/25 History budesonide-formoterol HFA 160 2 puff inhalation BID 02/08/25 02/08/25 History mcg-4.5 mcg/actuation aerosol inhaler (Symbicort) metoprolol succinate 25 mg 25 mg PO HS 02/08/25 02/08/25 History tablet,extended release 24 hr nitroglycerin 0.4 mg sublingual 0.4 mg sublingual Q5MINP PRN Chest 02/08/25 02/08/25 History tablet Pain pantoprazole 40 mg tablet,delayed 40 mg PO DAILY 02/08/25 02/08/25 History release tamsulosin 0.4 mg capsule 0.4 mg PO DAILY 02/08/25 02/08/25 History tramadol 50 mg tablet 50 mg PO Q6HP PRN Moderate Pain 02/08/25 02/08/25 History (Scale Score 5-6) cefdinir 300 mg capsule 300 mg PO BID 4 days #8 caps 02/09/25 Rx doxycycline hyclate 100 mg tablet 100 mg PO Q12H 4 days #8 tabs 02/09/25 Rx prednisone 20 mg tablet 20 mg PO DAILY 3 days #3 tabs 02/09/25 Rx New Prescriptions to Start Prescriptions: zohradinir Jarod Prado doxycycline hyclate Jarod Prado prednisone Jarod Prado Allergies Allergy/AdvReac Type Severity Reaction Status Date / Time lisinopril Allergy Severe S-SWELLS-OR Verified 01/16/25 09:38 AL/THROAT hydrochlorothiazide (From Allergy Mild S-SWELLS-OR Verified 01/16/25 09:38 Maxzide) AL/THROAT triamterene (From Maxzide) Allergy Mild S-SWELLS-OR Verified 01/16/25 09:38 AL/THROAT metformin AdvReac Mild leg Uncoded 01/16/25 09:38 weakness Discharge Plan Disposition Patient Disposition: Home, Self-Care Condition: Fair Follow up Plan Follow up with: Constantine Lincoln MD [Primary Care Provider, Medical] - 1 week Isi Gibson MD [Physician, Pulmonology] - 2 weeks Prescriptions/Medication Reconciliation: New prednisone 20 mg Tablet 20 mg PO DAILY 3 Days Qty: 3 0RF doxycycline hyclate 100 mg Tablet 100 mg PO Q12H 4 Days Qty: 8 0RF cefdinir 300 mg capsule 300 mg PO BID 4 Days Qty: 8 0RF Continued guaifenesin 600 mg tablet extended release 12hr 600 mg PO BIDP PRN (Reason: Cough) Patient Comments: TAKE 1 OR 2 TABLET(S) BY MOUTH TWICE DAILY NEEDED rosuvastatin 40 mg tablet 40 mg PO DAILY 30 Days Qty: 30 11RF fluticasone propionate [Allergy Relief (fluticasone)] 50 mcg/actuation spray,suspension 2 spray intranasal DAILY Qty: 16 5RF Rx Instructions: administer into each nostril cetirizine 10 mg tablet 10 mg PO DAILY Patient Comments: TAKE ONE TABLET BY MOUTH EVERY DAY (DME) lancets [Easy Touch Lancets] 30 gauge misc See Rx Instructions .Route Qty: 100 5RF Rx Instructions: check blood sugar BID (DME) blood-glucose meter [Easy Touch Glucose Monitor] Misc See Rx Instructions .Route Qty: 1 0RF Rx Instructions: check blood sugar BID (DME) Easy Touch Test Strip Strip See Rx Instructions .Route Qty: 100 5RF Rx Instructions: check sugar 4 TIMES a day Rybelsus 3 mg tablet 3 mg PO DAILY 90 Days Qty: 90 1RF Jardiance 25 mg tablet 25 mg PO DAILY Qty: 30 11RF Eliquis 5 mg tablet 5 mg PO BID Qty: 180 3RF flecainide 50 mg tablet 50 mg PO Q12H Qty: 180 3RF furosemide 40 mg tablet 40 mg PO DAILY Qty: 135 3RF allopurinol 100 mg tablet 100 mg PO BID tramadol 50 mg tablet 50 mg PO Q6HP PRN (Reason: Moderate Pain (Scale Score 5-6)) tamsulosin 0.4 mg capsule 0.4 mg PO DAILY pantoprazole 40 mg tablet,delayed release (DR/EC) 40 mg PO DAILY nitroglycerin 0.4 mg tablet, sublingual 0.4 mg sublingual Q5MINP PRN (Reason: Chest Pain) Rx Instructions: PLACE 1 TABLET UNDER TONGUE EVERY 5 MINUTES IF NEEDED FOR CHEST PAIN; MAY REPEAT 2 TIMES; IF NO RELIEF AFTER 3 DOSES CALL 911 OR GO TO ER metoprolol succinate 25 mg tablet extended release 24 hr 25 mg PO HS budesonide-formoterol [Symbicort] 160-4.5 mcg/actuation HFA aerosol inhaler 2 puff inhalation BID Problem Reconciliation Problems Reviewed?: Yes Patient Discharge Instructions Patient Instructions: DI for Respiratory Failure, Stop Light COPD Print Language: [place] Providers Primary Care Provider: Constantine Lincoln Admit Provider: Jarod Prado Attending Provider: Jarod Prado
[2025-02-09 11:59] VITALS: PULSE 85; PULSE 86
[2025-02-09] MEDS: FUROSEMIDE 40MG/4ML VIAL 40 MG IV (12:32)
== END 2025-02-09 13:00 | disposition home or self-care (01) ==
LOC: ER 02-08 03:23 → 2ND 02-08 03:28
PROVIDERS: Nurse Practitioner Family; Admitting Provider Student in an Organized Health Care Education/Training Program; Emergency Provider Emergency Medicine; PCP Internal Medicine; Visit Provider Student in an Organized Health Care Education/Training Program
DX: J96.01 Acute respiratory failure with hypoxia (principal); R79.89 Other specified abnormal findings of blood chemistry; N17.9 Acute kidney failure, unspecified; N40.0 Benign prostatic hyperplasia without lower urinary tract symptoms; R91.1 Solitary pulmonary nodule; J44.1 Chronic obstructive pulmonary disease with (acute) exacerbation; J18.9 Pneumonia, unspecified organism; E11.9 Type 2 diabetes mellitus without complications; R59.0 Localized enlarged lymph nodes; I47.19 Other supraventricular tachycardia; I11.0 Hypertensive heart disease with heart failure; I50.30 Unspecified diastolic (congestive) heart failure; I48.91 Unspecified atrial fibrillation; E66.9 Obesity, unspecified; K21.9 Gastro-esophageal reflux disease without esophagitis; F41.9 Anxiety disorder, unspecified; G47.33 Obstructive sleep apnea (adult) (pediatric); I45.10 Unspecified right bundle-branch block; E78.5 Hyperlipidemia, unspecified; M10.9 Gout, unspecified; I25.10 Atherosclerotic heart disease of native coronary artery without angina pectoris; Z86.711 Personal history of pulmonary embolism; Z68.41 Body mass index [BMI] 40.0-44.9, adult; Z86.718 Personal history of other venous thrombosis and embolism; Z88.8 Allergy status to other drugs, medicaments and biological substances; Z95.5 Presence of coronary angioplasty implant and graft; Z89.019 Acquired absence of unspecified thumb; Z87.891 Personal history of nicotine dependence; Z79.51 Long term (current) use of inhaled steroids; Z79.01 Long term (current) use of anticoagulants; Z79.85 Long-term (current) use of injectable non-insulin antidiabetic drugs; Z79.899 Other long term (current) drug therapy
CPT/HCPCS: 0223U; 36415; 71045; 71275; 80048; 80053; 81001; 82378; 82803; 82962; 83735; 83880; 84145; 84484; 85025; 85378; 86140; 86803; 87040; 87070; 87205; 87389; 87636; 89220; 93005; 94640; 94761; 96361; 96365; 96372; 96375; 97116; 97162; 97166; 97530; 99285; G0378; J0696; J1650; J1938; J7120; J7614; Q9967

== ENCOUNTER 2025-03-11 12:55 | Outpatient (CLI) | payer MEDICARE, MEDICAID, SELFPAY ==
[2025-03-11 14:29] LABS: Hematocrit 49.1 % (42.0-52.0); Hemoglobin 15.2 g/dL (14.1-18.0); Immature Granulocytes % 0.3 %; Mean Corpuscular HGB Conc 31.0 g/dL (31.8-35.4); Mean Corpuscular Hemoglobin 29.5 pg (27.0-31.2); Mean Corpuscular Volume 95.3 fl (80-94); Nucleated Red Blood Cells % 0 %; Platelet Count 331 K/mm3 (142-424); Red Blood Count 5.15 M/mm3 (4.60-6.20); Red Cell Distribution Width-SD 53.3 fL; White Blood Count 9.8 K/mm3 (4.8-10.8)
[2025-03-11 14:45] LABS: Alanine Aminotransferase 15 U/L (12-78); Albumin Level 4.2 g/dl (3.5-5.0); Albumin/Globulin Ratio 1.3 (1.1-1.8); Alkaline Phosphatase 116 U/L (38-126); Anion Gap 17.1 mEq/L (5-15); Aspartate Amino Transferase 25 U/L (17-59); Bilirubin,Total 0.6 mg/dl (0.2-1.3); Blood Urea Nitrogen 18 mg/dl (9-20); Calcium 9.1 mg/dl (8.4-10.2); Carbon Dioxide 27 mmol/L (22.0-30.0); Chloride 102 mmol/L (98-107); Cholesterol 176 mg/dl (140-200); Creatinine,Serum 1.10 mg/dl (0.66-1.25); Estimated Glomerular Filt Rate 65 ml/min (>60); GFR (African American) 79 ML/MIN (>60); Globulin 3.2 g/dL (1.3-3.2); Glucose 116 mg/dl (74-100); HDL Cholesterol 66 mg/dl (40-60); Potassium 5.1 mmoL/L (3.5-5.1); Sodium 141 mmol/L (136-145); Total Protein,Serum 7.4 g/dl (6.3-8.2); Triglycerides 142 mg/dl (30-150)
[2025-03-11 15:07] LABS: Hemoglobin A1C 6.3 % (4.0-6.0)
== END 2025-03-11 23:59 | disposition home or self-care (01) ==
LOC: LAB.DROPOF 03-14 12:57
PROVIDERS: PCP Internal Medicine; Visit Provider Internal Medicine
DX: E78.5 Hyperlipidemia, unspecified (principal); Z12.5 Encounter for screening for malignant neoplasm of prostate; E11.59 Type 2 diabetes mellitus with other circulatory complications; E11.42 Type 2 diabetes mellitus with diabetic polyneuropathy; I11.0 Hypertensive heart disease with heart failure; I50.32 Chronic diastolic (congestive) heart failure
CPT/HCPCS: 80053; 80061; 83036; 85025; G0103